=== PATIENT | male | born 1965 | race Caucasian/White ===

== ENCOUNTER 2016-06-27 01:05 | Emergency (ER) | payer SELFPAY ==
[~2016-06-27] VITALS: Ht 182.9 cm; Wt 68.0 kg
[2016-06-27] MEDS ORDERED: ACETAMINOPHEN 325 MG TABLET. PO ONE (02:00)
[2016-06-27] MEDS ORDERED: ORPHENADRINE CITRATE 60 MG/2 ML VIAL. IM ONE (02:00)
[2016-06-27] MEDS ORDERED: KETOROLAC TROMETHAMINE 60 MG/2 ML SYRINGE. IM ONE (02:00)
[2016-06-27] MEDS ORDERED: IPRATRPIUM/ALBUTEROL 0.5/2.5MG 3 ML NEBU. NEB ONE (02:15)
[2016-06-27 02:33] LABS: OBC FLU VALID
--- NOTE | 2016-06-27 03:39 | RAD ---
PQRS STATEMENT One or more of the following individualized dose reduction techniques were utilized for this study:1.Automated exposure control. 2.Adjustment of the mA and/orkVaccording to patient size. 3.Use of iterative reconstruction technique CT chest. Indication: atelectasis vs. infiltrate Reason: right lower lobe atelectasis versus infiltrate, possible rib fractures / Spl. Instructions: / History: TECHNIQUE Multiple contiguous axial images were obtained through the chest. Coronal reformations were created. Findings: There is a masslike opacity in the right lower lobe that measures 4.9 x 3.8 centimeters. There is a very small right pleural effusion. No pneumothorax. There is mild centrilobular emphysema. Heart size is normal. Thoracic aorta is normal in caliber. Limited subdiaphragmatic evaluation shows no acute abnormality. No destructive osseous lesion. There is mediastinal and right greater than left adenopathy. This is difficult to measure in the absence of IV contrast. Impression: - There is a masslike opacity in the right lower lobe. This could represent neoplasm or consolidation from infection. Neoplasm is strongly considered given the presence of mediastinum right hilar adenopathy. Electronically signed by: Froilan Cox (Jun 27, 2016 03:38:12)
[2016-06-27] MEDS ORDERED: LEVO750T31 PO (03:59)
[2016-06-27] MEDS ORDERED: PROAIR HFA8.5 GM INH (03:59)
[2016-06-27] MEDS ORDERED: HYDR-971 PO (03:59)
[2016-06-27 04:00] VITALS: BP 97/56
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
--- NOTE | 2016-06-27 06:30 | EKG ---
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
--- NOTE | 2016-06-27 07:40 | RAD ---
Indication post breathing treatment. A single view of the chest was obtained at 0306 and is compared to an examination approximately 90 minutes earlier. The appearance of the chest is unchanged. Volume loss, compatible with atelectasis or pneumonia, in the right lower lobe persists. IMPRESSION: Persistent volume loss in the right lower lobe most compatible with atelectasis or pneumonia. No significant change in the appearance of the chest compared to the study earlier in the day
== END 2016-06-27 04:15 | disposition home or self-care (01) ==
LOC: ER 01:05
DX: R91.8 Other nonspecific abnormal finding of lung field (principal); R07.89 Other chest pain; F15.10 Other stimulant abuse, uncomplicated
CPT/HCPCS: 71010; 71101; 71250; 87804; 93005; 94640; 96372; 99285; J1885; J2360; J7620

== ENCOUNTER 2016-06-27 16:56 | Inpatient (IN) | payer SELFPAY ==
[~2016-06-27] VITALS: Ht 182.9 cm; Wt 70.0 kg
[~2016-06-27 16:56] MED LIST: HYDR-971 PO; LEVO750T31 PO; PROAIR HFA8.5 GM INH
[2016-06-27] MEDS ORDERED: ACETAMINOPHEN 325 MG TABLET. PO PRN (17:45)
[2016-06-27] MEDS ORDERED: FENTANYL PF 100 MCG/2 ML VIAL. IV PRN (17:45)
[2016-06-27] MEDS ORDERED: ONDANSETRON PF 4 MG/2 ML VIAL. IV PRN (17:45)
[2016-06-27 17:49] LABS: BASO # 0.1 x10^3/uL (0.0-0.2); BASO % 1 % (0-3); EOS % 11 % (0-3); HEMATOCRIT 35.5 % (39.0-53.0); HEMOGLOBIN 11.7 g/dL (13.0-17.5); LYMPH # 1.7 x10^3/uL (1.0-4.8); LYMPH % 21 % (24-48); MEAN CORPUSCULAR HEMOGLOBIN 28 pg (25-35); MEAN CORPUSCULAR HGB CONC 33 g/dL (31-37); MEAN CORPUSCULAR VOLUME 85 fL (79-100); MONO % 6 % (0-9); NEUT % 62 % (31-73); PLATELET COUNT 342 x10^3/uL (140-400); RED CELL DISTRIBUTION WIDTH 15.1 % (11.5-14.5); WHITE BLOOD COUNT 8.3 x10^3/uL (4.0-11.0)
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
[2016-06-27] MEDS: IPRATRPIUM/ALBUTEROL 0.5/2.5MG 3 ML NEBU. NEB SCH (17:59)
[2016-06-27 18:00] LABS: CALCIUM 8.6 mg/dL (8.5-10.1); GFR 79.1; POTASSIUM 3.7 mmol/L (3.5-5.1)
[2016-06-27 19:20] VITALS: BP 128/86
[2016-06-27 23:00] VITALS: BP 140/88
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
[2016-06-28 03:00] VITALS: BP 126/81
[2016-06-28 04:58] LABS: BASO # 0.1 x10^3/uL (0.0-0.2); BASO % 1 % (0-3); EOS % 12 % (0-3); HEMOGLOBIN 11.3 g/dL (13.0-17.5); LYMPH # 1.7 x10^3/uL (1.0-4.8); LYMPH % 22 % (24-48); MEAN CORPUSCULAR HEMOGLOBIN 28 pg (25-35); MEAN CORPUSCULAR HGB CONC 32 g/dL (31-37); MEAN CORPUSCULAR VOLUME 87 fL (79-100); MONO % 7 % (0-9); NEUT % 59 % (31-73); PLATELET COUNT 316 x10^3/uL (140-400); RED BLOOD COUNT 4.04 x10^6/uL (4.30-5.70); RED CELL DISTRIBUTION WIDTH 15.5 % (11.5-14.5); WHITE BLOOD COUNT 7.8 x10^3/uL (4.0-11.0)
[2016-06-28 05:18] LABS: CALCIUM 8.5 mg/dL (8.5-10.1); CREATININE 0.8 mg/dL (0.7-1.3); GFR 102.3; POTASSIUM 4.1 mmol/L (3.5-5.1)
--- NOTE | 2016-06-28 06:33 | EKG ---
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
[2016-06-28 07:00] VITALS: BP 118/71
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
[2016-06-28] MEDS: IPRATRPIUM/ALBUTEROL 0.5/2.5MG 3 ML NEBU. NEB SCH ×4 (08:31→19:31)
[2016-06-28] MEDS: NICOTINE 21MG PATCH. TD SCH (08:31)
--- NOTE | 2016-06-28 09:07 | PDOC ---
Provider Note Provider Note MED ONC CONSULT 1. RLL lung mass - ordered CT, bone scan, MRI brain, Consult pulmonary for bx Consult social media manager as pt has no insurance see dictation YOSI WEEMS MD Jun 28, 2016 09:07
[2016-06-28 11:00] VITALS: BP 114/68
[2016-06-28] MEDS ORDERED: IOHEXOL 300 MG/ML 75 ML VIAL IV ONE (12:15)
[2016-06-28] MEDS ORDERED: CONTRAST GIVEN MC PRN (12:15)
[2016-06-28] MEDS ORDERED: IOHEXOL 240 MG/ML 50ML VIAL. PO ONE (12:15)
--- NOTE | 2016-06-28 12:35 | PDOC ---
Provider Note Provider Note dictated RLL mass like consolidation/ adenopathy suspect malignancy but pneumonic consolidation is also a possibility (CXR in Apr clear but may have missed a sub-pulmonic process as no lateral view done) start antibiotics ct guided bx JEAN ZUNIGA MD Jun 28, 2016 12:35
[2016-06-28 12:48] LABS: ALBUMIN 2.6 g/dL (3.4-5.0); DIRECT BILIRUBIN 0.1 mg/dL (0.0-0.2); TOTAL BILIRUBIN 0.2 mg/dL (0.2-1.0); TOTAL PROTEIN 6.8 g/dL (6.4-8.2)
--- NOTE | 2016-06-28 13:52 | RAD ---
Indication stage IV lung malignancy. 27 mCi of technetium labeled MDP was administered. Whole body static images were obtained. No prior bone scan imaging is available There is some slightly increased uptake in the left ankle which may be posttraumatic or arthritic in nature. Slightly increased uptake in the knees and elbows is likely arthritic. No abnormal activity to suggest skeletal metastatic disease is seen. Normal activity is seen in the kidneys and urinary bladder. IMPRESSION: Negative study for skeletal metastatic disease
[2016-06-28 15:00] VITALS: BP 125/78
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
--- NOTE | 2016-06-28 15:11 | RAD ---
Indication assess for [employer] metastatic disease. Pre and postcontrast images of the head were obtained. Postcontrast images were obtained following the administration of approximately 75 cc of Omnipaque 300. No prior imaging of the head is available. The calvarium appears unremarkable. The visualized paranasal sinuses appear normal. Ventricles and sulci are normal. There is no subdural or epidural hematoma. There is no mass seen. No midline shift is apparent. There is no hemorrhage. Acute finding is not seen. Following contrast administration no abnormal areas are seen to enhance. If the clinical suspicion of [employer] metastatic disease is strong additional evaluation could be obtained with MRI. IMPRESSION: Normal pre and postcontrast CT images of the RS Compliance Statement: One or more of the following individualized dose reduction techniques were utilized for this examination: 1. Automated exposure control 2. Adjustment of the mA and/or kV according to patient size 3. Use of iterative reconstruction technique
--- NOTE | 2016-06-28 15:37 | PDOC ---
PROGRESS NOTES Chief Complaint Chief Complaint SOB Cough R CP ASSESSMENT AND PLAN: 1. Lung mass: CT report prob overinterpreted: d/w Dr Nash and VIR: appears more like PNA. added Abx. however, hx is suspicious in 2ppd smoker, persistent CP x3 months, wt loss... staging CT (head to pelvis) and bone scan otherwise neg 2. PNA: levaquin added; suppl O2 3. Tobacco use: cessation counseled. nicotine patch 4. PCM: moderate. supplements 5. Prophylaxis: lovenox 6. Dispo: rpt CXR on Fri, reeval clinical picture. poss d/c then Vitals Vitals Vital Signs Date Time Temp Pulse Resp B/P Pulse Ox O2 Delivery O2 Flow Rate FiO2 06/28/16 12:08 98 Room Air 06/28/16 11:00 98.6 75 20 114/68 98.6 Physical Exam General: Alert, Oriented X3, No acute distress Heart: Regular rate Lungs: Wheezing Abdomen: Normal bowel sounds, Soft, No tenderness Extremities: No clubbing, No edema Skin: No rashes Labs LABS Laboratory Tests Test 06/27/16 17:37 06/28/16 04:25 06/28/16 11:19 White Blood Count 8.3x10^3/uL (4.0-11.0) 7.8x10^3/uL (4.0-11.0) Red Blood Count 4.20x10^6/uL (4.30-5.70) 4.04x10^6/uL (4.30-5.70) Hemoglobin 11.7g/dL (13.0-17.5) 11.3g/dL (13.0-17.5) Hematocrit 35.5% (39.0-53.0) 35.0% (39.0-53.0) Mean Corpuscular Volume 85fL (79-100) 87fL (79-100) Mean Corpuscular Hemoglobin 28pg (25-35) 28pg (25-35) Mean Corpuscular Hemoglobin Concent 33g/dL (31-37) 32g/dL (31-37) Red Cell Distribution Width 15.1% (11.5-14.5) 15.5% (11.5-14.5) Platelet Count 342x10^3/uL (140-400) 316x10^3/uL (140-400) Neutrophils (%) (Auto) 62% (31-73) 59% (31-73) Lymphocytes (%) (Auto) 21% (24-48) 22% (24-48) Monocytes (%) (Auto) 6% (0-9) 7% (0-9) Eosinophils (%) (Auto) 11% (0-3) 12% (0-3) Basophils (%) (Auto) 1% (0-3) 1% (0-3) Neutrophils # (Auto) 5.2x10^3uL (1.8-7.7) 4.6x10^3uL (1.8-7.7) Lymphocytes # (Auto) 1.7x10^3/uL (1.0-4.8) 1.7x10^3/uL (1.0-4.8) Monocytes # (Auto) 0.5x10^3/uL (0.0-1.1) 0.5x10^3/uL (0.0-1.1) Eosinophils # (Auto) 0.9x10^3/uL (0.0-0.7) 0.9x10^3/uL (0.0-0.7) Basophils # (Auto) 0.1x10^3/uL (0.0-0.2) 0.1x10^3/uL (0.0-0.2) Sodium Level 139mmol/L (136-145) 140mmol/L (136-145) Potassium Level 3.7mmol/L (3.5-5.1) 4.1mmol/L (3.5-5.1) Chloride Level 105mmol/L (98-107) 106mmol/L (98-107) Carbon Dioxide Level 27mmol/L (21-32) 26mmol/L (21-32) Anion Gap 7 (6-14) 8 (6-14) Blood Urea Nitrogen 10mg/dL (8-26) 8mg/dL (8-26) Creatinine 1.0mg/dL (0.7-1.3) 0.8mg/dL (0.7-1.3) Estimated GFR (Cockcroft-Gault) 79.1 102.3 Glucose Level 156mg/dL (70-99) 98mg/dL (70-99) Calcium Level 8.6mg/dL (8.5-10.1) 8.5mg/dL (8.5-10.1) Troponin I Quantitative < 0.017ng/mL (0.000-0.055) Total Bilirubin 0.2mg/dL (0.2-1.0) Direct Bilirubin 0.1mg/dL (0.0-0.2) Aspartate Amino Transf (AST/SGOT) 26U/L (15-37) Alanine Aminotransferase (ALT/SGPT) 28U/L (16-63) Alkaline Phosphatase 94U/L (46-116) Total Protein 6.8g/dL (6.4-8.2) Albumin 2.6g/dL (3.4-5.0) Glucose (Fingerstick) 97mg/dL (70-99) Review of Systems Review of Systems remains SOB, worse with exertion. R CP waxing and waning Comment Review of Relevant I have reviewed the following items reynold (where applicable) has been applied. Labs Laboratory Tests Test 06/27/16 17:37 06/28/16 04:25 06/28/16 11:19 White Blood Count 8.3x10^3/uL (4.0-11.0) 7.8x10^3/uL (4.0-11.0) Red Blood Count 4.20x10^6/uL (4.30-5.70) 4.04x10^6/uL (4.30-5.70) Hemoglobin 11.7g/dL (13.0-17.5) 11.3g/dL (13.0-17.5) Hematocrit 35.5% (39.0-53.0) 35.0% (39.0-53.0) Mean Corpuscular Volume 85fL (79-100) 87fL (79-100) Mean Corpuscular Hemoglobin 28pg (25-35) 28pg (25-35) Mean Corpuscular Hemoglobin Concent 33g/dL (31-37) 32g/dL (31-37) Red Cell Distribution Width 15.1% (11.5-14.5) 15.5% (11.5-14.5) Platelet Count 342x10^3/uL (140-400) 316x10^3/uL (140-400) Neutrophils (%) (Auto) 62% (31-73) 59% (31-73) Lymphocytes (%) (Auto) 21% (24-48) 22% (24-48) Monocytes (%) (Auto) 6% (0-9) 7% (0-9) Eosinophils (%) (Auto) 11% (0-3) 12% (0-3) Basophils (%) (Auto) 1% (0-3) 1% (0-3) Neutrophils # (Auto) 5.2x10^3uL (1.8-7.7) 4.6x10^3uL (1.8-7.7) Lymphocytes # (Auto) 1.7x10^3/uL (1.0-4.8) 1.7x10^3/uL (1.0-4.8) Monocytes # (Auto) 0.5x10^3/uL (0.0-1.1) 0.5x10^3/uL (0.0-1.1) Eosinophils # (Auto) 0.9x10^3/uL (0.0-0.7) 0.9x10^3/uL (0.0-0.7) Basophils # (Auto) 0.1x10^3/uL (0.0-0.2) 0.1x10^3/uL (0.0-0.2) Sodium Level 139mmol/L (136-145) 140mmol/L (136-145) Potassium Level 3.7mmol/L (3.5-5.1) 4.1mmol/L (3.5-5.1) Chloride Level 105mmol/L (98-107) 106mmol/L (98-107) Carbon Dioxide Level 27mmol/L (21-32) 26mmol/L (21-32) Anion Gap 7 (6-14) 8 (6-14) Blood Urea Nitrogen 10mg/dL (8-26) 8mg/dL (8-26) Creatinine 1.0mg/dL (0.7-1.3) 0.8mg/dL (0.7-1.3) Estimated GFR (Cockcroft-Gault) 79.1 102.3 Glucose Level 156mg/dL (70-99) 98mg/dL (70-99) Calcium Level 8.6mg/dL (8.5-10.1) 8.5mg/dL (8.5-10.1) Troponin I Quantitative < 0.017ng/mL (0.000-0.055) Total Bilirubin 0.2mg/dL (0.2-1.0) Direct Bilirubin 0.1mg/dL (0.0-0.2) Aspartate Amino Transf (AST/SGOT) 26U/L (15-37) Alanine Aminotransferase (ALT/SGPT) 28U/L (16-63) Alkaline Phosphatase 94U/L (46-116) Total Protein 6.8g/dL (6.4-8.2) Albumin 2.6g/dL (3.4-5.0) Glucose (Fingerstick) 97mg/dL (70-99) Laboratory Tests Test 06/27/16 17:37 06/28/16 04:25 06/28/16 11:19 White Blood Count 8.3x10^3/uL (4.0-11.0) 7.8x10^3/uL (4.0-11.0) Red Blood Count 4.20x10^6/uL (4.30-5.70) 4.04x10^6/uL (4.30-5.70) Hemoglobin 11.7g/dL (13.0-17.5) 11.3g/dL (13.0-17.5) Hematocrit 35.5% (39.0-53.0) 35.0% (39.0-53.0) Mean Corpuscular Volume 85fL (79-100) 87fL (79-100) Mean Corpuscular Hemoglobin 28pg (25-35) 28pg (25-35) Mean Corpuscular Hemoglobin Concent 33g/dL (31-37) 32g/dL (31-37) Red Cell Distribution Width 15.1% (11.5-14.5) 15.5% (11.5-14.5) Platelet Count 342x10^3/uL (140-400) 316x10^3/uL (140-400) Neutrophils (%) (Auto) 62% (31-73) 59% (31-73) Lymphocytes (%) (Auto) 21% (24-48) 22% (24-48) Monocytes (%) (Auto) 6% (0-9) 7% (0-9) Eosinophils (%) (Auto) 11% (0-3) 12% (0-3) Basophils (%) (Auto) 1% (0-3) 1% (0-3) Neutrophils # (Auto) 5.2x10^3uL (1.8-7.7) 4.6x10^3uL (1.8-7.7) Lymphocytes # (Auto) 1.7x10^3/uL (1.0-4.8) 1.7x10^3/uL (1.0-4.8) Monocytes # (Auto) 0.5x10^3/uL (0.0-1.1) 0.5x10^3/uL (0.0-1.1) Eosinophils # (Auto) 0.9x10^3/uL (0.0-0.7) 0.9x10^3/uL (0.0-0.7) Basophils # (Auto) 0.1x10^3/uL (0.0-0.2) 0.1x10^3/uL (0.0-0.2) Sodium Level 139mmol/L (136-145) 140mmol/L (136-145) Potassium Level 3.7mmol/L (3.5-5.1) 4.1mmol/L (3.5-5.1) Chloride Level 105mmol/L (98-107) 106mmol/L (98-107) Carbon Dioxide Level 27mmol/L (21-32) 26mmol/L (21-32) Anion Gap 7 (6-14) 8 (6-14) Blood Urea Nitrogen 10mg/dL (8-26) 8mg/dL (8-26) Creatinine 1.0mg/dL (0.7-1.3) 0.8mg/dL (0.7-1.3) Estimated GFR (Cockcroft-Gault) 79.1 102.3 Glucose Level 156mg/dL (70-99) 98mg/dL (70-99) Calcium Level 8.6mg/dL (8.5-10.1) 8.5mg/dL (8.5-10.1) Troponin I Quantitative < 0.017ng/mL (0.000-0.055) Total Bilirubin 0.2mg/dL (0.2-1.0) Direct Bilirubin 0.1mg/dL (0.0-0.2) Aspartate Amino Transf (AST/SGOT) 26U/L (15-37) Alanine Aminotransferase (ALT/SGPT) 28U/L (16-63) Alkaline Phosphatase 94U/L (46-116) Total Protein 6.8g/dL (6.4-8.2) Albumin 2.6g/dL (3.4-5.0) Glucose (Fingerstick) 97mg/dL (70-99) Medications Current Medications Ondansetron HCl (Zofran) 4 mg PRN Q8HRS PRN IV NAUSEA/VOMITING; Start 06/27/16 at 17:45; Stop 06/28/16 at 17:44 Fentanyl Citrate (Fentanyl 2ml Vial) 50 mcg PRN Q2HR PRN IV PAIN; Start at 17:45; Stop 06/28/16 at 17:44 Acetaminophen (Tylenol) 650 mg PRN Q4HRS PRN PO FEVER; Start 06/27/16 at 17:45 ; Stop 06/28/16 at 17:44 Albuterol/ Ipratropium (Duoneb) 3 ml RTQID NEB Last administered on 06/28/16 12:08; Start 06/27/16 at 20:00; Stop 06/28/16 at 19:59 Nicotine (Nicoderm Cq 21mg) 1 patch DAILY TD Last administered on 06/28/16 08: 31; Start 06/28/16 at 09:00 Iohexol (Omnipaque 240 Mg/ml) 30 ml 1X ONCE PO Last administered on 06/28/16 13:24; Start 06/28/16 at 12:15; Stop 06/28/16 at 12:16; Status DC Iohexol (Omnipaque 300 Mg/ml) 75 ml 1X ONCE IV Last administered on 06/28/16 13:24; Start 06/28/16 at 12:15; Stop 06/28/16 at 12:16; Status DC Info (Do NOT chart on this entry -- for MONITORING) 1 each PRN DAILY PRN MC SEE COMMENTS; Start 06/28/16 at 12:15; Stop 06/30/16 at 12:14 Active Scripts Active [place] 5-325 Tablet (Acetaminophen/Hydrocodone Bitart) 1 Each Tablet 1-2 Tab PO Q4-6HRS PRN Proair Hfa Inhaler (Albuterol Sulfate) 8.5 Gm Hfa.aer.ad 2 Puff INH Q4-6HRS PRN Levaquin (Levofloxacin) 750 Mg Tablet 1 Tab PO DAILY Reported No Known Medications Prior To Admisstion (Info) Each 1 Each No Known Medications Prior To Admisstion (Info) Each 1 Each Vitals/I & O Vital Sign - Last 24 Hours 06/27/16 06/27/16 06/27/16 06/27/16 17:21 17:59 18:42 19:12 Temp 97.4 97.4 Pulse 69 72 78 Resp 18 B/P 145/88 130/77 125/70 Pulse Ox 99 96 96 96 O2 Delivery Room Air Room Air Room Air Room Air 06/27/16 06/27/16 06/27/16 06/28/16 19:20 23:00 23:32 03:00 Temp 98.1 98.4 98.3 98.1 98.4 98.3 Pulse 70 71 67 Resp 20 18 18 B/P 128/86 140/88 126/81 Pulse Ox 99 98 98 O2 Delivery Room Air 06/28/16 06/28/16 06/28/16 06/28/16 07:00 08:33 11:00 12:08 Temp 98.6 98.6 98.6 98.6 Pulse 74 75 Resp 20 20 B/P 118/71 114/68 Pulse Ox 96 97 96 98 O2 Delivery Room Air Room Air Room Air Room Air Intake and Output 06/27/16 06/27/16 06/28/16 15:00 23:00 07:00 Intake Total 240 ml Balance 240 ml ANA MADDEN MD Jun 28, 2016 15:37
[2016-06-28] MEDS: ENOXAPARIN 40 MG/0.4 ML DISP.SYRIN. SQ SCH (18:15)
[2016-06-28 19:44] VITALS: BP 116/70
[2016-06-28 22:49] VITALS: BP 121/79
--- NOTE | 2016-06-28 23:48 | CONS ---
DATE OF CONSULTATION: 06/28/2016 ATTENDING PHYSICIAN: Dr. Ana Flores REASON FOR CONSULTATION: Abnormal CT chest, lung mass. HISTORY OF PRESENT ILLNESS: The patient is a 50-year-old male who came to the hospital with complaint of pain in the right side of the chest and shortness of breath. He has a cough which has been present for 6 months. He has lost about 10-pound weight in last 6 months, which is all unintentional. The patient was seen in the Emergency Room. A CT chest was performed, which was reviewed by me. The patient has a mass which is about 3.9 cm in size in the right lower lobe. There is also right hilar adenopathy and also pretracheal adenopathy. There are surrounding infiltrates as well. He had a chest x-ray in April 2016. At that time, it was clear. Consultation requested for further evaluation and management. PAST MEDICAL HISTORY: History of tobaccoism for 20 years. Possible COPD. PAST SURGICAL HISTORY: No recent surgery. FAMILY HISTORY: Father with lung cancer at age 55. 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 ALLERGIES: None. CURRENT MEDICATIONS: Reviewed as listed in the MRAD. REVIEW OF SYSTEMS: As discussed in my history of present illness. Otherwise, noncontributory. PHYSICAL EXAMINATION: VITAL SIGNS: Stable, afebrile, pulse ox 98% on room air. NECK: Supple. LUNGS: Diminished breath sounds right base. CARDIOVASCULAR: Regular rate and rhythm. ABDOMEN: Soft, nontender. EXTREMITIES: With no pitting edema. LABORATORY DATA: Reviewed. White cell count 7.8, hemoglobin 11.3, platelets 316, BUN 18, creatinine 0.8. IMPRESSION: 1. Right lower lobe mass in a patient who has been coughing for 6 months. He has right hilar adenopathy and pretracheal adenopathy and 10-pound unintentional weight loss. I suspect that we most likely dealing with a primary lung malignancy, however a pneumonic consolidation is also a consideration. His chest x-ray was clear in 04/2016 but it may have missed a sub-pulmonic process based on a portable CXR. I would recommend to proceed with CT-guided biopsy for further evaluation . 2. Suspected underlying chronic obstructive pulmonary disease. 3. Ten-pound weight loss. RECOMMENDATIONS: 1. Proceed with metastatic workup per Oncology recommendations. 2. Discussed with the patient, he agrees to proceed with CT-guided biopsy. 3. PFTs as an outpatient. 4. Further recommendations to follow once biopsy results and further imaging studies are available. 5. I would recommend adding empiric antibiotics for now. JEAN ZUNIGA MD DR: ELVIS/rafita JOB#: [id number] / [id number] ANA Jack MD MTDRamin
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
[2016-06-29] MEDS: IBUPROFEN 400 MG TABLET. PO PRN ×4 (03:09→22:20)
[2016-06-29 05:41] LABS: BASO # 0.1 x10^3/uL (0.0-0.2); BASO % 1 % (0-3); EOS % 11 % (0-3); HEMOGLOBIN 11.6 g/dL (13.0-17.5); LYMPH # 1.8 x10^3/uL (1.0-4.8); LYMPH % 25 % (24-48); MEAN CORPUSCULAR HEMOGLOBIN 28 pg (25-35); MEAN CORPUSCULAR HGB CONC 32 g/dL (31-37); MEAN CORPUSCULAR VOLUME 86 fL (79-100); MONO % 7 % (0-9); NEUT % 56 % (31-73); PLATELET COUNT 327 x10^3/uL (140-400); RED BLOOD COUNT 4.17 x10^6/uL (4.30-5.70); RED CELL DISTRIBUTION WIDTH 15.2 % (11.5-14.5); WHITE BLOOD COUNT 7.3 x10^3/uL (4.0-11.0)
[2016-06-29 06:09] LABS: CALCIUM 8.7 mg/dL (8.5-10.1); CREATININE 0.8 mg/dL (0.7-1.3); GFR 102.3; POTASSIUM 3.9 mmol/L (3.5-5.1)
[2016-06-29 07:00] VITALS: BP 145/79
[2016-06-29] MEDS: NICOTINE 21MG PATCH. TD SCH (08:25)
[2016-06-29 11:00] VITALS: BP 108/64
--- NOTE | 2016-06-29 11:09 | PDOC ---
PROGRESS NOTES Chief Complaint Chief Complaint SOB Cough R CP ASSESSMENT AND PLAN: 1. Lung mass: CT report prob overinterpreted: d/w Dr Nash and VIR: appears more like PNA. added Abx. however, hx is suspicious in 2ppd smoker, persistent CP x3 months, wt loss... staging CT (head to pelvis) and bone scan otherwise neg 2. PNA: levaquin added; suppl O2 3. Tobacco use: cessation counseled. nicotine patch 4. PCM: moderate. supplements 5. Prophylaxis: lovenox 6. Dispo: rpt CXR on Fri, reeval clinical picture. poss d/c then History of Present Illness History of Present Illness Pt seen and examined DW RN VSS Vitals Vitals Vital Signs Date Time Temp Pulse Resp B/P Pulse Ox O2 Delivery O2 Flow Rate FiO2 06/29/16 11:00 97.7 74 18 108/64 97 Room Air 97.7 Physical Exam General: Alert, Oriented X3, No acute distress Heart: Regular rate, Normal S2 Lungs: Wheezing Abdomen: Normal bowel sounds, Soft, No tenderness Extremities: No clubbing, No edema Skin: No rashes Labs LABS Laboratory Tests Test 06/28/16 11:19 06/29/16 04:45 Glucose (Fingerstick) 97mg/dL (70-99) White Blood Count 7.3x10^3/uL (4.0-11.0) Red Blood Count 4.17x10^6/uL (4.30-5.70) Hemoglobin 11.6g/dL (13.0-17.5) Hematocrit 36.0% (39.0-53.0) Mean Corpuscular Volume 86fL (79-100) Mean Corpuscular Hemoglobin 28pg (25-35) Mean Corpuscular Hemoglobin Concent 32g/dL (31-37) Red Cell Distribution Width 15.2% (11.5-14.5) Platelet Count 327x10^3/uL (140-400) Neutrophils (%) (Auto) 56% (31-73) Lymphocytes (%) (Auto) 25% (24-48) Monocytes (%) (Auto) 7% (0-9) Eosinophils (%) (Auto) 11% (0-3) Basophils (%) (Auto) 1% (0-3) Neutrophils # (Auto) 4.1x10^3uL (1.8-7.7) Lymphocytes # (Auto) 1.8x10^3/uL (1.0-4.8) Monocytes # (Auto) 0.5x10^3/uL (0.0-1.1) Eosinophils # (Auto) 0.8x10^3/uL (0.0-0.7) Basophils # (Auto) 0.1x10^3/uL (0.0-0.2) Sodium Level 141mmol/L (136-145) Potassium Level 3.9mmol/L (3.5-5.1) Chloride Level 104mmol/L (98-107) Carbon Dioxide Level 28mmol/L (21-32) Anion Gap 9 (6-14) Blood Urea Nitrogen 13mg/dL (8-26) Creatinine 0.8mg/dL (0.7-1.3) Estimated GFR (Cockcroft-Gault) 102.3 Glucose Level 109mg/dL (70-99) Calcium Level 8.7mg/dL (8.5-10.1) Review of Systems Review of Systems CO CP CO WEAKNESS Assessment and Plan Assessmemt and Plan Problems Medical Problems: (1) Chest pain Status: Acute (2) Lung infiltrate Status: Acute ASSESSMENT AND PLAN: 1. Lung mass: CT report prob overinterpreted: d/w Dr Nash and VIR: appears more like PNA. added Abx. however, hx is suspicious in 2ppd smoker, persistent CP x3 months, wt loss... staging CT (head to pelvis) and bone scan otherwise neg 2. PNA: levaquin added; suppl O2 3. Tobacco use: cessation counseled. nicotine patch 4. PCM: moderate. supplements 5. Prophylaxis: lovenox 6. Dispo: rpt CXR on Mon, reeval clinical picture. poss d/c then Problems: Comment Review of Relevant I have reviewed the following items reynold (where applicable) has been applied. Labs Laboratory Tests Test 06/27/16 17:37 06/28/16 04:25 06/28/16 11:19 06/29/16 04:45 White Blood Count 8.3x10^3/uL (4.0-11.0) 7.8x10^3/uL (4.0-11.0) 7.3x10^3/uL (4.0-11.0) Red Blood Count 4.20x10^6/uL (4.30-5.70) 4.04x10^6/uL (4.30-5.70) 4.17x10^6/uL (4.30-5.70) Hemoglobin 11.7g/dL (13.0-17.5) 11.3g/dL (13.0-17.5) 11.6g/dL (13.0-17.5) Hematocrit 35.5% (39.0-53.0) 35.0% (39.0-53.0) 36.0% (39.0-53.0) Mean Corpuscular Volume 85fL (79-100) 87fL (79-100) 86fL (79-100) Mean Corpuscular Hemoglobin 28pg (25-35) 28pg (25-35) 28pg (25-35) Mean Corpuscular Hemoglobin Concent 33g/dL (31-37) 32g/dL (31-37) 32g/dL (31-37) Red Cell Distribution Width 15.1% (11.5-14.5) 15.5% (11.5-14.5) 15.2% (11.5-14.5) Platelet Count 342x10^3/uL (140-400) 316x10^3/uL (140-400) 327x10^3/uL (140-400) Neutrophils (%) (Auto) 62% (31-73) 59% (31-73) 56% (31-73) Lymphocytes (%) (Auto) 21% (24-48) 22% (24-48) 25% (24-48) Monocytes (%) (Auto) 6% (0-9) 7% (0-9) 7% (0-9) Eosinophils (%) (Auto) 11% (0-3) 12% (0-3) 11% (0-3) Basophils (%) (Auto) 1% (0-3) 1% (0-3) 1% (0-3) Neutrophils # (Auto) 5.2x10^3uL (1.8-7.7) 4.6x10^3uL (1.8-7.7) 4.1x10^3uL (1.8-7.7) Lymphocytes # (Auto) 1.7x10^3/uL (1.0-4.8) 1.7x10^3/uL (1.0-4.8) 1.8x10^3/uL (1.0-4.8) Monocytes # (Auto) 0.5x10^3/uL (0.0-1.1) 0.5x10^3/uL (0.0-1.1) 0.5x10^3/uL (0.0-1.1) Eosinophils # (Auto) 0.9x10^3/uL (0.0-0.7) 0.9x10^3/uL (0.0-0.7) 0.8x10^3/uL (0.0-0.7) Basophils # (Auto) 0.1x10^3/uL (0.0-0.2) 0.1x10^3/uL (0.0-0.2) 0.1x10^3/uL (0.0-0.2) Sodium Level 139mmol/L (136-145) 140mmol/L (136-145) 141mmol/L (136-145) Potassium Level 3.7mmol/L (3.5-5.1) 4.1mmol/L (3.5-5.1) 3.9mmol/L (3.5-5.1) Chloride Level 105mmol/L (98-107) 106mmol/L (98-107) 104mmol/L (98-107) Carbon Dioxide Level 27mmol/L (21-32) 26mmol/L (21-32) 28mmol/L (21-32) Anion Gap 7 (6-14) 8 (6-14) 9 (6-14) Blood Urea Nitrogen 10mg/dL (8-26) 8mg/dL (8-26) 13mg/dL (8-26) Creatinine 1.0mg/dL (0.7-1.3) 0.8mg/dL (0.7-1.3) 0.8mg/dL (0.7-1.3) Estimated GFR (Cockcroft-Gault) 79.1 102.3 102.3 Glucose Level 156mg/dL (70-99) 98mg/dL (70-99) 109mg/dL (70-99) Calcium Level 8.6mg/dL (8.5-10.1) 8.5mg/dL (8.5-10.1) 8.7mg/dL (8.5-10.1) Troponin I Quantitative < 0.017ng/mL (0.000-0.055) Total Bilirubin 0.2mg/dL (0.2-1.0) Direct Bilirubin 0.1mg/dL (0.0-0.2) Aspartate Amino Transf (AST/SGOT) 26U/L (15-37) Alanine Aminotransferase (ALT/SGPT) 28U/L (16-63) Alkaline Phosphatase 94U/L (46-116) Total Protein 6.8g/dL (6.4-8.2) Albumin 2.6g/dL (3.4-5.0) Glucose (Fingerstick) 97mg/dL (70-99) Laboratory Tests Test 06/28/16 11:19 06/29/16 04:45 Glucose (Fingerstick) 97mg/dL (70-99) White Blood Count 7.3x10^3/uL (4.0-11.0) Red Blood Count 4.17x10^6/uL (4.30-5.70) Hemoglobin 11.6g/dL (13.0-17.5) Hematocrit 36.0% (39.0-53.0) Mean Corpuscular Volume 86fL (79-100) Mean Corpuscular Hemoglobin 28pg (25-35) Mean Corpuscular Hemoglobin Concent 32g/dL (31-37) Red Cell Distribution Width 15.2% (11.5-14.5) Platelet Count 327x10^3/uL (140-400) Neutrophils (%) (Auto) 56% (31-73) Lymphocytes (%) (Auto) 25% (24-48) Monocytes (%) (Auto) 7% (0-9) Eosinophils (%) (Auto) 11% (0-3) Basophils (%) (Auto) 1% (0-3) Neutrophils # (Auto) 4.1x10^3uL (1.8-7.7) Lymphocytes # (Auto) 1.8x10^3/uL (1.0-4.8) Monocytes # (Auto) 0.5x10^3/uL (0.0-1.1) Eosinophils # (Auto) 0.8x10^3/uL (0.0-0.7) Basophils # (Auto) 0.1x10^3/uL (0.0-0.2) Sodium Level 141mmol/L (136-145) Potassium Level 3.9mmol/L (3.5-5.1) Chloride Level 104mmol/L (98-107) Carbon Dioxide Level 28mmol/L (21-32) Anion Gap 9 (6-14) Blood Urea Nitrogen 13mg/dL (8-26) Creatinine 0.8mg/dL (0.7-1.3) Estimated GFR (Cockcroft-Gault) 102.3 Glucose Level 109mg/dL (70-99) Calcium Level 8.7mg/dL (8.5-10.1) Medications Current Medications Ondansetron HCl (Zofran) 4 mg PRN Q8HRS PRN IV NAUSEA/VOMITING; Start 06/27/16 at 17:45; Stop 06/28/16 at 17:44; Status DC Fentanyl Citrate (Fentanyl 2ml Vial) 50 mcg PRN Q2HR PRN IV PAIN; Start at 17:45; Stop 06/28/16 at 17:44; Status DC Acetaminophen (Tylenol) 650 mg PRN Q4HRS PRN PO FEVER; Start 06/27/16 at 17:45 ; Stop 06/28/16 at 17:44; Status DC Albuterol/ Ipratropium (Duoneb) 3 ml RTQID NEB Last administered on 06/28/16 19:31; Start 06/27/16 at 20:00; Stop 06/28/16 at 19:59; Status DC Nicotine (Nicoderm Cq 21mg) 1 patch DAILY TD Last administered on 06/29/16 08: 25; Start 06/28/16 at 09:00 Iohexol (Omnipaque 240 Mg/ml) 30 ml 1X ONCE PO Last administered on 06/28/16 13:24; Start 06/28/16 at 12:15; Stop 06/28/16 at 12:16; Status DC Iohexol (Omnipaque 300 Mg/ml) 75 ml 1X ONCE IV Last administered on 06/28/16 13:24; Start 06/28/16 at 12:15; Stop 06/28/16 at 12:16; Status DC Info 1 each 1 each PRN DAILY PRN MC SEE COMMENTS; Start 06/28/16 at 12:15; Stop 06/30/16 at 12:14 Levofloxacin/ Dextrose (LEVAQUIN 500mg PREMIX) 100 ml @ 100 mls/hr Q24H IV Last administered on 06/28/16 18:14; Start 06/28/16 at 16:00 Ibuprofen (Motrin) 400 mg PRN Q6HRS PRN PO INFLAMMATION Last administered on 08:41; Start 06/28/16 at 15:30 Enoxaparin Sodium (Lovenox 40mg Syringe) 40 mg Q24H SQ Last administered on 18:15; Start 06/28/16 at 16:00 Active Scripts Active [place] 5-325 Tablet (Acetaminophen/Hydrocodone Bitart) 1 Each Tablet 1-2 Tab PO Q4-6HRS PRN Proair Hfa Inhaler (Albuterol Sulfate) 8.5 Gm Hfa.aer.ad 2 Puff INH Q4-6HRS PRN Levaquin (Levofloxacin) 750 Mg Tablet 1 Tab PO DAILY Reported No Known Medications Prior To Admisstion (Info) Each 1 Each No Known Medications Prior To Admisstion (Info) Each 1 Each Vitals/I & O Vital Sign - Last 24 Hours 06/28/16 06/28/16 06/28/16 06/28/16 12:08 15:00 15:56 19:44 Temp 97.9 98.6 97.9 98.6 Pulse 76 81 Resp 20 B/P 125/78 116/70 Pulse Ox 98 98 100 96 O2 Delivery Room Air Room Air Room Air Room Air 06/28/16 06/28/16 06/28/16 06/29/16 20:00 20:07 22:49 03:45 Temp 98.6 98.6 Pulse 86 Resp 20 20 B/P 121/79 Pulse Ox 98 96 O2 Delivery Room Air Room Air Room Air Room Air 06/29/16 06/29/16 06/29/16 07:00 08:00 11:00 Temp 98.2 97.7 98.2 97.7 Pulse 67 74 Resp 18 18 B/P 145/79 108/64 Pulse Ox 98 97 O2 Delivery Room Air Room Air Room Air Intake and Output 06/28/16 06/28/16 06/29/16 15:00 23:00 07:00 Intake Total 120 ml 360 ml 850 ml Balance 120 ml 360 ml 850 ml KHUSHBOO GREENWOOD III DO Jun 29, 2016 11:09
[2016-06-29 14:53] VITALS: BP 132/71
--- NOTE | 2016-06-29 15:10 | PDOC ---
PULMONARY PROGRESS NOTES Vitals Vital Signs Date Time Temp Pulse Resp B/P Pulse Ox O2 Delivery O2 Flow Rate FiO2 06/29/16 14:53 97.9 69 18 132/71 98 Room Air 97.9 Lungs: Wheezing Cardiovascular: S1, S2 Labs Laboratory Tests Test 06/27/16 17:37 06/28/16 04:25 06/28/16 11:19 06/29/16 04:45 White Blood Count 8.3x10^3/uL (4.0-11.0) 7.8x10^3/uL (4.0-11.0) 7.3x10^3/uL (4.0-11.0) Red Blood Count 4.20x10^6/uL (4.30-5.70) 4.04x10^6/uL (4.30-5.70) 4.17x10^6/uL (4.30-5.70) Hemoglobin 11.7g/dL (13.0-17.5) 11.3g/dL (13.0-17.5) 11.6g/dL (13.0-17.5) Hematocrit 35.5% (39.0-53.0) 35.0% (39.0-53.0) 36.0% (39.0-53.0) Mean Corpuscular Volume 85fL (79-100) 87fL (79-100) 86fL (79-100) Mean Corpuscular Hemoglobin 28pg (25-35) 28pg (25-35) 28pg (25-35) Mean Corpuscular Hemoglobin Concent 33g/dL (31-37) 32g/dL (31-37) 32g/dL (31-37) Red Cell Distribution Width 15.1% (11.5-14.5) 15.5% (11.5-14.5) 15.2% (11.5-14.5) Platelet Count 342x10^3/uL (140-400) 316x10^3/uL (140-400) 327x10^3/uL (140-400) Neutrophils (%) (Auto) 62% (31-73) 59% (31-73) 56% (31-73) Lymphocytes (%) (Auto) 21% (24-48) 22% (24-48) 25% (24-48) Monocytes (%) (Auto) 6% (0-9) 7% (0-9) 7% (0-9) Eosinophils (%) (Auto) 11% (0-3) 12% (0-3) 11% (0-3) Basophils (%) (Auto) 1% (0-3) 1% (0-3) 1% (0-3) Neutrophils # (Auto) 5.2x10^3uL (1.8-7.7) 4.6x10^3uL (1.8-7.7) 4.1x10^3uL (1.8-7.7) Lymphocytes # (Auto) 1.7x10^3/uL (1.0-4.8) 1.7x10^3/uL (1.0-4.8) 1.8x10^3/uL (1.0-4.8) Monocytes # (Auto) 0.5x10^3/uL (0.0-1.1) 0.5x10^3/uL (0.0-1.1) 0.5x10^3/uL (0.0-1.1) Eosinophils # (Auto) 0.9x10^3/uL (0.0-0.7) 0.9x10^3/uL (0.0-0.7) 0.8x10^3/uL (0.0-0.7) Basophils # (Auto) 0.1x10^3/uL (0.0-0.2) 0.1x10^3/uL (0.0-0.2) 0.1x10^3/uL (0.0-0.2) Sodium Level 139mmol/L (136-145) 140mmol/L (136-145) 141mmol/L (136-145) Potassium Level 3.7mmol/L (3.5-5.1) 4.1mmol/L (3.5-5.1) 3.9mmol/L (3.5-5.1) Chloride Level 105mmol/L (98-107) 106mmol/L (98-107) 104mmol/L (98-107) Carbon Dioxide Level 27mmol/L (21-32) 26mmol/L (21-32) 28mmol/L (21-32) Anion Gap 7 (6-14) 8 (6-14) 9 (6-14) Blood Urea Nitrogen 10mg/dL (8-26) 8mg/dL (8-26) 13mg/dL (8-26) Creatinine 1.0mg/dL (0.7-1.3) 0.8mg/dL (0.7-1.3) 0.8mg/dL (0.7-1.3) Estimated GFR (Cockcroft-Gault) 79.1 102.3 102.3 Glucose Level 156mg/dL (70-99) 98mg/dL (70-99) 109mg/dL (70-99) Calcium Level 8.6mg/dL (8.5-10.1) 8.5mg/dL (8.5-10.1) 8.7mg/dL (8.5-10.1) Troponin I Quantitative < 0.017ng/mL (0.000-0.055) Total Bilirubin 0.2mg/dL (0.2-1.0) Direct Bilirubin 0.1mg/dL (0.0-0.2) Aspartate Amino Transf (AST/SGOT) 26U/L (15-37) Alanine Aminotransferase (ALT/SGPT) 28U/L (16-63) Alkaline Phosphatase 94U/L (46-116) Total Protein 6.8g/dL (6.4-8.2) Albumin 2.6g/dL (3.4-5.0) Glucose (Fingerstick) 97mg/dL (70-99) Laboratory Tests Test 06/29/16 04:45 White Blood Count 7.3x10^3/uL (4.0-11.0) Red Blood Count 4.17x10^6/uL (4.30-5.70) Hemoglobin 11.6g/dL (13.0-17.5) Hematocrit 36.0% (39.0-53.0) Mean Corpuscular Volume 86fL (79-100) Mean Corpuscular Hemoglobin 28pg (25-35) Mean Corpuscular Hemoglobin Concent 32g/dL (31-37) Red Cell Distribution Width 15.2% (11.5-14.5) Platelet Count 327x10^3/uL (140-400) Neutrophils (%) (Auto) 56% (31-73) Lymphocytes (%) (Auto) 25% (24-48) Monocytes (%) (Auto) 7% (0-9) Eosinophils (%) (Auto) 11% (0-3) Basophils (%) (Auto) 1% (0-3) Neutrophils # (Auto) 4.1x10^3uL (1.8-7.7) Lymphocytes # (Auto) 1.8x10^3/uL (1.0-4.8) Monocytes # (Auto) 0.5x10^3/uL (0.0-1.1) Eosinophils # (Auto) 0.8x10^3/uL (0.0-0.7) Basophils # (Auto) 0.1x10^3/uL (0.0-0.2) Sodium Level 141mmol/L (136-145) Potassium Level 3.9mmol/L (3.5-5.1) Chloride Level 104mmol/L (98-107) Carbon Dioxide Level 28mmol/L (21-32) Anion Gap 9 (6-14) Blood Urea Nitrogen 13mg/dL (8-26) Creatinine 0.8mg/dL (0.7-1.3) Estimated GFR (Cockcroft-Gault) 102.3 Glucose Level 109mg/dL (70-99) Calcium Level 8.7mg/dL (8.5-10.1) Medications Active Scripts Medications Dose Route/Sig Days Date Category [place] 5-325 Tablet (Acetaminophen/Hydrocodone Bitart) 1 Each Tablet 1-2 Tab PO Q4-6HRS PRN 06/27/16 Rx Proair Hfa Inhaler (Albuterol Sulfate) 8.5 Gm Hfa.aer.ad 2 Puff INH Q4-6HRS PRN 06/27/16 Rx Levaquin (Levofloxacin) 750 Mg Tablet 1 Tab PO DAILY 06/27/16 Rx No Known Medications Prior To Admisstion (Info) Each 1 Each 04/19/16 Reported No Known Medications Prior To Admisstion (Info) Each 1 Each 04/19/16 Reported Impression . MPRESSION: 1. Right lower lobe mass in a patient who has been coughing for 6 months. He has right hilar adenopathy and pretracheal adenopathy and 10-pound unintentional weight loss. I suspect that we most likely dealing with a primary lung malignancy, however a pneumonic consolidation is also a consideration. His chest x-ray was clear in 04/2016 but it may have missed a sub-pulmonic process based on a portable CXR. I would recommend to proceed with CT-guided biopsy for further evaluation . 2. Suspected underlying chronic obstructive pulmonary disease. 3. Ten-pound weight loss. Plan . RECOMMENDATIONS: 1. Proceed with metastatic workup per Oncology recommendations. 2. Discussed with the patient, he agrees to proceed with CT-guided biopsy. 3. PFTs as an outpatient. 4. Further recommendations to follow once biopsy results and further imaging studies are available. 5. Continue empiric antibiotics for now. ZAKIA TRENT MD Jun 29, 2016 15:10
[2016-06-29] MEDS: ENOXAPARIN 40 MG/0.4 ML DISP.SYRIN. SQ SCH (15:48)
[2016-06-29] MEDS: ALBUTEROL SULFATE 2.5 MG/3 ML NEBU. NEB PRN ×2 (16:30→21:15)
[2016-06-29 19:00] VITALS: BP 118/76
[2016-06-29 23:00] VITALS: BP 117/65
[2016-06-30 07:00] VITALS: BP 120/87
[2016-06-30 09:19] LABS: BASO # 0.1 x10^3/uL (0.0-0.2); BASO % 1 % (0-3); EOS % 14 % (0-3); HEMATOCRIT 37.1 % (39.0-53.0); HEMOGLOBIN 12.2 g/dL (13.0-17.5); LYMPH # 1.5 x10^3/uL (1.0-4.8); LYMPH % 21 % (24-48); MEAN CORPUSCULAR HEMOGLOBIN 28 pg (25-35); MEAN CORPUSCULAR HGB CONC 33 g/dL (31-37); MEAN CORPUSCULAR VOLUME 85 fL (79-100); MONO % 5 % (0-9); NEUT % 58 % (31-73); PLATELET COUNT 348 x10^3/uL (140-400); RED BLOOD COUNT 4.38 x10^6/uL (4.30-5.70); RED CELL DISTRIBUTION WIDTH 15.1 % (11.5-14.5); WHITE BLOOD COUNT 6.9 x10^3/uL (4.0-11.0)
[2016-06-30 09:29] LABS: CREATININE 0.9 mg/dL (0.7-1.3); GFR 89.3; POTASSIUM 4.4 mmol/L (3.5-5.1)
[2016-06-30] MEDS: NICOTINE 21MG PATCH. TD SCH (09:51)
[2016-06-30] MEDS: IBUPROFEN 400 MG TABLET. PO PRN ×2 (09:52→15:48)
[2016-06-30 10:25] VITALS: BP 122/75
[2016-06-30] MEDS: ALBUTEROL SULFATE 2.5 MG/3 ML NEBU. NEB PRN ×2 (10:44→15:11)
--- NOTE | 2016-06-30 14:25 | PDOC ---
PROGRESS NOTES Chief Complaint Chief Complaint SOB Cough R CP ASSESSMENT AND PLAN: 1. Lung mass: CT report prob overinterpreted: d/w Dr Nash and VIR: appears more like PNA. added Abx. however, hx is suspicious in 2ppd smoker, persistent CP x3 months, wt loss... staging CT (head to pelvis) and bone scan otherwise neg 2. PNA: levaquin added; suppl O2 3. Tobacco use: cessation counseled. nicotine patch 4. PCM: moderate. supplements 5. Prophylaxis: lovenox 6. Dispo: rpt CXR on Fri, reeval clinical picture. poss d/c then History of Present Illness History of Present Illness Pt seen and examined DW RN VSS Vitals Vitals Vital Signs Date Time Temp Pulse Resp B/P Pulse Ox O2 Delivery O2 Flow Rate FiO2 06/30/16 10:45 100 Room Air 06/30/16 10:25 97.9 63 16 122/75 97.9 Physical Exam General: Alert, Oriented X3, No acute distress Heart: Regular rate, Normal S2 Lungs: Wheezing Abdomen: Normal bowel sounds, Soft, No tenderness Extremities: No clubbing, No edema Skin: No rashes Labs LABS Laboratory Tests Test 06/30/16 08:25 White Blood Count 6.9x10^3/uL (4.0-11.0) Red Blood Count 4.38x10^6/uL (4.30-5.70) Hemoglobin 12.2g/dL (13.0-17.5) Hematocrit 37.1% (39.0-53.0) Mean Corpuscular Volume 85fL (79-100) Mean Corpuscular Hemoglobin 28pg (25-35) Mean Corpuscular Hemoglobin Concent 33g/dL (31-37) Red Cell Distribution Width 15.1% (11.5-14.5) Platelet Count 348x10^3/uL (140-400) Neutrophils (%) (Auto) 58% (31-73) Lymphocytes (%) (Auto) 21% (24-48) Monocytes (%) (Auto) 5% (0-9) Eosinophils (%) (Auto) 14% (0-3) Basophils (%) (Auto) 1% (0-3) Neutrophils # (Auto) 4.0x10^3uL (1.8-7.7) Lymphocytes # (Auto) 1.5x10^3/uL (1.0-4.8) Monocytes # (Auto) 0.4x10^3/uL (0.0-1.1) Eosinophils # (Auto) 1.0x10^3/uL (0.0-0.7) Basophils # (Auto) 0.1x10^3/uL (0.0-0.2) Sodium Level 143mmol/L (136-145) Potassium Level 4.4mmol/L (3.5-5.1) Chloride Level 108mmol/L (98-107) Carbon Dioxide Level 26mmol/L (21-32) Anion Gap 9 (6-14) Blood Urea Nitrogen 12mg/dL (8-26) Creatinine 0.9mg/dL (0.7-1.3) Estimated GFR (Cockcroft-Gault) 89.3 Glucose Level 134mg/dL (70-99) Calcium Level 9.0mg/dL (8.5-10.1) Review of Systems Review of Systems co soa co weakness Assessment and Plan Assessmemt and Plan Problems Medical Problems: (1) Chest pain Status: Acute (2) Lung infiltrate Status: Acute ASSESSMENT AND PLAN: 1. Lung mass: CT report prob overinterpreted: Per pulm appears more like PNA. Cont Abx. however, hx is suspicious in 2ppd smoker, persistent CP x3 months, wt loss... staging CT (head to pelvis) and bone scan otherwise neg 2. PNA: levaquin added; suppl O2 3. Tobacco use: cessation counseled. nicotine patch 4. PCM: moderate. supplements 5. Prophylaxis: lovenox 6. Dispo: rpt CXR on Mon, reeval clinical picture. poss d/c then Problems: Comment Review of Relevant I have reviewed the following items reynold (where applicable) has been applied. Labs Laboratory Tests Test 06/29/16 04:45 06/30/16 08:25 White Blood Count 7.3x10^3/uL (4.0-11.0) 6.9x10^3/uL (4.0-11.0) Red Blood Count 4.17x10^6/uL (4.30-5.70) 4.38x10^6/uL (4.30-5.70) Hemoglobin 11.6g/dL (13.0-17.5) 12.2g/dL (13.0-17.5) Hematocrit 36.0% (39.0-53.0) 37.1% (39.0-53.0) Mean Corpuscular Volume 86fL (79-100) 85fL (79-100) Mean Corpuscular Hemoglobin 28pg (25-35) 28pg (25-35) Mean Corpuscular Hemoglobin Concent 32g/dL (31-37) 33g/dL (31-37) Red Cell Distribution Width 15.2% (11.5-14.5) 15.1% (11.5-14.5) Platelet Count 327x10^3/uL (140-400) 348x10^3/uL (140-400) Neutrophils (%) (Auto) 56% (31-73) 58% (31-73) Lymphocytes (%) (Auto) 25% (24-48) 21% (24-48) Monocytes (%) (Auto) 7% (0-9) 5% (0-9) Eosinophils (%) (Auto) 11% (0-3) 14% (0-3) Basophils (%) (Auto) 1% (0-3) 1% (0-3) Neutrophils # (Auto) 4.1x10^3uL (1.8-7.7) 4.0x10^3uL (1.8-7.7) Lymphocytes # (Auto) 1.8x10^3/uL (1.0-4.8) 1.5x10^3/uL (1.0-4.8) Monocytes # (Auto) 0.5x10^3/uL (0.0-1.1) 0.4x10^3/uL (0.0-1.1) Eosinophils # (Auto) 0.8x10^3/uL (0.0-0.7) 1.0x10^3/uL (0.0-0.7) Basophils # (Auto) 0.1x10^3/uL (0.0-0.2) 0.1x10^3/uL (0.0-0.2) Sodium Level 141mmol/L (136-145) 143mmol/L (136-145) Potassium Level 3.9mmol/L (3.5-5.1) 4.4mmol/L (3.5-5.1) Chloride Level 104mmol/L (98-107) 108mmol/L (98-107) Carbon Dioxide Level 28mmol/L (21-32) 26mmol/L (21-32) Anion Gap 9 (6-14) 9 (6-14) Blood Urea Nitrogen 13mg/dL (8-26) 12mg/dL (8-26) Creatinine 0.8mg/dL (0.7-1.3) 0.9mg/dL (0.7-1.3) Estimated GFR (Cockcroft-Gault) 102.3 89.3 Glucose Level 109mg/dL (70-99) 134mg/dL (70-99) Calcium Level 8.7mg/dL (8.5-10.1) 9.0mg/dL (8.5-10.1) Laboratory Tests Test 06/30/16 08:25 White Blood Count 6.9x10^3/uL (4.0-11.0) Red Blood Count 4.38x10^6/uL (4.30-5.70) Hemoglobin 12.2g/dL (13.0-17.5) Hematocrit 37.1% (39.0-53.0) Mean Corpuscular Volume 85fL (79-100) Mean Corpuscular Hemoglobin 28pg (25-35) Mean Corpuscular Hemoglobin Concent 33g/dL (31-37) Red Cell Distribution Width 15.1% (11.5-14.5) Platelet Count 348x10^3/uL (140-400) Neutrophils (%) (Auto) 58% (31-73) Lymphocytes (%) (Auto) 21% (24-48) Monocytes (%) (Auto) 5% (0-9) Eosinophils (%) (Auto) 14% (0-3) Basophils (%) (Auto) 1% (0-3) Neutrophils # (Auto) 4.0x10^3uL (1.8-7.7) Lymphocytes # (Auto) 1.5x10^3/uL (1.0-4.8) Monocytes # (Auto) 0.4x10^3/uL (0.0-1.1) Eosinophils # (Auto) 1.0x10^3/uL (0.0-0.7) Basophils # (Auto) 0.1x10^3/uL (0.0-0.2) Sodium Level 143mmol/L (136-145) Potassium Level 4.4mmol/L (3.5-5.1) Chloride Level 108mmol/L (98-107) Carbon Dioxide Level 26mmol/L (21-32) Anion Gap 9 (6-14) Blood Urea Nitrogen 12mg/dL (8-26) Creatinine 0.9mg/dL (0.7-1.3) Estimated GFR (Cockcroft-Gault) 89.3 Glucose Level 134mg/dL (70-99) Calcium Level 9.0mg/dL (8.5-10.1) Medications Current Medications Ondansetron HCl (Zofran) 4 mg PRN Q8HRS PRN IV NAUSEA/VOMITING; Start 06/27/16 at 17:45; Stop 06/28/16 at 17:44; Status DC Fentanyl Citrate (Fentanyl 2ml Vial) 50 mcg PRN Q2HR PRN IV PAIN; Start at 17:45; Stop 06/28/16 at 17:44; Status DC Acetaminophen (Tylenol) 650 mg PRN Q4HRS PRN PO FEVER; Start 06/27/16 at 17:45 ; Stop 06/28/16 at 17:44; Status DC Albuterol/ Ipratropium (Duoneb) 3 ml RTQID NEB Last administered on 06/28/16 19:31; Start 06/27/16 at 20:00; Stop 06/28/16 at 19:59; Status DC Nicotine (Nicoderm Cq 21mg) 1 patch DAILY TD Last administered on 06/30/16 09: 51; Start 06/28/16 at 09:00 Iohexol (Omnipaque 240 Mg/ml) 30 ml 1X ONCE PO Last administered on 06/28/16 13:24; Start 06/28/16 at 12:15; Stop 06/28/16 at 12:16; Status DC Iohexol (Omnipaque 300 Mg/ml) 75 ml 1X ONCE IV Last administered on 06/28/16 13:24; Start 06/28/16 at 12:15; Stop 06/28/16 at 12:16; Status DC Info 1 each 1 each PRN DAILY PRN MC SEE COMMENTS; Start 06/28/16 at 12:15; Stop 06/30/16 at 12:14; Status DC Levofloxacin/ Dextrose (LEVAQUIN 500mg PREMIX) 100 ml @ 100 mls/hr Q24H IV Last administered on 06/29/16 15:47; Start 06/28/16 at 16:00 Ibuprofen (Motrin) 400 mg PRN Q6HRS PRN PO INFLAMMATION Last administered on 09:52; Start 06/28/16 at 15:30 Enoxaparin Sodium (Lovenox 40mg Syringe) 40 mg Q24H SQ Last administered on 15:48; Start 06/28/16 at 16:00 Albuterol Sulfate (Ventolin Neb Soln) 2.5 mg PRN Q4HRS PRN NEB SHORTNESS OF BREATH Last administered on 06/30/16 10:44; Start 06/29/16 at 15:45 Active Scripts Active [place] 5-325 Tablet (Acetaminophen/Hydrocodone Bitart) 1 Each Tablet 1-2 Tab PO Q4-6HRS PRN Proair Hfa Inhaler (Albuterol Sulfate) 8.5 Gm Hfa.aer.ad 2 Puff INH Q4-6HRS PRN Levaquin (Levofloxacin) 750 Mg Tablet 1 Tab PO DAILY Reported No Known Medications Prior To Admisstion (Info) Each 1 Each No Known Medications Prior To Admisstion (Info) Each 1 Each Vitals/I & O Vital Sign - Last 24 Hours 06/29/16 06/29/16 06/29/16 06/29/16 14:53 16:30 19:00 20:00 Temp 97.9 97.7 97.9 97.7 Pulse 69 73 Resp 18 20 B/P 132/71 118/76 Pulse Ox 98 98 98 O2 Delivery Room Air Room Air Room Air Room Air 06/29/16 06/29/16 06/30/16 06/30/16:17 23:00 07:00 08:00 Temp 97.8 97.5 97.8 97.5 Pulse 85 72 Resp 20 16 B/P 117/65 120/87 Pulse Ox 98 94 100 O2 Delivery Room Air Room Air Room Air Room Air 06/30/16 06/30/16 10:25 10:45 Temp 97.9 97.9 Pulse 63 Resp 16 B/P 122/75 Pulse Ox 100 100 O2 Delivery Room Air Room Air Intake and Output 06/29/16 06/29/16 06/30/16 15:00 23:00 07:00 Intake Total 1100 ml 100 ml Balance 1100 ml 100 ml [id number] GREENWOOD III DO Jun 30, 2016 14:25
[2016-06-30 14:31] VITALS: BP 132/88
[2016-06-30] MEDS: ENOXAPARIN 40 MG/0.4 ML DISP.SYRIN. SQ SCH (15:48)
[2016-06-30 19:00] VITALS: BP 136/85
[2016-06-30 23:00] VITALS: BP 122/75
[2016-07-01] VITALS (15 sets, daily range): BP systolic 105–140; BP diastolic 65–88
[2016-07-01 08:08] LABS: BASO # 0.1 x10^3/uL (0.0-0.2); BASO % 1 % (0-3); EOS % 15 % (0-3); HEMATOCRIT 37.4 % (39.0-53.0); LYMPH # 1.6 x10^3/uL (1.0-4.8); LYMPH % 24 % (24-48); MEAN CORPUSCULAR HEMOGLOBIN 28 pg (25-35); MEAN CORPUSCULAR HGB CONC 32 g/dL (31-37); MEAN CORPUSCULAR VOLUME 87 fL (79-100); MONO % 5 % (0-9); NEUT % 56 % (31-73); PLATELET COUNT 348 x10^3/uL (140-400); RED BLOOD COUNT 4.33 x10^6/uL (4.30-5.70); RED CELL DISTRIBUTION WIDTH 15.4 % (11.5-14.5); WHITE BLOOD COUNT 6.7 x10^3/uL (4.0-11.0)
[2016-07-01 08:25] LABS: CALCIUM 8.9 mg/dL (8.5-10.1); CREATININE 0.8 mg/dL (0.7-1.3); GFR 102.3; POTASSIUM 4.3 mmol/L (3.5-5.1)
[2016-07-01 08:28] LABS: INR 1.1 (0.8-1.1); PROTHROMBIN TIME PATIENT 13.3 SEC (11.7-14.0)
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
--- NOTE | 2016-07-01 09:11 | PDOC ---
PROGRESS NOTES Chief Complaint Chief Complaint SOB Cough R CP ASSESSMENT AND PLAN: 1. Lung mass: suspected malignancy, Planning for Biopsy today by IR 2. PNA: Levaquin ; suppl O2 prn 3. Tobacco use: cessation counseled. nicotine patch 4. PCM: moderate. supplements 5. Prophylaxis: lovenox 6. Dispo: awaiting for biopsy results, radiation oncology and oncology has been following History of Present Illness History of Present Illness no acute events, Vitals Vitals Vital Signs Date Time Temp Pulse Resp B/P Pulse Ox O2 Delivery O2 Flow Rate FiO2 07/01/16 07:00 97.4 64 140/82 98 Room Air 97.4 06/30/16 23:00 20 Physical Exam General: Alert, Oriented X3, Cooperative, No acute distress Heart: Regular rate, Normal S2 Lungs: Clear Abdomen: Normal bowel sounds, Soft, No tenderness Extremities: No clubbing, No edema Skin: No rashes Labs LABS Laboratory Tests Test 07/01/16 07:36 07/01/16 07:55 White Blood Count 6.7x10^3/uL (4.0-11.0) Red Blood Count 4.33x10^6/uL (4.30-5.70) Hemoglobin 12.0g/dL (13.0-17.5) Hematocrit 37.4% (39.0-53.0) Mean Corpuscular Volume 87fL (79-100) Mean Corpuscular Hemoglobin 28pg (25-35) Mean Corpuscular Hemoglobin Concent 32g/dL (31-37) Red Cell Distribution Width 15.4% (11.5-14.5) Platelet Count 348x10^3/uL (140-400) Neutrophils (%) (Auto) 56% (31-73) Lymphocytes (%) (Auto) 24% (24-48) Monocytes (%) (Auto) 5% (0-9) Eosinophils (%) (Auto) 15% (0-3) Basophils (%) (Auto) 1% (0-3) Neutrophils # (Auto) 3.8x10^3uL (1.8-7.7) Lymphocytes # (Auto) 1.6x10^3/uL (1.0-4.8) Monocytes # (Auto) 0.3x10^3/uL (0.0-1.1) Eosinophils # (Auto) 1.0x10^3/uL (0.0-0.7) Basophils # (Auto) 0.1x10^3/uL (0.0-0.2) Sodium Level 142mmol/L (136-145) Potassium Level 4.3mmol/L (3.5-5.1) Chloride Level 107mmol/L (98-107) Carbon Dioxide Level 26mmol/L (21-32) Anion Gap 9 (6-14) Blood Urea Nitrogen 9mg/dL (8-26) Creatinine 0.8mg/dL (0.7-1.3) Estimated GFR (Cockcroft-Gault) 102.3 Glucose Level 95mg/dL (70-99) Calcium Level 8.9mg/dL (8.5-10.1) Prothrombin Time 13.3SEC (11.7-14.0) Prothromb Time International Ratio 1.1 (0.8-1.1) Assessment and Plan Assessmemt and Plan Problems Medical Problems: (1) Chest pain Status: Acute (2) Lung infiltrate Status: Acute Problems: Comment Review of Relevant I have reviewed the following items reynold (where applicable) has been applied. Labs Laboratory Tests Test 06/30/16 08:25 07/01/16 07:36 07/01/16 07:55 White Blood Count 6.9x10^3/uL (4.0-11.0) 6.7x10^3/uL (4.0-11.0) Red Blood Count 4.38x10^6/uL (4.30-5.70) 4.33x10^6/uL (4.30-5.70) Hemoglobin 12.2g/dL (13.0-17.5) 12.0g/dL (13.0-17.5) Hematocrit 37.1% (39.0-53.0) 37.4% (39.0-53.0) Mean Corpuscular Volume 85fL (79-100) 87fL (79-100) Mean Corpuscular Hemoglobin 28pg (25-35) 28pg (25-35) Mean Corpuscular Hemoglobin Concent 33g/dL (31-37) 32g/dL (31-37) Red Cell Distribution Width 15.1% (11.5-14.5) 15.4% (11.5-14.5) Platelet Count 348x10^3/uL (140-400) 348x10^3/uL (140-400) Neutrophils (%) (Auto) 58% (31-73) 56% (31-73) Lymphocytes (%) (Auto) 21% (24-48) 24% (24-48) Monocytes (%) (Auto) 5% (0-9) 5% (0-9) Eosinophils (%) (Auto) 14% (0-3) 15% (0-3) Basophils (%) (Auto) 1% (0-3) 1% (0-3) Neutrophils # (Auto) 4.0x10^3uL (1.8-7.7) 3.8x10^3uL (1.8-7.7) Lymphocytes # (Auto) 1.5x10^3/uL (1.0-4.8) 1.6x10^3/uL (1.0-4.8) Monocytes # (Auto) 0.4x10^3/uL (0.0-1.1) 0.3x10^3/uL (0.0-1.1) Eosinophils # (Auto) 1.0x10^3/uL (0.0-0.7) 1.0x10^3/uL (0.0-0.7) Basophils # (Auto) 0.1x10^3/uL (0.0-0.2) 0.1x10^3/uL (0.0-0.2) Sodium Level 143mmol/L (136-145) 142mmol/L (136-145) Potassium Level 4.4mmol/L (3.5-5.1) 4.3mmol/L (3.5-5.1) Chloride Level 108mmol/L (98-107) 107mmol/L (98-107) Carbon Dioxide Level 26mmol/L (21-32) 26mmol/L (21-32) Anion Gap 9 (6-14) 9 (6-14) Blood Urea Nitrogen 12mg/dL (8-26) 9mg/dL (8-26) Creatinine 0.9mg/dL (0.7-1.3) 0.8mg/dL (0.7-1.3) Estimated GFR (Cockcroft-Gault) 89.3 102.3 Glucose Level 134mg/dL (70-99) 95mg/dL (70-99) Calcium Level 9.0mg/dL (8.5-10.1) 8.9mg/dL (8.5-10.1) Prothrombin Time 13.3SEC (11.7-14.0) Prothromb Time International Ratio 1.1 (0.8-1.1) Laboratory Tests Test 07/01/16 07:36 07/01/16 07:55 White Blood Count 6.7x10^3/uL (4.0-11.0) Red Blood Count 4.33x10^6/uL (4.30-5.70) Hemoglobin 12.0g/dL (13.0-17.5) Hematocrit 37.4% (39.0-53.0) Mean Corpuscular Volume 87fL (79-100) Mean Corpuscular Hemoglobin 28pg (25-35) Mean Corpuscular Hemoglobin Concent 32g/dL (31-37) Red Cell Distribution Width 15.4% (11.5-14.5) Platelet Count 348x10^3/uL (140-400) Neutrophils (%) (Auto) 56% (31-73) Lymphocytes (%) (Auto) 24% (24-48) Monocytes (%) (Auto) 5% (0-9) Eosinophils (%) (Auto) 15% (0-3) Basophils (%) (Auto) 1% (0-3) Neutrophils # (Auto) 3.8x10^3uL (1.8-7.7) Lymphocytes # (Auto) 1.6x10^3/uL (1.0-4.8) Monocytes # (Auto) 0.3x10^3/uL (0.0-1.1) Eosinophils # (Auto) 1.0x10^3/uL (0.0-0.7) Basophils # (Auto) 0.1x10^3/uL (0.0-0.2) Sodium Level 142mmol/L (136-145) Potassium Level 4.3mmol/L (3.5-5.1) Chloride Level 107mmol/L (98-107) Carbon Dioxide Level 26mmol/L (21-32) Anion Gap 9 (6-14) Blood Urea Nitrogen 9mg/dL (8-26) Creatinine 0.8mg/dL (0.7-1.3) Estimated GFR (Cockcroft-Gault) 102.3 Glucose Level 95mg/dL (70-99) Calcium Level 8.9mg/dL (8.5-10.1) Prothrombin Time 13.3SEC (11.7-14.0) Prothromb Time International Ratio 1.1 (0.8-1.1) Medications Current Medications Ondansetron HCl (Zofran) 4 mg PRN Q8HRS PRN IV NAUSEA/VOMITING; Start 06/27/16 at 17:45; Stop 06/28/16 at 17:44; Status DC Fentanyl Citrate (Fentanyl 2ml Vial) 50 mcg PRN Q2HR PRN IV PAIN; Start at 17:45; Stop 06/28/16 at 17:44; Status DC Acetaminophen (Tylenol) 650 mg PRN Q4HRS PRN PO FEVER; Start 06/27/16 at 17:45 ; Stop 06/28/16 at 17:44; Status DC Albuterol/ Ipratropium (Duoneb) 3 ml RTQID NEB Last administered on 06/28/16 19:31; Start 06/27/16 at 20:00; Stop 06/28/16 at 19:59; Status DC Nicotine (Nicoderm Cq 21mg) 1 patch DAILY TD Last administered on 06/30/16 09: 51; Start 06/28/16 at 09:00 Iohexol (Omnipaque 240 Mg/ml) 30 ml 1X ONCE PO Last administered on 06/28/16 13:24; Start 06/28/16 at 12:15; Stop 06/28/16 at 12:16; Status DC Iohexol (Omnipaque 300 Mg/ml) 75 ml 1X ONCE IV Last administered on 06/28/16 13:24; Start 06/28/16 at 12:15; Stop 06/28/16 at 12:16; Status DC Info 1 each 1 each PRN DAILY PRN MC SEE COMMENTS; Start 06/28/16 at 12:15; Stop 06/30/16 at 12:14; Status DC Levofloxacin/ Dextrose (LEVAQUIN 500mg PREMIX) 100 ml @ 100 mls/hr Q24H IV Last administered on 06/30/16 15:48; Start 06/28/16 at 16:00 Ibuprofen (Motrin) 400 mg PRN Q6HRS PRN PO INFLAMMATION Last administered on 15:48; Start 06/28/16 at 15:30 Enoxaparin Sodium (Lovenox 40mg Syringe) 40 mg Q24H SQ Last administered on 15:48; Start 06/28/16 at 16:00 Albuterol Sulfate (Ventolin Neb Soln) 2.5 mg PRN Q4HRS PRN NEB SHORTNESS OF BREATH Last administered on 06/30/16 15:11; Start 06/29/16 at 15:45 Active Scripts Active [place] 5-325 Tablet (Acetaminophen/Hydrocodone Bitart) 1 Each Tablet 1-2 Tab PO Q4-6HRS PRN Proair Hfa Inhaler (Albuterol Sulfate) 8.5 Gm Hfa.aer.ad 2 Puff INH Q4-6HRS PRN Levaquin (Levofloxacin) 750 Mg Tablet 1 Tab PO DAILY Reported No Known Medications Prior To Admisstion (Info) Each 1 Each No Known Medications Prior To Admisstion (Info) Each 1 Each Vitals/I & O Vital Sign - Last 24 Hours 06/30/16 06/30/16 06/30/16 06/30/16 10:25 10:45 14:31 15:12 Temp 97.9 98.1 97.9 98.1 Pulse 63 65 Resp 16 16 B/P 122/75 132/88 Pulse Ox 100 100 100 O2 Delivery Room Air Room Air Room Air Room Air 06/30/16 06/30/16 06/30/16 07/01/16 19:00 20:00 23:00 07:00 Temp 97.7 98.1 97.4 97.7 98.1 97.4 Pulse 74 73 64 Resp 20 20 B/P 136/85 122/75 140/82 Pulse Ox 99 97 98 O2 Delivery Room Air Room Air Room Air Room Air Intake and Output 06/30/16 06/30/16 07/01/16 15:00 23:00 07:00 Intake Total 720 ml 3820 ml Balance 720 ml 3820 ml TAN BOWMAN MD Jul 01, 2016 09:11
[2016-07-01] MEDS: NICOTINE 21MG PATCH. TD SCH (09:44)
[2016-07-01] MEDS: IBUPROFEN 400 MG TABLET. PO PRN ×2 (09:44→20:29)
--- NOTE | 2016-07-01 12:07 | PDOC ---
PULMONARY PROGRESS NOTES Subjective no soa Vitals Vital Signs Date Time Temp Pulse Resp B/P Pulse Ox O2 Delivery O2 Flow Rate FiO2 07/01/16 11:00 97.7 67 117/88 98 97.7 07/01/16 07:00 Room Air 06/30/16 23:00 20 General: Alert, No acute distress Lungs: Wheezing Cardiovascular: S1, S2 Abdomen: Soft Neuro Exam: Alert Extremities: No Edema Skin: Warm Labs Laboratory Tests Test 06/30/16 08:25 07/01/16 07:36 07/01/16 07:55 White Blood Count 6.9x10^3/uL (4.0-11.0) 6.7x10^3/uL (4.0-11.0) Red Blood Count 4.38x10^6/uL (4.30-5.70) 4.33x10^6/uL (4.30-5.70) Hemoglobin 12.2g/dL (13.0-17.5) 12.0g/dL (13.0-17.5) Hematocrit 37.1% (39.0-53.0) 37.4% (39.0-53.0) Mean Corpuscular Volume 85fL (79-100) 87fL (79-100) Mean Corpuscular Hemoglobin 28pg (25-35) 28pg (25-35) Mean Corpuscular Hemoglobin Concent 33g/dL (31-37) 32g/dL (31-37) Red Cell Distribution Width 15.1% (11.5-14.5) 15.4% (11.5-14.5) Platelet Count 348x10^3/uL (140-400) 348x10^3/uL (140-400) Neutrophils (%) (Auto) 58% (31-73) 56% (31-73) Lymphocytes (%) (Auto) 21% (24-48) 24% (24-48) Monocytes (%) (Auto) 5% (0-9) 5% (0-9) Eosinophils (%) (Auto) 14% (0-3) 15% (0-3) Basophils (%) (Auto) 1% (0-3) 1% (0-3) Neutrophils # (Auto) 4.0x10^3uL (1.8-7.7) 3.8x10^3uL (1.8-7.7) Lymphocytes # (Auto) 1.5x10^3/uL (1.0-4.8) 1.6x10^3/uL (1.0-4.8) Monocytes # (Auto) 0.4x10^3/uL (0.0-1.1) 0.3x10^3/uL (0.0-1.1) Eosinophils # (Auto) 1.0x10^3/uL (0.0-0.7) 1.0x10^3/uL (0.0-0.7) Basophils # (Auto) 0.1x10^3/uL (0.0-0.2) 0.1x10^3/uL (0.0-0.2) Sodium Level 143mmol/L (136-145) 142mmol/L (136-145) Potassium Level 4.4mmol/L (3.5-5.1) 4.3mmol/L (3.5-5.1) Chloride Level 108mmol/L (98-107) 107mmol/L (98-107) Carbon Dioxide Level 26mmol/L (21-32) 26mmol/L (21-32) Anion Gap 9 (6-14) 9 (6-14) Blood Urea Nitrogen 12mg/dL (8-26) 9mg/dL (8-26) Creatinine 0.9mg/dL (0.7-1.3) 0.8mg/dL (0.7-1.3) Estimated GFR (Cockcroft-Gault) 89.3 102.3 Glucose Level 134mg/dL (70-99) 95mg/dL (70-99) Calcium Level 9.0mg/dL (8.5-10.1) 8.9mg/dL (8.5-10.1) Prothrombin Time 13.3SEC (11.7-14.0) Prothromb Time International Ratio 1.1 (0.8-1.1) Laboratory Tests Test 07/01/16 07:36 07/01/16 07:55 White Blood Count 6.7x10^3/uL (4.0-11.0) Red Blood Count 4.33x10^6/uL (4.30-5.70) Hemoglobin 12.0g/dL (13.0-17.5) Hematocrit 37.4% (39.0-53.0) Mean Corpuscular Volume 87fL (79-100) Mean Corpuscular Hemoglobin 28pg (25-35) Mean Corpuscular Hemoglobin Concent 32g/dL (31-37) Red Cell Distribution Width 15.4% (11.5-14.5) Platelet Count 348x10^3/uL (140-400) Neutrophils (%) (Auto) 56% (31-73) Lymphocytes (%) (Auto) 24% (24-48) Monocytes (%) (Auto) 5% (0-9) Eosinophils (%) (Auto) 15% (0-3) Basophils (%) (Auto) 1% (0-3) Neutrophils # (Auto) 3.8x10^3uL (1.8-7.7) Lymphocytes # (Auto) 1.6x10^3/uL (1.0-4.8) Monocytes # (Auto) 0.3x10^3/uL (0.0-1.1) Eosinophils # (Auto) 1.0x10^3/uL (0.0-0.7) Basophils # (Auto) 0.1x10^3/uL (0.0-0.2) Sodium Level 142mmol/L (136-145) Potassium Level 4.3mmol/L (3.5-5.1) Chloride Level 107mmol/L (98-107) Carbon Dioxide Level 26mmol/L (21-32) Anion Gap 9 (6-14) Blood Urea Nitrogen 9mg/dL (8-26) Creatinine 0.8mg/dL (0.7-1.3) Estimated GFR (Cockcroft-Gault) 102.3 Glucose Level 95mg/dL (70-99) Calcium Level 8.9mg/dL (8.5-10.1) Prothrombin Time 13.3SEC (11.7-14.0) Prothromb Time International Ratio 1.1 (0.8-1.1) Medications Active Scripts Medications Dose Route/Sig Days Date Category [place] 5-325 Tablet (Acetaminophen/Hydrocodone Bitart) 1 Each Tablet 1-2 Tab PO Q4-6HRS PRN 06/27/16 Rx Proair Hfa Inhaler (Albuterol Sulfate) 8.5 Gm Hfa.aer.ad 2 Puff INH Q4-6HRS PRN 06/27/16 Rx Levaquin (Levofloxacin) 750 Mg Tablet 1 Tab PO DAILY 06/27/16 Rx No Known Medications Prior To Admisstion (Info) Each 1 Each 04/19/16 Reported No Known Medications Prior To Admisstion (Info) Each 1 Each 04/19/16 Reported Impression . 1. Right lower lobe mass in a patient who has been coughing for 6 months. He has right hilar adenopathy and pretracheal adenopathy and 10-pound unintentional weight loss. I suspect that we most likely dealing with a primary lung malignancy, however a pneumonic consolidation is also a consideration. His chest x-ray was clear in 04/2016 but it may have missed a sub-pulmonic process based on a portable CXR. I would recommend to proceed with CT-guided biopsy for further evaluation . 2. Suspected underlying chronic obstructive pulmonary disease. 3. Ten-pound weight loss. Plan . 1. metastatic workup per Oncology recommendations. 2. Discussed with the patient, he agrees to proceed with CT-guided biopsy.scheduled today. 3. PFTs as an outpatient. 4. Further recommendations to follow once biopsy results and further imaging studies are available. 5. Continue empiric antibiotics for now. cxr today with no improvement JEAN ZUNIGA MD Jul 01, 2016 12:07
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
--- NOTE | 2016-07-01 13:42 | PDOC ---
Provider Note Provider Note 50 yo man with probable [address] III (T2 N2 M0) bronchogenic carcinoma of right infrahilar region with hilar and mediastinal adenopathy and postobstructive pneumonia. Doing better with antibiotic treatment. Scheduled for biopsy later today. CT chest Rt pretracheal andenopathy subcarinal adenopathy and hilar adenopathy with rt infrahilar mass and opst obstructive infiltrate and consolidation. Modest pleural effusion. CBC and Chem ok. Bone scan and CT head with contrast ok. Impression: Probable StIII bronchogenic carcinoma with post obstructive pneumonia. Await biopsy confirmation of presumed primary lesion of RLL. If malignant would be best treated with combined chest radiation and chemotherapy. CHARLEEN PEREA MD Jul 01, 2016 13:42
[2016-07-01] MEDS ORDERED: LIDOCAINE 1% / SOD BICARB 8.4% 20 ML VIAL. IJ ONE ×2 (15:01→15:45)
[2016-07-01] MEDS ORDERED: MIDAZOLAM HCL 2 MG/2 ML VIAL. ONE (15:19)
[2016-07-01] MEDS ORDERED: FENTANYL PF 100 MCG/2 ML VIAL. ONE (15:19)
[2016-07-01] MEDS ORDERED: FENTANYL PF 100 MCG/2 ML VIAL. IV ONE (15:45)
[2016-07-01] MEDS ORDERED: MIDAZOLAM HCL 2 MG/2 ML VIAL. IV ONE (15:45)
[2016-07-01] MEDS: ENOXAPARIN 40 MG/0.4 ML DISP.SYRIN. SQ SCH (16:00)
--- NOTE | 2016-07-01 16:16 | PDOC ---
MODERATE SEDATION ASSESSMENT RISKS/ALTERNATIVES Risks/Alternatives Risks and alternatives of this type of sedation and procedure discussed with: RISK/ALTERNATIVES: Patient H & P ON CHART H & P H & P on chart and reviewed for co-morbid conditions and appropriate labs. H&P ON CHART: Yes STATUS PREG STATUS ASSESSED: N/A MEDS/ALLERGIES REVIEWED Meds/Allergies Reviewed Medications and Allergies including time and route of recently administered narcotics and sedatives. MEDS/ALLERGIES REVIEWED: Yes ASA RATING ASA RATING: III AIRWAY ASSESSMENT Airway Assessment Airway patency, oral function limitations, presence of caps, crowns, dentures, partials, and ability to extend neck assessed. AIRWAY ASSESSMENT: Yes MALLAMPATI SCORE MALLAMPATI SCORE: II PRE-SEDATION ASSESSMENT PRE-SEDATION ASSESSMENT: Yes LANE ESCOBEDO MD Jul 01, 2016 16:15
--- NOTE | 2016-07-01 16:20 | PDOC ---
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 No apparent complication. No immediate post bx ptx. Disposition Disposition From IR/CT to 521. 2 hr post bx insp/exp CXR requested. F/u with HIMS, Pulmonary, Oncology, and XRT. Full report to follow. LANE ESCOBEDO MD Jul 01, 2016 16:20
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
[2016-07-01] MEDS: ALBUTEROL SULFATE 2.5 MG/3 ML NEBU. NEB PRN (20:52)
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
[2016-07-02 03:00] VITALS: BP 89/64
[2016-07-02 07:00] VITALS: BP 121/83
--- NOTE | 2016-07-02 07:34 | RAD ---
CT-guided right lung biopsy Indication: 50-year-old male smoker with confluent right infrahilar and hilar mass, with postobstructive atelectasis/infiltrate. CT-guided biopsy of the infrahilar soft tissue mass has been requested. Anesthesia: 26 minutes moderate sedation was provided utilizing a total of 1.5 mg Versed and 75 mcg fentanyl, IV. The patient was appropriately monitored by a qualified independent observer throughout the time of moderate sedation. Consent: The procedure was explained in its entirety to the patient and/or the patient's designated surgical sales representative by a member of the treatment team. This included a discussion of risks and benefits and acceptable alternatives to the procedure, as well as expected consequences of no treatment at all. Discussion of risks included, but was not limited to, those that are most frequent and those that are rare, but possibly severe or life-threatening, as well as the possibility of unforeseen complications. Procedure: Informed consent was obtained from the patient. He was placed prone on the CT scanner. Preliminary noncontrast CT images confirmed the presence of confluent right hilar and infrahilar soft tissue mass. A right posterior skin site suitable for CT-guided biopsy was selected and marked. That area was prepped and draped in the usual sterile fashion. Moderate sedation was provided with IV Versed and fentanyl. Using aseptic technique, local anesthesia, and CT guidance, a 17-gauge guide needle was successfully advanced to posterior margin of the infrahilar soft tissue mass. A total of 3 18-gauge core biopsy samples were then obtained. Biopsy material was submitted in formalin to pathology. The biopsy guide needle was removed and a sterile dressing was applied. Completion CT images revealed no evidence of postbiopsy pneumothorax or hemothorax. Patient tolerated the procedure well without apparent complication. Impression: Successful, uneventful CT-guided biopsy of a right infrahilar lung mass mass, as described. PQRS Compliance Statement: One or more of the following individualized dose reduction techniques was utilized for this procedure: 1. Automated exposure control. 2. Adjustment of MA and/or KV according to patient size. 3. Iterative reconstruction technique.
[2016-07-02] MEDS: IBUPROFEN 400 MG TABLET. PO PRN ×3 (07:50→23:32)
[2016-07-02] MEDS: NICOTINE 21MG PATCH. TD SCH (07:51)
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
[2016-07-02] MEDS ORDERED: ONDANSETRON PF 4 MG/2 ML VIAL. IV PRN (09:45)
[2016-07-02] MEDS ORDERED: ACETAMINOPHEN 500 MG TABLET PO PRN (09:45)
[2016-07-02 11:08] VITALS: BP 122/72
--- NOTE | 2016-07-02 12:22 | PDOC ---
PULMONARY PROGRESS NOTES Subjective no soa Vitals Vital Signs Date Time Temp Pulse Resp B/P Pulse Ox O2 Delivery O2 Flow Rate FiO2 07/02/16 11:08 97.7 72 18 122/72 98 Room Air 97.7 07/02/16 03:00 2.0 General: Alert, No acute distress Lungs: Clear Cardiovascular: S1, S2 Abdomen: Soft Neuro Exam: Alert Extremities: No Edema Skin: Warm Labs Laboratory Tests Test 07/01/16 07:36 07/01/16 07:55 White Blood Count 6.7x10^3/uL (4.0-11.0) Red Blood Count 4.33x10^6/uL (4.30-5.70) Hemoglobin 12.0g/dL (13.0-17.5) Hematocrit 37.4% (39.0-53.0) Mean Corpuscular Volume 87fL (79-100) Mean Corpuscular Hemoglobin 28pg (25-35) Mean Corpuscular Hemoglobin Concent 32g/dL (31-37) Red Cell Distribution Width 15.4% (11.5-14.5) Platelet Count 348x10^3/uL (140-400) Neutrophils (%) (Auto) 56% (31-73) Lymphocytes (%) (Auto) 24% (24-48) Monocytes (%) (Auto) 5% (0-9) Eosinophils (%) (Auto) 15% (0-3) Basophils (%) (Auto) 1% (0-3) Neutrophils # (Auto) 3.8x10^3uL (1.8-7.7) Lymphocytes # (Auto) 1.6x10^3/uL (1.0-4.8) Monocytes # (Auto) 0.3x10^3/uL (0.0-1.1) Eosinophils # (Auto) 1.0x10^3/uL (0.0-0.7) Basophils # (Auto) 0.1x10^3/uL (0.0-0.2) Sodium Level 142mmol/L (136-145) Potassium Level 4.3mmol/L (3.5-5.1) Chloride Level 107mmol/L (98-107) Carbon Dioxide Level 26mmol/L (21-32) Anion Gap 9 (6-14) Blood Urea Nitrogen 9mg/dL (8-26) Creatinine 0.8mg/dL (0.7-1.3) Estimated GFR (Cockcroft-Gault) 102.3 Glucose Level 95mg/dL (70-99) Calcium Level 8.9mg/dL (8.5-10.1) Prothrombin Time 13.3SEC (11.7-14.0) Prothromb Time International Ratio 1.1 (0.8-1.1) Medications Active Scripts Medications Dose Route/Sig Days Date Category [place] 5-325 Tablet (Acetaminophen/Hydrocodone Bitart) 1 Each Tablet 1-2 Tab PO Q4-6HRS PRN 06/27/16 Rx Proair Hfa Inhaler (Albuterol Sulfate) 8.5 Gm Hfa.aer.ad 2 Puff INH Q4-6HRS PRN 06/27/16 Rx Levaquin (Levofloxacin) 750 Mg Tablet 1 Tab PO DAILY 06/27/16 Rx No Known Medications Prior To Admisstion (Info) Each 1 Each 04/19/16 Reported No Known Medications Prior To Admisstion (Info) Each 1 Each 04/19/16 Reported Impression . 1. Right lower lobe mass in a patient who has been coughing for 6 months. He has right hilar adenopathy and pretracheal adenopathy and 10-pound unintentional weight loss. I suspect that we most likely dealing with a primary lung malignancy, however a pneumonic consolidation is also a consideration. His chest x-ray was clear in 04/2016 but it may have missed a sub-pulmonic process based on a portable CXR. s/p CT-guided biopsy 2. Suspected underlying chronic obstructive pulmonary disease. 3. Ten-pound weight loss. Plan . 1. metastatic workup per Oncology recommendations. 2. s/p CT-guided biopsy.. await results 3. PFTs as an outpatient. 4. Further recommendations to follow once biopsy results are available. 5. Continue empiric antibiotics for now. cxr today with no improvement JEAN ZUNIGA MD Jul 02, 2016 12:22
--- NOTE | 2016-07-02 14:45 | PDOC ---
PROGRESS NOTES Chief Complaint Chief Complaint SOB Cough R CP ASSESSMENT AND PLAN: 1. Lung mass: suspected malignancy, Planning for Biopsy today by IR 2. PNA: Levaquin ; suppl O2 prn 3. Tobacco use: cessation counseled. nicotine patch 4. PCM: moderate. supplements 5. Prophylaxis: lovenox 6. Dispo: awaiting for biopsy results, radiation oncology and oncology has been following History of Present Illness History of Present Illness Not in room BUt no acute events per staff Pathology still pending If tissue does prove CA, then will likely have some rad onc while in house, at least initial few sessions (mapping) etc dw Vitals Vitals Vital Signs Date Time Temp Pulse Resp B/P Pulse Ox O2 Delivery O2 Flow Rate FiO2 07/02/16 11:08 97.7 72 18 122/72 98 Room Air 97.7 07/02/16 03:00 2.0 Physical Exam General: Alert, Oriented X3, Cooperative, No acute distress Heart: Regular rate, Normal S2 Lungs: Clear Abdomen: Normal bowel sounds, Soft, No tenderness Extremities: No clubbing, No edema Skin: No rashes Review of Systems Review of Systems unable to obtain Assessment and Plan Assessmemt and Plan Await tissue biopsy Rad onc on standby Problems Medical Problems: (1) Chest pain Status: Acute (2) Lung infiltrate Status: Acute Problems: Comment Review of Relevant I have reviewed the following items reynold (where applicable) has been applied. Labs Laboratory Tests Test 07/01/16 07:36 07/01/16 07:55 White Blood Count 6.7x10^3/uL (4.0-11.0) Red Blood Count 4.33x10^6/uL (4.30-5.70) Hemoglobin 12.0g/dL (13.0-17.5) Hematocrit 37.4% (39.0-53.0) Mean Corpuscular Volume 87fL (79-100) Mean Corpuscular Hemoglobin 28pg (25-35) Mean Corpuscular Hemoglobin Concent 32g/dL (31-37) Red Cell Distribution Width 15.4% (11.5-14.5) Platelet Count 348x10^3/uL (140-400) Neutrophils (%) (Auto) 56% (31-73) Lymphocytes (%) (Auto) 24% (24-48) Monocytes (%) (Auto) 5% (0-9) Eosinophils (%) (Auto) 15% (0-3) Basophils (%) (Auto) 1% (0-3) Neutrophils # (Auto) 3.8x10^3uL (1.8-7.7) Lymphocytes # (Auto) 1.6x10^3/uL (1.0-4.8) Monocytes # (Auto) 0.3x10^3/uL (0.0-1.1) Eosinophils # (Auto) 1.0x10^3/uL (0.0-0.7) Basophils # (Auto) 0.1x10^3/uL (0.0-0.2) Sodium Level 142mmol/L (136-145) Potassium Level 4.3mmol/L (3.5-5.1) Chloride Level 107mmol/L (98-107) Carbon Dioxide Level 26mmol/L (21-32) Anion Gap 9 (6-14) Blood Urea Nitrogen 9mg/dL (8-26) Creatinine 0.8mg/dL (0.7-1.3) Estimated GFR (Cockcroft-Gault) 102.3 Glucose Level 95mg/dL (70-99) Calcium Level 8.9mg/dL (8.5-10.1) Prothrombin Time 13.3SEC (11.7-14.0) Prothromb Time International Ratio 1.1 (0.8-1.1) Medications Current Medications Ondansetron HCl (Zofran) 4 mg PRN Q8HRS PRN IV NAUSEA/VOMITING; Start 06/27/16 at 17:45; Stop 06/28/16 at 17:44; Status DC Fentanyl Citrate (Fentanyl 2ml Vial) 50 mcg PRN Q2HR PRN IV PAIN; Start at 17:45; Stop 06/28/16 at 17:44; Status DC Acetaminophen (Tylenol) 650 mg PRN Q4HRS PRN PO FEVER; Start 06/27/16 at 17:45 ; Stop 06/28/16 at 17:44; Status DC Albuterol/ Ipratropium (Duoneb) 3 ml RTQID NEB Last administered on 06/28/16t 19:31; Start 06/27/16 at 20:00; Stop 06/28/16 at 19:59; Status DC Nicotine (Nicoderm Cq 21mg) 1 patch DAILY TD Last administered on 07/02/16 07: 51; Start 06/28/16 at 09:00 Iohexol (Omnipaque 240 Mg/ml) 30 ml 1X ONCE PO Last administered on 06/28/16 13:24; Start 06/28/16 at 12:15; Stop 06/28/16 at 12:16; Status DC Iohexol (Omnipaque 300 Mg/ml) 75 ml 1X ONCE IV Last administered on 06/28/16 13:24; Start 06/28/16 at 12:15; Stop 06/28/16 at 12:16; Status DC Info 1 each 1 each PRN DAILY PRN MC SEE COMMENTS; Start 06/28/16 at 12:15; Stop 06/30/16 at 12:14; Status DC Levofloxacin/ Dextrose (LEVAQUIN 500mg PREMIX) 100 ml @ 100 mls/hr Q24H IV Last administered on 07/01/16 17:44; Start 06/28/16 at 16:00 Ibuprofen (Motrin) 400 mg PRN Q6HRS PRN PO INFLAMMATION Last administered on 07:50; Start 06/28/16 at 15:30 Enoxaparin Sodium (Lovenox 40mg Syringe) 40 mg Q24H SQ Last administered on 15:48; Start 06/28/16 at 16:00 Albuterol Sulfate (Ventolin Neb Soln) 2.5 mg PRN Q4HRS PRN NEB SHORTNESS OF BREATH Last administered on 07/01/16 20:52; Start 06/29/16 at 15:45 Lidocaine/Sodium Bicarbonate (Buffered Lidocaine 1%) 20 ml STK-MED ONCE IJ ; Start 07/01/16 at 15:01; Stop 07/01/16 at 15:02; Status DC Midazolam HCl (Versed) 2 mg STK-MED ONCE .ROUTE ; Start 07/01/16 at 15:19; Stop 07/01/16 at 15:20; Status DC Fentanyl Citrate (Fentanyl 2ml Vial) 100 mcg STK-MED ONCE .ROUTE ; Start at 15:19; Stop 07/01/16 at 15:20; Status DC Lidocaine/Sodium Bicarbonate (Buffered Lidocaine 1%) 20 ml 1X ONCE IJ Last administered on 07/01/16 15:45; Start 07/01/16 at 15:45; Stop 07/01/16 at 15:46 ; Status DC Midazolam HCl (Versed) 2 mg 1X ONCE IV Last administered on 07/01/16 15:45; Start 07/01/16 at 15:45; Stop 07/01/16 at 15:46; Status DC Fentanyl Citrate (Fentanyl 2ml Vial) 100 mcg 1X ONCE IV Last administered on 15:45; Start 07/01/16 at 15:45; Stop 07/01/16 at 15:46; Status DC Acetaminophen (Tylenol) 500 mg PRN Q6HRS PRN PO MILD PAIN / TEMP; Start at 09:45 Ondansetron HCl (Zofran) 4 mg PRN Q6HRS PRN IV NAUSEA/VOMITING; Start 07/02/16 at 09:45 Active Scripts Active [place] 5-325 Tablet (Acetaminophen/Hydrocodone Bitart) 1 Each Tablet 1-2 Tab PO Q4-6HRS PRN Proair Hfa Inhaler (Albuterol Sulfate) 8.5 Gm Hfa.aer.ad 2 Puff INH Q4-6HRS PRN Levaquin (Levofloxacin) 750 Mg Tablet 1 Tab PO DAILY Reported No Known Medications Prior To Admisstion (Info) Each 1 Each No Known Medications Prior To Admisstion (Info) Each 1 Each Vitals/I & O Vital Sign - Last 24 Hours 07/01/16 07/01/16 07/01/16 07/01/16 15:00 15:45 15:46 15:51 Temp 98.4 98.4 Pulse 72 71 71 Resp 20 21 24 B/P 115/74 Pulse Ox 97 96 95 98 O2 Delivery Room Air Nasal Cannula Nasal Cannula Nasal Cannula O2 Flow Rate 2.0 2.0 2.0 07/01/16 07/01/16 07/01/16 07/01/16 15:56 16:01 16:09 16:15 Temp 97.5 97.5 Pulse 67 68 68 64 Resp 24 24 20 B/P 116/76 Pulse Ox 96 96 98 99 O2 Delivery Nasal Cannula Nasal Cannula Nasal Cannula Room Air O2 Flow Rate 2.0 2.0 2.0 07/01/16 07/01/16 07/01/16 07/01/16 16:30 16:45 17:00 17:30 Temp 97.5 97.5 97.9 98.1 97.5 97.5 97.9 98.1 Pulse 68 60 65 68 B/P 108/73 117/75 115/77 105/76 Pulse Ox 100 97 99 98 O2 Delivery Room Air Room Air Room Air O2 Flow Rate 2.0 2.0 2.0 07/01/16 07/01/16 07/01/16 07/01/16 17:30 19:00 20:00 20:53 Temp 98.1 97.7 98.1 97.7 Pulse 64 76 B/P 125/75 130/65 Pulse Ox 99 98 O2 Delivery Room Air Room Air Room Air Room Air O2 Flow Rate 2.0 2.0 07/01/16 07/02/16 07/02/16 07/02/16 23:00 03:00 07:00 07:57 Temp 97.5 97.9 97.7 97.5 97.9 97.7 Pulse 71 71 64 Resp 20 22 16 B/P 123/71 89/64 121/83 Pulse Ox 98 97 97 O2 Delivery Room Air Room Air Room Air Room Air O2 Flow Rate 2.0 2.0 07/02/16 11:08 Temp 97.7 97.7 Pulse 72 Resp 18 B/P 122/72 Pulse Ox 98 O2 Delivery Room Air Intake and Output 07/01/16 07/01/16 07/02/16 15:00 23:00 07:00 Intake Total 180 ml 100 ml Balance 180 ml 100 ml OTIS KWONG MD Jul 02, 2016 14:45
[2016-07-02] MEDS: LEVOFLOXACIN 500 MG TABLET PO SCH (15:23)
[2016-07-02] MEDS: ENOXAPARIN 40 MG/0.4 ML DISP.SYRIN. SQ SCH (15:23)
[2016-07-02 15:33] VITALS: BP 116/74
--- NOTE | 2016-07-02 16:56 | PDOC ---
Provider Note Provider Note Feeling better overall. On oral ATB. Doing well off of cigarettes. Await CT bx results to determine further treatment management. CHARLEEN PEREA MD Jul 02, 2016 16:56
[2016-07-02 19:00] VITALS: BP 123/75
[2016-07-02 23:00] VITALS: BP 122/77
[2016-07-03 03:00] VITALS: BP 114/58
[2016-07-03] MEDS: LEVOFLOXACIN 500 MG TABLET PO SCH (05:47)
[2016-07-03 07:57] VITALS: BP 123/67
[2016-07-03] MEDS: NICOTINE 21MG PATCH. TD SCH (09:19)
--- NOTE | 2016-07-03 10:14 | PDOC ---
PULMONARY PROGRESS NOTES Subjective no soa Vitals Vital Signs Date Time Temp Pulse Resp B/P Pulse Ox O2 Delivery O2 Flow Rate FiO2 07/03/16 07:57 97.4 64 18 123/67 96 Room Air 97.4 General: Alert, No acute distress Lungs: Clear Cardiovascular: S1, S2 Abdomen: Soft Neuro Exam: Alert Extremities: No Edema Skin: Warm Medications Active Scripts Medications Dose Route/Sig Days Date Category [place] 5-325 Tablet (Acetaminophen/Hydrocodone Bitart) 1 Each Tablet 1-2 Tab PO Q4-6HRS PRN 06/27/16 Rx Proair Hfa Inhaler (Albuterol Sulfate) 8.5 Gm Hfa.aer.ad 2 Puff INH Q4-6HRS PRN 06/27/16 Rx Levaquin (Levofloxacin) 750 Mg Tablet 1 Tab PO DAILY 06/27/16 Rx No Known Medications Prior To Admisstion (Info) Each 1 Each 04/19/16 Reported No Known Medications Prior To Admisstion (Info) Each 1 Each 04/19/16 Reported Impression . 1. Right lower lobe mass in a patient who has been coughing for 6 months. He has right hilar adenopathy and pretracheal adenopathy and 10-pound unintentional weight loss. I suspect that we most likely dealing with a primary lung malignancy, however a pneumonic consolidation is also a consideration. His chest x-ray was clear in 04/2016 but it may have missed a sub-pulmonic process based on a portable CXR. s/p CT-guided biopsy 2. Suspected underlying chronic obstructive pulmonary disease. 3. Ten-pound weight loss. Plan . 1. metastatic workup per Oncology recommendations. 2. s/p CT-guided biopsy..c/w small cell lung cancer 3. PFTs as an outpatient. 4. no further rec. will see JEAN Mayen MD Jul 03, 2016 10:14
[2016-07-03 11:18] VITALS: BP 122/78
--- NOTE | 2016-07-03 11:19 | PDOC ---
PROGRESS NOTES Chief Complaint Chief Complaint SOB Cough R CP ASSESSMENT AND PLAN: 1. Lung mass: suspected malignancy, Planning for Biopsy today by IR 2. PNA: Levaquin ; suppl O2 prn 3. Tobacco use: cessation counseled. nicotine patch 4. PCM: moderate. supplements 5. Prophylaxis: lovenox 6. Dispo: awaiting for biopsy results, radiation oncology and oncology has been following History of Present Illness History of Present Illness CAlled pathology today - currentlyu reading it But pt claims pulmo has said biopsy out and is lung CA BOne scan is neg for mets CTA abd /pelvis likewise neg RAd onc now on board Pt claims gets SOA after long walks VS good Unfortunately, pt seems to still not wanting to quit - Vitals Vitals Vital Signs Date Time Temp Pulse Resp B/P Pulse Ox O2 Delivery O2 Flow Rate FiO2 07/03/16 07:57 97.4 64 18 123/67 96 Room Air 97.4 Physical Exam General: Alert, Oriented X3, Cooperative, No acute distress Heart: Regular rate, Normal S2 Lungs: Clear Abdomen: Normal bowel sounds, Soft, No tenderness Extremities: No clubbing, No edema Skin: No rashes Review of Systems Review of Systems SOA on long walks, no CPm no abd pain, all else is neg 14 pts Assessment and Plan Assessmemt and Plan Await rad onc plans USually after mapping done then goes home for OP radiation dw pt and Girlfirend Problems Medical Problems: (1) Chest pain Status: Acute (2) Lung infiltrate Status: Acute Problems: Comment Review of Relevant I have reviewed the following items reynold (where applicable) has been applied. Medications Current Medications Ondansetron HCl (Zofran) 4 mg PRN Q8HRS PRN IV NAUSEA/VOMITING; Start 06/27/16 at 17:45; Stop 06/28/16 at 17:44; Status DC Fentanyl Citrate (Fentanyl 2ml Vial) 50 mcg PRN Q2HR PRN IV PAIN; Start at 17:45; Stop 06/28/16 at 17:44; Status DC Acetaminophen (Tylenol) 650 mg PRN Q4HRS PRN PO FEVER; Start 06/27/16 at 17:45 ; Stop 06/28/16 at 17:44; Status DC Albuterol/ Ipratropium (Duoneb) 3 ml RTQID NEB Last administered on 06/28/16t 19:31; Start 06/27/16 at 20:00; Stop 06/28/16 at 19:59; Status DC Nicotine (Nicoderm Cq 21mg) 1 patch DAILY TD Last administered on 07/03/16 09: 19; Start 06/28/16 at 09:00 Iohexol (Omnipaque 240 Mg/ml) 30 ml 1X ONCE PO Last administered on 06/28/16 13:24; Start 06/28/16 at 12:15; Stop 06/28/16 at 12:16; Status DC Iohexol (Omnipaque 300 Mg/ml) 75 ml 1X ONCE IV Last administered on 06/28/16 13:24; Start 06/28/16 at 12:15; Stop 06/28/16 at 12:16; Status DC Info 1 each 1 each PRN DAILY PRN MC SEE COMMENTS; Start 06/28/16 at 12:15; Stop 06/30/16 at 12:14; Status DC Levofloxacin/ Dextrose (LEVAQUIN 500mg PREMIX) 100 ml @ 100 mls/hr Q24H IV Last administered on 07/01/16 17:44; Start 06/28/16 at 16:00; Stop 07/02/16 at 15:05; Status DC Ibuprofen (Motrin) 400 mg PRN Q6HRS PRN PO INFLAMMATION Last administered on 23:32; Start 06/28/16 at 15:30 Enoxaparin Sodium (Lovenox 40mg Syringe) 40 mg Q24H SQ Last administered on 15:23; Start 06/28/16 at 16:00 Albuterol Sulfate (Ventolin Neb Soln) 2.5 mg PRN Q4HRS PRN NEB SHORTNESS OF BREATH Last administered on 07/01/16 20:52; Start 06/29/16 at 15:45 Lidocaine/Sodium Bicarbonate (Buffered Lidocaine 1%) 20 ml STK-MED ONCE IJ ; Start 07/01/16 at 15:01; Stop 07/01/16 at 15:02; Status DC Midazolam HCl (Versed) 2 mg STK-MED ONCE .ROUTE ; Start 07/01/16 at 15:19; Stop 07/01/16 at 15:20; Status DC Fentanyl Citrate (Fentanyl 2ml Vial) 100 mcg STK-MED ONCE .ROUTE ; Start at 15:19; Stop 07/01/16 at 15:20; Status DC Lidocaine/Sodium Bicarbonate (Buffered Lidocaine 1%) 20 ml 1X ONCE IJ Last administered on 07/01/16 15:45; Start 07/01/16 at 15:45; Stop 07/01/16 at 15:46 ; Status DC Midazolam HCl (Versed) 2 mg 1X ONCE IV Last administered on 07/01/16 15:45; Start 07/01/16 at 15:45; Stop 07/01/16 at 15:46; Status DC Fentanyl Citrate (Fentanyl 2ml Vial) 100 mcg 1X ONCE IV Last administered on 15:45; Start 07/01/16 at 15:45; Stop 07/01/16 at 15:46; Status DC Acetaminophen (Tylenol) 500 mg PRN Q6HRS PRN PO MILD PAIN / TEMP; Start at 09:45 Ondansetron HCl (Zofran) 4 mg PRN Q6HRS PRN IV NAUSEA/VOMITING; Start 07/02/16 at 09:45 Levofloxacin (Levaquin) 500 mg DAILY06 PO Last administered on 07/03/16 05:47 ; Start 07/02/16 at 16:00 Active Scripts Active [place] 5-325 Tablet (Acetaminophen/Hydrocodone Bitart) 1 Each Tablet 1-2 Tab PO Q4-6HRS PRN Proair Hfa Inhaler (Albuterol Sulfate) 8.5 Gm Hfa.aer.ad 2 Puff INH Q4-6HRS PRN Levaquin (Levofloxacin) 750 Mg Tablet 1 Tab PO DAILY Reported No Known Medications Prior To Admisstion (Info) Each 1 Each No Known Medications Prior To Admisstion (Info) Each 1 Each Vitals/I & O Vital Sign - Last 24 Hours 07/02/16 07/02/16 07/02/16 07/02/16 15:33 19:00 20:00 23:00 Temp 98.0 97.7 97.7 98.0 97.7 97.7 Pulse 65 76 83 Resp 17 18 18 B/P 116/74 123/75 122/77 Pulse Ox 98 96 98 O2 Delivery Room Air Room Air Room Air Room Air 07/03/16 07/03/16 03:00 07:57 Temp 96.8 97.4 96.8 97.4 Pulse 65 64 Resp 18 18 B/P 114/58 123/67 Pulse Ox 97 96 O2 Delivery Room Air Room Air OTIS KWONG MD Jul 03, 2016 11:19
--- NOTE | 2016-07-03 11:28 | PDOC ---
Provider Note Provider Note Symptoms improved overall. He notes that we should treat him while he is an inpatient. He does feel that he could come back as outpatient to initiate radiation combined with ongoing chemotherapy. Path Small cell carcinoma. Impression: Limited SCLC. Plan to initiate chemo prior to discharge. We would see in fu in 2 weeks for treatment planning to initiate chest radiation with second cycle of chemo. At this time he is interested in full course of treatment and want to be compliant with treatment as outlined. CHARLEEN PEREA MD Jul 03, 2016 11:28
[2016-07-03 14:48] VITALS: BP 105/70
[2016-07-03] MEDS: ENOXAPARIN 40 MG/0.4 ML DISP.SYRIN. SQ SCH ×2 (17:00→17:36)
[2016-07-03 19:00] VITALS: BP 124/74
[2016-07-03] MEDS: IBUPROFEN 400 MG TABLET. PO PRN (19:47)
[2016-07-03 23:00] VITALS: BP 124/77
[2016-07-04 02:48] VITALS: BP 123/70
[2016-07-04] MEDS: IBUPROFEN 400 MG TABLET. PO PRN (05:07)
[2016-07-04] MEDS: LEVOFLOXACIN 500 MG TABLET PO SCH (06:12)
[2016-07-04 07:00] VITALS: BP 103/57
[2016-07-04] MEDS: NICOTINE 21MG PATCH. TD SCH (08:10)
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
--- NOTE | 2016-07-04 09:54 | PDOC ---
PROGRESS NOTES Chief Complaint Chief Complaint ASSESSMENT AND PLAN: 1. Limited SCLCA - new dx 2. PNA: Levaquin ; 3. Tobacco use: 4. PCM: moderate. 5. Prophylaxis: lovenox History of Present Illness History of Present Illness Walking the halls,. no inc in SOA, no desats, no CP PAth is SCLCA Dw heme onc, planned for inpt chemo today or brittnee?, first cycle - 2 agents, one is once a aweek, other agent is few times a day? Then will dc home after first cycle with OP ff up rad onc for planned radiationm in 2 weeks along with second cycle chemo Dw case mx and pt Vitals Vitals Vital Signs Date Time Temp Pulse Resp B/P Pulse Ox O2 Delivery O2 Flow Rate FiO2 07/04/16 08:00 Room Air 07/04/16 07:00 97.5 56 20 103/57 97 97.5 Physical Exam General: Alert, Oriented X3, Cooperative, No acute distress Heart: Regular rate, Normal S2 Lungs: Clear Abdomen: Normal bowel sounds, Soft, No tenderness Extremities: No clubbing, No edema Skin: No rashes Review of Systems Review of Systems denies all 14 pt Assessment and Plan Assessmemt and Plan first cycle chemo in house Then dc home with out pt ff up rad onc and heme onc Problems Medical Problems: (1) Chest pain Status: Acute (2) Lung infiltrate Status: Acute Problems: Comment Review of Relevant I have reviewed the following items reynold (where applicable) has been applied. Medications Current Medications Ondansetron HCl (Zofran) 4 mg PRN Q8HRS PRN IV NAUSEA/VOMITING; Start 06/27/16 at 17:45; Stop 06/28/16 at 17:44; Status DC Fentanyl Citrate (Fentanyl 2ml Vial) 50 mcg PRN Q2HR PRN IV PAIN; Start at 17:45; Stop 06/28/16 at 17:44; Status DC Acetaminophen (Tylenol) 650 mg PRN Q4HRS PRN PO FEVER; Start 06/27/16 at 17:45 ; Stop 06/28/16 at 17:44; Status DC Albuterol/ Ipratropium (Duoneb) 3 ml RTQID NEB Last administered on 06/28/16t 19:31; Start 06/27/16 at 20:00; Stop 06/28/16 at 19:59; Status DC Nicotine (Nicoderm Cq 21mg) 1 patch DAILY TD Last administered on 07/04/16 08: 10; Start 06/28/16 at 09:00 Iohexol (Omnipaque 240 Mg/ml) 30 ml 1X ONCE PO Last administered on 06/28/16 13:24; Start 06/28/16 at 12:15; Stop 06/28/16 at 12:16; Status DC Iohexol (Omnipaque 300 Mg/ml) 75 ml 1X ONCE IV Last administered on 06/28/16 13:24; Start 06/28/16 at 12:15; Stop 06/28/16 at 12:16; Status DC Info 1 each 1 each PRN DAILY PRN MC SEE COMMENTS; Start 06/28/16 at 12:15; Stop 06/30/16 at 12:14; Status DC Levofloxacin/ Dextrose (LEVAQUIN 500mg PREMIX) 100 ml @ 100 mls/hr Q24H IV Last administered on 07/01/16 17:44; Start 06/28/16 at 16:00; Stop 07/02/16 at 15:05; Status DC Ibuprofen (Motrin) 400 mg PRN Q6HRS PRN PO INFLAMMATION Last administered on 05:07; Start 06/28/16 at 15:30 Enoxaparin Sodium (Lovenox 40mg Syringe) 40 mg Q24H SQ Last administered on 17:00; Start 06/28/16 at 16:00 Albuterol Sulfate (Ventolin Neb Soln) 2.5 mg PRN Q4HRS PRN NEB SHORTNESS OF BREATH Last administered on 07/01/16 20:52; Start 06/29/16 at 15:45 Lidocaine/Sodium Bicarbonate (Buffered Lidocaine 1%) 20 ml STK-MED ONCE IJ ; Start 07/01/16 at 15:01; Stop 07/01/16 at 15:02; Status DC Midazolam HCl (Versed) 2 mg STK-MED ONCE .ROUTE ; Start 07/01/16 at 15:19; Stop 07/01/16 at 15:20; Status DC Fentanyl Citrate (Fentanyl 2ml Vial) 100 mcg STK-MED ONCE .ROUTE ; Start at 15:19; Stop 07/01/16 at 15:20; Status DC Lidocaine/Sodium Bicarbonate (Buffered Lidocaine 1%) 20 ml 1X ONCE IJ Last administered on 07/01/16 15:45; Start 07/01/16 at 15:45; Stop 07/01/16 at 15:46 ; Status DC Midazolam HCl (Versed) 2 mg 1X ONCE IV Last administered on 07/01/16 15:45; Start 07/01/16 at 15:45; Stop 07/01/16 at 15:46; Status DC Fentanyl Citrate (Fentanyl 2ml Vial) 100 mcg 1X ONCE IV Last administered on 15:45; Start 07/01/16 at 15:45; Stop 07/01/16 at 15:46; Status DC Acetaminophen (Tylenol) 500 mg PRN Q6HRS PRN PO MILD PAIN / TEMP; Start at 09:45 Ondansetron HCl (Zofran) 4 mg PRN Q6HRS PRN IV NAUSEA/VOMITING; Start 07/02/16 at 09:45 Levofloxacin (Levaquin) 500 mg DAILY06 PO Last administered on 07/04/16 06:12 ; Start 07/02/16 at 16:00 Active Scripts Active [place] 5-325 Tablet (Acetaminophen/Hydrocodone Bitart) 1 Each Tablet 1-2 Tab PO Q4-6HRS PRN Proair Hfa Inhaler (Albuterol Sulfate) 8.5 Gm Hfa.aer.ad 2 Puff INH Q4-6HRS PRN Levaquin (Levofloxacin) 750 Mg Tablet 1 Tab PO DAILY Reported No Known Medications Prior To Admisstion (Info) Each 1 Each No Known Medications Prior To Admisstion (Info) Each 1 Each Vitals/I & O Vital Sign - Last 24 Hours 07/03/16 07/03/16 07/03/16 07/03/16 11:18 14:48 19:00 20:00 Temp 97.7 97.8 97.5 97.7 97.8 97.5 Pulse 76 74 65 Resp 19 18 18 B/P 122/78 105/70 124/74 Pulse Ox 97 96 97 O2 Delivery Room Air Room Air Room Air Room Air 07/03/16 07/04/16 07/04/16 07/04/16 23:00 02:48 07:00 08:00 Temp 96.3 97.5 97.5 96.3 97.5 97.5 Pulse 74 64 56 Resp 18 18 20 B/P 124/77 123/70 103/57 Pulse Ox 97 97 97 O2 Delivery Room Air Room Air Room Air Room Air Intake and Output 07/03/16 07/03/16 07/04/16 15:00 23:00 07:00 Intake Total 500 ml Balance 500 ml OTIS KWONG MD Jul 04, 2016 09:54
[2016-07-04 11:00] VITALS: BP 111/63
[2016-07-04 15:00] VITALS: BP 117/76
[2016-07-04 19:00] VITALS: BP 115/79
[2016-07-04 23:00] VITALS: BP 135/76
[2016-07-05 03:00] VITALS: BP 138/83
[2016-07-05] MEDS: LEVOFLOXACIN 500 MG TABLET PO SCH (05:45)
[2016-07-05 07:31] VITALS: BP 134/83
[2016-07-05] MEDS: NICOTINE 21MG PATCH. TD SCH (07:40)
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
[2016-07-05 11:41] VITALS: BP 134/88
--- NOTE | 2016-07-05 16:02 | PATHOLOGY ---
PATHOLOGY REPORT * * * * * * * * FINAL DIAGNOSIS: Right lung tissue, right infrahilar mass CT-guided biopsy: - SMALL CELL UNDIFFERENTIATED CARCINOMA. SEE COMMENT. COMMENT: Sections of the right infrahilar lung mass CT-guided biopsy show extensive replacement of lung tissue by a malignant epithelial neoplasm. The malignant cells are present in solid sheets. The malignant cells are relatively small and have a high N/C ratio. The malignant cells have rounded to ovoid nuclei having a finely dispersed chromatin and inconspicuous nucleoli. There is nuclear molding. Mitotic figures and apoptosis are readily identified. The neoplasm shows no evidence of glandular or squamous differentiation. A panel of immunohistochemical stains is obtained and yields the following results: Cytokeratin 7: tumor cells positive; AE1/AE3: tumor cells positive; CD45: tumor cells negative; Synaptophysin: tumor cells positive; CD56: tumor cells positive; TTF-1: tumor cells positive; CK5/6: tumor cells negative; p40: tumor cells negative. The morphologic and immunophenotypic findings are supportive of the diagnosis of small cell undifferentiated carcinoma. Dr. Saleh has examined the case and concurs with the diagnosis. (JPM:csd; d/t: 07/05/2016) Special stains performed: Immunoperoxidase stains for cytokeratin 7, AE1/AE3, CD45, synaptophysin, CD56, TTF-1, CK5/6 and p40 REPORT ELECTRONICALLY SIGNED BY: Cristian Aguayo M.D. DATE/TIME: 07/05/2016 16:01 * * * * * * * * GROSS PATHOLOGY: Received in formalin labeled "Shaun Bojorquez, right lung biopsy," are four distinct needle cores of garza soft tissue ranging from 0.8 to 1.7 cm in length, which are submitted entirely in cassette A1. (CAA; 07/02/2016) INITIAL CPT CODE(S): A; 13850, 05275, 75530, 74999, 59245, 09659, 05929, 82083, 58806 Professional services performed by [facility] at [address] [address] Technical services performed by [facility] at [address] [place] [address], [address], [place] [address]. SPECIMEN(S) RECEIVED: A.Right infrahilar lung mass biopsy CLINICAL HISTORY: Right lung mass, parahilar/hilar/mediastinal mass, smoker, bronch ca? PATIENT: SHAUN BOJORQUEZ /AGE: 3 1965 (Age: 50) PATIENT #: [id number] ALT CASE #: SPECIMEN COLLECTION DATE: 07/01/2016 SPECIMEN RECEIVED DATE: 07/02/2016 [facility] - [address] [place] [address] - PHONE: [phone] * * * END OF REPORT * * *
[2016-07-05] MEDS: ENOXAPARIN 40 MG/0.4 ML DISP.SYRIN. SQ SCH (16:38)
[2016-07-10] MEDS ORDERED: ONDA4TAB10 SL (15:05)
== END 2016-07-05 16:50 | disposition home or self-care (01) | DRG 180 ==
LOC: ER 16:56 → 5 NORTH 17:44
PROVIDERS: ADMIT Internal Medicine Hematology & Oncology; ATTEND Internal Medicine Hematology & Oncology
PROC: 0BBK3ZX Excision of Right Lung, Percutaneous Approach, Diagnostic (ICD-10-PCS; principal; 2016-07-01)
DX: C34.31 Malignant neoplasm of lower lobe, right bronchus or lung (principal); J18.9 Pneumonia, unspecified organism; E44.0 Moderate protein-calorie malnutrition; J90 Pleural effusion, not elsewhere classified; R91.8 Other nonspecific abnormal finding of lung field; R55 Syncope and collapse; R59.0 Localized enlarged lymph nodes; D64.9 Anemia, unspecified; F17.210 Nicotine dependence, cigarettes, uncomplicated; Z80.1 Family history of malignant neoplasm of trachea, bronchus and lung; Z82.5 Family history of asthma and other chronic lower respiratory diseases; Z87.81 Personal history of (healed) traumatic fracture; Z68.20 Body mass index [BMI] 20.0-20.9, adult
CPT/HCPCS: 32405; 36415; 70470; 71010; 71020; 71035; 71260; 74177; 77012; 78306; 80048; 80076; 82947; 84484; 85027; 85610; 88305; 88341; 88342; 93005; 94250; 94640; 96374; A9503; J1650; J1956; J2250; J3010; J7620; Q9966; Q9967; 99285-25; G0641

== ENCOUNTER 2016-10-10 17:30 | Emergency (ER) | payer OTHER ==
[~2016-10-10] VITALS: Ht 182.9 cm; Wt 68.0 kg
[~2016-10-10 17:30] MED LIST changes: +ONDA4TAB10 SL; +ONDA8TAB9 PO
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
[2016-10-10] MEDS: IV NORMAL SALINE 1000ML BAG 1,000 ML IV SCH ×2 (18:39→19:39)
[2016-10-10 18:46] LABS: BASO % 1 % (0-3); EOS % 0 % (0-3); HEMATOCRIT 26.5 % (39.0-53.0); HEMOGLOBIN 9.1 g/dL (13.0-17.5); LYMPH # 0.3 x10^3/uL (1.0-4.8); LYMPH % 11 % (24-48); MEAN CORPUSCULAR HEMOGLOBIN 30 pg (25-35); MEAN CORPUSCULAR HGB CONC 34 g/dL (31-37); MEAN CORPUSCULAR VOLUME 88 fL (79-100); MONO % 3 % (0-9); NEUT % 85 % (31-73); PLATELET COUNT 177 x10^3/uL (140-400); RED CELL DISTRIBUTION WIDTH 18.3 % (11.5-14.5); WHITE BLOOD COUNT 3.1 x10^3/uL (4.0-11.0)
[2016-10-10 18:58] LABS: CALCIUM 7.7 mg/dL (8.5-10.1); GFR 78.8; POTASSIUM 3.3 mmol/L (3.5-5.1)
[2016-10-10 19:04] LABS: ALBUMIN 3.1 g/dL (3.4-5.0); DIRECT BILIRUBIN 0.1 mg/dL (0.0-0.2); TOTAL BILIRUBIN 0.4 mg/dL (0.2-1.0); TOTAL PROTEIN 6.1 g/dL (6.4-8.2)
[2016-10-10 19:50] LABS: BILIRUBIN,URINE NEGATIVE (NEG); GLUCOSE,URINE 100 mg/dL (NEG); NITRITE,URINE NEGATIVE (NEG); PH,URINE 5.5; PROTEIN,URINE NEGATIVE (NEG-TRACE); UROBILINOGEN,URINE 0.2 mg/dL (0.2 mg/dL)
[2016-10-10 19:57] LABS: BACTERIA,URINE 0 /HPF (0-FEW); RBC,URINE 0 /HPF (0-2); SQUAMOUS EPITHELIAL CELL,UR OCC /LPF; WBC,URINE OCC /HPF (0-4)
[2016-10-10 20:34] VITALS: BP 136/77
[2016-10-10] MEDS ORDERED: POTASSIUM CHLORIDE 20 MEQ TABLET.ER. PO ONE (20:45)
--- NOTE | 2016-10-11 06:17 | EKG ---
[facility] [address] [place] [address] Test Date: 2016-10-10 Test Time: 18:14:50 Pat Name: KARINA MOODY Department: Room: Gender: M [employer]: : 1965 Requested By: NANIDNI JONES Order Number: [id number] Reading MD: Malaika Gotti Measurements Intervals Larsen Rate: 88 P: 64 VT: 126 QRS: 48 QRSD: 84 T: 64 QT: 348 QTc: 424 Interpretive Statements SINUS RHYTHM NORMAL ECG RI6.01 Compared to ECG 06/27/2016 17:17:30 No significant changes Electronically Signed On 10-13-2016 17:44:31 CDT by Malaika Gotti
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
== END 2016-10-10 21:12 | disposition home or self-care (01) ==
LOC: ER 18:30
DX: R11.2 Nausea with vomiting, unspecified (principal); R19.7 Diarrhea, unspecified; E86.0 Dehydration; E87.6 Hypokalemia; F12.10 Cannabis abuse, uncomplicated; F15.10 Other stimulant abuse, uncomplicated; Z85.118 Personal history of other malignant neoplasm of bronchus and lung; Z92.21 Personal history of antineoplastic chemotherapy
CPT/HCPCS: 36415; 74022; 80048; 80076; 81001; 82550; 83690; 85027; 93005; 96360; 96361; 99285; J7030

== ENCOUNTER → 2016-10-22 | Outpatient (CLI) | payer OTHER ==
[2016-10-10 20:34] VITALS: BP 136/77
[~2016-10-22] MED LIST changes: +AZIT1PAC7 PO; +CONTRAST GIVEN MC PRN; +IOHEXOL 240 MG/ML 50ML VIAL. IART ONE; +IOHEXOL 300 MG/ML 75 ML VIAL IV ONE
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
--- NOTE | 2016-10-22 14:33 | RAD ---
Examination: CT of head without and with IV contrast History: History of lung cancer staging. Comparison: 06/28/2016 Technique: Axial CT images of the head was performed without and with IV contrast. PQRS Compliance Statement: One or more of the following individualized dose reduction techniques were utilized for this examination: 1. Automated exposure control 2. Adjustment of the mA and/or kV according to patient size 3. Use of iterative reconstruction technique Findings: There is no evidence of midline shift. There is no acute intracranial bleed or extra-axial fluid collection identified. The nash-white matter differentiation is maintained. The visualized lateral ventricle, third ventricle, fourth and appropriate for age. The basal cisterns are uneffaced. No evidence of enhancing lesion identified. Moderate mucosal thickening identified in the partially visualized bilateral ethmoidal sinuses and the maxillary sinus likely due to sinus disease. Impression: 1. No acute findings.
== END | disposition home or self-care (01) ==
LOC: CT 09:32
PROVIDERS: ATTEND Internal Medicine Hematology & Oncology
DX: C34.31 Malignant neoplasm of lower lobe, right bronchus or lung (principal)
CPT/HCPCS: 70470; 71260; 74177; Q9966; Q9967

== ENCOUNTER 2016-11-12 13:02 | Emergency (ER) | payer MEDICAID ==
[~2016-11-12] VITALS: Ht 182.9 cm; Wt 65.3 kg
[~2016-11-12 13:02] MED LIST changes: -AZIT1PAC7 PO; -CONTRAST GIVEN MC PRN; -IOHEXOL 240 MG/ML 50ML VIAL. IART ONE; -IOHEXOL 300 MG/ML 75 ML VIAL IV ONE
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
[2016-11-12] MEDS ORDERED: IV NORMAL SALINE 1000ML BAG 1,000 ML IV SCH (13:17)
[2016-11-12] MEDS ORDERED: MORPHINE SULFATE 2 MG/ML DISP.SYRIN. IV/SQ PRN (13:30)
[2016-11-12 13:40] LABS: BASO % 0 % (0-3); EOS % 5 % (0-3); HEMATOCRIT 32.5 % (39.0-53.0); HEMOGLOBIN 10.9 g/dL (13.0-17.5); LYMPH # 0.8 x10^3/uL (1.0-4.8); LYMPH % 12 % (24-48); MEAN CORPUSCULAR HEMOGLOBIN 31 pg (25-35); MEAN CORPUSCULAR HGB CONC 34 g/dL (31-37); MEAN CORPUSCULAR VOLUME 92 fL (79-100); MONO % 8 % (0-9); NEUT % 74 % (31-73); PLATELET COUNT 203 x10^3/uL (140-400); RED BLOOD COUNT 3.53 x10^6/uL (4.30-5.70); RED CELL DISTRIBUTION WIDTH 17.3 % (11.5-14.5); WHITE BLOOD COUNT 6.5 x10^3/uL (4.0-11.0)
[2016-11-12 13:49] LABS: PROTHROMBIN TIME PATIENT 12.4 SEC (11.7-14.0)
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
--- NOTE | 2016-11-12 14:06 | EKG ---
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
[2016-11-12 14:18] LABS: ANION GAP 7 (6-14); BLOOD UREA NITROGEN 16 mg/dL (8-26); CALCIUM 8.8 mg/dL (8.5-10.1); CARBON DIOXIDE 28 mmol/L (21-32); CHLORIDE 101 mmol/L (98-107); CREATININE 1.1 mg/dL (0.7-1.3); GFR 70.6; GLUCOSE 119 mg/dL (70-99); POTASSIUM 4.2 mmol/L (3.5-5.1); SODIUM 136 mmol/L (136-145)
[2016-11-12 14:25] LABS: ALBUMIN 3.3 g/dL (3.4-5.0); ALK PHOS 100 U/L (46-116); ALT (SGPT) 20 U/L (16-63); AST (SGOT) 25 U/L (15-37); MAGNESIUM 1.5 mg/dL (1.8-2.4); TOTAL BILIRUBIN 0.3 mg/dL (0.2-1.0); TOTAL PROTEIN 6.8 g/dL (6.4-8.2)
[2016-11-12 14:28] LABS: DIRECT BILIRUBIN < 0.1 mg/dL (0.0-0.2)
[2016-11-12 14:34] LABS: CKMB MASS 0.6 ng/mL (0.0-3.6)
[2016-11-12 14:35] LABS: CREATINE KINASE 66 U/L (39-308)
[2016-11-12 15:27] LABS: BILIRUBIN,URINE NEGATIVE (NEG); GLUCOSE,URINE NEGATIVE (NEG); NITRITE,URINE NEGATIVE (NEG); PH,URINE 5.5; PROTEIN,URINE NEGATIVE (NEG-TRACE); UROBILINOGEN,URINE 0.2 mg/dL (0.2 mg/dL)
[2016-11-12] MEDS ORDERED: IOHEXOL 300 MG/ML 75 ML VIAL IV ONE (15:30)
[2016-11-12 15:32] LABS: BACTERIA,URINE 0 /HPF (0-FEW); RBC,URINE 0 /HPF (0-2); WBC,URINE 0 /HPF (0-4)
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
[2016-11-12] MEDS ORDERED: MAGNESIUM SULFATE 1GM 100 ML IV ONE (17:00)
[2016-11-12] MEDS ORDERED: IV NORMAL SALINE 1000ML BAG 1,000 ML IV ONE (17:00)
[2016-11-12 17:21] VITALS: BP 120/74
[2016-11-12] MEDS ORDERED: AZIT1PAC9 PO (18:26)
[2016-11-12] MEDS ORDERED: AZITHROMYCIN 250 MG TABLET. PO ONE (19:00)
== END 2016-11-12 18:39 | disposition home or self-care (01) ==
LOC: ER 13:02
DX: R11.2 Nausea with vomiting, unspecified (principal); J40 Bronchitis, not specified as acute or chronic; E83.42 Hypomagnesemia; C34.90 Malignant neoplasm of unspecified part of unspecified bronchus or lung; F12.10 Cannabis abuse, uncomplicated; F15.10 Other stimulant abuse, uncomplicated; Z87.09 Personal history of other diseases of the respiratory system
CPT/HCPCS: 36415; 74022; 74177; 80048; 80076; 81001; 82553; 83690; 83735; 83880; 84484; 85027; 85610; 93005; 96361; 96365; 96375; 99285; J2270; J3475; J7030; Q0144; Q9967

== ENCOUNTER 2017-01-01 14:58 | Emergency (ER) | payer OTHER ==
[~2017-01-01] VITALS: Ht 182.9 cm; Wt 68.0 kg
[~2017-01-01 14:58] MED LIST changes: +AZIT1PAC9 PO
[2017-01-01] MEDS ORDERED: methylPREDNISolone SOD SUCC PF 125 MG/2 ML VIAL. IV ONE (16:00)
[2017-01-01] MEDS ORDERED: IPRATRPIUM/ALBUTEROL 0.5/2.5MG 3 ML NEBU. NEB ONE (16:00)
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
[2017-01-01 16:16] LABS: BASO % 1 % (0-3); EOS % 3 % (0-3); HEMATOCRIT 39.3 % (39.0-53.0); HEMOGLOBIN 13.4 g/dL (13.0-17.5); LYMPH # 0.9 x10^3/uL (1.0-4.8); LYMPH % 21 % (24-48); MEAN CORPUSCULAR HEMOGLOBIN 30 pg (25-35); MEAN CORPUSCULAR HGB CONC 34 g/dL (31-37); MEAN CORPUSCULAR VOLUME 89 fL (79-100); MONO % 8 % (0-9); NEUT % 68 % (31-73); PLATELET COUNT 220 x10^3/uL (140-400); RED CELL DISTRIBUTION WIDTH 14.9 % (11.5-14.5); WHITE BLOOD COUNT 4.3 x10^3/uL (4.0-11.0)
[2017-01-01 16:30] LABS: CALCIUM 9.2 mg/dL (8.5-10.1); CREATININE 1.1 mg/dL (0.7-1.3); GFR 70.6; POTASSIUM 3.9 mmol/L (3.5-5.1)
[2017-01-01 16:36] LABS: ALBUMIN 3.7 g/dL (3.4-5.0); ALBUMIN/GLOBULIN RATIO 1.2 (1.0-1.7); TOTAL BILIRUBIN 0.1 mg/dL (0.2-1.0); TOTAL PROTEIN 6.9 g/dL (6.4-8.2)
[2017-01-01 16:54] LABS: BILIRUBIN,URINE NEGATIVE (NEG); GLUCOSE,URINE NEGATIVE (NEG); NITRITE,URINE NEGATIVE (NEG); PH,URINE 5.5; PROTEIN,URINE NEGATIVE (NEG-TRACE); UROBILINOGEN,URINE 0.2 mg/dL (0.2 mg/dL)
[2017-01-01 16:59] LABS: BACTERIA,URINE 0 /HPF (0-FEW); RBC,URINE 0 /HPF (0-2); WBC,URINE 0 /HPF (0-4)
[2017-01-01] MEDS ORDERED: AZIT250T PO (17:17)
[2017-01-01] MEDS ORDERED: PRED50TA PO (17:17)
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
[2017-01-01 17:30] VITALS: BP 117/73
--- NOTE | 2017-01-02 08:15 | EKG ---
[facility] [address] [place] [address] Test Date: 2017-01-01 Test Time: 16:07:25 Pat Name: KARINA MOODY Department: Room: Gender: M Bi Lead: : 1965 Requested By: CELESTINE JOSHI Order Number: [id number] Reading MD: Ruben Walker Measurements Intervals [place] Rate: 93 P: 56 MN: 126 QRS: 43 QRSD: 88 T: 55 QT: 354 QTc: 443 Interpretive Statements SINUS RHYTHM Electronically Signed On 01-02-2017 9:05:41 CDT by Ruben Walker
== END 2017-01-01 17:30 | disposition home or self-care (01) ==
LOC: ER 14:58
DX: J44.1 Chronic obstructive pulmonary disease with (acute) exacerbation (principal); C34.90 Malignant neoplasm of unspecified part of unspecified bronchus or lung; R07.9 Chest pain, unspecified; F17.210 Nicotine dependence, cigarettes, uncomplicated; F12.10 Cannabis abuse, uncomplicated; F15.10 Other stimulant abuse, uncomplicated
CPT/HCPCS: 36415; 71020; 80053; 81001; 83690; 84484; 85027; 93005; 94250; 94640; 96374; 99285; J2930; J7620

== ENCOUNTER → 2017-01-24 | Outpatient (CLI) | payer OTHER ==
[2017-01-01 17:30] VITALS: BP 117/73
[~2017-01-24] MED LIST changes: +ACET-704 PO; +AZIT250T PO; +GADOBUTROL 7.5 MMOL/7.5 ML VIAL IV ONE; +PRED50TA PO
--- NOTE | 2017-01-24 11:31 | RAD ---
INDICATION: Increased headaches. Lung cancer. TECHNIQUE: Sagittal T1, axial T1, axial T2, axial FLAIR, axial T2 gradient, diffusion imaging with ADC map, and 3 plane postcontrast imaging was performed. 6 mL of intravenous Gadavist was administered without complication. Comparison is a CT head from October 22, 2016. FINDINGS: The ventricles and sulci are within normal limits for age. There is no acute intracranial hemorrhage or extra-axial fluid collection. There is no mass effect or midline shift. There is no restricted diffusion to suggest an acute infarct. Clival marrow signal is preserved. Intracranial flow voids are preserved. There is minimal maxillary and sphenoid mucosal thickening. Orbital contents are unremarkable. There is no pathologic enhancement. IMPRESSION: 1. No evidence of intracranial metastasis. 2. No acute intracranial findings. Electronically signed by: Wyatt Downing MD (01/24/2017 11:27 AM) [id number]
== END | disposition home or self-care (01) ==
LOC: MRI 08:42
PROVIDERS: ATTEND Radiology Radiation Oncology
DX: C34.90 Malignant neoplasm of unspecified part of unspecified bronchus or lung (principal); R51 Headache
CPT/HCPCS: 70553; A9585

== ENCOUNTER 2017-02-03 19:37 | Emergency (ER) | payer OTHER ==
[~2017-02-03] VITALS: Ht 182.9 cm; Wt 65.8 kg
[~2017-02-03 19:37] MED LIST changes: -GADOBUTROL 7.5 MMOL/7.5 ML VIAL IV ONE
[2017-02-03] MEDS ORDERED: ONDANSETRON PF 4 MG/2 ML VIAL. IV ONE (20:30)
[2017-02-03] MEDS ORDERED: HYDROmorphone 2 MG/ML VIAL IV ONE (20:30)
[2017-02-03 20:39] LABS: BASO % 0 % (0-3); EOS % 2 % (0-3); HEMATOCRIT 33.2 % (39.0-53.0); HEMOGLOBIN 11.3 g/dL (13.0-17.5); LYMPH # 0.6 x10^3/uL (1.0-4.8); LYMPH % 10 % (24-48); MEAN CORPUSCULAR HEMOGLOBIN 31 pg (25-35); MEAN CORPUSCULAR HGB CONC 34 g/dL (31-37); MEAN CORPUSCULAR VOLUME 90 fL (79-100); MONO % 9 % (0-9); NEUT % 79 % (31-73); PLATELET COUNT 208 x10^3/uL (140-400); RED BLOOD COUNT 3.67 x10^6/uL (4.30-5.70); RED CELL DISTRIBUTION WIDTH 15.1 % (11.5-14.5); WHITE BLOOD COUNT 6.3 x10^3/uL (4.0-11.0)
[2017-02-03 20:51] LABS: CALCIUM 8.6 mg/dL (8.5-10.1); CREATININE 1.2 mg/dL (0.7-1.3); GFR 63.8; POTASSIUM 3.2 mmol/L (3.5-5.1)
[2017-02-03 20:57] LABS: ALBUMIN 3.6 g/dL (3.4-5.0); ALBUMIN/GLOBULIN RATIO 1.1 (1.0-1.7); TOTAL BILIRUBIN 0.4 mg/dL (0.2-1.0); TOTAL PROTEIN 6.9 g/dL (6.4-8.2)
[2017-02-03 21:00] VITALS: BP 109/77
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
--- NOTE | 2017-02-04 08:17 | EKG ---
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
== END 2017-02-03 21:42 | disposition home or self-care (01) ==
LOC: ER 19:37
DX: S29.011A Strain of muscle and tendon of front wall of thorax, initial encounter (principal); R09.1 Pleurisy; Z85.118 Personal history of other malignant neoplasm of bronchus and lung; X50.1XXA Overexertion from prolonged static or awkward postures, initial encounter; Y93.89 Activity, other specified; Y99.8 Other external cause status; Y92.89 Other specified places as the place of occurrence of the external cause
CPT/HCPCS: 36415; 71010; 80053; 84484; 85025; 93005; 96374; 96375; 99285; J1170; J2405

== ENCOUNTER 2017-03-24 12:32 | Inpatient (IN) | payer OTHER ==
[~2017-03-24] VITALS: Ht 182.9 cm; Wt 65.3 kg
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
[2017-03-24] MEDS ORDERED: IOHEXOL 300 MG/ML 75 ML VIAL IV ONE (13:30)
[2017-03-24 13:38] LABS: BASO % 1 % (0-3); EOS % 3 % (0-3); HEMATOCRIT 33.1 % (39.0-53.0); HEMOGLOBIN 11.5 g/dL (13.0-17.5); LYMPH # 0.6 x10^3/uL (1.0-4.8); LYMPH % 11 % (24-48); MEAN CORPUSCULAR HEMOGLOBIN 31 pg (25-35); MEAN CORPUSCULAR HGB CONC 35 g/dL (31-37); MEAN CORPUSCULAR VOLUME 89 fL (79-100); MONO % 7 % (0-9); NEUT % 78 % (31-73); PLATELET COUNT 365 x10^3/uL (140-400); RED BLOOD COUNT 3.73 x10^6/uL (4.30-5.70); RED CELL DISTRIBUTION WIDTH 14.4 % (11.5-14.5); WHITE BLOOD COUNT 6.1 x10^3/uL (4.0-11.0)
--- NOTE | 2017-03-24 13:50 | EKG ---
[facility] [address] [place] [address] Test Date: 2017-03-24 Test Time: 13:48:46 Pat Name: KARINA MOODY Department: Room: Gender: M [employer]: : 1965 Requested By: YANICK CARRANZA Order Number: [id number] Reading MD: Measurements Intervals [place] Rate: 78 P: 55 ID: [id number] QRS: 56 QRSD: 82 T: 56 QT: 374 QTc: 430 Interpretive Statements SINUS RHYTHM RI6.01 Unconfirmed report Compared to ECG 02/03/2017 19:55:50 No significant changes
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
[2017-03-24 13:55] LABS: CALCIUM 8.7 mg/dL (8.5-10.1); CREATININE 0.8 mg/dL (0.7-1.3); GFR 101.9; POTASSIUM 4.1 mmol/L (3.5-5.1)
[2017-03-24 14:07] LABS: ALBUMIN 2.7 g/dL (3.4-5.0); ALBUMIN/GLOBULIN RATIO 0.8 (1.0-1.7); TOTAL BILIRUBIN 0.2 mg/dL (0.2-1.0)
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
[2017-03-24] MEDS ORDERED: MORPHINE SULFATE 4 MG/ML DISP.SYRIN. IV PRN (16:00)
[2017-03-24] MEDS ORDERED: ONDANSETRON PF 4 MG/2 ML VIAL. IV PRN (16:00)
[2017-03-24 16:16] LABS: BILIRUBIN,URINE NEGATIVE (NEG); GLUCOSE,URINE NEGATIVE (NEG); NITRITE,URINE NEGATIVE (NEG); PH,URINE 5.5; PROTEIN,URINE NEGATIVE (NEG-TRACE); UROBILINOGEN,URINE 0.2 mg/dL (0.2 mg/dL)
[2017-03-24 16:31] LABS: BACTERIA,URINE FEW /HPF (0-FEW); RBC,URINE 0 /HPF (0-2); WBC,URINE 0 /HPF (0-4)
[2017-03-24 16:45] VITALS: BP 127/85
[2017-03-24] MEDS ORDERED: NICOTINE POLACRILEX 2MG GUM PACKAGE of 12. BC PRN (16:45)
[2017-03-24] MEDS ORDERED: BENZOCAINE/MENTHOL LOZENGE. PO PRN (16:45)
--- NOTE | 2017-03-24 16:54 | PDOC1 ---
History and Physical Date of Admission Date of Admission DATE: 03/24/17 TIME: 16:50 Identification/Chief Complaint Chief Complaint right sided chest pain Problems: Source Source: Chart review, Patient History of Present Illness History of Present Illness MR. Hdz, is a 51 year old admit from ER with acutely worsening right sided chest pain and shortness of breath. Symptoms have worsened for the past 3 days. Pain 8/10 weight stable, but pain severe, some low-grade fever symptoms, has felt ill. Had felt stronger and healthier a few weeks ago. This week, new shortness of breath with walking. Patient has a history of lung cancer with metastases to the brain. Is sched to see Dr. Alvarez later this month, follows Dr. Loya Patient last chemotherapy and radiation was 2 months ago. Past Medical History Cardiovascular: No pertinent hx Pulmonary: No pertinent hx CENTRAL NERVOUS SYSTEM: Other GI: No pertinent hx Heme/Onc: No pertinent hx Hepatobiliary: No pertinent hx Psych: No pertinent hx Musculoskeletal: No pain Rheumatologic: No pertinent hx Infectious disease: No pertinent hx Renal/: No pertinent hx Endocrine: No pertinent hx Past Surgical History Past Surgical History: Other Family History Family History: Coronary Artery Disease Social History Smoke: <1 pack per day ALCOHOL: rare Drugs: Crystal meth Current Medications Current Medications Current Medications Iohexol (Omnipaque 300 Mg/ml) 75 ml 1X ONCE IV Last administered on t 14:07; Start 03/24/17 at 13:30; Stop 03/24/17 at 13:31; Status DC Ondansetron HCl (Zofran) 4 mg PRN Q8HRS PRN IV NAUSEA/VOMITING; Start at 16:00; Stop 03/25/17 at 15:59 Morphine Sulfate 4 mg PRN Q2HR PRN IV PAIN; Start 03/24/17 at 16:00; Stop at 15:59 Active Scripts Active Reported Tylenol With Codeine #3 Tablet (Acetaminophen/Codeine Phosphate) 1 Each Tablet 1 Tab PO PRN Q6HRS PRN Allergies Allergies: Coded Allergies: No Known Drug Allergies (Unverified , 10/04/16) ROS General: No: Chills, Night Sweats, Fatigue, Malaise, Appetite, Other PSYCHOLOGICAL ROS: No: Anxiety, Behavioral Disorder, Concentration difficultie , Decreased libido, Depression, Disorientation, Hallucinations, Hostility, Irritablity, Memory difficulties, Mood Swings, Obsessive thoughts, Other Eyes: No Blurry vision, No Decreased vision, No Double vision, No Dry eyes, No Excessive tearing, No Eye Pain, No Itchy Eyes, No Loss of vision, No Photophobia , No Scotomata, No Uses contacts, No Uses glasses, No Other HEENT: YES: Sore Throat, No: Heacaches, Visual Changes, Hearing change, Nasal congestion, Nasal discharge, Oral lesions, Sinus pain, Epistaxis, Sneezing, Snoring, Tinnitus, Vertigo, Vocal changes, Other Respiratory: No: Cough, Hemoptysis, Orthopnea, Pleuritic Pain, Shortness of breath, SOB with excertion, Sputum Changes, Stridor, Tachypnea, Wheezing, Other Cardiovascular: yes Chest Pain, No Palpitations, No Orthopnea, No Paroxysmal Noc. Dyspnea, No Edema, No Lt Headedness, No Other Gastrointestinal: No Nausea, No Vomiting, No Abdominal Pain, No Diarrhea, No Constipation, No Melena, No Hematochezia, No Other Genitourinary: No Dysuria, No Frequency, No Incontinence, No Hematuria, No Retention, No Discharge, No Urgency, No Pain, No Flank Pain, No Other, No , No , No , No , No , No , No Musculoskeletal: Yes Joint Stiffness, No Gait Disturbance, No Joint Pain, No Joint Swelling, No Muscle Pain, No Muscular Weakness, No Pain In:, No Swelling In:, No Other Neurological: No Behavorial Changes, No Bowel/Bladder ControlChng, No Confusion , No Dizziness, No Gait Disturbance, No Headaches, No Impaired Coord/balance, No Memory Loss, No Numbness/Tingling, No Seizures, No Speech Problems, No Tremors, No Visual Changes, No Weakness, No Other Skin: No Dry Skin, No Eczema, No Hair Changes, No Lumps, No Mole Changes, No Mottling, No Nail Changes, No Pruritus, No Rash, No Skin Lesion Changes, No Other, No Acne Physical Exam General: Alert, Cooperative, No acute distress HEENT: PERRLA, EOMI, Mucous membr. moist/pink Lungs: Clear to auscultation, Normal air movement Heart: no gallops, no murmurs Abdomen: Normal bowel sounds Rectal Exam: not examined Extremities: No clubbing, No edema Skin: No significant lesion Neuro: Normal speech, Normal tone Psych/Mental Status: Mental status NL, Mood NL Vitals Vitals Vital Signs Date Time Temp Pulse Resp B/P (MAP) Pulse Ox O2 Delivery O2 Flow Rate FiO2 03/24/17 15:31 78 27 111/76 (88) 99 Room Air 03/24/17 13:00 98.2 98.2 Labs Labs Laboratory Tests Test 03/24/17 13:26 03/24/17 15:56 White Blood Count 6.1 x10^3/uL (4.0-11.0) Red Blood Count 3.73 x10^6/uL (4.30-5.70) Hemoglobin 11.5 g/dL (13.0-17.5) Hematocrit 33.1 % (39.0-53.0) Mean Corpuscular Volume 89 fL (79-100) Mean Corpuscular Hemoglobin 31 pg (25-35) Mean Corpuscular Hemoglobin Concent 35 g/dL (31-37) Red Cell Distribution Width 14.4 % (11.5-14.5) Platelet Count 365 x10^3/uL (140-400) Neutrophils (%) (Auto) 78 % (31-73) Lymphocytes (%) (Auto) 11 % (24-48) Monocytes (%) (Auto) 7 % (0-9) Eosinophils (%) (Auto) 3 % (0-3) Basophils (%) (Auto) 1 % (0-3) Neutrophils # (Auto) 4.8 x10^3uL (1.8-7.7) Lymphocytes # (Auto) 0.6 x10^3/uL (1.0-4.8) Monocytes # (Auto) 0.4 x10^3/uL (0.0-1.1) Eosinophils # (Auto) 0.2 x10^3/uL (0.0-0.7) Basophils # (Auto) 0.0 x10^3/uL (0.0-0.2) Sodium Level 139 mmol/L (136-145) Potassium Level 4.1 mmol/L (3.5-5.1) Chloride Level 100 mmol/L (98-107) Carbon Dioxide Level 31 mmol/L (21-32) Anion Gap 8 (6-14) Blood Urea Nitrogen 10 mg/dL (8-26) Creatinine 0.8 mg/dL (0.7-1.3) Estimated GFR (Cockcroft-Gault) 101.9 BUN/Creatinine Ratio 13 (6-20) Glucose Level 102 mg/dL (70-99) Lactic Acid Level 1.3 mmol/L (0.4-2.0) Calcium Level 8.7 mg/dL (8.5-10.1) Total Bilirubin 0.2 mg/dL (0.2-1.0) Aspartate Amino Transf (AST/SGOT) 25 U/L (15-37) Alanine Aminotransferase (ALT/SGPT) 29 U/L (16-63) Alkaline Phosphatase 121 U/L (46-116) Troponin I Quantitative < 0.017 ng/mL (0.000-0.055) Total Protein 6.0 g/dL (6.4-8.2) Albumin 2.7 g/dL (3.4-5.0) Albumin/Globulin Ratio 0.8 (1.0-1.7) Lipase 220 U/L (73-393) Urine Collection Type Unknown Urine Color Yellow Urine Clarity Clear Urine pH 5.5 Urine Specific [place] 1.010 Urine Protein Negative mg/dL (NEG-TRACE) Urine Glucose (UA) Negative mg/dL (NEG) Urine Ketones (Stick) Negative mg/dL (NEG) Urine Blood Negative (NEG) Urine Nitrite Negative (NEG) Urine Bilirubin Negative (NEG) Urine Urobilinogen Dipstick 0.2 mg/dL (0.2 mg/dL) Urine Leukocyte Esterase Negative (NEG) Urine RBC 0 /HPF (0-2) Urine WBC 0 /HPF (0-4) Urine Bacteria Few /HPF (0-FEW) Urine Mucus Mod /LPF Laboratory Tests Test 03/24/17 13:26 03/24/17 15:56 White Blood Count 6.1 x10^3/uL (4.0-11.0) Red Blood Count 3.73 x10^6/uL (4.30-5.70) Hemoglobin 11.5 g/dL (13.0-17.5) Hematocrit 33.1 % (39.0-53.0) Mean Corpuscular Volume 89 fL (79-100) Mean Corpuscular Hemoglobin 31 pg (25-35) Mean Corpuscular Hemoglobin Concent 35 g/dL (31-37) Red Cell Distribution Width 14.4 % (11.5-14.5) Platelet Count 365 x10^3/uL (140-400) Neutrophils (%) (Auto) 78 % (31-73) Lymphocytes (%) (Auto) 11 % (24-48) Monocytes (%) (Auto) 7 % (0-9) Eosinophils (%) (Auto) 3 % (0-3) Basophils (%) (Auto) 1 % (0-3) Neutrophils # (Auto) 4.8 x10^3uL (1.8-7.7) Lymphocytes # (Auto) 0.6 x10^3/uL (1.0-4.8) Monocytes # (Auto) 0.4 x10^3/uL (0.0-1.1) Eosinophils # (Auto) 0.2 x10^3/uL (0.0-0.7) Basophils # (Auto) 0.0 x10^3/uL (0.0-0.2) Sodium Level 139 mmol/L (136-145) Potassium Level 4.1 mmol/L (3.5-5.1) Chloride Level 100 mmol/L (98-107) Carbon Dioxide Level 31 mmol/L (21-32) Anion Gap 8 (6-14) Blood Urea Nitrogen 10 mg/dL (8-26) Creatinine 0.8 mg/dL (0.7-1.3) Estimated GFR (Cockcroft-Gault) 101.9 BUN/Creatinine Ratio 13 (6-20) Glucose Level 102 mg/dL (70-99) Lactic Acid Level 1.3 mmol/L (0.4-2.0) Calcium Level 8.7 mg/dL (8.5-10.1) Total Bilirubin 0.2 mg/dL (0.2-1.0) Aspartate Amino Transf (AST/SGOT) 25 U/L (15-37) Alanine Aminotransferase (ALT/SGPT) 29 U/L (16-63) Alkaline Phosphatase 121 U/L (46-116) Troponin I Quantitative < 0.017 ng/mL (0.000-0.055) Total Protein 6.0 g/dL (6.4-8.2) Albumin 2.7 g/dL (3.4-5.0) Albumin/Globulin Ratio 0.8 (1.0-1.7) Lipase 220 U/L (73-393) Urine Collection Type Unknown Urine Color Yellow Urine Clarity Clear Urine pH 5.5 Urine Specific [place] 1.010 Urine Protein Negative mg/dL (NEG-TRACE) Urine Glucose (UA) Negative mg/dL (NEG) Urine Ketones (Stick) Negative mg/dL (NEG) Urine Blood Negative (NEG) Urine Nitrite Negative (NEG) Urine Bilirubin Negative (NEG) Urine Urobilinogen Dipstick 0.2 mg/dL (0.2 mg/dL) Urine Leukocyte Esterase Negative (NEG) Urine RBC 0 /HPF (0-2) Urine WBC 0 /HPF (0-4) Urine Bacteria Few /HPF (0-FEW) Urine Mucus Mod /LPF VTE Prophylaxis Ordered VTE Prophylaxis Devices: No VTE Pharmacological Prophylaxi: Yes Assessment/Plan Assessment/Plan chest pain new mass chest wall known prior lung cancer, metastatic tobaccoism, patch and gum PRN mult agents for chest pain moderate malnutrition, hypoalbumin, BMI < 20 LC SAUL MD Mar 24, 2017 16:54
--- NOTE | 2017-03-24 17:30 | PDOC ---
Provider Note Provider Note Med Onc consult: 1. Recurrent SCLC - now stage 4 Plan palliative chemo with topotecan from next week as outpatient See dictation [id number] YOSI WEEMS MD Mar 24, 2017 17:30
--- NOTE | 2017-03-24 18:38 | PDOC2 ---
PALLIATIVE CARE Palliative Care Note Palliative Care Consult requested by Dr. Loya to address goals of care Diagnosis; Stage IV small cell lung cancer. Patient is off the unit and will see in amANCELMO GELLER Mar 24, 2017 18:37
[2017-03-24] MEDS: oxyCODONE/APAP 5/325 1 TAB TABLET PO PRN (19:29)
[2017-03-24 19:30] VITALS: BP 123/82
[2017-03-24] MEDS: NICOTINE 14MG PATCH. TD PRN (19:30)
[2017-03-24] MEDS ORDERED: ALBUTEROL SULFATE 2.5 MG/3 ML NEBU. NEB PRN (20:15)
[2017-03-24] MEDS: IPRATRPIUM/ALBUTEROL 0.5/2.5MG 3 ML NEBU. NEB SCH (20:30)
[2017-03-24 23:58] VITALS: BP 98/70
[2017-03-25 00:58] VITALS: BP 115/73
[2017-03-25] MEDS: oxyCODONE/APAP 5/325 1 TAB TABLET PO PRN (00:59)
--- NOTE | 2017-03-25 02:23 | CONS ---
DATE OF CONSULTATION: 03/24/2017 REQUESTING PHYSICIAN: Marly Soares M.D. 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 HISTORY OF PRESENT ILLNESS: The patient is a 51-year-old gentleman who presented to [facility] on 06/27/2016 with shortness of breath and chest pain. A CT scan on 06/27/2016 revealed a 4.9-cm right lower lobe mass with hilar and mediastinal lymphadenopathy. He underwent a CT scan of the head, chest, abdomen, and pelvis and a bone scan, which did not reveal any distant metastatic disease. He underwent a CT-guided core biopsy on 06/21/2016 that revealed small-cell lung cancer. He received chemotherapy with cisplatin and etoposide from 07/08/2016. Radiation was added with cycle #2 of treatment. His last cycle of chemotherapy was on 10/02/2016 which was cycle #4. A CT scan on 10/22/2016 revealed an excellent response. He underwent a prophylactic cranial irradiation. He then did not return for followup. He presented to [facility] ER on 03/24/2017 with right-sided chest pain of 3 days' duration. He also has exertional shortness of breath. He underwent a CT scan of the chest on 03/24/2017, which revealed a mass-like consolidation in the right lower lobe measuring 8.5 cm. There may be a component of pneumonia and recurrent malignancy. A new left adrenal metastasis measuring 3.8 cm is also noted. PAST MEDICAL HISTORY: Small-cell lung cancer as described above, status post chemoradiation. FAMILY HISTORY: Positive for coronary artery disease. SOCIAL HISTORY: He has a history of smoking less than 1 pack per day. REVIEW OF SYSTEMS: A 12-point review of system was performed. Pertinent positives are mentioned in the history of present illness. Rest of the system review is negative. PHYSICAL EXAMINATION: GENERAL APPEARANCE: The patient is a 51-year-old gentleman who is in no acute cardiorespiratory distress. VITAL SIGNS: Blood pressure 127/85, temperature 98.0. HEENT: Head is atraumatic, normocephalic. Eyes: No icterus. NECK: Supple. CHEST: Bilaterally symmetrical. HEART: S1, S2 normal. ABDOMEN: Soft, nontender. CENTRAL NERVOUS SYSTEM: No focal deficits. LYMPHATICS: No lymphadenopathy. SKIN: No rashes. PSYCHOLOGIC: Mood and affect are appropriate. MUSCULOSKELETAL: No joint effusions. LABORATORY DATA: WBC 6.1, hemoglobin 11.5, platelet count 365. Creatinine 0.8, calcium 8.7, and alkaline phosphatase 121. IMPRESSION AND PLAN: 1. 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 Previously, he was staged as a stage III lung cancer and he received chemoradiation. He is now staged as a stage IV lung cancer. Prognosis is poor. I discussed the diagnosis and prognosis with the patient and I have recommended palliative chemotherapy versus hospice. He is interested in palliative chemotherapy. I will consult palliative care medicine for treatment goals and advanced directives. I will plan to initiate chemotherapy as an outpatient next week. He requests for a left adrenal gland biopsy, which I do not think is necessary based on the CT findings and his history of lung cancer. I will discuss again with him regarding this. Radiation Oncology has also been consulted. 2. Right-sided chest pain, Pulmonary Medicine has been consulted. 3. New left adrenal gland metastasis. YOSI WEEMS MD DR: HONG/nts JOB#: [id number] / [id number] CHARLEEN Cardona MD MTDRamin
[2017-03-25 03:45] VITALS: BP 116/75
[2017-03-25 05:11] LABS: BASO % 1 % (0-3); EOS % 5 % (0-3); HEMATOCRIT 30.8 % (39.0-53.0); HEMOGLOBIN 10.5 g/dL (13.0-17.5); LYMPH # 0.7 x10^3/uL (1.0-4.8); LYMPH % 14 % (24-48); MEAN CORPUSCULAR HEMOGLOBIN 30 pg (25-35); MEAN CORPUSCULAR HGB CONC 34 g/dL (31-37); MEAN CORPUSCULAR VOLUME 89 fL (79-100); MONO % 8 % (0-9); NEUT % 73 % (31-73); PLATELET COUNT 326 x10^3/uL (140-400); RED BLOOD COUNT 3.47 x10^6/uL (4.30-5.70); RED CELL DISTRIBUTION WIDTH 14.1 % (11.5-14.5); WHITE BLOOD COUNT 5.2 x10^3/uL (4.0-11.0)
[2017-03-25 05:31] LABS: CALCIUM 8.8 mg/dL (8.5-10.1); CREATININE 0.9 mg/dL (0.7-1.3); POTASSIUM 3.6 mmol/L (3.5-5.1)
[2017-03-25] MEDS: IPRATRPIUM/ALBUTEROL 0.5/2.5MG 3 ML NEBU. NEB SCH ×2 (05:32→12:08)
[2017-03-25 07:00] VITALS: BP 120/87
[2017-03-25] MEDS ORDERED: DOCUSATE SODIUM 100 MG CAPSULE. PO SCH (09:00)
[2017-03-25] MEDS ORDERED: OXYC1TAB7 PO (09:15)
[2017-03-25] MEDS ORDERED: DOCU-109 PO (09:15)
--- NOTE | 2017-03-25 09:17 | PDOC ---
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 ROS - CP better Objective Objective Vital Signs Date Time Temp Pulse Resp B/P (MAP) Pulse Ox O2 Delivery O2 Flow Rate FiO2 03/25/17 08:00 Room Air 03/25/17 07:00 97.8 71 18 120/87 (98) 99 97.8 Physical Exam Heart: Normal S1, Normal S2 General: Alert, Oriented X3 Lungs: Clear to auscultation Neuro: Normal speech Psych/Mental Status: Mental status NL Assessment Assessment Problems Medical Problems: (1) Chest pain Status: Acute (2) Lung cancer Status: Acute (3) Right lower lobe lung mass Status: Acute IMPRESSION AND PLAN: 1. 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 Previously, he was staged as a stage III lung cancer and he received chemoradiation. He is now staged as a stage IV lung cancer. Prognosis is poor. I discussed the diagnosis and prognosis with the patient and I have recommended palliative chemotherapy versus hospice. He is interested in palliative chemotherapy. I will consult palliative care medicine for treatment goals and advanced directives. I will plan to initiate chemotherapy with Topotecan as outpatient next week. Left adrenal gland biopsy is not necessary and clinically consistent with mets Radiation Oncology has also been consulted. 2. Right-sided chest pain, Pulmonary Medicine has been consulted. 3. New left adrenal gland metastasis. Comment Review of Relevant I have reviewed the following items reynold (where applicable) has been applied. Labs Laboratory Tests Test 03/24/17 13:26 03/24/17 15:56 03/25/17 03:45 White Blood Count 6.1 x10^3/uL (4.0-11.0) 5.2 x10^3/uL (4.0-11.0) Red Blood Count 3.73 x10^6/uL (4.30-5.70) 3.47 x10^6/uL (4.30-5.70) Hemoglobin 11.5 g/dL (13.0-17.5) 10.5 g/dL (13.0-17.5) Hematocrit 33.1 % (39.0-53.0) 30.8 % (39.0-53.0) Mean Corpuscular Volume 89 fL (79-100) 89 fL (79-100) Mean Corpuscular Hemoglobin 31 pg (25-35) 30 pg (25-35) Mean Corpuscular Hemoglobin Concent 35 g/dL (31-37) 34 g/dL (31-37) Red Cell Distribution Width 14.4 % (11.5-14.5) 14.1 % (11.5-14.5) Platelet Count 365 x10^3/uL (140-400) 326 x10^3/uL (140-400) Neutrophils (%) (Auto) 78 % (31-73) 73 % (31-73) Lymphocytes (%) (Auto) 11 % (24-48) 14 % (24-48) Monocytes (%) (Auto) 7 % (0-9) 8 % (0-9) Eosinophils (%) (Auto) 3 % (0-3) 5 % (0-3) Basophils (%) (Auto) 1 % (0-3) 1 % (0-3) Neutrophils # (Auto) 4.8 x10^3uL (1.8-7.7) 3.8 x10^3uL (1.8-7.7) Lymphocytes # (Auto) 0.6 x10^3/uL (1.0-4.8) 0.7 x10^3/uL (1.0-4.8) Monocytes # (Auto) 0.4 x10^3/uL (0.0-1.1) 0.4 x10^3/uL (0.0-1.1) Eosinophils # (Auto) 0.2 x10^3/uL (0.0-0.7) 0.3 x10^3/uL (0.0-0.7) Basophils # (Auto) 0.0 x10^3/uL (0.0-0.2) 0.0 x10^3/uL (0.0-0.2) Sodium Level 139 mmol/L (136-145) 136 mmol/L (136-145) Potassium Level 4.1 mmol/L (3.5-5.1) 3.6 mmol/L (3.5-5.1) Chloride Level 100 mmol/L (98-107) 98 mmol/L (98-107) Carbon Dioxide Level 31 mmol/L (21-32) 30 mmol/L (21-32) Anion Gap 8 (6-14) 8 (6-14) Blood Urea Nitrogen 10 mg/dL (8-26) 7 mg/dL (8-26) Creatinine 0.8 mg/dL (0.7-1.3) 0.9 mg/dL (0.7-1.3) Estimated GFR (Cockcroft-Gault) 101.9 89.0 BUN/Creatinine Ratio 13 (6-20) Glucose Level 102 mg/dL (70-99) 141 mg/dL (70-99) Lactic Acid Level 1.3 mmol/L (0.4-2.0) Calcium Level 8.7 mg/dL (8.5-10.1) 8.8 mg/dL (8.5-10.1) Total Bilirubin 0.2 mg/dL (0.2-1.0) Aspartate Amino Transf (AST/SGOT) 25 U/L (15-37) Alanine Aminotransferase (ALT/SGPT) 29 U/L (16-63) Alkaline Phosphatase 121 U/L (46-116) Troponin I Quantitative < 0.017 ng/mL (0.000-0.055) Total Protein 6.0 g/dL (6.4-8.2) Albumin 2.7 g/dL (3.4-5.0) Albumin/Globulin Ratio 0.8 (1.0-1.7) Lipase 220 U/L (73-393) Urine Collection Type Unknown Urine Color Yellow Urine Clarity Clear Urine pH 5.5 Urine Specific [place] 1.010 Urine Protein Negative mg/dL (NEG-TRACE) Urine Glucose (UA) Negative mg/dL (NEG) Urine Ketones (Stick) Negative mg/dL (NEG) Urine Blood Negative (NEG) Urine Nitrite Negative (NEG) Urine Bilirubin Negative (NEG) Urine Urobilinogen Dipstick 0.2 mg/dL (0.2 mg/dL) Urine Leukocyte Esterase Negative (NEG) Urine RBC 0 /HPF (0-2) Urine WBC 0 /HPF (0-4) Urine Bacteria Few /HPF (0-FEW) Urine Mucus Mod /LPF Laboratory Tests Test 03/24/17 13:26 03/24/17 15:56 03/25/17 03:45 White Blood Count 6.1 x10^3/uL (4.0-11.0) 5.2 x10^3/uL (4.0-11.0) Red Blood Count 3.73 x10^6/uL (4.30-5.70) 3.47 x10^6/uL (4.30-5.70) Hemoglobin 11.5 g/dL (13.0-17.5) 10.5 g/dL (13.0-17.5) Hematocrit 33.1 % (39.0-53.0) 30.8 % (39.0-53.0) Mean Corpuscular Volume 89 fL (79-100) 89 fL (79-100) Mean Corpuscular Hemoglobin 31 pg (25-35) 30 pg (25-35) Mean Corpuscular Hemoglobin Concent 35 g/dL (31-37) 34 g/dL (31-37) Red Cell Distribution Width 14.4 % (11.5-14.5) 14.1 % (11.5-14.5) Platelet Count 365 x10^3/uL (140-400) 326 x10^3/uL (140-400) Neutrophils (%) (Auto) 78 % (31-73) 73 % (31-73) Lymphocytes (%) (Auto) 11 % (24-48) 14 % (24-48) Monocytes (%) (Auto) 7 % (0-9) 8 % (0-9) Eosinophils (%) (Auto) 3 % (0-3) 5 % (0-3) Basophils (%) (Auto) 1 % (0-3) 1 % (0-3) Neutrophils # (Auto) 4.8 x10^3uL (1.8-7.7) 3.8 x10^3uL (1.8-7.7) Lymphocytes # (Auto) 0.6 x10^3/uL (1.0-4.8) 0.7 x10^3/uL (1.0-4.8) Monocytes # (Auto) 0.4 x10^3/uL (0.0-1.1) 0.4 x10^3/uL (0.0-1.1) Eosinophils # (Auto) 0.2 x10^3/uL (0.0-0.7) 0.3 x10^3/uL (0.0-0.7) Basophils # (Auto) 0.0 x10^3/uL (0.0-0.2) 0.0 x10^3/uL (0.0-0.2) Sodium Level 139 mmol/L (136-145) 136 mmol/L (136-145) Potassium Level 4.1 mmol/L (3.5-5.1) 3.6 mmol/L (3.5-5.1) Chloride Level 100 mmol/L (98-107) 98 mmol/L (98-107) Carbon Dioxide Level 31 mmol/L (21-32) 30 mmol/L (21-32) Anion Gap 8 (6-14) 8 (6-14) Blood Urea Nitrogen 10 mg/dL (8-26) 7 mg/dL (8-26) Creatinine 0.8 mg/dL (0.7-1.3) 0.9 mg/dL (0.7-1.3) Estimated GFR (Cockcroft-Gault) 101.9 89.0 BUN/Creatinine Ratio 13 (6-20) Glucose Level 102 mg/dL (70-99) 141 mg/dL (70-99) Lactic Acid Level 1.3 mmol/L (0.4-2.0) Calcium Level 8.7 mg/dL (8.5-10.1) 8.8 mg/dL (8.5-10.1) Total Bilirubin 0.2 mg/dL (0.2-1.0) Aspartate Amino Transf (AST/SGOT) 25 U/L (15-37) Alanine Aminotransferase (ALT/SGPT) 29 U/L (16-63) Alkaline Phosphatase 121 U/L (46-116) Troponin I Quantitative < 0.017 ng/mL (0.000-0.055) Total Protein 6.0 g/dL (6.4-8.2) Albumin 2.7 g/dL (3.4-5.0) Albumin/Globulin Ratio 0.8 (1.0-1.7) Lipase 220 U/L (73-393) Urine Collection Type Unknown Urine Color Yellow Urine Clarity Clear Urine pH 5.5 Urine Specific [place] 1.010 Urine Protein Negative mg/dL (NEG-TRACE) Urine Glucose (UA) Negative mg/dL (NEG) Urine Ketones (Stick) Negative mg/dL (NEG) Urine Blood Negative (NEG) Urine Nitrite Negative (NEG) Urine Bilirubin Negative (NEG) Urine Urobilinogen Dipstick 0.2 mg/dL (0.2 mg/dL) Urine Leukocyte Esterase Negative (NEG) Urine RBC 0 /HPF (0-2) Urine WBC 0 /HPF (0-4) Urine Bacteria Few /HPF (0-FEW) Urine Mucus Mod /LPF Medications Current Medications Iohexol (Omnipaque 300 Mg/ml) 75 ml 1X ONCE IV Last administered on 14:07; Start 03/24/17 at 13:30; Stop 03/24/17 at 13:31; Status DC Ondansetron HCl (Zofran) 4 mg PRN Q8HRS PRN IV NAUSEA/VOMITING; Start at 16:00; Stop 03/25/17 at 15:59 Morphine Sulfate 4 mg PRN Q2HR PRN IV PAIN; Start 03/24/17 at 16:00; Stop at 23:59 Nicotine (Nicoderm Cq 14mg) 1 patch PRN DAILY PRN TD SMOKING CESSATION Last administered on 03/24/17 19:30; Start 03/24/17 at 16:45 Nicotine Polacrilex (Nicorette Gum) 1 each PRN Q1HR PRN BC SMOKING CESSATION; Start 03/24/17 at 16:45 Docusate Sodium (Colace) 100 mg DAILY PO ; Start 03/25/17 at 09:00 Oxycodone/ Acetaminophen (Percocet 5/325) 1 tab PRN Q4HRS PRN PO PAIN Last administered on 03/25/17 00:59; Start 03/24/17 at 16:45 Throat Lozenges (Cepacol Sore Throat Lozenge) 1 letitia PRN Q2HRS PRN PO SORE THROAT; Start 03/24/17 at 16:45 Albuterol/ Ipratropium (Duoneb) 3 ml RTQID NEB Last administered on 03/25/17 05:32; Start 03/24/17 at 20:30 Albuterol Sulfate (Ventolin Neb Soln) 2.5 mg PRN Q4HRS PRN NEB SHORTNESS OF BREATH; Start 03/24/17 at 20:15 Active Scripts Active Reported Tylenol With Codeine #3 Tablet (Acetaminophen/Codeine Phosphate) 1 Each Tablet 1 Tab PO PRN Q6HRS PRN Vitals/I & O Vital Sign - Last 24 Hours 03/24/17 03/24/17 03/24/17 03/24/17 13:00 13:31 14:01 15:31 Temp 98.2 98.2 Pulse 94 80 76 78 Resp 20 12 23 27 B/P (MAP) 127/83 (98) 114/71 (85) 115/63 (80) 111/76 (88) Pulse Ox 99 99 99 99 O2 Delivery Room Air Room Air Room Air Room Air 03/24/17 03/24/17 03/24/17 03/24/17 16:45 17:31 19:29 19:30 Temp 98.0 97.7 98.0 97.7 Pulse 73 50 Resp 18 16 16 B/P (MAP) 127/85 (99) 123/82 (96) Pulse Ox 98 98 O2 Delivery Room Air Room Air Room Air Room Air 03/24/17 03/24/17 03/24/17 03/25/17 20:10 20:32 23:58 00:58 Temp 97.4 97.4 Pulse 78 84 Resp 16 B/P (MAP) 98/70 (79) 115/73 (87) Pulse Ox 98 98 O2 Delivery Room Air Room Air Room Air Room Air 03/25/17 03/25/17 03/25/17 03/25/17 00:59 01:59 03:45 05:33 Temp 97.7 97.7 Pulse 75 Resp 16 16 16 B/P (MAP) 116/75 (89) Pulse Ox 97 98 O2 Delivery Room Air Room Air Room Air Room Air 03/25/17 03/25/17 07:00 08:00 Temp 97.8 97.8 Pulse 71 Resp 18 B/P (MAP) 120/87 (98) Pulse Ox 99 O2 Delivery Room Air Room Air YOSI WEEMS MD Mar 25, 2017 09:17
[2017-03-25 10:44] VITALS: BP 139/86
--- NOTE | 2017-03-25 11:34 | PDOC2 ---
PALLIATIVE CARE Palliative Care Note Palliative Care Consult requested by Dr. Loya to address goals of care and AD Diagnosis: Small Cell Lung Cancer with mets to adrenal. Stage IV. Diagnosed in April 2016. Has received chemoradiation therapy. Spoke with patient. Patient has good understanding of medical condition and prognosis. He wants to continue with aggressive treatment and live as long as possible. Hospice was discussed and he is aware that it will be appropriate in the near future. Discussed Code Status: He wishes to continue Full Code but understands that it will be appropriate not to do resuscitation as his disease progresses. He wants to talk with his step daughter Kathie Layton to make his POA. A Living Will Document was given to patient and explanation of steps to complete. Hospice was explained and brochures provided. Patient states his pain is currently at 5-6. Chest and side. Pain is 10 at worst and mostly with coughing. At times he has no pain. Patient is planning to go home today and continue with treatment plans as outlined by Dr. Loya. ANCELMO RUIZ Mar 25, 2017 11:34
--- NOTE | 2017-03-25 13:32 | PDOC ---
Provider Note Provider Note 51 yo man with limited small cell lung cancer dx 04/2016 s/p chemo chest radiation and prophylactic cranial radiation completed 11/2016. Admitted with SOB, light headedness, Right chest and cough and FINE. Now much better since admit with sxs improved. Chest pain 5-6 with cough now absent at rest. No fevers chills nausea or vomiting.. CT patchy and solid consolidative changes in lower right lung c/w post radiation changes vs pneumonitis vs recurrent malignancy. New left adrenal mass 3.8 cm in size. Impression: Recurrent small cell lung cancer with obvious relapse in left adrenal gland and possible relapse in right lung ( vs inflammatory consolidation post radiation) Agree with plan for palliative chemo alone at this time. No current role for palliative radiation. Recurrence convincing radiographically, I did not see a need for biopsy. Discussed in detail with patient. Recommended conservative advanced directives (i.e. DNR/DNI). Discussed with Dr Soares and Dr Loya as well. CHARLEEN PEREA MD Mar 25, 2017 13:32
[2017-03-25] MEDS: NICOTINE 14MG PATCH. TD PRN (13:40)
--- NOTE | 2017-03-25 22:15 | CONS ---
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 He has been treated with chemotherapy in the past in addition to 60 Gy of chest radiation, completed in 09/2016 and prophylactic cranial radiation therapy, completed at the end of his therapy in 11/2016. He was admitted from the Emergency Room yesterday on 03/24/2017 for increasing shortness of breath and chest pain. We were asked to see him regarding followup assessment. HISTORY OF PRESENT ILLNESS: The patient has been feeling well until the last week or so when he has developed lightheadedness, dizziness, right lateral and anterior chest pain with shortness of breath, cough productive of clear sputum, weakness and headaches. He had chills with no fevers, no nausea or vomiting. On evaluation here, he underwent a chest x-ray on 03/24, which did reveal the right lower lobe consolidation and volume loss consistent with pneumonitis, postradiation fibrosis or recurrent disease. Following this, he underwent a chest CT scan which revealed patchy consolidation superiorly with more solid mass, consolidation inferiorly in the right lower lobe consistent with postradiation change, pneumonia or recurrent disease. In addition, he had a new 3.8 cm left adrenal mass consistent with metastasis, not previously noted on his previous CT scan in October 2016. No other evidence for distant metastatic disease was seen. Admission laboratory studies were essentially unremarkable with a normal white count of 6100, hemoglobin 11.5, platelet count 365,000. Normal chemistry panel with normal electrolytes, creatinine of 0.8. Minimally elevated alkaline phosphatase of 121, normal AST of 25 and ALT of 29. Since admission, he has been treated with medication for his chest pain. He did not receive antibiotics. Overall, he is feeling much better. He now has little chest pain, only 5-6 on a 10 scale when coughing occurs. Cough has improved. Lightheadedness and dizziness have resolved and overall he is feeling much better. He is nearly stopped smoking, smoking 2 cigarettes in the last day. PAST MEDICAL HISTORY: Otherwise, unremarkable. FAMILY HISTORY: Remarkable for father and grandfather with lung cancer in the past. SOCIAL HISTORY: He has a girlfriend. Long history of smoking up to 2-1/2 packs a day for 30 years, quit essentially at the end of his treatment course, recently resumed minimal smoking. 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 PHYSICAL EXAMINATION: GENERAL: Revealed pleasant gentleman in no acute distress. VITAL SIGNS: Temperature 97.8, pulse oximetry 98% on room air, blood pressure 139/86. HEENT: Revealed no scleral icterus. He had poor dentition with multiple absent teeth. LYMPH NODES: He had no palpable cervical or supraclavicular adenopathy. LUNGS: Clear. ABDOMEN: Unremarkable. EXTREMITIES: Reveal no clubbing, cyanosis or edema. IMPRESSION: In summary, my impression is that of relapsing small cell carcinoma of the lung with potential relapse in the right lung versus consolidative postradiation changes. In addition, he has clear evidence of disease progression in the left adrenal gland, which is asymptomatic. His acute episode has largely resolved. It does not appear he had acute pneumonitis. At this time, I recommend pursuing second line palliative chemotherapy as planned under the Dr. Johan Loya. Given the obvious change in his left adrenal gland, I did not feel biopsy was necessary to confirm recurrence in this situation. I did not see a role for palliative radiation at this time. I reviewed this in detail with the patient and Dr. Marly Soares and Dr. Johan Loya. Following anticipated discharge later today, he will return to Dr. Loya to address second line chemotherapy. I did review the need to obtain advanced directives. I recommended conservative advanced directives and have a DNR/DNI status in and out of the hospital. I recommended that he appoint a family member to be his DPOA for medical decision making as well. He will confer with his family regarding this. He has been evaluated by Nelly Brewer from palliative care who was also discussed these matters with him as well. Thank you for allowing us to participate in his reevaluation. CHARLEEN PEREA MD DR: OSBALDO/rafita JOB#: [id number] / [id number] WANDER
== END 2017-03-25 13:45 | disposition home or self-care (01) | DRG 181 ==
LOC: ER 12:32 → 6 SOUTH 15:56
PROVIDERS: ADMIT Internal Medicine; ATTEND Internal Medicine
DX: C34.91 Malignant neoplasm of unspecified part of right bronchus or lung (principal); E44.0 Moderate protein-calorie malnutrition; C79.72 Secondary malignant neoplasm of left adrenal gland; Z68.1 Body mass index [BMI] 19.9 or less, adult; F17.210 Nicotine dependence, cigarettes, uncomplicated; Z51.5 Encounter for palliative care; Z66 Do not resuscitate; Z80.1 Family history of malignant neoplasm of trachea, bronchus and lung; Z82.49 Family history of ischemic heart disease and other diseases of the circulatory system; Z85.118 Personal history of other malignant neoplasm of bronchus and lung; Z92.21 Personal history of antineoplastic chemotherapy; Z92.3 Personal history of irradiation; F12.90 Cannabis use, unspecified, uncomplicated; Z85.9 Personal history of malignant neoplasm, unspecified
CPT/HCPCS: 36415; 71010; 71275; 80048; 80053; 81001; 83605; 83690; 84484; 85025; 87040; 93005; 94250; 94640; J7620; Q9967; 99285-25

== ENCOUNTER 2017-04-20 00:18 | Inpatient (IN) | payer OTHER ==
[~2017-04-20] VITALS: Ht 182.9 cm; Wt 65.0 kg
[2017-04-20] VITALS (7 sets, daily range): BP systolic 99–107; BP diastolic 57–77
[~2017-04-20 00:18] MED LIST changes: +DOCU-109 PO; +OXYC1TAB7 PO
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
[2017-04-20 00:58] LABS: BASO % 0 % (0-3); EOS % 1 % (0-3); HEMATOCRIT 22.8 % (39.0-53.0); HEMOGLOBIN 8.1 g/dL (13.0-17.5); LYMPH # 0.7 x10^3/uL (1.0-4.8); LYMPH % 8 % (24-48); MEAN CORPUSCULAR HEMOGLOBIN 31 pg (25-35); MEAN CORPUSCULAR HGB CONC 36 g/dL (31-37); MEAN CORPUSCULAR VOLUME 87 fL (79-100); MONO % 9 % (0-9); NEUT % 83 % (31-73); PLATELET COUNT 349 x10^3/uL (140-400); RED BLOOD COUNT 2.61 x10^6/uL (4.30-5.70); RED CELL DISTRIBUTION WIDTH 15.2 % (11.5-14.5); WHITE BLOOD COUNT 9.9 x10^3/uL (4.0-11.0)
[2017-04-20] MEDS ORDERED: IV NORMAL SALINE 1000ML BAG 1,000 ML IV SCH (01:00)
[2017-04-20] MEDS ORDERED: IPRATRPIUM/ALBUTEROL 0.5/2.5MG 3 ML NEBU. NEB ONE (01:00)
[2017-04-20 01:15] LABS: ALBUMIN 2.3 g/dL (3.4-5.0); ALBUMIN/GLOBULIN RATIO 0.8 (1.0-1.7); CALCIUM 8.1 mg/dL (8.5-10.1); CREATININE 0.8 mg/dL (0.7-1.3); GFR 101.9; TOTAL BILIRUBIN 0.2 mg/dL (0.2-1.0); TOTAL PROTEIN 5.3 g/dL (6.4-8.2)
[2017-04-20 01:16] LABS: POTASSIUM 2.8 mmol/L (3.5-5.1)
[2017-04-20 01:23] LABS: CKMB MASS 0.6 ng/mL (0.0-3.6)
[2017-04-20] MEDS ORDERED: ONDANSETRON PF 4 MG/2 ML VIAL. IV PRN (02:30)
[2017-04-20] MEDS ORDERED: ACETAMINOPHEN 325 MG TABLET. PO PRN (02:30)
[2017-04-20] MEDS ORDERED: MAGNESIUM SULFATE 2GM 50 ML IV ONE (03:00)
[2017-04-20] MEDS: POTASSIUM CHLORIDE 20 MEQ TABLET.ER. PO SCH ×2 (03:17→05:37)
[2017-04-20] MEDS: fentaNYL PF VIAL 100 MCG/2 ML VIAL IV PRN ×3 (03:18→21:44)
[2017-04-20] MEDS: IV NORMAL SALINE 1000ML BAG 1,000 ML IV SCH ×3 (03:25→20:28)
[2017-04-20] MEDS ORDERED: ONDA4TAB11 PO (04:08)
[2017-04-20 04:50] LABS: % EOS 1 % (0-5); ANISOCYTOSIS SLIGHT; PLT ESTIMATE ADEQUATE (ADEQUATE); POLYCHROMASIA SLIGHT
[2017-04-20] MEDS ORDERED: IPRATRPIUM/ALBUTEROL 0.5/2.5MG 3 ML NEBU. ONE (06:22)
--- NOTE | 2017-04-20 06:54 | EKG ---
[facility] [address] [place] [address] Test Date: 2017-04-20 Test Time: 00:30:13 Pat Name: KARINA MOODY Department: Room: [facility] Gender: M Tag Clerk: : 1965 Requested By: DONALD SANCHES Order Number: [id number] Reading MD: Ruben Walker MD Measurements Intervals [place] Rate: 79 P: 47 WI: 138 QRS: 47 QRSD: 88 T: 42 QT: 384 QTc: 446 Interpretive Statements SINUS RHYTHM Electronically Signed On 04-21-2017 10:05:07 FINANCIAL RESERVE CLERK by Ruben Walker MD
[2017-04-20] MEDS: IPRATRPIUM/ALBUTEROL 0.5/2.5MG 3 ML NEBU. NEB SCH ×4 (07:40→21:30)
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
[2017-04-20] MEDS: DOCUSATE SODIUM 100 MG CAPSULE. PO SCH (12:30)
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
--- NOTE | 2017-04-20 17:58 | PDOC ---
PULMONARY PROGRESS NOTES Vitals Vital Signs Date Time Temp Pulse Resp B/P (MAP) Pulse Ox O2 Delivery O2 Flow Rate FiO2 04/20/17 15:28 Room Air 04/20/17 15:00 98.3 81 20 105/77 (86) 98 98.3 General: Alert, No acute distress Lungs: Clear Cardiovascular: S1, S2 Abdomen: Soft Extremities: No Edema Labs Laboratory Tests Test 04/20/17 00:47 White Blood Count 9.9 x10^3/uL (4.0-11.0) Red Blood Count 2.61 x10^6/uL (4.30-5.70) Hemoglobin 8.1 g/dL (13.0-17.5) Hematocrit 22.8 % (39.0-53.0) Mean Corpuscular Volume 87 fL (79-100) Mean Corpuscular Hemoglobin 31 pg (25-35) Mean Corpuscular Hemoglobin Concent 36 g/dL (31-37) Red Cell Distribution Width 15.2 % (11.5-14.5) Platelet Count 349 x10^3/uL (140-400) Neutrophils (%) (Auto) 83 % (31-73) Lymphocytes (%) (Auto) 8 % (24-48) Monocytes (%) (Auto) 9 % (0-9) Eosinophils (%) (Auto) 1 % (0-3) Basophils (%) (Auto) 0 % (0-3) Neutrophils # (Auto) 8.2 x10^3uL (1.8-7.7) Lymphocytes # (Auto) 0.7 x10^3/uL (1.0-4.8) Monocytes # (Auto) 0.9 x10^3/uL (0.0-1.1) Eosinophils # (Auto) 0.1 x10^3/uL (0.0-0.7) Basophils # (Auto) 0.0 x10^3/uL (0.0-0.2) Segmented Neutrophils % 74 % (35-66) Band Neutrophils % 11 % (0-9) Lymphocytes % 10 % (24-48) Monocytes % 3 % (0-10) Eosinophils % 1 % (0-5) Metamyelocytes % 1 % (0-0) Platelet Estimate Adequate (ADEQUATE) Polychromasia Slight Anisocytosis Slight Sodium Level 129 mmol/L (136-145) Potassium Level 2.8 mmol/L (3.5-5.1) Chloride Level 91 mmol/L (98-107) Carbon Dioxide Level 31 mmol/L (21-32) Anion Gap 7 (6-14) Blood Urea Nitrogen 9 mg/dL (8-26) Creatinine 0.8 mg/dL (0.7-1.3) Estimated GFR (Cockcroft-Gault) 101.9 BUN/Creatinine Ratio 11 (6-20) Glucose Level 130 mg/dL (70-99) Calcium Level 8.1 mg/dL (8.5-10.1) Magnesium Level 1.4 mg/dL (1.8-2.4) Total Bilirubin 0.2 mg/dL (0.2-1.0) Aspartate Amino Transf (AST/SGOT) 21 U/L (15-37) Alanine Aminotransferase (ALT/SGPT) 16 U/L (16-63) Alkaline Phosphatase 110 U/L (46-116) Creatine Kinase 95 U/L (39-308) Creatine Kinase MB (Mass) 0.6 ng/mL (0.0-3.6) Creatine Kinase MB Relative Index 0.6 % (0-4) Troponin I Quantitative < 0.017 ng/mL (0.000-0.055) RJ-Vsn-G-Type Natriuretic Peptide 297 pg/mL (0-124) Total Protein 5.3 g/dL (6.4-8.2) Albumin 2.3 g/dL (3.4-5.0) Albumin/Globulin Ratio 0.8 (1.0-1.7) Laboratory Tests Test 04/20/17 00:47 White Blood Count 9.9 x10^3/uL (4.0-11.0) Red Blood Count 2.61 x10^6/uL (4.30-5.70) Hemoglobin 8.1 g/dL (13.0-17.5) Hematocrit 22.8 % (39.0-53.0) Mean Corpuscular Volume 87 fL (79-100) Mean Corpuscular Hemoglobin 31 pg (25-35) Mean Corpuscular Hemoglobin Concent 36 g/dL (31-37) Red Cell Distribution Width 15.2 % (11.5-14.5) Platelet Count 349 x10^3/uL (140-400) Neutrophils (%) (Auto) 83 % (31-73) Lymphocytes (%) (Auto) 8 % (24-48) Monocytes (%) (Auto) 9 % (0-9) Eosinophils (%) (Auto) 1 % (0-3) Basophils (%) (Auto) 0 % (0-3) Neutrophils # (Auto) 8.2 x10^3uL (1.8-7.7) Lymphocytes # (Auto) 0.7 x10^3/uL (1.0-4.8) Monocytes # (Auto) 0.9 x10^3/uL (0.0-1.1) Eosinophils # (Auto) 0.1 x10^3/uL (0.0-0.7) Basophils # (Auto) 0.0 x10^3/uL (0.0-0.2) Segmented Neutrophils % 74 % (35-66) Band Neutrophils % 11 % (0-9) Lymphocytes % 10 % (24-48) Monocytes % 3 % (0-10) Eosinophils % 1 % (0-5) Metamyelocytes % 1 % (0-0) Platelet Estimate Adequate (ADEQUATE) Polychromasia Slight Anisocytosis Slight Sodium Level 129 mmol/L (136-145) Potassium Level 2.8 mmol/L (3.5-5.1) Chloride Level 91 mmol/L (98-107) Carbon Dioxide Level 31 mmol/L (21-32) Anion Gap 7 (6-14) Blood Urea Nitrogen 9 mg/dL (8-26) Creatinine 0.8 mg/dL (0.7-1.3) Estimated GFR (Cockcroft-Gault) 101.9 BUN/Creatinine Ratio 11 (6-20) Glucose Level 130 mg/dL (70-99) Calcium Level 8.1 mg/dL (8.5-10.1) Magnesium Level 1.4 mg/dL (1.8-2.4) Total Bilirubin 0.2 mg/dL (0.2-1.0) Aspartate Amino Transf (AST/SGOT) 21 U/L (15-37) Alanine Aminotransferase (ALT/SGPT) 16 U/L (16-63) Alkaline Phosphatase 110 U/L (46-116) Creatine Kinase 95 U/L (39-308) Creatine Kinase MB (Mass) 0.6 ng/mL (0.0-3.6) Creatine Kinase MB Relative Index 0.6 % (0-4) Troponin I Quantitative < 0.017 ng/mL (0.000-0.055) CX-Vsi-L-Type Natriuretic Peptide 297 pg/mL (0-124) Total Protein 5.3 g/dL (6.4-8.2) Albumin 2.3 g/dL (3.4-5.0) Albumin/Globulin Ratio 0.8 (1.0-1.7) Medications Active Scripts Medications Dose Route/Sig Max Daily Dose Days Date Category Ondansetron Hcl 4 Mg Tablet 1 Tab PO PRN Q8HRS PRN 04/20/17 Reported Colace (Docusate Sodium) 100 Mg Capsule 100 Mg PO DAILY 03/25/17 Rx Oxycodone-Acetaminophen 5-325 (Oxycodone Hcl/Acetaminophen) 1 Each Tablet 1 Tab PO PRN Q4HRS PRN 03/25/17 Rx Impression . FULL NOTE DICTATED STAGE 4 SMALL LUNG CA POSTOBSTRUCTION PNAUMONIA ABNORMAL CXR WILL D/C WITH DR WEEMS ON IMPORTANCE OF BRONCH LOREN YATES MD Apr 20, 2017 17:58
[2017-04-20] MEDS: oxyCODONE/APAP 5/325 1 TAB TABLET PO PRN (19:06)
[2017-04-20] MEDS: predniSONE 10 MG TABLET PO SCH (19:21)
[2017-04-20] MEDS: LACTOBACILLUS RHAMNOSUS GG 1 CAPSULE. PO SCH (20:27)
[2017-04-21 02:50] VITALS: BP 102/66
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
[2017-04-21 07:05] VITALS: BP 106/71
[2017-04-21] MEDS: IPRATRPIUM/ALBUTEROL 0.5/2.5MG 3 ML NEBU. NEB SCH ×4 (07:42→19:14)
[2017-04-21] MEDS: LACTOBACILLUS RHAMNOSUS GG 1 CAPSULE. PO SCH ×2 (08:13→21:02)
[2017-04-21] MEDS: DOCUSATE SODIUM 100 MG CAPSULE. PO SCH (08:13)
[2017-04-21] MEDS: predniSONE 10 MG TABLET PO SCH (08:13)
[2017-04-21] MEDS: oxyCODONE/APAP 5/325 1 TAB TABLET PO PRN (08:14)
[2017-04-21 09:38] LABS: BASO % 0 % (0-3); EOS % 0 % (0-3); HEMOGLOBIN 8.6 g/dL (13.0-17.5); LYMPH # 0.5 x10^3/uL (1.0-4.8); LYMPH % 6 % (24-48); MEAN CORPUSCULAR HEMOGLOBIN 30 pg (25-35); MEAN CORPUSCULAR HGB CONC 35 g/dL (31-37); MEAN CORPUSCULAR VOLUME 88 fL (79-100); MONO % 3 % (0-9); NEUT % 92 % (31-73); PLATELET COUNT 512 x10^3/uL (140-400); RED BLOOD COUNT 2.85 x10^6/uL (4.30-5.70); RED CELL DISTRIBUTION WIDTH 14.7 % (11.5-14.5); WHITE BLOOD COUNT 9.5 x10^3/uL (4.0-11.0)
[2017-04-21 09:55] LABS: CALCIUM 8.4 mg/dL (8.5-10.1); CREATININE 0.7 mg/dL (0.7-1.3); GFR 118.9; POTASSIUM 3.9 mmol/L (3.5-5.1)
[2017-04-21 10:30] VITALS: BP 107/59
[2017-04-21] MEDS ORDERED: MAGNESIUM SULFATE 4GM 100 ML IV ONE (11:00)
[2017-04-21] MEDS: oxyCODONE IR 5 MG TABLET PO PRN ×2 (11:46→21:02)
--- NOTE | 2017-04-21 11:51 | PDOC ---
PROGRESS NOTES Chief Complaint Chief Complaint chest pain and acute respiratory distress lung cancer, stage 4. pneumonia, with lung cancer, poss-post obstructive, treat gram negative organisms hyponatremia hypomagnesemia anemia mod.severe malnutrition, serum alb 2.1 History of Present Illness History of Present Illness acute worsening of sodium, despite NS iv fluid, he reports excessive urine output reports breathing much easier, despite on Levaquin only, continue, Pulm consult following, pt thinks Nebulizer treatments are helping a lot replace mag increase pain meds, stop IV fluid, concern for SIADH, send urine, check osm, Vitals Vitals Vital Signs Date Time Temp Pulse Resp B/P (MAP) Pulse Ox O2 Delivery O2 Flow Rate FiO2 04/21/17 10:30 98.0 90 18 107/59 (75) 98 Room Air 98.0 Physical Exam General: Alert, Oriented X3, Cooperative, No acute distress Heart: Regular rate, No murmurs Lungs: Clear, Other (rales, no wheeze) Abdomen: Normal bowel sounds, Soft Extremities: No clubbing, No cyanosis, No edema Skin: No breakdown, No significant lesion Labs LABS Laboratory Tests Test 04/21/17 09:00 04/21/17 09:10 White Blood Count 9.5 x10^3/uL (4.0-11.0) Red Blood Count 2.85 x10^6/uL (4.30-5.70) Hemoglobin 8.6 g/dL (13.0-17.5) Hematocrit 25.0 % (39.0-53.0) Mean Corpuscular Volume 88 fL (79-100) Mean Corpuscular Hemoglobin 30 pg (25-35) Mean Corpuscular Hemoglobin Concent 35 g/dL (31-37) Red Cell Distribution Width 14.7 % (11.5-14.5) Platelet Count 512 x10^3/uL (140-400) Neutrophils (%) (Auto) 92 % (31-73) Lymphocytes (%) (Auto) 6 % (24-48) Monocytes (%) (Auto) 3 % (0-9) Eosinophils (%) (Auto) 0 % (0-3) Basophils (%) (Auto) 0 % (0-3) Neutrophils # (Auto) 8.7 x10^3uL (1.8-7.7) Lymphocytes # (Auto) 0.5 x10^3/uL (1.0-4.8) Monocytes # (Auto) 0.2 x10^3/uL (0.0-1.1) Eosinophils # (Auto) 0.0 x10^3/uL (0.0-0.7) Basophils # (Auto) 0.0 x10^3/uL (0.0-0.2) Sodium Level 125 mmol/L (136-145) Potassium Level 3.9 mmol/L (3.5-5.1) Chloride Level 89 mmol/L (98-107) Carbon Dioxide Level 28 mmol/L (21-32) Anion Gap 8 (6-14) Blood Urea Nitrogen 8 mg/dL (8-26) Creatinine 0.7 mg/dL (0.7-1.3) Estimated GFR (Cockcroft-Gault) 118.9 Glucose Level 138 mg/dL (70-99) Calcium Level 8.4 mg/dL (8.5-10.1) Magnesium Level 1.3 mg/dL (1.8-2.4) Review of Systems Review of Systems chest pain, right side, where prior radiation given some nausea, poor PO intake at times no diarrhea Assessment and Plan Assessmemt and Plan Problems Medical Problems: (1) Chest pain Status: Acute (2) Lung cancer Status: Acute Problems: Comment Review of Relevant I have reviewed the following items reynold (where applicable) has been applied. Labs Laboratory Tests Test 04/20/17 00:47 04/21/17 09:00 04/21/17 09:10 White Blood Count 9.9 x10^3/uL (4.0-11.0) 9.5 x10^3/uL (4.0-11.0) Red Blood Count 2.61 x10^6/uL (4.30-5.70) 2.85 x10^6/uL (4.30-5.70) Hemoglobin 8.1 g/dL (13.0-17.5) 8.6 g/dL (13.0-17.5) Hematocrit 22.8 % (39.0-53.0) 25.0 % (39.0-53.0) Mean Corpuscular Volume 87 fL (79-100) 88 fL (79-100) Mean Corpuscular Hemoglobin 31 pg (25-35) 30 pg (25-35) Mean Corpuscular Hemoglobin Concent 36 g/dL (31-37) 35 g/dL (31-37) Red Cell Distribution Width 15.2 % (11.5-14.5) 14.7 % (11.5-14.5) Platelet Count 349 x10^3/uL (140-400) 512 x10^3/uL (140-400) Neutrophils (%) (Auto) 83 % (31-73) 92 % (31-73) Lymphocytes (%) (Auto) 8 % (24-48) 6 % (24-48) Monocytes (%) (Auto) 9 % (0-9) 3 % (0-9) Eosinophils (%) (Auto) 1 % (0-3) 0 % (0-3) Basophils (%) (Auto) 0 % (0-3) 0 % (0-3) Neutrophils # (Auto) 8.2 x10^3uL (1.8-7.7) 8.7 x10^3uL (1.8-7.7) Lymphocytes # (Auto) 0.7 x10^3/uL (1.0-4.8) 0.5 x10^3/uL (1.0-4.8) Monocytes # (Auto) 0.9 x10^3/uL (0.0-1.1) 0.2 x10^3/uL (0.0-1.1) Eosinophils # (Auto) 0.1 x10^3/uL (0.0-0.7) 0.0 x10^3/uL (0.0-0.7) Basophils # (Auto) 0.0 x10^3/uL (0.0-0.2) 0.0 x10^3/uL (0.0-0.2) Segmented Neutrophils % 74 % (35-66) Band Neutrophils % 11 % (0-9) Lymphocytes % 10 % (24-48) Monocytes % 3 % (0-10) Eosinophils % 1 % (0-5) Metamyelocytes % 1 % (0-0) Platelet Estimate Adequate (ADEQUATE) Polychromasia Slight Anisocytosis Slight Sodium Level 129 mmol/L (136-145) 125 mmol/L (136-145) Potassium Level 2.8 mmol/L (3.5-5.1) 3.9 mmol/L (3.5-5.1) Chloride Level 91 mmol/L (98-107) 89 mmol/L (98-107) Carbon Dioxide Level 31 mmol/L (21-32) 28 mmol/L (21-32) Anion Gap 7 (6-14) 8 (6-14) Blood Urea Nitrogen 9 mg/dL (8-26) 8 mg/dL (8-26) Creatinine 0.8 mg/dL (0.7-1.3) 0.7 mg/dL (0.7-1.3) Estimated GFR (Cockcroft-Gault) 101.9 118.9 BUN/Creatinine Ratio 11 (6-20) Glucose Level 130 mg/dL (70-99) 138 mg/dL (70-99) Calcium Level 8.1 mg/dL (8.5-10.1) 8.4 mg/dL (8.5-10.1) Magnesium Level 1.4 mg/dL (1.8-2.4) 1.3 mg/dL (1.8-2.4) Total Bilirubin 0.2 mg/dL (0.2-1.0) Aspartate Amino Transf (AST/SGOT) 21 U/L (15-37) Alanine Aminotransferase (ALT/SGPT) 16 U/L (16-63) Alkaline Phosphatase 110 U/L (46-116) Creatine Kinase 95 U/L (39-308) Creatine Kinase MB (Mass) 0.6 ng/mL (0.0-3.6) Creatine Kinase MB Relative Index 0.6 % (0-4) Troponin I Quantitative < 0.017 ng/mL (0.000-0.055) AT-Igh-G-Type Natriuretic Peptide 297 pg/mL (0-124) Total Protein 5.3 g/dL (6.4-8.2) Albumin 2.3 g/dL (3.4-5.0) Albumin/Globulin Ratio 0.8 (1.0-1.7) Laboratory Tests Test 04/21/17 09:00 04/21/17 09:10 White Blood Count 9.5 x10^3/uL (4.0-11.0) Red Blood Count 2.85 x10^6/uL (4.30-5.70) Hemoglobin 8.6 g/dL (13.0-17.5) Hematocrit 25.0 % (39.0-53.0) Mean Corpuscular Volume 88 fL (79-100) Mean Corpuscular Hemoglobin 30 pg (25-35) Mean Corpuscular Hemoglobin Concent 35 g/dL (31-37) Red Cell Distribution Width 14.7 % (11.5-14.5) Platelet Count 512 x10^3/uL (140-400) Neutrophils (%) (Auto) 92 % (31-73) Lymphocytes (%) (Auto) 6 % (24-48) Monocytes (%) (Auto) 3 % (0-9) Eosinophils (%) (Auto) 0 % (0-3) Basophils (%) (Auto) 0 % (0-3) Neutrophils # (Auto) 8.7 x10^3uL (1.8-7.7) Lymphocytes # (Auto) 0.5 x10^3/uL (1.0-4.8) Monocytes # (Auto) 0.2 x10^3/uL (0.0-1.1) Eosinophils # (Auto) 0.0 x10^3/uL (0.0-0.7) Basophils # (Auto) 0.0 x10^3/uL (0.0-0.2) Sodium Level 125 mmol/L (136-145) Potassium Level 3.9 mmol/L (3.5-5.1) Chloride Level 89 mmol/L (98-107) Carbon Dioxide Level 28 mmol/L (21-32) Anion Gap 8 (6-14) Blood Urea Nitrogen 8 mg/dL (8-26) Creatinine 0.7 mg/dL (0.7-1.3) Estimated GFR (Cockcroft-Gault) 118.9 Glucose Level 138 mg/dL (70-99) Calcium Level 8.4 mg/dL (8.5-10.1) Magnesium Level 1.3 mg/dL (1.8-2.4) Medications Current Medications Sodium Chloride 1,000 ml @ 1,000 mls/hr Q1H IV Last administered on t 01:07; Start 04/20/17 at 01:00; Stop 04/20/17 at 01:59; Status DC Albuterol/ Ipratropium (Duoneb) 6 ml 1X ONCE NEB Last administered on 01:53; Start 04/20/17 at 01:00; Stop 04/20/17 at 01:01; Status DC Magnesium Sulfate/ Dextrose 50 ml @ 25 mls/hr 1X ONCE IV Last administered on 04/20/17 03:18; Start 04/20/17 at 03:00; Stop 04/20/17 at 04:59; Status DC Potassium Chloride (Klor-Con) 40 meq Q2HR PO Last administered on 04/20/17 05 :37; Start 04/20/17 at 04:00; Stop 04/20/17 at 06:01; Status DC Ondansetron HCl (Zofran) 4 mg PRN Q8HRS PRN IV NAUSEA/VOMITING; Start at 02:30; Stop 04/21/17 at 02:29; Status DC Fentanyl Citrate (Fentanyl 2ml Vial) 50 mcg PRN Q2HR PRN IV SEVERE PAIN Last administered on 04/20/17 21:44; Start 04/20/17 at 02:30; Stop 04/21/17 at 02 :29; Status DC Sodium Chloride 1,000 ml @ 100 mls/hr Q10H IV Last administered on 04/20/17 20:28; Start 04/20/17 at 02:29; Stop 04/21/17 at 02:28; Status DC Acetaminophen (Tylenol) 650 mg PRN Q4HRS PRN PO FEVER; Start 04/20/17 at 02:30 ; Stop 04/21/17 at 02:29; Status DC Albuterol/ Ipratropium (Duoneb) 3 ml RTQID NEB Last administered on 04/21/17 07:42; Start 04/20/17 at 08:00; Stop 04/21/17 at 07:59; Status DC Levofloxacin (Levaquin) 750 mg DAILY06 PO Last administered on 04/21/17 05:18 ; Start 04/20/17 at 06:00 Albuterol/ Ipratropium (Duoneb) 3 ml STK-MED ONCE .ROUTE ; Start 04/20/17 at 06 :22; Stop 04/20/17 at 06:23; Status DC Docusate Sodium (Colace) 100 mg DAILY PO Last administered on 04/21/17 08:13 ; Start 04/20/17 at 12:30 Oxycodone/ Acetaminophen (Percocet 5/325) 1 tab PRN Q4HRS PRN PO PAIN Last administered on 04/21/17 08:14; Start 04/20/17 at 12:15 Ondansetron HCl (Zofran Odt) 4 mg PRN Q8HRS PRN PO NAUSEA/VOMITING; Start 05/25 at 12:15 Lactobacillus Rhamnosus (Culturelle) 1 cap BID PO Last administered on 08:13; Start 04/20/17 at 21:00 Prednisone (Prednisone) 30 mg DAILY PO Last administered on 04/21/17 08:13; Start 04/20/17 at 18:30 Magnesium Sulfate/ Dextrose 100 ml @ 25 mls/hr 1X ONCE IV Last administered on 04/21/17 11:15; Start 04/21/17 at 11:00; Stop 04/21/17 at 14:59 Active Scripts Active Colace (Docusate Sodium) 100 Mg Capsule 100 Mg PO DAILY Oxycodone-Acetaminophen 5-325 (Oxycodone Hcl/Acetaminophen) 1 Each Tablet 1 Tab PO PRN Q4HRS PRN Reported Ondansetron Hcl 4 Mg Tablet 1 Tab PO PRN Q8HRS PRN Vitals/I & O Vital Sign - Last 24 Hours 04/20/17 04/20/17 04/20/17 04/20/17 15:00 15:28 19:06 19:10 Temp 98.3 97.8 98.3 97.8 Pulse 81 84 Resp 20 18 18 B/P (MAP) 105/77 (86) 105/61 (76) Pulse Ox 98 98 O2 Delivery Room Air Room Air Room Air Room Air 04/20/17 04/20/17 04/20/17 04/20/17 19:10 20:06 21:30 21:44 Resp 20 18 O2 Delivery Room Air Room Air Room Air Room Air 04/20/17 04/20/17 04/21/17 04/21/17 22:14 22:45 02:50 07:05 Temp 98.0 98.2 97.8 98.0 98.2 97.8 Pulse 87 84 71 Resp 20 18 18 20 B/P (MAP) 105/64 (78) 102/66 (78) 106/71 (83) Pulse Ox 98 97 98 O2 Delivery Room Air Room Air Room Air Room Air 04/21/17 04/21/17 04/21/17 07:43 08:00 10:30 Temp 98.0 98.0 Pulse 90 Resp 18 B/P (MAP) 107/59 (75) Pulse Ox 98 98 O2 Delivery Room Air Room Air Room Air Intake and Output 04/20/17 04/20/17 04/21/17 15:00 23:00 07:00 Intake Total 800 ml 400 ml 720 ml Output Total 500 ml 425 ml Balance 300 ml 400 ml 295 ml LC SAUL MD Apr 21, 2017 11:51
[2017-04-21] MEDS: BUDESONIDE 0.5 MG/2 ML NEBU. NEB SCH ×2 (12:00→19:13)
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
[2017-04-21] MEDS ORDERED: IOHEXOL 300 MG/ML 100ML VIAL. IV ONE (13:15)
[2017-04-21] MEDS ORDERED: CONTRAST GIVEN MC PRN (13:15)
[2017-04-21 15:00] VITALS: BP 115/56
[2017-04-21 15:53] LABS: BILIRUBIN,URINE NEGATIVE (NEG); GLUCOSE,URINE 250 mg/dL (NEG); NITRITE,URINE NEGATIVE (NEG); PROTEIN,URINE NEGATIVE (NEG-TRACE); UROBILINOGEN,URINE 0.2 mg/dL (0.2 mg/dL)
--- NOTE | 2017-04-21 16:09 | RAD ---
Indication: Chest pain. Lung cancer. Technique: Axial images and coronal and sagittal maximum intensity projection reformatted images are provided. 75 mL of intravenous Omnipaque 300 was administered without complication. Comparison is from March 24, 2017. One or more of the following individualized dose reduction techniques were utilized for this examination: 1. Automated exposure control 2. Adjustment of the mA and/or kV according to patient size 3. Use of iterative reconstruction technique Findings: The contrast bolus is satisfactory. There is no filling defect to suggest pulmonary embolism. The heart is not enlarged. Potential matted subcarinal adenopathy is again noted. Calcified subcarinal and left hilar lymph nodes are noted. Central airways are patent. There is mild emphysema. Consolidation in the right lower lobe is relatively stable in size although increased in the amount of consolidation (there is less interspersed areas of aerated lung). There is also now a band of opacity which extends anterior to posterior which has a configuration suggesting posttreatment change. Please correlate with any radiation treatment. There is a minimal right pleural effusion. Left adrenal metastasis again is noted. Metallic artifact presumably from postsurgical changes and fiducial markers are noted in the mediastinum and in the right lower lobe. Impression: 1. Negative for pulmonary embolism. 2. Right lower lobe consolidation is similar in size although increased in density, again residual or recurrent tumor with potentially superimposed pneumonia and posttreatment change is suspected. 3. Minimal right pleural effusion. 4. Left adrenal metastasis again noted.
[2017-04-21 16:17] LABS: BACTERIA,URINE 0 /HPF (0-FEW); RBC,URINE 0 /HPF (0-2); WBC,URINE 0 /HPF (0-4)
[2017-04-21] MEDS ORDERED: GADOBUTROL 7.5 MMOL/7.5 ML VIAL IV ONE (17:45)
--- NOTE | 2017-04-21 17:53 | PDOC2 ---
CONSULT Date of Consult Date of Consult DATE: 04/21/17 TIME: 17:48 Past Medical History Cardiovascular: No pertinent hx Pulmonary: No pertinent hx CENTRAL NERVOUS SYSTEM: Other GI: No pertinent hx Heme/Onc: No pertinent hx Hepatobiliary: No pertinent hx Psych: No pertinent hx Musculoskeletal: No pain Rheumatologic: No pertinent hx Infectious disease: No pertinent hx Renal/: No pertinent hx Endocrine: No pertinent hx Past Surgical History Past Surgical History: Other Family History Family History: Coronary Artery Disease Social History ALCOHOL: rare Drugs: Crystal meth Current Problem List Problem List Problems Medical Problems: (1) Chest pain Status: Acute (2) Lung cancer Status: Acute Current Medications Current Medications Current Medications Sodium Chloride 1,000 ml @ 1,000 mls/hr Q1H IV Last administered on 01:07; Start 04/20/17 at 01:00; Stop 04/20/17 at 01:59; Status DC Albuterol/ Ipratropium (Duoneb) 6 ml 1X ONCE NEB Last administered on 01:53; Start 04/20/17 at 01:00; Stop 04/20/17 at 01:01; Status DC Magnesium Sulfate/ Dextrose 50 ml @ 25 mls/hr 1X ONCE IV Last administered on 04/20/17 03:18; Start 04/20/17 at 03:00; Stop 04/20/17 at 04:59; Status DC Potassium Chloride (Klor-Con) 40 meq Q2HR PO Last administered on 04/20/17 05 :37; Start 04/20/17 at 04:00; Stop 04/20/17 at 06:01; Status DC Ondansetron HCl (Zofran) 4 mg PRN Q8HRS PRN IV NAUSEA/VOMITING; Start at 02:30; Stop 04/21/17 at 02:29; Status DC Fentanyl Citrate (Fentanyl 2ml Vial) 50 mcg PRN Q2HR PRN IV SEVERE PAIN Last administered on 04/20/17 21:44; Start 04/20/17 at 02:30; Stop 04/21/17 at 02 :29; Status DC Sodium Chloride 1,000 ml @ 100 mls/hr Q10H IV Last administered on 04/20/17 20:28; Start 04/20/17 at 02:29; Stop 04/21/17 at 02:28; Status DC Acetaminophen (Tylenol) 650 mg PRN Q4HRS PRN PO FEVER; Start 04/20/17 at 02:30 ; Stop 04/21/17 at 02:29; Status DC Albuterol/ Ipratropium (Duoneb) 3 ml RTQID NEB Last administered on 04/21/17 07:42; Start 04/20/17 at 08:00; Stop 04/21/17 at 07:59; Status DC Levofloxacin (Levaquin) 750 mg DAILY06 PO Last administered on 04/21/17 05:18 ; Start 04/20/17 at 06:00 Albuterol/ Ipratropium (Duoneb) 3 ml STK-MED ONCE .ROUTE ; Start 04/20/17 at 06 :22; Stop 04/20/17 at 06:23; Status DC Docusate Sodium (Colace) 100 mg DAILY PO Last administered on 04/21/17 08:13 ; Start 04/20/17 at 12:30 Oxycodone/ Acetaminophen (Percocet 5/325) 1 tab PRN Q4HRS PRN PO PAIN Last administered on 04/21/17 08:14; Start 04/20/17 at 12:15 Ondansetron HCl (Zofran Odt) 4 mg PRN Q8HRS PRN PO NAUSEA/VOMITING; Start 05/25 at 12:15 Lactobacillus Rhamnosus (Culturelle) 1 cap BID PO Last administered on 08:13; Start 04/20/17 at 21:00 Prednisone (Prednisone) 30 mg DAILY PO Last administered on 04/21/17 08:13; Start 04/20/17 at 18:30 Magnesium Sulfate/ Dextrose 100 ml @ 25 mls/hr 1X ONCE IV Last administered on 04/21/17 11:15; Start 04/21/17 at 11:00; Stop 04/21/17 at 14:59; Status DC Oxycodone HCl (Roxicodone) 10 mg PRN Q6HRS PRN PO PAIN Last administered on 11:46; Start 04/21/17 at 11:45 Albuterol/ Ipratropium (Duoneb) 3 ml RTQID NEB Last administered on 11/13/17at 16:56; Start 04/21/17 at 12:00 Budesonide (Pulmicort) 0.5 mg RTBID NEB ; Start 04/21/17 at 12:00 Iohexol (Omnipaque 300 Mg/ml) 75 ml 1X ONCE IV Last administered on t 15:37; Start 04/21/17 at 13:15; Stop 04/21/17 at 13:16; Status DC Info (Do NOT chart on this entry -- for MONITORING) 1 each PRN DAILY PRN MC SEE COMMENTS; Start 04/21/17 at 13:15; Stop 04/23/17 at 13:14 Gadobutrol (Gadavist) 6 mmol 1X ONCE IV ; Start 04/21/17 at 17:45; Stop 04/21 at 17:46; Status DC Active Scripts Active Colace (Docusate Sodium) 100 Mg Capsule 100 Mg PO DAILY Oxycodone-Acetaminophen 5-325 (Oxycodone Hcl/Acetaminophen) 1 Each Tablet 1 Tab PO PRN Q4HRS PRN Reported Ondansetron Hcl 4 Mg Tablet 1 Tab PO PRN Q8HRS PRN Allergies Allergies: Coded Allergies: No Known Drug Allergies (Unverified , 10/04/16) Vitals VITALS Vital Signs Date Time Temp Pulse Resp B/P (MAP) Pulse Ox O2 Delivery O2 Flow Rate FiO2 04/21/17 16:57 Room Air 04/21/17 15:00 98.0 86 18 115/56 (75) 98 98.0 Labs Labs Laboratory Tests Test 04/20/17 00:47 04/21/17 09:00 04/21/17 09:10 04/21/17 14:56 White Blood Count 9.9 x10^3/uL (4.0-11.0) 9.5 x10^3/uL (4.0-11.0) Red Blood Count 2.61 x10^6/uL (4.30-5.70) 2.85 x10^6/uL (4.30-5.70) Hemoglobin 8.1 g/dL (13.0-17.5) 8.6 g/dL (13.0-17.5) Hematocrit 22.8 % (39.0-53.0) 25.0 % (39.0-53.0) Mean Corpuscular Volume 87 fL (79-100) 88 fL (79-100) Mean Corpuscular Hemoglobin 31 pg (25-35) 30 pg (25-35) Mean Corpuscular Hemoglobin Concent 36 g/dL (31-37) 35 g/dL (31-37) Red Cell Distribution Width 15.2 % (11.5-14.5) 14.7 % (11.5-14.5) Platelet Count 349 x10^3/uL (140-400) 512 x10^3/uL (140-400) Neutrophils (%) (Auto) 83 % (31-73) 92 % (31-73) Lymphocytes (%) (Auto) 8 % (24-48) 6 % (24-48) Monocytes (%) (Auto) 9 % (0-9) 3 % (0-9) Eosinophils (%) (Auto) 1 % (0-3) 0 % (0-3) Basophils (%) (Auto) 0 % (0-3) 0 % (0-3) Neutrophils # (Auto) 8.2 x10^3uL (1.8-7.7) 8.7 x10^3uL (1.8-7.7) Lymphocytes # (Auto) 0.7 x10^3/uL (1.0-4.8) 0.5 x10^3/uL (1.0-4.8) Monocytes # (Auto) 0.9 x10^3/uL (0.0-1.1) 0.2 x10^3/uL (0.0-1.1) Eosinophils # (Auto) 0.1 x10^3/uL (0.0-0.7) 0.0 x10^3/uL (0.0-0.7) Basophils # (Auto) 0.0 x10^3/uL (0.0-0.2) 0.0 x10^3/uL (0.0-0.2) Segmented Neutrophils % 74 % (35-66) Band Neutrophils % 11 % (0-9) Lymphocytes % 10 % (24-48) Monocytes % 3 % (0-10) Eosinophils % 1 % (0-5) Metamyelocytes % 1 % (0-0) Platelet Estimate Adequate (ADEQUATE) Polychromasia Slight Anisocytosis Slight Sodium Level 129 mmol/L (136-145) 125 mmol/L (136-145) Potassium Level 2.8 mmol/L (3.5-5.1) 3.9 mmol/L (3.5-5.1) Chloride Level 91 mmol/L (98-107) 89 mmol/L (98-107) Carbon Dioxide Level 31 mmol/L (21-32) 28 mmol/L (21-32) Anion Gap 7 (6-14) 8 (6-14) Blood Urea Nitrogen 9 mg/dL (8-26) 8 mg/dL (8-26) Creatinine 0.8 mg/dL (0.7-1.3) 0.7 mg/dL (0.7-1.3) Estimated GFR (Cockcroft-Gault) 101.9 118.9 BUN/Creatinine Ratio 11 (6-20) Glucose Level 130 mg/dL (70-99) 138 mg/dL (70-99) Calcium Level 8.1 mg/dL (8.5-10.1) 8.4 mg/dL (8.5-10.1) Magnesium Level 1.4 mg/dL (1.8-2.4) 1.3 mg/dL (1.8-2.4) Total Bilirubin 0.2 mg/dL (0.2-1.0) Aspartate Amino Transf (AST/SGOT) 21 U/L (15-37) Alanine Aminotransferase (ALT/SGPT) 16 U/L (16-63) Alkaline Phosphatase 110 U/L (46-116) Creatine Kinase 95 U/L (39-308) Creatine Kinase MB (Mass) 0.6 ng/mL (0.0-3.6) Creatine Kinase MB Relative Index 0.6 % (0-4) Troponin I Quantitative < 0.017 ng/mL (0.000-0.055) RH-Xnu-U-Type Natriuretic Peptide 297 pg/mL (0-124) Total Protein 5.3 g/dL (6.4-8.2) Albumin 2.3 g/dL (3.4-5.0) Albumin/Globulin Ratio 0.8 (1.0-1.7) Urine Collection Type Unknown Urine Color Yellow Urine Clarity Clear Urine pH 7.0 Urine Specific [place] 1.015 Urine Protein Negative mg/dL (NEG-TRACE) Urine Glucose (UA) 250 mg/dL (NEG) Urine Ketones (Stick) Negative mg/dL (NEG) Urine Blood Negative (NEG) Urine Nitrite Negative (NEG) Urine Bilirubin Negative (NEG) Urine Urobilinogen Dipstick 0.2 mg/dL (0.2 mg/dL) Urine Leukocyte Esterase Negative (NEG) Urine RBC 0 /HPF (0-2) Urine WBC 0 /HPF (0-4) Urine Bacteria 0 /HPF (0-FEW) Urine Mucus Slight /LPF Laboratory Tests Test 04/21/17 09:00 04/21/17 09:10 04/21/17 14:56 White Blood Count 9.5 x10^3/uL (4.0-11.0) Red Blood Count 2.85 x10^6/uL (4.30-5.70) Hemoglobin 8.6 g/dL (13.0-17.5) Hematocrit 25.0 % (39.0-53.0) Mean Corpuscular Volume 88 fL (79-100) Mean Corpuscular Hemoglobin 30 pg (25-35) Mean Corpuscular Hemoglobin Concent 35 g/dL (31-37) Red Cell Distribution Width 14.7 % (11.5-14.5) Platelet Count 512 x10^3/uL (140-400) Neutrophils (%) (Auto) 92 % (31-73) Lymphocytes (%) (Auto) 6 % (24-48) Monocytes (%) (Auto) 3 % (0-9) Eosinophils (%) (Auto) 0 % (0-3) Basophils (%) (Auto) 0 % (0-3) Neutrophils # (Auto) 8.7 x10^3uL (1.8-7.7) Lymphocytes # (Auto) 0.5 x10^3/uL (1.0-4.8) Monocytes # (Auto) 0.2 x10^3/uL (0.0-1.1) Eosinophils # (Auto) 0.0 x10^3/uL (0.0-0.7) Basophils # (Auto) 0.0 x10^3/uL (0.0-0.2) Sodium Level 125 mmol/L (136-145) Potassium Level 3.9 mmol/L (3.5-5.1) Chloride Level 89 mmol/L (98-107) Carbon Dioxide Level 28 mmol/L (21-32) Anion Gap 8 (6-14) Blood Urea Nitrogen 8 mg/dL (8-26) Creatinine 0.7 mg/dL (0.7-1.3) Estimated GFR (Cockcroft-Gault) 118.9 Glucose Level 138 mg/dL (70-99) Calcium Level 8.4 mg/dL (8.5-10.1) Magnesium Level 1.3 mg/dL (1.8-2.4) Urine Collection Type Unknown Urine Color Yellow Urine Clarity Clear Urine pH 7.0 Urine Specific [place] 1.015 Urine Protein Negative mg/dL (NEG-TRACE) Urine Glucose (UA) 250 mg/dL (NEG) Urine Ketones (Stick) Negative mg/dL (NEG) Urine Blood Negative (NEG) Urine Nitrite Negative (NEG) Urine Bilirubin Negative (NEG) Urine Urobilinogen Dipstick 0.2 mg/dL (0.2 mg/dL) Urine Leukocyte Esterase Negative (NEG) Urine RBC 0 /HPF (0-2) Urine WBC 0 /HPF (0-4) Urine Bacteria 0 /HPF (0-FEW) Urine Mucus Slight /LPF Assessment/Plan Assessment/Plan REQUESTING PHYSICIAN: Marly Soares M.D. 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 HISTORY OF PRESENT ILLNESS: The patient is a 51-year-old gentleman who presented to [facility] on 06/27/2016 with shortness of breath and chest pain. A CT scan on 06/27/2016 revealed a 4.9-cm right lower lobe mass with hilar and mediastinal lymphadenopathy. He underwent a CT scan of the head, chest, abdomen, and pelvis and a bone scan, which did not reveal any distant metastatic disease. He underwent a CT-guided core biopsy on 06/21/2016 that revealed small-cell lung cancer. He received chemotherapy with cisplatin and etoposide from 07/08/2016. Radiation was added with cycle #2 of treatment. His last cycle of chemotherapy was on 10/02/2016 which was cycle #4. A CT scan on 10/22/2016 revealed an excellent response. He underwent a prophylactic cranial irradiation. He then did not return for followup. He presented to [facility] ER on 03/24/2017 with right-sided chest pain of 3 days' duration. He also has exertional shortness of breath. He underwent a CT scan of the chest on 03/24/2017, which revealed a mass-like consolidation in the right lower lobe measuring 8.5 cm. There may be a component of pneumonia and recurrent malignancy. A new left adrenal metastasis measuring 3.8 cm is also noted. Started topotecan 03/31/17. Now admitted with CP and dyspnea. PAST MEDICAL HISTORY: Small-cell lung cancer as described above, status post chemoradiation. FAMILY HISTORY: Positive for coronary artery disease. SOCIAL HISTORY: He has a history of smoking less than 1 pack per day. REVIEW OF SYSTEMS: A 12-point review of system was performed. Pertinent positives are mentioned in the history of present illness. Rest of the system review is negative. PHYSICAL EXAMINATION: GENERAL APPEARANCE: The patient is a 51-year-old gentleman who is in no acute cardiorespiratory distress. VITAL SIGNS: reviewed. HEENT: Head is atraumatic, normocephalic. Eyes: No icterus. NECK: Supple. CHEST: Bilaterally symmetrical. HEART: S1, S2 normal. ABDOMEN: Soft, nontender. CENTRAL NERVOUS SYSTEM: No focal deficits. LYMPHATICS: No lymphadenopathy. SKIN: No rashes. PSYCHOLOGIC: Mood and affect are appropriate. MUSCULOSKELETAL: No joint effusions. LABORATORY DATA: WBC 6.1, hemoglobin 11.5, platelet count 365. Creatinine 0.8, calcium 8.7, and alkaline phosphatase 121. IMPRESSION AND PLAN: 1. 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 Previously, he was staged as a stage III lung cancer and he received chemoradiation. He was then staged as a stage IV lung cancer. Started topotecan 03/31/17. Now admitted with CP and dyspnea. Plan to resume chemo as outpatient. 2. Right-sided chest pain, Pulmonary Medicine and Rad Onc has been consulted. CTA chest 04/21/17 is neg for PE. 3. Left adrenal gland metastasis. 4. Hyponatremia, due to SIADH. I will also order MRI brain to eval for mets. I d/w Dr Soares and Dr Alvarez and RN. YOSI WEEMS MD Apr 21, 2017 17:53
[2017-04-21 19:00] VITALS: BP 117/68
[2017-04-21 23:10] VITALS: BP 115/68
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
[2017-04-22 03:47] VITALS: BP 114/69
[2017-04-22] MEDS ORDERED: IPRATRPIUM/ALBUTEROL 0.5/2.5MG 3 ML NEBU. NEB ONE (04:00)
--- NOTE | 2017-04-22 04:49 | RAD ---
EXAMINATION: Magnetic resonance imaging (MRI) of the brain and brainstem without and with contrast 04/21/2017 1:03 PM HISTORY: History of lung cancer. TECHNIQUE: Multiplanar multi-weighted MRI of the brain and brainstem was performed without and with intravenous contrast using the general brain protocol. Contrast information: 6 mL Gadolinium based contrast COMPARISON: MRI brain January 24, 2017 FINDINGS: The scalp and calvarium are normal. There is a cavum septum pellucidum. The superior sagittal sinus demonstrates normal venous flow. The corpus callosum is normal in shape and signal intensity. The posterior fossa is unremarkable. The pituitary and sella are normal. The brainstem and craniocervical junction are unremarkable. Diffusion weighted images reveal no hyperintensities to suggest acute cerebral infarction. The susceptibility weighted sequences reveal no evidence of acute or chronic hemorrhage. The ventricles are normal in size and position without evidence of hydrocephalus. There are no areas of abnormal contrast enhancement. The paranasal sinuses are normal. The visualized portions of the mastoids are unremarkable. The orbits appear normal. Normal flow voids are demonstrated in the carotid arteries and basilar artery. IMPRESSION: No evidence for intracranial metastasis. Electronically signed by: Indigo Duarte MD (04/22/2017 4:45 AM) [facility] [id number]
[2017-04-22 05:24] LABS: BASO % 0 % (0-3); EOS % 0 % (0-3); HEMATOCRIT 24.5 % (39.0-53.0); HEMOGLOBIN 8.5 g/dL (13.0-17.5); LYMPH % 7 % (24-48); MEAN CORPUSCULAR HEMOGLOBIN 30 pg (25-35); MEAN CORPUSCULAR HGB CONC 35 g/dL (31-37); MEAN CORPUSCULAR VOLUME 86 fL (79-100); MONO % 6 % (0-9); NEUT % 87 % (31-73); PLATELET COUNT 612 x10^3/uL (140-400); RED BLOOD COUNT 2.85 x10^6/uL (4.30-5.70); RED CELL DISTRIBUTION WIDTH 14.6 % (11.5-14.5); WHITE BLOOD COUNT 15.1 x10^3/uL (4.0-11.0)
[2017-04-22 05:47] LABS: ALBUMIN 2.1 g/dL (3.4-5.0); ALBUMIN/GLOBULIN RATIO 0.6 (1.0-1.7); CALCIUM 8.2 mg/dL (8.5-10.1); CREATININE 0.7 mg/dL (0.7-1.3); GFR 118.9; TOTAL BILIRUBIN 0.2 mg/dL (0.2-1.0); TOTAL PROTEIN 5.7 g/dL (6.4-8.2)
[2017-04-22 07:00] VITALS: BP 113/68
[2017-04-22 07:39] LABS: ANISOCYTOSIS SLIGHT; PLT ESTIMATE INCREASED (ADEQUATE)
[2017-04-22] MEDS: BUDESONIDE 0.5 MG/2 ML NEBU. NEB SCH ×2 (07:55→18:17)
[2017-04-22] MEDS: IPRATRPIUM/ALBUTEROL 0.5/2.5MG 3 ML NEBU. NEB SCH ×4 (07:55→18:17)
[2017-04-22] MEDS: oxyCODONE IR 5 MG TABLET PO PRN ×3 (08:05→19:43)
[2017-04-22] MEDS: DOCUSATE SODIUM 100 MG CAPSULE. PO SCH (08:05)
[2017-04-22] MEDS: predniSONE 10 MG TABLET PO SCH (08:05)
[2017-04-22] MEDS: LACTOBACILLUS RHAMNOSUS GG 1 CAPSULE. PO SCH ×2 (08:05→20:47)
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
[2017-04-22 11:00] VITALS: BP 121/73
[2017-04-22] MEDS ORDERED: SODIUM CHLORIDE 3 % 300 ML IV ONE (11:00)
--- NOTE | 2017-04-22 11:23 | PDOC2 ---
CONSULT Date of Consult Date of Consult DATE: 04/22/17 TIME: 11:18 Reason for Consult Reason for Consult: LOW NA Referring Physician Referring Physician: KRYSTYNA Identification/Chief Complaint Chief Complaint SOB Problems: Source Source: Chart review, Patient History of Present Illness Reason for Visit: THIS IS A 51 YR OLD ADMITTED WITH SOB. HE IS DIAGNOSED WITH PNEUMONIA. HX NOTABLE FOR SCCA OF THE LUNG STAGE 3 THAT WAS TREATED BUT RECENTLY RECURRED WITH METS. NA IS 118 TODAY. HE HAS HAD SOME N/V TODAY AND HAS HAD SOME DIFFICULTY WITH BLURRY VISION EARLIER TODAY. RENAL FXN WNL Past Medical History Cardiovascular: No pertinent hx Pulmonary: No pertinent hx CENTRAL NERVOUS SYSTEM: Other GI: No pertinent hx Heme/Onc: No pertinent hx Hepatobiliary: No pertinent hx Psych: No pertinent hx Musculoskeletal: No pain Rheumatologic: No pertinent hx Infectious disease: No pertinent hx Renal/: No pertinent hx Endocrine: No pertinent hx Past Surgical History Past Surgical History: Other Family History Family History: Coronary Artery Disease Social History ALCOHOL: rare Drugs: Crystal meth Current Problem List Problem List Problems Medical Problems: (1) Chest pain Status: Acute (2) Lung cancer Status: Acute Current Medications Current Medications Current Medications Sodium Chloride 1,000 ml @ 1,000 mls/hr Q1H IV Last administered on 01:07; Start 04/20/17 at 01:00; Stop 04/20/17 at 01:59; Status DC Albuterol/ Ipratropium (Duoneb) 6 ml 1X ONCE NEB Last administered on 01:53; Start 04/20/17 at 01:00; Stop 04/20/17 at 01:01; Status DC Magnesium Sulfate/ Dextrose 50 ml @ 25 mls/hr 1X ONCE IV Last administered on 04/20/17 03:18; Start 04/20/17 at 03:00; Stop 04/20/17 at 04:59; Status DC Potassium Chloride (Klor-Con) 40 meq Q2HR PO Last administered on 04/20/17 05 :37; Start 04/20/17 at 04:00; Stop 04/20/17 at 06:01; Status DC Ondansetron HCl (Zofran) 4 mg PRN Q8HRS PRN IV NAUSEA/VOMITING; Start at 02:30; Stop 04/21/17 at 02:29; Status DC Fentanyl Citrate (Fentanyl 2ml Vial) 50 mcg PRN Q2HR PRN IV SEVERE PAIN Last administered on 04/20/17 21:44; Start 04/20/17 at 02:30; Stop 04/21/17 at 02 :29; Status DC Sodium Chloride 1,000 ml @ 100 mls/hr Q10H IV Last administered on 04/20/17 20:28; Start 04/20/17 at 02:29; Stop 04/21/17 at 02:28; Status DC Acetaminophen (Tylenol) 650 mg PRN Q4HRS PRN PO FEVER; Start 04/20/17 at 02:30 ; Stop 04/21/17 at 02:29; Status DC Albuterol/ Ipratropium (Duoneb) 3 ml RTQID NEB Last administered on 04/21/17 07:42; Start 04/20/17 at 08:00; Stop 04/21/17 at 07:59; Status DC Levofloxacin (Levaquin) 750 mg DAILY06 PO Last administered on 04/22/17 06:39 ; Start 04/20/17 at 06:00 Albuterol/ Ipratropium (Duoneb) 3 ml STK-MED ONCE .ROUTE ; Start 04/20/17 at 06 :22; Stop 04/20/17 at 06:23; Status DC Docusate Sodium (Colace) 100 mg DAILY PO Last administered on 04/22/17 08:05 ; Start 04/20/17 at 12:30 Oxycodone/ Acetaminophen (Percocet 5/325) 1 tab PRN Q4HRS PRN PO PAIN Last administered on 04/21/17 08:14; Start 04/20/17 at 12:15 Ondansetron HCl (Zofran Odt) 4 mg PRN Q8HRS PRN PO NAUSEA/VOMITING; Start 05/25 at 12:15 Lactobacillus Rhamnosus (Culturelle) 1 cap BID PO Last administered on 08:05; Start 04/20/17 at 21:00 Prednisone (Prednisone) 30 mg DAILY PO Last administered on 04/22/17 08:05; Start 04/20/17 at 18:30 Magnesium Sulfate/ Dextrose 100 ml @ 25 mls/hr 1X ONCE IV Last administered on 04/21/17 11:15; Start 04/21/17 at 11:00; Stop 04/21/17 at 14:59; Status DC Oxycodone HCl (Roxicodone) 10 mg PRN Q6HRS PRN PO PAIN Last administered on 08:05; Start 04/21/17 at 11:45 Albuterol/ Ipratropium (Duoneb) 3 ml RTQID NEB Last administered on 04/22/17 07:55; Start 04/21/17 at 12:00 Budesonide (Pulmicort) 0.5 mg RTBID NEB Last administered on 04/22/17 07:55; Start 04/21/17 at 12:00 Iohexol (Omnipaque 300 Mg/ml) 75 ml 1X ONCE IV Last administered on 15:37; Start 04/21/17 at 13:15; Stop 04/21/17 at 13:16; Status DC Info (Do NOT chart on this entry -- for MONITORING) 1 each PRN DAILY PRN MC SEE COMMENTS; Start 04/21/17 at 13:15; Stop 04/23/17 at 13:14 Gadobutrol (Gadavist) 6 mmol 1X ONCE IV Last administered on 04/21/17 17:56 ; Start 04/21/17 at 17:45; Stop 04/21/17 at 17:46; Status DC Albuterol/ Ipratropium (Duoneb) 3 ml 1X ONCE NEB Last administered on 03:45; Start 04/22/17 at 04:00; Stop 04/22/17 at 04:01; Status DC Sodium Chloride 300 ml @ 60 mls/hr 1X ONCE IV ; Start 04/22/17 at 11:00; Stop 04/22/17 at 15:59 Active Scripts Active Colace (Docusate Sodium) 100 Mg Capsule 100 Mg PO DAILY Oxycodone-Acetaminophen 5-325 (Oxycodone Hcl/Acetaminophen) 1 Each Tablet 1 Tab PO PRN Q4HRS PRN Reported Ondansetron Hcl 4 Mg Tablet 1 Tab PO PRN Q8HRS PRN Allergies Allergies: Coded Allergies: No Known Drug Allergies (Unverified , 10/04/16) ROS General: YES: Fatigue, Appetite PSYCHOLOGICAL ROS: YES: Anxiety, Depression Eyes: Yes Blurry vision HEENT: YES: Heacaches Respiratory: YES: Cough, Shortness of breath Cardiovascular: yes Orthopnea Genitourinary: YES Other (NOCTURIA) Musculoskeletal: Yes Muscular Weakness Neurological: Yes Weakness Skin: Yes Dry Skin Physical Exam General: Alert, Oriented X3, Cooperative, No acute distress HEENT: Atraumatic, PERRLA, EOMI, Mucous membr. moist/pink Lungs: Clear to auscultation, Normal air movement Heart: Regular rate, Normal S1, Normal S2, No murmurs Abdomen: Normal bowel sounds, Soft, No tenderness Extremities: No clubbing, No edema Skin: No rashes, No significant lesion Neuro: Normal speech, Cranial nerves 3-12 NL Psych/Mental Status: Mental status NL, Other (FLAT AFFECT) MUSCULOSKELETAL: No deformity, No swelling Vitals VITALS Vital Signs Date Time Temp Pulse Resp B/P (MAP) Pulse Ox O2 Delivery O2 Flow Rate FiO2 04/22/17 08:00 Room Air 04/22/17 07:55 98 04/22/17 07:00 98.0 75 19 113/68 (83) 98.0 Labs Labs Laboratory Tests Test 04/21/17 09:00 04/21/17 09:10 04/21/17 14:56 04/22/17 04:30 White Blood Count 9.5 x10^3/uL (4.0-11.0) 15.1 x10^3/uL (4.0-11.0) Red Blood Count 2.85 x10^6/uL (4.30-5.70) 2.85 x10^6/uL (4.30-5.70) Hemoglobin 8.6 g/dL (13.0-17.5) 8.5 g/dL (13.0-17.5) Hematocrit 25.0 % (39.0-53.0) 24.5 % (39.0-53.0) Mean Corpuscular Volume 88 fL (79-100) 86 fL (79-100) Mean Corpuscular Hemoglobin 30 pg (25-35) 30 pg (25-35) Mean Corpuscular Hemoglobin Concent 35 g/dL (31-37) 35 g/dL (31-37) Red Cell Distribution Width 14.7 % (11.5-14.5) 14.6 % (11.5-14.5) Platelet Count 512 x10^3/uL (140-400) 612 x10^3/uL (140-400) Neutrophils (%) (Auto) 92 % (31-73) 87 % (31-73) Lymphocytes (%) (Auto) 6 % (24-48) 7 % (24-48) Monocytes (%) (Auto) 3 % (0-9) 6 % (0-9) Eosinophils (%) (Auto) 0 % (0-3) 0 % (0-3) Basophils (%) (Auto) 0 % (0-3) 0 % (0-3) Neutrophils # (Auto) 8.7 x10^3uL (1.8-7.7) 13.1 x10^3uL (1.8-7.7) Lymphocytes # (Auto) 0.5 x10^3/uL (1.0-4.8) 1.0 x10^3/uL (1.0-4.8) Monocytes # (Auto) 0.2 x10^3/uL (0.0-1.1) 0.9 x10^3/uL (0.0-1.1) Eosinophils # (Auto) 0.0 x10^3/uL (0.0-0.7) 0.0 x10^3/uL (0.0-0.7) Basophils # (Auto) 0.0 x10^3/uL (0.0-0.2) 0.0 x10^3/uL (0.0-0.2) Sodium Level 125 mmol/L (136-145) 118 mmol/L (136-145) Potassium Level 3.9 mmol/L (3.5-5.1) 4.0 mmol/L (3.5-5.1) Chloride Level 89 mmol/L (98-107) 83 mmol/L (98-107) Carbon Dioxide Level 28 mmol/L (21-32) 30 mmol/L (21-32) Anion Gap 8 (6-14) 5 (6-14) Blood Urea Nitrogen 8 mg/dL (8-26) 8 mg/dL (8-26) Creatinine 0.7 mg/dL (0.7-1.3) 0.7 mg/dL (0.7-1.3) Estimated GFR (Cockcroft-Gault) 118.9 118.9 Glucose Level 138 mg/dL (70-99) 113 mg/dL (70-99) Calcium Level 8.4 mg/dL (8.5-10.1) 8.2 mg/dL (8.5-10.1) Magnesium Level 1.3 mg/dL (1.8-2.4) 1.5 mg/dL (1.8-2.4) Urine Collection Type Unknown Urine Color Yellow Urine Clarity Clear Urine pH 7.0 Urine Specific [place] 1.015 Urine Protein Negative mg/dL (NEG-TRACE) Urine Glucose (UA) 250 mg/dL (NEG) Urine Ketones (Stick) Negative mg/dL (NEG) Urine Blood Negative (NEG) Urine Nitrite Negative (NEG) Urine Bilirubin Negative (NEG) Urine Urobilinogen Dipstick 0.2 mg/dL (0.2 mg/dL) Urine Leukocyte Esterase Negative (NEG) Urine RBC 0 /HPF (0-2) Urine WBC 0 /HPF (0-4) Urine Bacteria 0 /HPF (0-FEW) Urine Mucus Slight /LPF Urine Random Sodium 162 mmol/L (Not Estab.) Segmented Neutrophils % 86 % (35-66) Band Neutrophils % 2 % (0-9) Lymphocytes % 5 % (24-48) Monocytes % 7 % (0-10) Platelet Estimate Increased (ADEQUATE) Anisocytosis Slight BUN/Creatinine Ratio 11 (6-20) Total Bilirubin 0.2 mg/dL (0.2-1.0) Aspartate Amino Transf (AST/SGOT) 25 U/L (15-37) Alanine Aminotransferase (ALT/SGPT) 27 U/L (16-63) Alkaline Phosphatase 105 U/L (46-116) Total Protein 5.7 g/dL (6.4-8.2) Albumin 2.1 g/dL (3.4-5.0) Albumin/Globulin Ratio 0.6 (1.0-1.7) Laboratory Tests Test 04/21/17 14:56 04/22/17 04:30 Urine Collection Type Unknown Urine Color Yellow Urine Clarity Clear Urine pH 7.0 Urine Specific [place] 1.015 Urine Protein Negative mg/dL (NEG-TRACE) Urine Glucose (UA) 250 mg/dL (NEG) Urine Ketones (Stick) Negative mg/dL (NEG) Urine Blood Negative (NEG) Urine Nitrite Negative (NEG) Urine Bilirubin Negative (NEG) Urine Urobilinogen Dipstick 0.2 mg/dL (0.2 mg/dL) Urine Leukocyte Esterase Negative (NEG) Urine RBC 0 /HPF (0-2) Urine WBC 0 /HPF (0-4) Urine Bacteria 0 /HPF (0-FEW) Urine Mucus Slight /LPF Urine Random Sodium 162 mmol/L (Not Estab.) White Blood Count 15.1 x10^3/uL (4.0-11.0) Red Blood Count 2.85 x10^6/uL (4.30-5.70) Hemoglobin 8.5 g/dL (13.0-17.5) Hematocrit 24.5 % (39.0-53.0) Mean Corpuscular Volume 86 fL (79-100) Mean Corpuscular Hemoglobin 30 pg (25-35) Mean Corpuscular Hemoglobin Concent 35 g/dL (31-37) Red Cell Distribution Width 14.6 % (11.5-14.5) Platelet Count 612 x10^3/uL (140-400) Neutrophils (%) (Auto) 87 % (31-73) Lymphocytes (%) (Auto) 7 % (24-48) Monocytes (%) (Auto) 6 % (0-9) Eosinophils (%) (Auto) 0 % (0-3) Basophils (%) (Auto) 0 % (0-3) Neutrophils # (Auto) 13.1 x10^3uL (1.8-7.7) Lymphocytes # (Auto) 1.0 x10^3/uL (1.0-4.8) Monocytes # (Auto) 0.9 x10^3/uL (0.0-1.1) Eosinophils # (Auto) 0.0 x10^3/uL (0.0-0.7) Basophils # (Auto) 0.0 x10^3/uL (0.0-0.2) Segmented Neutrophils % 86 % (35-66) Band Neutrophils % 2 % (0-9) Lymphocytes % 5 % (24-48) Monocytes % 7 % (0-10) Platelet Estimate Increased (ADEQUATE) Anisocytosis Slight Sodium Level 118 mmol/L (136-145) Potassium Level 4.0 mmol/L (3.5-5.1) Chloride Level 83 mmol/L (98-107) Carbon Dioxide Level 30 mmol/L (21-32) Anion Gap 5 (6-14) Blood Urea Nitrogen 8 mg/dL (8-26) Creatinine 0.7 mg/dL (0.7-1.3) Estimated GFR (Cockcroft-Gault) 118.9 BUN/Creatinine Ratio 11 (6-20) Glucose Level 113 mg/dL (70-99) Calcium Level 8.2 mg/dL (8.5-10.1) Magnesium Level 1.5 mg/dL (1.8-2.4) Total Bilirubin 0.2 mg/dL (0.2-1.0) Aspartate Amino Transf (AST/SGOT) 25 U/L (15-37) Alanine Aminotransferase (ALT/SGPT) 27 U/L (16-63) Alkaline Phosphatase 105 U/L (46-116) Total Protein 5.7 g/dL (6.4-8.2) Albumin 2.1 g/dL (3.4-5.0) Albumin/Globulin Ratio 0.6 (1.0-1.7) Assessment/Plan Assessment/Plan IMP SCCA OF THE LUNG-METASTATIC [id number] PNEUMONIA PLAN 3% SALINE START DECLOMYCIN CHECK TSH ANTIBIOTICS HEME/ONC EVAL AND TX JUAN DIEGO ROWLAND MD Apr 22, 2017 11:22
[2017-04-22 12:22] LABS: URINE OSMOLALITY 525 mOsmol/kg (.)
[2017-04-22] MEDS: DEMECLOCYCLINE HCL 150 MG TABLET. PO SCH ×2 (13:45→20:47)
[2017-04-22] MEDS: MAGNESIUM SULFATE 4GM 100 ML IV ONE ×2 (13:45→17:28)
--- NOTE | 2017-04-22 14:37 | PDOC ---
PROGRESS NOTES Chief Complaint Chief Complaint chest pain and acute respiratory distress lung cancer, stage 4. 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, send urine, check osm, Vitals Vitals Vital Signs Date Time Temp Pulse Resp B/P (MAP) Pulse Ox O2 Delivery O2 Flow Rate FiO2 04/22/17 11:39 Room Air 04/22/17 11:00 97.7 74 19 121/73 (89) 98 97.7 Physical Exam General: Alert, Oriented X3, Cooperative, No acute distress Heart: Regular rate, Normal S1, Normal S2, No murmurs Lungs: Clear Abdomen: Normal bowel sounds, Soft, No tenderness Extremities: No clubbing, No edema Skin: No rashes, No significant lesion Labs LABS Laboratory Tests Test 04/21/17 14:56 04/22/17 04:30 Urine Collection Type Unknown Urine Color Yellow Urine Clarity Clear Urine pH 7.0 Urine Specific [place] 1.015 Urine Protein Negative mg/dL (NEG-TRACE) Urine Glucose (UA) 250 mg/dL (NEG) Urine Ketones (Stick) Negative mg/dL (NEG) Urine Blood Negative (NEG) Urine Nitrite Negative (NEG) Urine Bilirubin Negative (NEG) Urine Urobilinogen Dipstick 0.2 mg/dL (0.2 mg/dL) Urine Leukocyte Esterase Negative (NEG) Urine RBC 0 /HPF (0-2) Urine WBC 0 /HPF (0-4) Urine Bacteria 0 /HPF (0-FEW) Urine Mucus Slight /LPF Urine Osmolality 525 mOsmol/kg (.) Urine Random Sodium 162 mmol/L (Not Estab.) White Blood Count 15.1 x10^3/uL (4.0-11.0) Red Blood Count 2.85 x10^6/uL (4.30-5.70) Hemoglobin 8.5 g/dL (13.0-17.5) Hematocrit 24.5 % (39.0-53.0) Mean Corpuscular Volume 86 fL (79-100) Mean Corpuscular Hemoglobin 30 pg (25-35) Mean Corpuscular Hemoglobin Concent 35 g/dL (31-37) Red Cell Distribution Width 14.6 % (11.5-14.5) Platelet Count 612 x10^3/uL (140-400) Neutrophils (%) (Auto) 87 % (31-73) Lymphocytes (%) (Auto) 7 % (24-48) Monocytes (%) (Auto) 6 % (0-9) Eosinophils (%) (Auto) 0 % (0-3) Basophils (%) (Auto) 0 % (0-3) Neutrophils # (Auto) 13.1 x10^3uL (1.8-7.7) Lymphocytes # (Auto) 1.0 x10^3/uL (1.0-4.8) Monocytes # (Auto) 0.9 x10^3/uL (0.0-1.1) Eosinophils # (Auto) 0.0 x10^3/uL (0.0-0.7) Basophils # (Auto) 0.0 x10^3/uL (0.0-0.2) Segmented Neutrophils % 86 % (35-66) Band Neutrophils % 2 % (0-9) Lymphocytes % 5 % (24-48) Monocytes % 7 % (0-10) Platelet Estimate Increased (ADEQUATE) Anisocytosis Slight Sodium Level 118 mmol/L (136-145) Potassium Level 4.0 mmol/L (3.5-5.1) Chloride Level 83 mmol/L (98-107) Carbon Dioxide Level 30 mmol/L (21-32) Anion Gap 5 (6-14) Blood Urea Nitrogen 8 mg/dL (8-26) Creatinine 0.7 mg/dL (0.7-1.3) Estimated GFR (Cockcroft-Gault) 118.9 BUN/Creatinine Ratio 11 (6-20) Glucose Level 113 mg/dL (70-99) Calcium Level 8.2 mg/dL (8.5-10.1) Magnesium Level 1.5 mg/dL (1.8-2.4) Total Bilirubin 0.2 mg/dL (0.2-1.0) Aspartate Amino Transf (AST/SGOT) 25 U/L (15-37) Alanine Aminotransferase (ALT/SGPT) 27 U/L (16-63) Alkaline Phosphatase 105 U/L (46-116) Total Protein 5.7 g/dL (6.4-8.2) Albumin 2.1 g/dL (3.4-5.0) Albumin/Globulin Ratio 0.6 (1.0-1.7) Review of Systems Review of Systems no diarrhea nausea and vomited once Assessment and Plan Assessmemt and Plan Problems Medical Problems: (1) Chest pain Status: Acute (2) Lung cancer Status: Acute Problems: Comment Review of Relevant I have reviewed the following items reynold (where applicable) has been applied. Labs Laboratory Tests Test 04/21/17 09:00 04/21/17 09:10 04/21/17 14:56 04/22/17 04:30 White Blood Count 9.5 x10^3/uL (4.0-11.0) 15.1 x10^3/uL (4.0-11.0) Red Blood Count 2.85 x10^6/uL (4.30-5.70) 2.85 x10^6/uL (4.30-5.70) Hemoglobin 8.6 g/dL (13.0-17.5) 8.5 g/dL (13.0-17.5) Hematocrit 25.0 % (39.0-53.0) 24.5 % (39.0-53.0) Mean Corpuscular Volume 88 fL (79-100) 86 fL (79-100) Mean Corpuscular Hemoglobin 30 pg (25-35) 30 pg (25-35) Mean Corpuscular Hemoglobin Concent 35 g/dL (31-37) 35 g/dL (31-37) Red Cell Distribution Width 14.7 % (11.5-14.5) 14.6 % (11.5-14.5) Platelet Count 512 x10^3/uL (140-400) 612 x10^3/uL (140-400) Neutrophils (%) (Auto) 92 % (31-73) 87 % (31-73) Lymphocytes (%) (Auto) 6 % (24-48) 7 % (24-48) Monocytes (%) (Auto) 3 % (0-9) 6 % (0-9) Eosinophils (%) (Auto) 0 % (0-3) 0 % (0-3) Basophils (%) (Auto) 0 % (0-3) 0 % (0-3) Neutrophils # (Auto) 8.7 x10^3uL (1.8-7.7) 13.1 x10^3uL (1.8-7.7) Lymphocytes # (Auto) 0.5 x10^3/uL (1.0-4.8) 1.0 x10^3/uL (1.0-4.8) Monocytes # (Auto) 0.2 x10^3/uL (0.0-1.1) 0.9 x10^3/uL (0.0-1.1) Eosinophils # (Auto) 0.0 x10^3/uL (0.0-0.7) 0.0 x10^3/uL (0.0-0.7) Basophils # (Auto) 0.0 x10^3/uL (0.0-0.2) 0.0 x10^3/uL (0.0-0.2) Sodium Level 125 mmol/L (136-145) 118 mmol/L (136-145) Potassium Level 3.9 mmol/L (3.5-5.1) 4.0 mmol/L (3.5-5.1) Chloride Level 89 mmol/L (98-107) 83 mmol/L (98-107) Carbon Dioxide Level 28 mmol/L (21-32) 30 mmol/L (21-32) Anion Gap 8 (6-14) 5 (6-14) Blood Urea Nitrogen 8 mg/dL (8-26) 8 mg/dL (8-26) Creatinine 0.7 mg/dL (0.7-1.3) 0.7 mg/dL (0.7-1.3) Estimated GFR (Cockcroft-Gault) 118.9 118.9 Glucose Level 138 mg/dL (70-99) 113 mg/dL (70-99) Calcium Level 8.4 mg/dL (8.5-10.1) 8.2 mg/dL (8.5-10.1) Magnesium Level 1.3 mg/dL (1.8-2.4) 1.5 mg/dL (1.8-2.4) Urine Collection Type Unknown Urine Color Yellow Urine Clarity Clear Urine pH 7.0 Urine Specific [place] 1.015 Urine Protein Negative mg/dL (NEG-TRACE) Urine Glucose (UA) 250 mg/dL (NEG) Urine Ketones (Stick) Negative mg/dL (NEG) Urine Blood Negative (NEG) Urine Nitrite Negative (NEG) Urine Bilirubin Negative (NEG) Urine Urobilinogen Dipstick 0.2 mg/dL (0.2 mg/dL) Urine Leukocyte Esterase Negative (NEG) Urine RBC 0 /HPF (0-2) Urine WBC 0 /HPF (0-4) Urine Bacteria 0 /HPF (0-FEW) Urine Mucus Slight /LPF Urine Osmolality 525 mOsmol/kg (.) Urine Random Sodium 162 mmol/L (Not Estab.) Segmented Neutrophils % 86 % (35-66) Band Neutrophils % 2 % (0-9) Lymphocytes % 5 % (24-48) Monocytes % 7 % (0-10) Platelet Estimate Increased (ADEQUATE) Anisocytosis Slight BUN/Creatinine Ratio 11 (6-20) Total Bilirubin 0.2 mg/dL (0.2-1.0) Aspartate Amino Transf (AST/SGOT) 25 U/L (15-37) Alanine Aminotransferase (ALT/SGPT) 27 U/L (16-63) Alkaline Phosphatase 105 U/L (46-116) Total Protein 5.7 g/dL (6.4-8.2) Albumin 2.1 g/dL (3.4-5.0) Albumin/Globulin Ratio 0.6 (1.0-1.7) Laboratory Tests Test 04/21/17 14:56 04/22/17 04:30 Urine Collection Type Unknown Urine Color Yellow Urine Clarity Clear Urine pH 7.0 Urine Specific [place] 1.015 Urine Protein Negative mg/dL (NEG-TRACE) Urine Glucose (UA) 250 mg/dL (NEG) Urine Ketones (Stick) Negative mg/dL (NEG) Urine Blood Negative (NEG) Urine Nitrite Negative (NEG) Urine Bilirubin Negative (NEG) Urine Urobilinogen Dipstick 0.2 mg/dL (0.2 mg/dL) Urine Leukocyte Esterase Negative (NEG) Urine RBC 0 /HPF (0-2) Urine WBC 0 /HPF (0-4) Urine Bacteria 0 /HPF (0-FEW) Urine Mucus Slight /LPF Urine Osmolality 525 mOsmol/kg (.) Urine Random Sodium 162 mmol/L (Not Estab.) White Blood Count 15.1 x10^3/uL (4.0-11.0) Red Blood Count 2.85 x10^6/uL (4.30-5.70) Hemoglobin 8.5 g/dL (13.0-17.5) Hematocrit 24.5 % (39.0-53.0) Mean Corpuscular Volume 86 fL (79-100) Mean Corpuscular Hemoglobin 30 pg (25-35) Mean Corpuscular Hemoglobin Concent 35 g/dL (31-37) Red Cell Distribution Width 14.6 % (11.5-14.5) Platelet Count 612 x10^3/uL (140-400) Neutrophils (%) (Auto) 87 % (31-73) Lymphocytes (%) (Auto) 7 % (24-48) Monocytes (%) (Auto) 6 % (0-9) Eosinophils (%) (Auto) 0 % (0-3) Basophils (%) (Auto) 0 % (0-3) Neutrophils # (Auto) 13.1 x10^3uL (1.8-7.7) Lymphocytes # (Auto) 1.0 x10^3/uL (1.0-4.8) Monocytes # (Auto) 0.9 x10^3/uL (0.0-1.1) Eosinophils # (Auto) 0.0 x10^3/uL (0.0-0.7) Basophils # (Auto) 0.0 x10^3/uL (0.0-0.2) Segmented Neutrophils % 86 % (35-66) Band Neutrophils % 2 % (0-9) Lymphocytes % 5 % (24-48) Monocytes % 7 % (0-10) Platelet Estimate Increased (ADEQUATE) Anisocytosis Slight Sodium Level 118 mmol/L (136-145) Potassium Level 4.0 mmol/L (3.5-5.1) Chloride Level 83 mmol/L (98-107) Carbon Dioxide Level 30 mmol/L (21-32) Anion Gap 5 (6-14) Blood Urea Nitrogen 8 mg/dL (8-26) Creatinine 0.7 mg/dL (0.7-1.3) Estimated GFR (Cockcroft-Gault) 118.9 BUN/Creatinine Ratio 11 (6-20) Glucose Level 113 mg/dL (70-99) Calcium Level 8.2 mg/dL (8.5-10.1) Magnesium Level 1.5 mg/dL (1.8-2.4) Total Bilirubin 0.2 mg/dL (0.2-1.0) Aspartate Amino Transf (AST/SGOT) 25 U/L (15-37) Alanine Aminotransferase (ALT/SGPT) 27 U/L (16-63) Alkaline Phosphatase 105 U/L (46-116) Total Protein 5.7 g/dL (6.4-8.2) Albumin 2.1 g/dL (3.4-5.0) Albumin/Globulin Ratio 0.6 (1.0-1.7) Medications Current Medications Sodium Chloride 1,000 ml @ 1,000 mls/hr Q1H IV Last administered on 01:07; Start 04/20/17 at 01:00; Stop 04/20/17 at 01:59; Status DC Albuterol/ Ipratropium (Duoneb) 6 ml 1X ONCE NEB Last administered on 01:53; Start 04/20/17 at 01:00; Stop 04/20/17 at 01:01; Status DC Magnesium Sulfate/ Dextrose 50 ml @ 25 mls/hr 1X ONCE IV Last administered on 04/20/17 03:18; Start 04/20/17 at 03:00; Stop 04/20/17 at 04:59; Status DC Potassium Chloride (Klor-Con) 40 meq Q2HR PO Last administered on 04/20/17 05 :37; Start 04/20/17 at 04:00; Stop 04/20/17 at 06:01; Status DC Ondansetron HCl (Zofran) 4 mg PRN Q8HRS PRN IV NAUSEA/VOMITING; Start at 02:30; Stop 04/21/17 at 02:29; Status DC Fentanyl Citrate (Fentanyl 2ml Vial) 50 mcg PRN Q2HR PRN IV SEVERE PAIN Last administered on 04/20/17 21:44; Start 04/20/17 at 02:30; Stop 04/21/17 at 02 :29; Status DC Sodium Chloride 1,000 ml @ 100 mls/hr Q10H IV Last administered on 04/20/17 20:28; Start 04/20/17 at 02:29; Stop 04/21/17 at 02:28; Status DC Acetaminophen (Tylenol) 650 mg PRN Q4HRS PRN PO FEVER; Start 04/20/17 at 02:30 ; Stop 04/21/17 at 02:29; Status DC Albuterol/ Ipratropium (Duoneb) 3 ml RTQID NEB Last administered on 04/21/17 07:42; Start 04/20/17 at 08:00; Stop 04/21/17 at 07:59; Status DC Levofloxacin (Levaquin) 750 mg DAILY06 PO Last administered on 04/22/17 06:39 ; Start 04/20/17 at 06:00 Albuterol/ Ipratropium (Duoneb) 3 ml STK-MED ONCE .ROUTE ; Start 04/20/17 at 06 :22; Stop 04/20/17 at 06:23; Status DC Docusate Sodium (Colace) 100 mg DAILY PO Last administered on 04/22/17 08:05 ; Start 04/20/17 at 12:30 Oxycodone/ Acetaminophen (Percocet 5/325) 1 tab PRN Q4HRS PRN PO MILD-MODERATE PAIN Last administered on 04/21/17 08:14; Start 04/20/17 at 12:15 Ondansetron HCl (Zofran Odt) 4 mg PRN Q8HRS PRN PO NAUSEA/VOMITING; Start 05/25 at 12:15 Lactobacillus Rhamnosus (Culturelle) 1 cap BID PO Last administered on 08:05; Start 04/20/17 at 21:00 Prednisone (Prednisone) 30 mg DAILY PO Last administered on 04/22/17 08:05; Start 04/20/17 at 18:30 Magnesium Sulfate/ Dextrose 100 ml @ 25 mls/hr 1X ONCE IV Last administered on 04/21/17 11:15; Start 04/21/17 at 11:00; Stop 04/21/17 at 14:59; Status DC Oxycodone HCl (Roxicodone) 10 mg PRN Q6HRS PRN PO SEVERE PAIN Last administered on 04/22/17 13:45; Start 04/21/17 at 11:45 Albuterol/ Ipratropium (Duoneb) 3 ml RTQID NEB Last administered on 04/22/17 11:38; Start 04/21/17 at 12:00 Budesonide (Pulmicort) 0.5 mg RTBID NEB Last administered on 04/22/17 07:55; Start 04/21/17 at 12:00 Iohexol (Omnipaque 300 Mg/ml) 75 ml 1X ONCE IV Last administered on 15:37; Start 04/21/17 at 13:15; Stop 04/21/17 at 13:16; Status DC Info (Do NOT chart on this entry -- for MONITORING) 1 each PRN DAILY PRN MC SEE COMMENTS; Start 04/21/17 at 13:15; Stop 04/23/17 at 13:14 Gadobutrol (Gadavist) 6 mmol 1X ONCE IV Last administered on 04/21/17 17:56 ; Start 04/21/17 at 17:45; Stop 04/21/17 at 17:46; Status DC Albuterol/ Ipratropium (Duoneb) 3 ml 1X ONCE NEB Last administered on 03:45; Start 04/22/17 at 04:00; Stop 04/22/17 at 04:01; Status DC Sodium Chloride 300 ml @ 60 mls/hr 1X ONCE IV ; Start 04/22/17 at 11:00; Stop 04/22/17 at 15:59 Demeclocycline HCl (Declomycin) 150 mg TID PO Last administered on 04/22/17 13:45; Start 04/22/17 at 14:00 Magnesium Sulfate/ Dextrose 100 ml @ 25 mls/hr 1X ONCE IV Last administered on 04/22/17 13:45; Start 04/22/17 at 14:00; Stop 04/22/17 at 17:59 Active Scripts Active Colace (Docusate Sodium) 100 Mg Capsule 100 Mg PO DAILY Oxycodone-Acetaminophen 5-325 (Oxycodone Hcl/Acetaminophen) 1 Each Tablet 1 Tab PO PRN Q4HRS PRN Reported Ondansetron Hcl 4 Mg Tablet 1 Tab PO PRN Q8HRS PRN Vitals/I & O Vital Sign - Last 24 Hours 04/21/17 04/21/17 04/21/17 04/21/17 15:00 16:57 19:00 19:14 Temp 98.0 97.7 98.0 97.7 Pulse 86 86 Resp 18 18 B/P (MAP) 115/56 (75) 117/68 (84) Pulse Ox 98 98 99 O2 Delivery Room Air Room Air Room Air Room Air 04/21/17 04/21/17 04/21/17 04/21/17 19:50 21:02 22:05 23:10 Temp 97.9 97.9 Pulse 82 Resp 16 16 16 B/P (MAP) 115/68 (84) Pulse Ox 96 96 98 O2 Delivery Room Air Room Air Room Air Room Air 04/22/17 04/22/17 04/22/17 04/22/17 03:45 03:47 07:00 07:55 Temp 98.0 98.0 98.0 98.0 Pulse 94 75 Resp 18 19 B/P (MAP) 114/69 (84) 113/68 (83) Pulse Ox 97 98 98 O2 Delivery Room Air Room Air Room Air Room Air 04/22/17 04/22/17 04/22/17 08:00 11:00 11:39 Temp 97.7 97.7 Pulse 74 Resp 19 B/P (MAP) 121/73 (89) Pulse Ox 98 O2 Delivery Room Air Room Air Room Air Intake and Output 04/21/17 04/21/17 04/22/17 15:00 23:00 07:00 Intake Total 240 ml 900 ml 860 ml Output Total 600 ml Balance 240 ml 300 ml 860 ml LC SAUL MD Apr 22, 2017 14:37
[2017-04-22 15:00] VITALS: BP 121/76
--- NOTE | 2017-04-22 15:00 | PDOC ---
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 noted on CT scan of the chest on 03/24/2017 ROS - CP better Objective Objective Vital Signs Date Time Temp Pulse Resp B/P (MAP) Pulse Ox O2 Delivery O2 Flow Rate FiO2 04/22/17 11:39 Room Air 04/22/17 11:00 97.7 74 19 121/73 (89) 98 97.7 Intake and Output 04/22/17 07:00 Intake Total 2000 ml Output Total 600 ml Balance 1400 ml Intake Oral 2000 ml Output Urine Total 600 ml # Voids 4 Physical Exam Heart: Normal S1, Normal S2 General: Alert, Oriented X3 Lungs: Clear to auscultation Neuro: Normal speech Psych/Mental Status: Mental status NL Assessment Assessment Problems Medical Problems: (1) Chest pain Status: Acute (2) Lung cancer Status: Acute IMPRESSION AND PLAN: 1. 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 Previously, he was staged as a stage III lung cancer and he received chemoradiation. He was then staged as a stage IV lung cancer. Started topotecan 03/31/17. Now admitted with CP and dyspnea. Plan to resume chemo as outpatient. 2. Right-sided chest pain, Pulmonary Medicine and Rad Onc has been consulted. CTA chest 04/21/17 is neg for PE. 3. Left adrenal gland metastasis. 4. Hyponatremia, due to SIADH. MRI brain 04/21/17 is neg for eval for mets. 5. Pneumonia - appreciate pulm management Comment Review of Relevant I have reviewed the following items reynold (where applicable) has been applied. Labs Laboratory Tests Test 04/21/17 09:00 04/21/17 09:10 04/21/17 14:56 04/22/17 04:30 White Blood Count 9.5 x10^3/uL (4.0-11.0) 15.1 x10^3/uL (4.0-11.0) Red Blood Count 2.85 x10^6/uL (4.30-5.70) 2.85 x10^6/uL (4.30-5.70) Hemoglobin 8.6 g/dL (13.0-17.5) 8.5 g/dL (13.0-17.5) Hematocrit 25.0 % (39.0-53.0) 24.5 % (39.0-53.0) Mean Corpuscular Volume 88 fL (79-100) 86 fL (79-100) Mean Corpuscular Hemoglobin 30 pg (25-35) 30 pg (25-35) Mean Corpuscular Hemoglobin Concent 35 g/dL (31-37) 35 g/dL (31-37) Red Cell Distribution Width 14.7 % (11.5-14.5) 14.6 % (11.5-14.5) Platelet Count 512 x10^3/uL (140-400) 612 x10^3/uL (140-400) Neutrophils (%) (Auto) 92 % (31-73) 87 % (31-73) Lymphocytes (%) (Auto) 6 % (24-48) 7 % (24-48) Monocytes (%) (Auto) 3 % (0-9) 6 % (0-9) Eosinophils (%) (Auto) 0 % (0-3) 0 % (0-3) Basophils (%) (Auto) 0 % (0-3) 0 % (0-3) Neutrophils # (Auto) 8.7 x10^3uL (1.8-7.7) 13.1 x10^3uL (1.8-7.7) Lymphocytes # (Auto) 0.5 x10^3/uL (1.0-4.8) 1.0 x10^3/uL (1.0-4.8) Monocytes # (Auto) 0.2 x10^3/uL (0.0-1.1) 0.9 x10^3/uL (0.0-1.1) Eosinophils # (Auto) 0.0 x10^3/uL (0.0-0.7) 0.0 x10^3/uL (0.0-0.7) Basophils # (Auto) 0.0 x10^3/uL (0.0-0.2) 0.0 x10^3/uL (0.0-0.2) Sodium Level 125 mmol/L (136-145) 118 mmol/L (136-145) Potassium Level 3.9 mmol/L (3.5-5.1) 4.0 mmol/L (3.5-5.1) Chloride Level 89 mmol/L (98-107) 83 mmol/L (98-107) Carbon Dioxide Level 28 mmol/L (21-32) 30 mmol/L (21-32) Anion Gap 8 (6-14) 5 (6-14) Blood Urea Nitrogen 8 mg/dL (8-26) 8 mg/dL (8-26) Creatinine 0.7 mg/dL (0.7-1.3) 0.7 mg/dL (0.7-1.3) Estimated GFR (Cockcroft-Gault) 118.9 118.9 Glucose Level 138 mg/dL (70-99) 113 mg/dL (70-99) Calcium Level 8.4 mg/dL (8.5-10.1) 8.2 mg/dL (8.5-10.1) Magnesium Level 1.3 mg/dL (1.8-2.4) 1.5 mg/dL (1.8-2.4) Urine Collection Type Unknown Urine Color Yellow Urine Clarity Clear Urine pH 7.0 Urine Specific [place] 1.015 Urine Protein Negative mg/dL (NEG-TRACE) Urine Glucose (UA) 250 mg/dL (NEG) Urine Ketones (Stick) Negative mg/dL (NEG) Urine Blood Negative (NEG) Urine Nitrite Negative (NEG) Urine Bilirubin Negative (NEG) Urine Urobilinogen Dipstick 0.2 mg/dL (0.2 mg/dL) Urine Leukocyte Esterase Negative (NEG) Urine RBC 0 /HPF (0-2) Urine WBC 0 /HPF (0-4) Urine Bacteria 0 /HPF (0-FEW) Urine Mucus Slight /LPF Urine Osmolality 525 mOsmol/kg (.) Urine Random Sodium 162 mmol/L (Not Estab.) Segmented Neutrophils % 86 % (35-66) Band Neutrophils % 2 % (0-9) Lymphocytes % 5 % (24-48) Monocytes % 7 % (0-10) Platelet Estimate Increased (ADEQUATE) Anisocytosis Slight BUN/Creatinine Ratio 11 (6-20) Total Bilirubin 0.2 mg/dL (0.2-1.0) Aspartate Amino Transf (AST/SGOT) 25 U/L (15-37) Alanine Aminotransferase (ALT/SGPT) 27 U/L (16-63) Alkaline Phosphatase 105 U/L (46-116) Total Protein 5.7 g/dL (6.4-8.2) Albumin 2.1 g/dL (3.4-5.0) Albumin/Globulin Ratio 0.6 (1.0-1.7) Laboratory Tests Test 04/22/17 04:30 White Blood Count 15.1 x10^3/uL (4.0-11.0) Red Blood Count 2.85 x10^6/uL (4.30-5.70) Hemoglobin 8.5 g/dL (13.0-17.5) Hematocrit 24.5 % (39.0-53.0) Mean Corpuscular Volume 86 fL (79-100) Mean Corpuscular Hemoglobin 30 pg (25-35) Mean Corpuscular Hemoglobin Concent 35 g/dL (31-37) Red Cell Distribution Width 14.6 % (11.5-14.5) Platelet Count 612 x10^3/uL (140-400) Neutrophils (%) (Auto) 87 % (31-73) Lymphocytes (%) (Auto) 7 % (24-48) Monocytes (%) (Auto) 6 % (0-9) Eosinophils (%) (Auto) 0 % (0-3) Basophils (%) (Auto) 0 % (0-3) Neutrophils # (Auto) 13.1 x10^3uL (1.8-7.7) Lymphocytes # (Auto) 1.0 x10^3/uL (1.0-4.8) Monocytes # (Auto) 0.9 x10^3/uL (0.0-1.1) Eosinophils # (Auto) 0.0 x10^3/uL (0.0-0.7) Basophils # (Auto) 0.0 x10^3/uL (0.0-0.2) Segmented Neutrophils % 86 % (35-66) Band Neutrophils % 2 % (0-9) Lymphocytes % 5 % (24-48) Monocytes % 7 % (0-10) Platelet Estimate Increased (ADEQUATE) Anisocytosis Slight Sodium Level 118 mmol/L (136-145) Potassium Level 4.0 mmol/L (3.5-5.1) Chloride Level 83 mmol/L (98-107) Carbon Dioxide Level 30 mmol/L (21-32) Anion Gap 5 (6-14) Blood Urea Nitrogen 8 mg/dL (8-26) Creatinine 0.7 mg/dL (0.7-1.3) Estimated GFR (Cockcroft-Gault) 118.9 BUN/Creatinine Ratio 11 (6-20) Glucose Level 113 mg/dL (70-99) Calcium Level 8.2 mg/dL (8.5-10.1) Magnesium Level 1.5 mg/dL (1.8-2.4) Total Bilirubin 0.2 mg/dL (0.2-1.0) Aspartate Amino Transf (AST/SGOT) 25 U/L (15-37) Alanine Aminotransferase (ALT/SGPT) 27 U/L (16-63) Alkaline Phosphatase 105 U/L (46-116) Total Protein 5.7 g/dL (6.4-8.2) Albumin 2.1 g/dL (3.4-5.0) Albumin/Globulin Ratio 0.6 (1.0-1.7) Medications Current Medications Sodium Chloride 1,000 ml @ 1,000 mls/hr Q1H IV Last administered on 01:07; Start 04/20/17 at 01:00; Stop 04/20/17 at 01:59; Status DC Albuterol/ Ipratropium (Duoneb) 6 ml 1X ONCE NEB Last administered on 01:53; Start 04/20/17 at 01:00; Stop 04/20/17 at 01:01; Status DC Magnesium Sulfate/ Dextrose 50 ml @ 25 mls/hr 1X ONCE IV Last administered on 04/20/17 03:18; Start 04/20/17 at 03:00; Stop 04/20/17 at 04:59; Status DC Potassium Chloride (Klor-Con) 40 meq Q2HR PO Last administered on 04/20/17 05 :37; Start 04/20/17 at 04:00; Stop 04/20/17 at 06:01; Status DC Ondansetron HCl (Zofran) 4 mg PRN Q8HRS PRN IV NAUSEA/VOMITING; Start at 02:30; Stop 04/21/17 at 02:29; Status DC Fentanyl Citrate (Fentanyl 2ml Vial) 50 mcg PRN Q2HR PRN IV SEVERE PAIN Last administered on 04/20/17 21:44; Start 04/20/17 at 02:30; Stop 04/21/17 at 02 :29; Status DC Sodium Chloride 1,000 ml @ 100 mls/hr Q10H IV Last administered on 04/20/17 20:28; Start 04/20/17 at 02:29; Stop 04/21/17 at 02:28; Status DC Acetaminophen (Tylenol) 650 mg PRN Q4HRS PRN PO FEVER; Start 04/20/17 at 02:30 ; Stop 04/21/17 at 02:29; Status DC Albuterol/ Ipratropium (Duoneb) 3 ml RTQID NEB Last administered on 04/21/17 07:42; Start 04/20/17 at 08:00; Stop 04/21/17 at 07:59; Status DC Levofloxacin (Levaquin) 750 mg DAILY06 PO Last administered on 04/22/17 06:39 ; Start 04/20/17 at 06:00 Albuterol/ Ipratropium (Duoneb) 3 ml STK-MED ONCE .ROUTE ; Start 04/20/17 at 06 :22; Stop 04/20/17 at 06:23; Status DC Docusate Sodium (Colace) 100 mg DAILY PO Last administered on 04/22/17 08:05 ; Start 04/20/17 at 12:30 Oxycodone/ Acetaminophen (Percocet 5/325) 1 tab PRN Q4HRS PRN PO MILD-MODERATE PAIN Last administered on 04/21/17 08:14; Start 04/20/17 at 12:15 Ondansetron HCl (Zofran Odt) 4 mg PRN Q8HRS PRN PO NAUSEA/VOMITING; Start 05/25 at 12:15 Lactobacillus Rhamnosus (Culturelle) 1 cap BID PO Last administered on 08:05; Start 04/20/17 at 21:00 Prednisone (Prednisone) 30 mg DAILY PO Last administered on 04/22/17 08:05; Start 04/20/17 at 18:30 Magnesium Sulfate/ Dextrose 100 ml @ 25 mls/hr 1X ONCE IV Last administered on 04/21/17 11:15; Start 04/21/17 at 11:00; Stop 04/21/17 at 14:59; Status DC Oxycodone HCl (Roxicodone) 10 mg PRN Q6HRS PRN PO SEVERE PAIN Last administered on 04/22/17 13:45; Start 04/21/17 at 11:45 Albuterol/ Ipratropium (Duoneb) 3 ml RTQID NEB Last administered on 04/22/17 11:38; Start 04/21/17 at 12:00 Budesonide (Pulmicort) 0.5 mg RTBID NEB Last administered on 04/22/17 07:55; Start 04/21/17 at 12:00 Iohexol (Omnipaque 300 Mg/ml) 75 ml 1X ONCE IV Last administered on 15:37; Start 04/21/17 at 13:15; Stop 04/21/17 at 13:16; Status DC Info (Do NOT chart on this entry -- for MONITORING) 1 each PRN DAILY PRN MC SEE COMMENTS; Start 04/21/17 at 13:15; Stop 04/23/17 at 13:14 Gadobutrol (Gadavist) 6 mmol 1X ONCE IV Last administered on 04/21/17 17:56 ; Start 04/21/17 at 17:45; Stop 04/21/17 at 17:46; Status DC Albuterol/ Ipratropium (Duoneb) 3 ml 1X ONCE NEB Last administered on 03:45; Start 04/22/17 at 04:00; Stop 04/22/17 at 04:01; Status DC Sodium Chloride 300 ml @ 60 mls/hr 1X ONCE IV ; Start 04/22/17 at 11:00; Stop 04/22/17 at 15:59 Demeclocycline HCl (Declomycin) 150 mg TID PO Last administered on 04/22/17 13:45; Start 04/22/17 at 14:00 Magnesium Sulfate/ Dextrose 100 ml @ 25 mls/hr 1X ONCE IV Last administered on 04/22/17 13:45; Start 04/22/17 at 14:00; Stop 04/22/17 at 17:59 Active Scripts Active Colace (Docusate Sodium) 100 Mg Capsule 100 Mg PO DAILY Oxycodone-Acetaminophen 5-325 (Oxycodone Hcl/Acetaminophen) 1 Each Tablet 1 Tab PO PRN Q4HRS PRN Reported Ondansetron Hcl 4 Mg Tablet 1 Tab PO PRN Q8HRS PRN Vitals/I & O Vital Sign - Last 24 Hours 04/21/17 04/21/17 04/21/17 04/21/17 15:00 16:57 19:00 19:14 Temp 98.0 97.7 98.0 97.7 Pulse 86 86 Resp 18 18 B/P (MAP) 115/56 (75) 117/68 (84) Pulse Ox 98 98 99 O2 Delivery Room Air Room Air Room Air Room Air 04/21/17 04/21/17 04/21/17 04/21/17 19:50 21:02 22:05 23:10 Temp 97.9 97.9 Pulse 82 Resp 16 16 16 B/P (MAP) 115/68 (84) Pulse Ox 96 96 98 O2 Delivery Room Air Room Air Room Air Room Air 04/22/17 04/22/17 04/22/17 04/22/17 03:45 03:47 07:00 07:55 Temp 98.0 98.0 98.0 98.0 Pulse 94 75 Resp 18 19 B/P (MAP) 114/69 (84) 113/68 (83) Pulse Ox 97 98 98 O2 Delivery Room Air Room Air Room Air Room Air 04/22/17 04/22/17 04/22/17 08:00 11:00 11:39 Temp 97.7 97.7 Pulse 74 Resp 19 B/P (MAP) 121/73 (89) Pulse Ox 98 O2 Delivery Room Air Room Air Room Air Intake and Output 04/21/17 04/21/17 04/22/17 15:00 23:00 07:00 Intake Total 240 ml 900 ml 860 ml Output Total 600 ml Balance 240 ml 300 ml 860 ml YOSI WEEMS MD Apr 22, 2017 15:00
[2017-04-22] MEDS ORDERED: LIDOCAINE 1% / SOD BICARB 8.4% 20 ML VIAL. IJ ONE ×2 (16:33→17:00)
--- NOTE | 2017-04-22 17:19 | PDOC ---
Provider Note Provider Note 51 yo man with inital stage III small cell lung cancer now with adrenal and possible local relapse of disease. Feeling better since admit. Notes only transient hot sweat with breathing treatment MRI brain clear, no metastatic disease seen. Na now 119 K 4.0 Impression: Recurrent pneumonia and progressive consolidation of right lower lung with possible underlying local relapse with clear progression in left adrenal gland. Overall better with ATB and respiratory treatment. 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 Hypertonic saline given. I did not recommend additional chest radiation at this time. CHARLEEN PEREA MD Apr 22, 2017 17:19
--- NOTE | 2017-04-22 17:26 | RAD ---
Procedure: Ultrasound-guided and fluoroscopically guided placement of right internal jugular central venous [id number]/14/2017 5:21 PM Clinical Indication: hypertonic solution infusion Discussion: The risks and benefits of the procedure were discussed the patient and/or their sales representative health insurance. Informed consent was obtained. A timeout procedure was performed. All elements of maximal sterile barrier technique including the use of a cap, mask, sterile gown, sterile gloves, large sterile sheet, appropriate hand hygiene, and 2% chlorhexidine for cutaneous antisepsis (or acceptable alternative antiseptic per current guidelines) were followed for this procedure. The patient was prepped and draped in the usual sterile fashion. Ultrasound interrogation of the right neck revealed patency and compressibility of the right internal jugular vein. A 21-gauge micropuncture was then used to gain access to this vein under ultrasound guidance. A hard copy ultrasound image was recorded. A guidewire was advanced centrally. 5 Thai sheath was placed. Over a wire following dilatation, a triple-lumen central venous catheter was advanced centrally. Catheter was found to flush and aspirate normally. Fluoroscopy was used to confirm catheter position. Catheter secured in place and a sterile dressing was applied. No immediate complications were identified. Fluoroscopy time: 0.3 minutes Dose area product 2 Gycm2 Impression: Successful ultrasound-guided placement of right internal jugular triple-lumen central venous catheter
[2017-04-22] MEDS: ONDANSETRON ODT 4 MG TAB.RAPDIS. PO PRN (18:30)
[2017-04-22 19:50] VITALS: BP 106/70
[2017-04-22] MEDS: LORazepam 0.5 MG TABLET PO PRN (20:47)
[2017-04-22] MEDS: NICOTINE 21MG PATCH. TD SCH (20:47)
[2017-04-22 22:50] VITALS: BP 108/67
[2017-04-22] MEDS: oxyCODONE/APAP 5/325 1 TAB TABLET PO PRN (22:54)
[2017-04-22 23:05] LABS: CALCIUM 7.8 mg/dL (8.5-10.1); CREATININE 0.8 mg/dL (0.7-1.3); GFR 101.9; POTASSIUM 4.3 mmol/L (3.5-5.1)
[2017-04-22] MEDS ORDERED: SODIUM CHLORIDE 3 % 500 ML IV ONE (23:30)
[2017-04-23] MEDS: ONDANSETRON ODT 4 MG TAB.RAPDIS. PO PRN (00:58)
[2017-04-23 03:45] VITALS: BP 110/63
[2017-04-23 03:58] LABS: CALCIUM 7.9 mg/dL (8.5-10.1); CREATININE 0.8 mg/dL (0.7-1.3); GFR 101.9; POTASSIUM 4.1 mmol/L (3.5-5.1)
[2017-04-23] MEDS ORDERED: SODIUM CHLORIDE 3 % 500 ML IV SCH (04:15)
[2017-04-23] MEDS ORDERED: SODIUM CHLORIDE 3 % 500 ML IV ONE ×2 (06:00→18:15)
[2017-04-23 07:20] VITALS: BP 106/63
[2017-04-23] MEDS: IPRATRPIUM/ALBUTEROL 0.5/2.5MG 3 ML NEBU. NEB SCH ×4 (08:19→19:15)
[2017-04-23] MEDS: BUDESONIDE 0.5 MG/2 ML NEBU. NEB SCH ×2 (08:19→19:15)
[2017-04-23] MEDS: oxyCODONE/APAP 5/325 1 TAB TABLET PO PRN ×2 (09:24→16:22)
[2017-04-23] MEDS: DEMECLOCYCLINE HCL 150 MG TABLET. PO SCH ×3 (09:24→20:44)
[2017-04-23] MEDS: DOCUSATE SODIUM 100 MG CAPSULE. PO SCH (09:24)
[2017-04-23] MEDS: LACTOBACILLUS RHAMNOSUS GG 1 CAPSULE. PO SCH ×2 (09:24→20:44)
[2017-04-23] MEDS: predniSONE 10 MG TABLET PO SCH (09:24)
[2017-04-23] MEDS: NICOTINE 21MG PATCH. TD SCH (09:25)
[2017-04-23 10:34] VITALS: BP 129/72
--- NOTE | 2017-04-23 10:46 | PDOC ---
Renal-Progress Notes Subjective Notes Notes NAUSEA History of Present Illness Hx of present illness STABLE Vitals Vitals Vital Signs Date Time Temp Pulse Resp B/P (MAP) Pulse Ox O2 Delivery O2 Flow Rate FiO2 04/23/17 10:34 97.7 75 19 129/72 (91) 96 Room Air 97.7 Weight Weight [ ] I.O. Intake and Output Intake and Output 04/23/17 07:00 Intake Total 2941 ml Output Total 1400 ml Balance 1541 ml Intake Oral 2150 ml IV Total 791 ml Output Urine Total 1150 ml Emesis 50 ml Oral Regurgitation 200 ml Labs Labs Laboratory Tests Test 04/22/17 22:50 04/23/17 03:40 Sodium Level 113 mmol/L (136-145) 113 mmol/L (136-145) Potassium Level 4.3 mmol/L (3.5-5.1) 4.1 mmol/L (3.5-5.1) Chloride Level 80 mmol/L (98-107) 81 mmol/L (98-107) Carbon Dioxide Level 32 mmol/L (21-32) 31 mmol/L (21-32) Anion Gap 1 (6-14) 1 (6-14) Blood Urea Nitrogen 8 mg/dL (8-26) 8 mg/dL (8-26) Creatinine 0.8 mg/dL (0.7-1.3) 0.8 mg/dL (0.7-1.3) Estimated GFR (Cockcroft-Gault) 101.9 101.9 Glucose Level 142 mg/dL (70-99) 122 mg/dL (70-99) Calcium Level 7.8 mg/dL (8.5-10.1) 7.9 mg/dL (8.5-10.1) Thyroid Stimulating Hormone (TSH) 0.379 uIU/mL (0.358-3.74) Review of Systems Constitutional: yes: weakness, alert Ears/Nose/Throat: Yes: no symptom reported Pulmonary: Yes no symptom reported Gastrointestional: Yes: nausea Genitourinary: Yes: no symptom reported Musculoskeletal: Yes: muscle stiffness Skin: Yes no symptom reported Psychiatric/Neurological: Yes: no symptom reported Physical Exam General Appearance: no apparent distress Skin: warm Respiratory: bilateral CTA Heart: S1S2 Abdomen: soft, bowel sounds present Genitourinary: bladder flat Extremities: pulses present Neurology: alert Musculoskeletal: No pain Assessment Assessment IMP SEVERE HYPONATREMIA SIADH MET LUNG CA PLAN 3% SALINE CONT DEMECLOCYCLINE JUAN DIEGO ROWLAND MD Apr 23, 2017 10:46
--- NOTE | 2017-04-23 11:06 | PDOC ---
PROGRESS NOTES Chief Complaint Chief Complaint chest pain and acute respiratory distress lung cancer, stage 4. pneumonia, with lung cancer, poss-post obstructive, treat gram negative organisms acute hyponatremia, symptomatic, SAIDH hypomagnesemia anemia mod.severe malnutrition, serum alb 2.1 History of Present Illness History of Present Illness CRITICAL, low sodium, NS stopped 3% ordered blurry vision at times, nausea earlier replace mag increase pain meds, stop IV fluid, concern for SIADH, send urine, check osm, Vitals Vitals Vital Signs Date Time Temp Pulse Resp B/P (MAP) Pulse Ox O2 Delivery O2 Flow Rate FiO2 04/23/17 10:34 97.7 75 19 129/72 (91) 96 Room Air 97.7 Physical Exam General: Alert, Oriented X3 Heart: Normal S1, Normal S2 Lungs: Clear Abdomen: Normal bowel sounds, Soft, No tenderness Extremities: No clubbing, No edema Skin: No rashes, No significant lesion Labs LABS Laboratory Tests Test 04/22/17 22:50 04/23/17 03:40 Sodium Level 113 mmol/L (136-145) 113 mmol/L (136-145) Potassium Level 4.3 mmol/L (3.5-5.1) 4.1 mmol/L (3.5-5.1) Chloride Level 80 mmol/L (98-107) 81 mmol/L (98-107) Carbon Dioxide Level 32 mmol/L (21-32) 31 mmol/L (21-32) Anion Gap 1 (6-14) 1 (6-14) Blood Urea Nitrogen 8 mg/dL (8-26) 8 mg/dL (8-26) Creatinine 0.8 mg/dL (0.7-1.3) 0.8 mg/dL (0.7-1.3) Estimated GFR (Cockcroft-Gault) 101.9 101.9 Glucose Level 142 mg/dL (70-99) 122 mg/dL (70-99) Calcium Level 7.8 mg/dL (8.5-10.1) 7.9 mg/dL (8.5-10.1) Thyroid Stimulating Hormone (TSH) 0.379 uIU/mL (0.358-3.74) Review of Systems Review of Systems no n.v/d Assessment and Plan Assessmemt and Plan Problems Medical Problems: (1) Chest pain Status: Acute (2) Lung cancer Status: Acute Problems: Comment Review of Relevant I have reviewed the following items reynold (where applicable) has been applied. Labs Laboratory Tests Test 04/21/17 14:56 04/22/17 04:30 04/22/17 22:50 04/23/17 03:40 Urine Collection Type Unknown Urine Color Yellow Urine Clarity Clear Urine pH 7.0 Urine Specific [place] 1.015 Urine Protein Negative mg/dL (NEG-TRACE) Urine Glucose (UA) 250 mg/dL (NEG) Urine Ketones (Stick) Negative mg/dL (NEG) Urine Blood Negative (NEG) Urine Nitrite Negative (NEG) Urine Bilirubin Negative (NEG) Urine Urobilinogen Dipstick 0.2 mg/dL (0.2 mg/dL) Urine Leukocyte Esterase Negative (NEG) Urine RBC 0 /HPF (0-2) Urine WBC 0 /HPF (0-4) Urine Bacteria 0 /HPF (0-FEW) Urine Mucus Slight /LPF Urine Osmolality 525 mOsmol/kg (.) Urine Random Sodium 162 mmol/L (Not Estab.) White Blood Count 15.1 x10^3/uL (4.0-11.0) Red Blood Count 2.85 x10^6/uL (4.30-5.70) Hemoglobin 8.5 g/dL (13.0-17.5) Hematocrit 24.5 % (39.0-53.0) Mean Corpuscular Volume 86 fL (79-100) Mean Corpuscular Hemoglobin 30 pg (25-35) Mean Corpuscular Hemoglobin Concent 35 g/dL (31-37) Red Cell Distribution Width 14.6 % (11.5-14.5) Platelet Count 612 x10^3/uL (140-400) Neutrophils (%) (Auto) 87 % (31-73) Lymphocytes (%) (Auto) 7 % (24-48) Monocytes (%) (Auto) 6 % (0-9) Eosinophils (%) (Auto) 0 % (0-3) Basophils (%) (Auto) 0 % (0-3) Neutrophils # (Auto) 13.1 x10^3uL (1.8-7.7) Lymphocytes # (Auto) 1.0 x10^3/uL (1.0-4.8) Monocytes # (Auto) 0.9 x10^3/uL (0.0-1.1) Eosinophils # (Auto) 0.0 x10^3/uL (0.0-0.7) Basophils # (Auto) 0.0 x10^3/uL (0.0-0.2) Segmented Neutrophils % 86 % (35-66) Band Neutrophils % 2 % (0-9) Lymphocytes % 5 % (24-48) Monocytes % 7 % (0-10) Platelet Estimate Increased (ADEQUATE) Anisocytosis Slight Sodium Level 118 mmol/L (136-145) 113 mmol/L (136-145) 113 mmol/L (136-145) Potassium Level 4.0 mmol/L (3.5-5.1) 4.3 mmol/L (3.5-5.1) 4.1 mmol/L (3.5-5.1) Chloride Level 83 mmol/L (98-107) 80 mmol/L (98-107) 81 mmol/L (98-107) Carbon Dioxide Level 30 mmol/L (21-32) 32 mmol/L (21-32) 31 mmol/L (21-32) Anion Gap 5 (6-14) 1 (6-14) 1 (6-14) Blood Urea Nitrogen 8 mg/dL (8-26) 8 mg/dL (8-26) 8 mg/dL (8-26) Creatinine 0.7 mg/dL (0.7-1.3) 0.8 mg/dL (0.7-1.3) 0.8 mg/dL (0.7-1.3) Estimated GFR (Cockcroft-Gault) 118.9 101.9 101.9 BUN/Creatinine Ratio 11 (6-20) Glucose Level 113 mg/dL (70-99) 142 mg/dL (70-99) 122 mg/dL (70-99) Calcium Level 8.2 mg/dL (8.5-10.1) 7.8 mg/dL (8.5-10.1) 7.9 mg/dL (8.5-10.1) Magnesium Level 1.5 mg/dL (1.8-2.4) Total Bilirubin 0.2 mg/dL (0.2-1.0) Aspartate Amino Transf (AST/SGOT) 25 U/L (15-37) Alanine Aminotransferase (ALT/SGPT) 27 U/L (16-63) Alkaline Phosphatase 105 U/L (46-116) Total Protein 5.7 g/dL (6.4-8.2) Albumin 2.1 g/dL (3.4-5.0) Albumin/Globulin Ratio 0.6 (1.0-1.7) Thyroid Stimulating Hormone (TSH) 0.379 uIU/mL (0.358-3.74) Laboratory Tests Test 04/22/17 22:50 04/23/17 03:40 Sodium Level 113 mmol/L (136-145) 113 mmol/L (136-145) Potassium Level 4.3 mmol/L (3.5-5.1) 4.1 mmol/L (3.5-5.1) Chloride Level 80 mmol/L (98-107) 81 mmol/L (98-107) Carbon Dioxide Level 32 mmol/L (21-32) 31 mmol/L (21-32) Anion Gap 1 (6-14) 1 (6-14) Blood Urea Nitrogen 8 mg/dL (8-26) 8 mg/dL (8-26) Creatinine 0.8 mg/dL (0.7-1.3) 0.8 mg/dL (0.7-1.3) Estimated GFR (Cockcroft-Gault) 101.9 101.9 Glucose Level 142 mg/dL (70-99) 122 mg/dL (70-99) Calcium Level 7.8 mg/dL (8.5-10.1) 7.9 mg/dL (8.5-10.1) Thyroid Stimulating Hormone (TSH) 0.379 uIU/mL (0.358-3.74) Medications Current Medications Sodium Chloride 1,000 ml @ 1,000 mls/hr Q1H IV Last administered on 01:07; Start 04/20/17 at 01:00; Stop 04/20/17 at 01:59; Status DC Albuterol/ Ipratropium (Duoneb) 6 ml 1X ONCE NEB Last administered on 01:53; Start 04/20/17 at 01:00; Stop 04/20/17 at 01:01; Status DC Magnesium Sulfate/ Dextrose 50 ml @ 25 mls/hr 1X ONCE IV Last administered on 04/20/17 03:18; Start 04/20/17 at 03:00; Stop 04/20/17 at 04:59; Status DC Potassium Chloride (Klor-Con) 40 meq Q2HR PO Last administered on 04/20/17 05 :37; Start 04/20/17 at 04:00; Stop 04/20/17 at 06:01; Status DC Ondansetron HCl (Zofran) 4 mg PRN Q8HRS PRN IV NAUSEA/VOMITING; Start at 02:30; Stop 04/21/17 at 02:29; Status DC Fentanyl Citrate (Fentanyl 2ml Vial) 50 mcg PRN Q2HR PRN IV SEVERE PAIN Last administered on 04/20/17 21:44; Start 04/20/17 at 02:30; Stop 04/21/17 at 02 :29; Status DC Sodium Chloride 1,000 ml @ 100 mls/hr Q10H IV Last administered on 04/20/17 20:28; Start 04/20/17 at 02:29; Stop 04/21/17 at 02:28; Status DC Acetaminophen (Tylenol) 650 mg PRN Q4HRS PRN PO FEVER; Start 04/20/17 at 02:30 ; Stop 04/21/17 at 02:29; Status DC Albuterol/ Ipratropium (Duoneb) 3 ml RTQID NEB Last administered on 04/21/17 07:42; Start 04/20/17 at 08:00; Stop 04/21/17 at 07:59; Status DC Levofloxacin (Levaquin) 750 mg DAILY06 PO Last administered on 04/23/17 06:06 ; Start 04/20/17 at 06:00 Albuterol/ Ipratropium (Duoneb) 3 ml STK-MED ONCE .ROUTE ; Start 04/20/17 at 06 :22; Stop 04/20/17 at 06:23; Status DC Docusate Sodium (Colace) 100 mg DAILY PO Last administered on 04/23/17 09:24 ; Start 04/20/17 at 12:30 Oxycodone/ Acetaminophen (Percocet 5/325) 1 tab PRN Q4HRS PRN PO MILD-MODERATE PAIN Last administered on 04/23/17 09:24; Start 04/20/17 at 12:15 Ondansetron HCl (Zofran Odt) 4 mg PRN Q8HRS PRN PO NAUSEA/VOMITING Last administered on 04/23/17 00:58; Start 04/20/17 at 12:15 Lactobacillus Rhamnosus (Culturelle) 1 cap BID PO Last administered on 09:24; Start 04/20/17 at 21:00 Prednisone (Prednisone) 30 mg DAILY PO Last administered on 04/23/17 09:24; Start 04/20/17 at 18:30 Magnesium Sulfate/ Dextrose 100 ml @ 25 mls/hr 1X ONCE IV Last administered on 04/21/17 11:15; Start 04/21/17 at 11:00; Stop 04/21/17 at 14:59; Status DC Oxycodone HCl (Roxicodone) 10 mg PRN Q6HRS PRN PO SEVERE PAIN Last administered on 04/22/17 19:43; Start 04/21/17 at 11:45 Albuterol/ Ipratropium (Duoneb) 3 ml RTQID NEB Last administered on 04/23/17 08:19; Start 04/21/17 at 12:00 Budesonide (Pulmicort) 0.5 mg RTBID NEB Last administered on 04/23/17 08:19; Start 04/21/17 at 12:00 Iohexol (Omnipaque 300 Mg/ml) 75 ml 1X ONCE IV Last administered on 15:37; Start 04/21/17 at 13:15; Stop 04/21/17 at 13:16; Status DC Info (Do NOT chart on this entry -- for MONITORING) 1 each PRN DAILY PRN MC SEE COMMENTS; Start 04/21/17 at 13:15; Stop 04/23/17 at 13:14 Gadobutrol (Gadavist) 6 mmol 1X ONCE IV Last administered on 04/21/17 17:56 ; Start 04/21/17 at 17:45; Stop 04/21/17 at 17:46; Status DC Albuterol/ Ipratropium (Duoneb) 3 ml 1X ONCE NEB Last administered on 03:45; Start 04/22/17 at 04:00; Stop 04/22/17 at 04:01; Status DC Sodium Chloride 300 ml @ 60 mls/hr 1X ONCE IV Last administered on 17:27; Start 04/22/17 at 11:00; Stop 04/22/17 at 15:59; Status DC Demeclocycline HCl (Declomycin) 150 mg TID PO Last administered on 04/23/17 09:24; Start 04/22/17 at 14:00 Magnesium Sulfate/ Dextrose 100 ml @ 25 mls/hr 1X ONCE IV Last administered on 04/22/17 17:28; Start 04/22/17 at 14:00; Stop 04/22/17 at 17:59; Status DC Lidocaine/Sodium Bicarbonate (Buffered Lidocaine 1%) 20 ml STK-MED ONCE IJ ; Start 04/22/17 at 16:33; Stop 04/22/17 at 16:34; Status DC Lidocaine/Sodium Bicarbonate (Buffered Lidocaine 1%) 3 ml 1X ONCE IJ Last administered on 04/22/17 17:06; Start 04/22/17 at 17:00; Stop 04/22/17 at 17 :02; Status DC Nicotine (Nicoderm Cq 21mg) 1 patch DAILY TD Last administered on 04/23/17 09 :25; Start 04/22/17 at 20:15 Lorazepam (Ativan) 0.5 mg PRN Q6HRS PRN PO ANXIETY / AGITATION Last administered on 04/22/17 20:47; Start 04/22/17 at 20:15 Sodium Chloride 500 ml @ 50 mls/hr 1X ONCE IV Last administered on 23:25; Start 04/22/17 at 23:30; Stop 04/23/17 at 09:29; Status DC Sodium Chloride 500 ml @ 0 mls/hr CONT PRN IV ; Start 04/23/17 at 04:15; Stop 04/23/17 at 05:55; Status DC Sodium Chloride 500 ml @ 50 mls/hr 1X ONCE IV Last administered on 06:07; Start 04/23/17 at 06:00; Stop 04/23/17 at 15:59 Active Scripts Active Colace (Docusate Sodium) 100 Mg Capsule 100 Mg PO DAILY Oxycodone-Acetaminophen 5-325 (Oxycodone Hcl/Acetaminophen) 1 Each Tablet 1 Tab PO PRN Q4HRS PRN Reported Ondansetron Hcl 4 Mg Tablet 1 Tab PO PRN Q8HRS PRN Vitals/I & O Vital Sign - Last 24 Hours 04/22/17 04/22/17 04/22/17 04/22/17 11:39 15:00 15:36 18:18 Temp 97.8 97.8 Pulse 76 Resp 19 B/P (MAP) 121/76 (91) Pulse Ox 97 98 98 O2 Delivery Room Air Room Air Room Air Room Air 04/22/17 04/22/17 04/22/17 04/22/17 19:15 19:43 19:50 20:43 Temp 97.6 97.6 Pulse 77 Resp 20 18 20 B/P (MAP) 106/70 (82) Pulse Ox 98 O2 Delivery Room Air Room Air Room Air Room Air 04/22/17 04/22/17 04/22/17 04/23/17 22:50 22:54 23:54 03:45 Temp 97.8 97.7 97.8 97.7 Pulse 83 71 Resp 18 20 20 18 B/P (MAP) 108/67 (81) 110/63 (79) Pulse Ox 97 98 98 O2 Delivery Room Air Room Air Room Air Room Air 04/23/17 04/23/17 04/23/17 04/23/17 07:20 08:19 09:24 10:34 Temp 97.9 97.7 97.9 97.7 Pulse 70 75 Resp 18 17 19 B/P (MAP) 106/63 (77) 129/72 (91) Pulse Ox 97 99 99 96 O2 Delivery Room Air Room Air Room Air Room Air Intake and Output 04/22/17 04/22/17 04/23/17 14:59 22:59 06:59 Intake Total 1935 ml 1006 ml Output Total 1350 ml 50 ml Balance 585 ml 956 ml LC SAUL MD Apr 23, 2017 11:06
[2017-04-23] MEDS ORDERED: SALIVA STIMULANT AGENT 44ML SPRAY BOTTLE. PO PRN (11:15)
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
[2017-04-23 14:24] VITALS: BP 100/54
[2017-04-23 17:03] LABS: ALBUMIN 2.1 g/dL (3.4-5.0); ALBUMIN/GLOBULIN RATIO 0.6 (1.0-1.7); CREATININE 0.8 mg/dL (0.7-1.3); GFR 101.9; POTASSIUM 4.6 mmol/L (3.5-5.1); TOTAL BILIRUBIN 0.1 mg/dL (0.2-1.0); TOTAL PROTEIN 5.6 g/dL (6.4-8.2)
--- NOTE | 2017-04-23 17:12 | PDOC ---
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 ROS -CP better, has cough Objective Objective Vital Signs Date Time Temp Pulse Resp B/P (MAP) Pulse Ox O2 Delivery O2 Flow Rate FiO2 04/23/17 16:22 Room Air 04/23/17 15:32 99 04/23/17 14:24 98.3 70 18 100/54 (69) 98.3 Intake and Output 04/23/17 07:00 Intake Total 2941 ml Output Total 1400 ml Balance 1541 ml Intake Oral 2150 ml IV Total 791 ml Output Urine Total 1150 ml Emesis 50 ml Oral Regurgitation 200 ml Physical Exam Heart: Normal S1, Normal S2 General: Alert, Oriented X3, No acute distress Lungs: Clear to auscultation Neuro: Normal speech Assessment Assessment Problems Medical Problems: (1) Chest pain Status: Acute (2) Lung cancer Status: Acute IMPRESSION AND PLAN: 1. 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 Previously, he was staged as a stage III lung cancer and he received chemoradiation. He was then staged as a stage IV lung cancer. Started topotecan 03/31/17. Now admitted with CP and dyspnea. Plan to resume chemo as outpatient. 2. Right-sided chest pain, Pulmonary Medicine and Rad Onc has been consulted. CTA chest 04/21/17 is neg for PE. 3. Left adrenal gland metastasis. 4. Hyponatremia, due to SIADH. MRI brain 04/21/17 is neg for eval for mets. 5. Pneumonia - Suspected RLL Postobstructive pneumonia. appreciate pulm management Comment Review of Relevant I have reviewed the following items reynold (where applicable) has been applied. Labs Laboratory Tests Test 04/22/17 04:30 04/22/17 22:50 04/23/17 03:40 White Blood Count 15.1 x10^3/uL (4.0-11.0) Red Blood Count 2.85 x10^6/uL (4.30-5.70) Hemoglobin 8.5 g/dL (13.0-17.5) Hematocrit 24.5 % (39.0-53.0) Mean Corpuscular Volume 86 fL (79-100) Mean Corpuscular Hemoglobin 30 pg (25-35) Mean Corpuscular Hemoglobin Concent 35 g/dL (31-37) Red Cell Distribution Width 14.6 % (11.5-14.5) Platelet Count 612 x10^3/uL (140-400) Neutrophils (%) (Auto) 87 % (31-73) Lymphocytes (%) (Auto) 7 % (24-48) Monocytes (%) (Auto) 6 % (0-9) Eosinophils (%) (Auto) 0 % (0-3) Basophils (%) (Auto) 0 % (0-3) Neutrophils # (Auto) 13.1 x10^3uL (1.8-7.7) Lymphocytes # (Auto) 1.0 x10^3/uL (1.0-4.8) Monocytes # (Auto) 0.9 x10^3/uL (0.0-1.1) Eosinophils # (Auto) 0.0 x10^3/uL (0.0-0.7) Basophils # (Auto) 0.0 x10^3/uL (0.0-0.2) Segmented Neutrophils % 86 % (35-66) Band Neutrophils % 2 % (0-9) Lymphocytes % 5 % (24-48) Monocytes % 7 % (0-10) Platelet Estimate Increased (ADEQUATE) Anisocytosis Slight Sodium Level 118 mmol/L (136-145) 113 mmol/L (136-145) 113 mmol/L (136-145) Potassium Level 4.0 mmol/L (3.5-5.1) 4.3 mmol/L (3.5-5.1) 4.1 mmol/L (3.5-5.1) Chloride Level 83 mmol/L (98-107) 80 mmol/L (98-107) 81 mmol/L (98-107) Carbon Dioxide Level 30 mmol/L (21-32) 32 mmol/L (21-32) 31 mmol/L (21-32) Anion Gap 5 (6-14) 1 (6-14) 1 (6-14) Blood Urea Nitrogen 8 mg/dL (8-26) 8 mg/dL (8-26) 8 mg/dL (8-26) Creatinine 0.7 mg/dL (0.7-1.3) 0.8 mg/dL (0.7-1.3) 0.8 mg/dL (0.7-1.3) Estimated GFR (Cockcroft-Gault) 118.9 101.9 101.9 BUN/Creatinine Ratio 11 (6-20) Glucose Level 113 mg/dL (70-99) 142 mg/dL (70-99) 122 mg/dL (70-99) Calcium Level 8.2 mg/dL (8.5-10.1) 7.8 mg/dL (8.5-10.1) 7.9 mg/dL (8.5-10.1) Magnesium Level 1.5 mg/dL (1.8-2.4) Total Bilirubin 0.2 mg/dL (0.2-1.0) Aspartate Amino Transf (AST/SGOT) 25 U/L (15-37) Alanine Aminotransferase (ALT/SGPT) 27 U/L (16-63) Alkaline Phosphatase 105 U/L (46-116) Total Protein 5.7 g/dL (6.4-8.2) Albumin 2.1 g/dL (3.4-5.0) Albumin/Globulin Ratio 0.6 (1.0-1.7) Thyroid Stimulating Hormone (TSH) 0.379 uIU/mL (0.358-3.74) Laboratory Tests Test 04/22/17 22:50 04/23/17 03:40 Sodium Level 113 mmol/L (136-145) 113 mmol/L (136-145) Potassium Level 4.3 mmol/L (3.5-5.1) 4.1 mmol/L (3.5-5.1) Chloride Level 80 mmol/L (98-107) 81 mmol/L (98-107) Carbon Dioxide Level 32 mmol/L (21-32) 31 mmol/L (21-32) Anion Gap 1 (6-14) 1 (6-14) Blood Urea Nitrogen 8 mg/dL (8-26) 8 mg/dL (8-26) Creatinine 0.8 mg/dL (0.7-1.3) 0.8 mg/dL (0.7-1.3) Estimated GFR (Cockcroft-Gault) 101.9 101.9 Glucose Level 142 mg/dL (70-99) 122 mg/dL (70-99) Calcium Level 7.8 mg/dL (8.5-10.1) 7.9 mg/dL (8.5-10.1) Thyroid Stimulating Hormone (TSH) 0.379 uIU/mL (0.358-3.74) Medications Current Medications Sodium Chloride 1,000 ml @ 1,000 mls/hr Q1H IV Last administered on 01:07; Start 04/20/17 at 01:00; Stop 04/20/17 at 01:59; Status DC Albuterol/ Ipratropium (Duoneb) 6 ml 1X ONCE NEB Last administered on 01:53; Start 04/20/17 at 01:00; Stop 04/20/17 at 01:01; Status DC Magnesium Sulfate/ Dextrose 50 ml @ 25 mls/hr 1X ONCE IV Last administered on 04/20/17 03:18; Start 04/20/17 at 03:00; Stop 04/20/17 at 04:59; Status DC Potassium Chloride (Klor-Con) 40 meq Q2HR PO Last administered on 04/20/17 05 :37; Start 04/20/17 at 04:00; Stop 04/20/17 at 06:01; Status DC Ondansetron HCl (Zofran) 4 mg PRN Q8HRS PRN IV NAUSEA/VOMITING; Start at 02:30; Stop 04/21/17 at 02:29; Status DC Fentanyl Citrate (Fentanyl 2ml Vial) 50 mcg PRN Q2HR PRN IV SEVERE PAIN Last administered on 04/20/17 21:44; Start 04/20/17 at 02:30; Stop 04/21/17 at 02 :29; Status DC Sodium Chloride 1,000 ml @ 100 mls/hr Q10H IV Last administered on 04/20/17 20:28; Start 04/20/17 at 02:29; Stop 04/21/17 at 02:28; Status DC Acetaminophen (Tylenol) 650 mg PRN Q4HRS PRN PO FEVER; Start 04/20/17 at 02:30 ; Stop 04/21/17 at 02:29; Status DC Albuterol/ Ipratropium (Duoneb) 3 ml RTQID NEB Last administered on 04/21/17 07:42; Start 04/20/17 at 08:00; Stop 04/21/17 at 07:59; Status DC Levofloxacin (Levaquin) 750 mg DAILY06 PO Last administered on 04/23/17 06:06 ; Start 04/20/17 at 06:00 Albuterol/ Ipratropium (Duoneb) 3 ml STK-MED ONCE .ROUTE ; Start 04/20/17 at 06 :22; Stop 04/20/17 at 06:23; Status DC Docusate Sodium (Colace) 100 mg DAILY PO Last administered on 04/23/17 09:24 ; Start 04/20/17 at 12:30 Oxycodone/ Acetaminophen (Percocet 5/325) 1 tab PRN Q4HRS PRN PO MILD-MODERATE PAIN Last administered on 04/23/17 16:22; Start 04/20/17 at 12:15 Ondansetron HCl (Zofran Odt) 4 mg PRN Q8HRS PRN PO NAUSEA/VOMITING Last administered on 04/23/17 00:58; Start 04/20/17 at 12:15 Lactobacillus Rhamnosus (Culturelle) 1 cap BID PO Last administered on 09:24; Start 04/20/17 at 21:00 Prednisone (Prednisone) 30 mg DAILY PO Last administered on 04/23/17 09:24; Start 04/20/17 at 18:30 Magnesium Sulfate/ Dextrose 100 ml @ 25 mls/hr 1X ONCE IV Last administered on 04/21/17 11:15; Start 04/21/17 at 11:00; Stop 04/21/17 at 14:59; Status DC Oxycodone HCl (Roxicodone) 10 mg PRN Q6HRS PRN PO SEVERE PAIN Last administered on 04/22/17 19:43; Start 04/21/17 at 11:45 Albuterol/ Ipratropium (Duoneb) 3 ml RTQID NEB Last administered on 04/23/17 15:30; Start 04/21/17 at 12:00 Budesonide (Pulmicort) 0.5 mg RTBID NEB Last administered on 04/23/17 08:19; Start 04/21/17 at 12:00 Iohexol (Omnipaque 300 Mg/ml) 75 ml 1X ONCE IV Last administered on 15:37; Start 04/21/17 at 13:15; Stop 04/21/17 at 13:16; Status DC Info (Do NOT chart on this entry -- for MONITORING) 1 each PRN DAILY PRN MC SEE COMMENTS; Start 04/21/17 at 13:15; Stop 04/23/17 at 13:14; Status DC Gadobutrol (Gadavist) 6 mmol 1X ONCE IV Last administered on 04/21/17 17:56 ; Start 04/21/17 at 17:45; Stop 04/21/17 at 17:46; Status DC Albuterol/ Ipratropium (Duoneb) 3 ml 1X ONCE NEB Last administered on 03:45; Start 04/22/17 at 04:00; Stop 04/22/17 at 04:01; Status DC Sodium Chloride 300 ml @ 60 mls/hr 1X ONCE IV Last administered on 17:27; Start 04/22/17 at 11:00; Stop 04/22/17 at 15:59; Status DC Demeclocycline HCl (Declomycin) 150 mg TID PO Last administered on 04/23/17 15:41; Start 04/22/17 at 14:00 Magnesium Sulfate/ Dextrose 100 ml @ 25 mls/hr 1X ONCE IV Last administered on 04/22/17 17:28; Start 04/22/17 at 14:00; Stop 04/22/17 at 17:59; Status DC Lidocaine/Sodium Bicarbonate (Buffered Lidocaine 1%) 20 ml STK-MED ONCE IJ ; Start 04/22/17 at 16:33; Stop 04/22/17 at 16:34; Status DC Lidocaine/Sodium Bicarbonate (Buffered Lidocaine 1%) 3 ml 1X ONCE IJ Last administered on 04/22/17 17:06; Start 04/22/17 at 17:00; Stop 04/22/17 at 17 :02; Status DC Nicotine (Nicoderm Cq 21mg) 1 patch DAILY TD Last administered on 04/23/17 09 :25; Start 04/22/17 at 20:15 Lorazepam (Ativan) 0.5 mg PRN Q6HRS PRN PO ANXIETY / AGITATION Last administered on 04/22/17 20:47; Start 04/22/17 at 20:15 Sodium Chloride 500 ml @ 50 mls/hr 1X ONCE IV Last administered on 23:25; Start 04/22/17 at 23:30; Stop 04/23/17 at 09:29; Status DC Sodium Chloride 500 ml @ 0 mls/hr CONT PRN IV ; Start 04/23/17 at 04:15; Stop 04/23/17 at 05:55; Status DC Sodium Chloride 500 ml @ 50 mls/hr 1X ONCE IV Last administered on 06:07; Start 04/23/17 at 06:00; Stop 04/23/17 at 15:59; Status DC Saliva Substitute (Biotene Moisturizing Mouth) 2 spray PRN Q15MIN PRN PO DRY MOUTH; Start 04/23/17 at 11:15 Active Scripts Active Colace (Docusate Sodium) 100 Mg Capsule 100 Mg PO DAILY Oxycodone-Acetaminophen 5-325 (Oxycodone Hcl/Acetaminophen) 1 Each Tablet 1 Tab PO PRN Q4HRS PRN Reported Ondansetron Hcl 4 Mg Tablet 1 Tab PO PRN Q8HRS PRN Vitals/I & O Vital Sign - Last 24 Hours 04/22/17 04/22/17 04/22/17 04/22/17 18:18 19:15 19:43 19:50 Temp 97.6 97.6 Pulse 77 Resp 20 18 B/P (MAP) 106/70 (82) Pulse Ox 98 98 O2 Delivery Room Air Room Air Room Air Room Air 04/22/17 04/22/17 04/22/17 04/23/17 20:43 22:50 22:54 03:45 Temp 97.8 97.7 97.8 97.7 Pulse 83 71 Resp 20 18 20 18 B/P (MAP) 108/67 (81) 110/63 (79) Pulse Ox 97 98 98 O2 Delivery Room Air Room Air Room Air Room Air 04/23/17 04/23/17 04/23/17 04/23/17 07:20 08:00 08:19 09:24 Temp 97.9 97.9 Pulse 70 Resp 18 17 B/P (MAP) 106/63 (77) Pulse Ox 97 99 99 O2 Delivery Room Air Room Air Room Air Room Air 04/23/17 04/23/17 04/23/17 04/23/17 10:24 10:34 11:40 14:24 Temp 97.7 98.3 97.7 98.3 Pulse 75 70 Resp 18 19 18 B/P (MAP) 129/72 (91) 100/54 (69) Pulse Ox 96 96 98 96 O2 Delivery Room Air Room Air Room Air Room Air 04/23/17 04/23/17 15:32 16:22 Pulse Ox 99 O2 Delivery Room Air Room Air Intake and Output 04/22/17 04/22/17 04/23/17 15:00 23:00 07:00 Intake Total 1935 ml 1006 ml Output Total 1350 ml 50 ml Balance 585 ml 956 ml YOSI WEEMS MD Apr 23, 2017 17:12
[2017-04-23 19:20] VITALS: BP 142/74
[2017-04-23] MEDS: oxyCODONE IR 5 MG TABLET PO PRN (20:44)
[2017-04-23 23:22] VITALS: BP 155/87
[2017-04-24] MEDS: oxyCODONE IR 5 MG TABLET PO PRN (03:44)
[2017-04-24 03:45] VITALS: BP 141/89
[2017-04-24 06:46] LABS: CALCIUM 8.2 mg/dL (8.5-10.1); CREATININE 0.6 mg/dL (0.7-1.3); POTASSIUM 4.3 mmol/L (3.5-5.1)
[2017-04-24 07:00] VITALS: BP 146/85
[2017-04-24] MEDS ORDERED: SODIUM CHLORIDE 3 % 500 ML IV ONE (07:15)
[2017-04-24] MEDS: IPRATRPIUM/ALBUTEROL 0.5/2.5MG 3 ML NEBU. NEB SCH ×4 (07:22→19:40)
[2017-04-24] MEDS: BUDESONIDE 0.5 MG/2 ML NEBU. NEB SCH ×2 (07:23→19:40)
[2017-04-24] MEDS: NICOTINE 21MG PATCH. TD SCH (09:00)
[2017-04-24] MEDS: oxyCODONE/APAP 5/325 1 TAB TABLET PO PRN ×2 (10:03→18:05)
[2017-04-24] MEDS: LORazepam 0.5 MG TABLET PO PRN (10:03)
[2017-04-24] MEDS: ONDANSETRON ODT 4 MG TAB.RAPDIS. PO PRN ×2 (10:03→18:05)
[2017-04-24] MEDS: LACTOBACILLUS RHAMNOSUS GG 1 CAPSULE. PO SCH ×2 (10:03→21:08)
[2017-04-24] MEDS: predniSONE 10 MG TABLET PO SCH (10:03)
[2017-04-24] MEDS: DEMECLOCYCLINE HCL 150 MG TABLET. PO SCH ×3 (10:04→21:08)
[2017-04-24] MEDS: DOCUSATE SODIUM 100 MG CAPSULE. PO SCH (10:04)
[2017-04-24 11:00] VITALS: BP 119/70
--- NOTE | 2017-04-24 11:17 | PDOC ---
Renal-Progress Notes Subjective Notes Notes HAVING SOME NAUSEA History of Present Illness Hx of present illness NO CHANGE Vitals Vitals Vital Signs Date Time Temp Pulse Resp B/P (MAP) Pulse Ox O2 Delivery O2 Flow Rate FiO2 04/24/17 10:03 97 Room Air 04/24/17 07:00 97.7 78 18 146/85 (105) 97.7 Weight Weight [ ] I.O. Intake and Output Intake and Output 04/24/17 07:00 Intake Total 1136 ml Output Total 900 ml Balance 236 ml Intake Oral 840 ml IV Total 296 ml Output Urine Total 900 ml # Voids 4 # Bowel Movements 1 Labs Labs Laboratory Tests Test 04/23/17 16:00 04/24/17 06:25 Sodium Level 114 mmol/L (136-145) 116 mmol/L (136-145) Potassium Level 4.6 mmol/L (3.5-5.1) 4.3 mmol/L (3.5-5.1) Chloride Level 83 mmol/L (98-107) 83 mmol/L (98-107) Carbon Dioxide Level 27 mmol/L (21-32) 29 mmol/L (21-32) Anion Gap 4 (6-14) 4 (6-14) Blood Urea Nitrogen 10 mg/dL (8-26) 9 mg/dL (8-26) Creatinine 0.8 mg/dL (0.7-1.3) 0.6 mg/dL (0.7-1.3) Estimated GFR (Cockcroft-Gault) 101.9 142.0 BUN/Creatinine Ratio 13 (6-20) Glucose Level 178 mg/dL (70-99) 99 mg/dL (70-99) Calcium Level 8.0 mg/dL (8.5-10.1) 8.2 mg/dL (8.5-10.1) Total Bilirubin 0.1 mg/dL (0.2-1.0) Aspartate Amino Transf (AST/SGOT) 34 U/L (15-37) Alanine Aminotransferase (ALT/SGPT) 38 U/L (16-63) Alkaline Phosphatase 108 U/L (46-116) Total Protein 5.6 g/dL (6.4-8.2) Albumin 2.1 g/dL (3.4-5.0) Albumin/Globulin Ratio 0.6 (1.0-1.7) Review of Systems Constitutional: yes: weakness, alert Ears/Nose/Throat: Yes: no symptom reported Pulmonary: Yes no symptom reported Gastrointestional: Yes: nausea Genitourinary: Yes: no symptom reported Musculoskeletal: Yes: muscle stiffness Skin: Yes no symptom reported Psychiatric/Neurological: Yes: no symptom reported Physical Exam General Appearance: no apparent distress Skin: warm Respiratory: bilateral CTA Heart: S1S2 Abdomen: soft, bowel sounds present Genitourinary: bladder flat Extremities: pulses present Neurology: alert Musculoskeletal: No pain Assessment Assessment IMP SEVERE HYPONATREMIA-REFRACTORY DESPITE 3% SALINE SIADH MET LUNG CA PLAN 3% SALINE CONTINUOUSLY INCREASE DEMECLOCYCLINE JUAN DIEGO ROWLAND MD Apr 24, 2017 11:17
--- NOTE | 2017-04-24 11:34 | PDOC ---
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 noted on CT scan of the chest on 03/24/2017 ROS - CP better Objective Objective Vital Signs Date Time Temp Pulse Resp B/P (MAP) Pulse Ox O2 Delivery O2 Flow Rate FiO2 04/24/17 10:03 97 Room Air 04/24/17 07:00 97.7 78 18 146/85 (105) 97.7 Intake and Output 04/24/17 07:00 Intake Total 1136 ml Output Total 900 ml Balance 236 ml Intake Oral 840 ml IV Total 296 ml Output Urine Total 900 ml # Voids 4 # Bowel Movements 1 Physical Exam Heart: Normal S1, Normal S2 General: Alert, Oriented X3 Lungs: Clear to auscultation Neuro: Normal speech Psych/Mental Status: Mental status NL Assessment Assessment Problems Medical Problems: (1) Chest pain Status: Acute (2) Lung cancer Status: Acute IMPRESSION AND PLAN: 1. 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 Previously, he was staged as a stage III lung cancer and he received chemoradiation. He was then staged as a stage IV lung cancer. Started topotecan 03/31/17. Now admitted with CP and dyspnea. Plan to resume chemo as outpatient. 2. Right-sided chest pain, Pulmonary Medicine and Rad Onc has been consulted. CTA chest 04/21/17 is neg for PE. 3. Left adrenal gland metastasis. 4. Hyponatremia, due to SIADH. MRI brain 04/21/17 is neg for eval for mets. 3% SALINE CONTINUOUSLY INCREASE DEMECLOCYCLINE per nephrology. Na 116. 5. Pneumonia - Suspected RLL Postobstructive pneumonia. appreciate pulm management Comment Review of Relevant I have reviewed the following items reynold (where applicable) has been applied. Labs Laboratory Tests Test 04/22/17 22:50 04/23/17 03:40 04/23/17 16:00 04/24/17 06:25 Sodium Level 113 mmol/L (136-145) 113 mmol/L (136-145) 114 mmol/L (136-145) 116 mmol/L (136-145) Potassium Level 4.3 mmol/L (3.5-5.1) 4.1 mmol/L (3.5-5.1) 4.6 mmol/L (3.5-5.1) 4.3 mmol/L (3.5-5.1) Chloride Level 80 mmol/L (98-107) 81 mmol/L (98-107) 83 mmol/L (98-107) 83 mmol/L (98-107) Carbon Dioxide Level 32 mmol/L (21-32) 31 mmol/L (21-32) 27 mmol/L (21-32) 29 mmol/L (21-32) Anion Gap 1 (6-14) 1 (6-14) 4 (6-14) 4 (6-14) Blood Urea Nitrogen 8 mg/dL (8-26) 8 mg/dL (8-26) 10 mg/dL (8-26) 9 mg/dL (8-26) Creatinine 0.8 mg/dL (0.7-1.3) 0.8 mg/dL (0.7-1.3) 0.8 mg/dL (0.7-1.3) 0.6 mg/dL (0.7-1.3) Estimated GFR (Cockcroft-Gault) 101.9 101.9 101.9 142.0 Glucose Level 142 mg/dL (70-99) 122 mg/dL (70-99) 178 mg/dL (70-99) 99 mg/dL (70-99) Calcium Level 7.8 mg/dL (8.5-10.1) 7.9 mg/dL (8.5-10.1) 8.0 mg/dL (8.5-10.1) 8.2 mg/dL (8.5-10.1) Thyroid Stimulating Hormone (TSH) 0.379 uIU/mL (0.358-3.74) BUN/Creatinine Ratio 13 (6-20) Total Bilirubin 0.1 mg/dL (0.2-1.0) Aspartate Amino Transf (AST/SGOT) 34 U/L (15-37) Alanine Aminotransferase (ALT/SGPT) 38 U/L (16-63) Alkaline Phosphatase 108 U/L (46-116) Total Protein 5.6 g/dL (6.4-8.2) Albumin 2.1 g/dL (3.4-5.0) Albumin/Globulin Ratio 0.6 (1.0-1.7) Laboratory Tests Test 04/23/17 16:00 04/24/17 06:25 Sodium Level 114 mmol/L (136-145) 116 mmol/L (136-145) Potassium Level 4.6 mmol/L (3.5-5.1) 4.3 mmol/L (3.5-5.1) Chloride Level 83 mmol/L (98-107) 83 mmol/L (98-107) Carbon Dioxide Level 27 mmol/L (21-32) 29 mmol/L (21-32) Anion Gap 4 (6-14) 4 (6-14) Blood Urea Nitrogen 10 mg/dL (8-26) 9 mg/dL (8-26) Creatinine 0.8 mg/dL (0.7-1.3) 0.6 mg/dL (0.7-1.3) Estimated GFR (Cockcroft-Gault) 101.9 142.0 BUN/Creatinine Ratio 13 (6-20) Glucose Level 178 mg/dL (70-99) 99 mg/dL (70-99) Calcium Level 8.0 mg/dL (8.5-10.1) 8.2 mg/dL (8.5-10.1) Total Bilirubin 0.1 mg/dL (0.2-1.0) Aspartate Amino Transf (AST/SGOT) 34 U/L (15-37) Alanine Aminotransferase (ALT/SGPT) 38 U/L (16-63) Alkaline Phosphatase 108 U/L (46-116) Total Protein 5.6 g/dL (6.4-8.2) Albumin 2.1 g/dL (3.4-5.0) Albumin/Globulin Ratio 0.6 (1.0-1.7) Medications Current Medications Sodium Chloride 1,000 ml @ 1,000 mls/hr Q1H IV Last administered on 01:07; Start 04/20/17 at 01:00; Stop 04/20/17 at 01:59; Status DC Albuterol/ Ipratropium (Duoneb) 6 ml 1X ONCE NEB Last administered on 01:53; Start 04/20/17 at 01:00; Stop 04/20/17 at 01:01; Status DC Magnesium Sulfate/ Dextrose 50 ml @ 25 mls/hr 1X ONCE IV Last administered on 04/20/17 03:18; Start 04/20/17 at 03:00; Stop 04/20/17 at 04:59; Status DC Potassium Chloride (Klor-Con) 40 meq Q2HR PO Last administered on 04/20/17 05 :37; Start 04/20/17 at 04:00; Stop 04/20/17 at 06:01; Status DC Ondansetron HCl (Zofran) 4 mg PRN Q8HRS PRN IV NAUSEA/VOMITING; Start at 02:30; Stop 04/21/17 at 02:29; Status DC Fentanyl Citrate (Fentanyl 2ml Vial) 50 mcg PRN Q2HR PRN IV SEVERE PAIN Last administered on 04/20/17 21:44; Start 04/20/17 at 02:30; Stop 04/21/17 at 02 :29; Status DC Sodium Chloride 1,000 ml @ 100 mls/hr Q10H IV Last administered on 04/20/17 20:28; Start 04/20/17 at 02:29; Stop 04/21/17 at 02:28; Status DC Acetaminophen (Tylenol) 650 mg PRN Q4HRS PRN PO FEVER; Start 04/20/17 at 02:30 ; Stop 04/21/17 at 02:29; Status DC Albuterol/ Ipratropium (Duoneb) 3 ml RTQID NEB Last administered on 04/21/17 07:42; Start 04/20/17 at 08:00; Stop 04/21/17 at 07:59; Status DC Levofloxacin (Levaquin) 750 mg DAILY06 PO Last administered on 04/24/17 06:17 ; Start 04/20/17 at 06:00 Albuterol/ Ipratropium (Duoneb) 3 ml STK-MED ONCE .ROUTE ; Start 04/20/17 at 06 :22; Stop 04/20/17 at 06:23; Status DC Docusate Sodium (Colace) 100 mg DAILY PO Last administered on 04/24/17 10:04 ; Start 04/20/17 at 12:30 Oxycodone/ Acetaminophen (Percocet 5/325) 1 tab PRN Q4HRS PRN PO MILD-MODERATE PAIN Last administered on 04/24/17 10:03; Start 04/20/17 at 12:15 Ondansetron HCl (Zofran Odt) 4 mg PRN Q8HRS PRN PO NAUSEA/VOMITING Last administered on 04/24/17 10:03; Start 04/20/17 at 12:15 Lactobacillus Rhamnosus (Culturelle) 1 cap BID PO Last administered on 10:03; Start 04/20/17 at 21:00 Prednisone (Prednisone) 30 mg DAILY PO Last administered on 04/24/17 10:03; Start 04/20/17 at 18:30 Magnesium Sulfate/ Dextrose 100 ml @ 25 mls/hr 1X ONCE IV Last administered on 04/21/17 11:15; Start 04/21/17 at 11:00; Stop 04/21/17 at 14:59; Status DC Oxycodone HCl (Roxicodone) 10 mg PRN Q6HRS PRN PO SEVERE PAIN Last administered on 04/24/17 03:44; Start 04/21/17 at 11:45 Albuterol/ Ipratropium (Duoneb) 3 ml RTQID NEB Last administered on 04/24/17 07:22; Start 04/21/17 at 12:00 Budesonide (Pulmicort) 0.5 mg RTBID NEB Last administered on 04/24/17 07:23; Start 04/21/17 at 12:00 Iohexol (Omnipaque 300 Mg/ml) 75 ml 1X ONCE IV Last administered on 15:37; Start 04/21/17 at 13:15; Stop 04/21/17 at 13:16; Status DC Info (Do NOT chart on this entry -- for MONITORING) 1 each PRN DAILY PRN MC SEE COMMENTS; Start 04/21/17 at 13:15; Stop 04/23/17 at 13:14; Status DC Gadobutrol (Gadavist) 6 mmol 1X ONCE IV Last administered on 04/21/17 17:56 ; Start 04/21/17 at 17:45; Stop 04/21/17 at 17:46; Status DC Albuterol/ Ipratropium (Duoneb) 3 ml 1X ONCE NEB Last administered on 03:45; Start 04/22/17 at 04:00; Stop 04/22/17 at 04:01; Status DC Sodium Chloride 300 ml @ 60 mls/hr 1X ONCE IV Last administered on 17:27; Start 04/22/17 at 11:00; Stop 04/22/17 at 15:59; Status DC Demeclocycline HCl (Declomycin) 150 mg TID PO Last administered on 04/24/17 10:04; Start 04/22/17 at 14:00; Stop 04/24/17 at 11:19; Status DC Magnesium Sulfate/ Dextrose 100 ml @ 25 mls/hr 1X ONCE IV Last administered on 04/22/17 17:28; Start 04/22/17 at 14:00; Stop 04/22/17 at 17:59; Status DC Lidocaine/Sodium Bicarbonate (Buffered Lidocaine 1%) 20 ml STK-MED ONCE IJ ; Start 04/22/17 at 16:33; Stop 04/22/17 at 16:34; Status DC Lidocaine/Sodium Bicarbonate (Buffered Lidocaine 1%) 3 ml 1X ONCE IJ Last administered on 04/22/17 17:06; Start 04/22/17 at 17:00; Stop 04/22/17 at 17 :02; Status DC Nicotine (Nicoderm Cq 21mg) 1 patch DAILY TD Last administered on 04/23/17 09 :25; Start 04/22/17 at 20:15 Lorazepam (Ativan) 0.5 mg PRN Q6HRS PRN PO ANXIETY / AGITATION Last administered on 04/24/17 10:03; Start 04/22/17 at 20:15 Sodium Chloride 500 ml @ 50 mls/hr 1X ONCE IV Last administered on 23:25; Start 04/22/17 at 23:30; Stop 04/23/17 at 09:29; Status DC Sodium Chloride 500 ml @ 0 mls/hr CONT PRN IV ; Start 04/23/17 at 04:15; Stop 04/23/17 at 05:55; Status DC Sodium Chloride 500 ml @ 50 mls/hr 1X ONCE IV Last administered on 06:07; Start 04/23/17 at 06:00; Stop 04/23/17 at 15:59; Status DC Saliva Substitute (Biotene Moisturizing Mouth) 2 spray PRN Q15MIN PRN PO DRY MOUTH; Start 04/23/17 at 11:15 Sodium Chloride 500 ml @ 40 mls/hr 1X ONCE IV Last administered on t 19:19; Start 04/23/17 at 18:15; Stop 04/24/17 at 06:44; Status DC Sodium Chloride 500 ml @ 40 mls/hr 1X ONCE IV Last administered on t 10:00; Start 04/24/17 at 07:15; Stop 04/24/17 at 19:44 Demeclocycline HCl (Declomycin) 300 mg TID PO ; Start 04/24/17 at 14:00 Active Scripts Active Colace (Docusate Sodium) 100 Mg Capsule 100 Mg PO DAILY Oxycodone-Acetaminophen 5-325 (Oxycodone Hcl/Acetaminophen) 1 Each Tablet 1 Tab PO PRN Q4HRS PRN Reported Ondansetron Hcl 4 Mg Tablet 1 Tab PO PRN Q8HRS PRN Vitals/I & O Vital Sign - Last 24 Hours 04/23/17 04/23/17 04/23/17 04/23/17 11:40 14:24 15:32 16:22 Temp 98.3 98.3 Pulse 70 Resp 18 B/P (MAP) 100/54 (69) Pulse Ox 98 96 99 O2 Delivery Room Air Room Air Room Air Room Air 04/23/17 04/23/17 04/23/17 04/23/17 17:22 19:16 19:17 19:20 Resp 18 Pulse Ox 99 98 98 O2 Delivery Room Air Room Air Room Air Room Air 04/23/17 04/23/17 04/23/17 04/23/17 19:20 20:44 21:44 23:22 Temp 97.3 97.8 97.3 97.8 Pulse 92 76 Resp 20 20 20 B/P (MAP) 142/74 (96) 155/87 (109) Pulse Ox 99 98 O2 Delivery Room Air Room Air Room Air Room Air 04/24/17 04/24/17 04/24/17 04/24/17 03:44 03:45 04:44 07:00 Temp 97.5 97.7 97.5 97.7 Pulse 94 78 Resp 20 20 20 18 B/P (MAP) 141/89 (106) 146/85 (105) Pulse Ox 98 99 98 O2 Delivery Room Air Room Air Room Air 04/24/17 04/24/17 04/24/17 07:23 08:00 10:03 Pulse Ox 97 97 O2 Delivery Room Air Room Air Room Air Intake and Output 04/23/17 04/23/17 04/24/17 15:00 23:00 07:00 Intake Total 480 ml 240 ml 416 ml Output Total 600 ml 300 ml Balance -120 ml -60 ml 416 ml YOSI [email or web address] MD Apr 24, 2017 11:34
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
--- NOTE | 2017-04-24 12:59 | PDOC ---
PROGRESS NOTES Chief Complaint Chief Complaint chest pain and acute respiratory distress lung cancer, stage 4. pneumonia, with lung cancer, poss-post obstructive, treat gram negative organisms acute hyponatremia, symptomatic, SAIDH hypomagnesemia anemia mod.severe malnutrition, serum alb 2.1 History of Present Illness History of Present Illness hyponatremia persists, refractory to treatment, renal following, 3% ordered blurry vision at times, nausea earlier replace mag increase pain meds, SIADH, add dronabinol, he reports daily THC use at home, and PO intake suffers without it Vitals Vitals Vital Signs Date Time Temp Pulse Resp B/P (MAP) Pulse Ox O2 Delivery O2 Flow Rate FiO2 04/24/17 12:30 98 Room Air 04/24/17 11:03 18 04/24/17 11:00 98.0 81 119/70 (86) 98.0 Physical Exam General: Alert, Oriented X3 Heart: Normal S1, Normal S2 Lungs: Clear Abdomen: Normal bowel sounds, Soft, No tenderness Extremities: No clubbing, No edema Skin: No rashes, No significant lesion Labs LABS Laboratory Tests Test 04/23/17 16:00 04/24/17 06:25 Sodium Level 114 mmol/L (136-145) 116 mmol/L (136-145) Potassium Level 4.6 mmol/L (3.5-5.1) 4.3 mmol/L (3.5-5.1) Chloride Level 83 mmol/L (98-107) 83 mmol/L (98-107) Carbon Dioxide Level 27 mmol/L (21-32) 29 mmol/L (21-32) Anion Gap 4 (6-14) 4 (6-14) Blood Urea Nitrogen 10 mg/dL (8-26) 9 mg/dL (8-26) Creatinine 0.8 mg/dL (0.7-1.3) 0.6 mg/dL (0.7-1.3) Estimated GFR (Cockcroft-Gault) 101.9 142.0 BUN/Creatinine Ratio 13 (6-20) Glucose Level 178 mg/dL (70-99) 99 mg/dL (70-99) Calcium Level 8.0 mg/dL (8.5-10.1) 8.2 mg/dL (8.5-10.1) Total Bilirubin 0.1 mg/dL (0.2-1.0) Aspartate Amino Transf (AST/SGOT) 34 U/L (15-37) Alanine Aminotransferase (ALT/SGPT) 38 U/L (16-63) Alkaline Phosphatase 108 U/L (46-116) Total Protein 5.6 g/dL (6.4-8.2) Albumin 2.1 g/dL (3.4-5.0) Albumin/Globulin Ratio 0.6 (1.0-1.7) Review of Systems Review of Systems weakness, nausea no longer blurry vision poor po intake, some nausea Assessment and Plan Assessmemt and Plan Problems Medical Problems: (1) Chest pain Status: Acute (2) Lung cancer Status: Acute Problems: Comment Review of Relevant I have reviewed the following items reynold (where applicable) has been applied. Labs Laboratory Tests Test 04/22/17 22:50 04/23/17 03:40 04/23/17 16:00 04/24/17 06:25 Sodium Level 113 mmol/L (136-145) 113 mmol/L (136-145) 114 mmol/L (136-145) 116 mmol/L (136-145) Potassium Level 4.3 mmol/L (3.5-5.1) 4.1 mmol/L (3.5-5.1) 4.6 mmol/L (3.5-5.1) 4.3 mmol/L (3.5-5.1) Chloride Level 80 mmol/L (98-107) 81 mmol/L (98-107) 83 mmol/L (98-107) 83 mmol/L (98-107) Carbon Dioxide Level 32 mmol/L (21-32) 31 mmol/L (21-32) 27 mmol/L (21-32) 29 mmol/L (21-32) Anion Gap 1 (6-14) 1 (6-14) 4 (6-14) 4 (6-14) Blood Urea Nitrogen 8 mg/dL (8-26) 8 mg/dL (8-26) 10 mg/dL (8-26) 9 mg/dL (8-26) Creatinine 0.8 mg/dL (0.7-1.3) 0.8 mg/dL (0.7-1.3) 0.8 mg/dL (0.7-1.3) 0.6 mg/dL (0.7-1.3) Estimated GFR (Cockcroft-Gault) 101.9 101.9 101.9 142.0 Glucose Level 142 mg/dL (70-99) 122 mg/dL (70-99) 178 mg/dL (70-99) 99 mg/dL (70-99) Calcium Level 7.8 mg/dL (8.5-10.1) 7.9 mg/dL (8.5-10.1) 8.0 mg/dL (8.5-10.1) 8.2 mg/dL (8.5-10.1) Thyroid Stimulating Hormone (TSH) 0.379 uIU/mL (0.358-3.74) BUN/Creatinine Ratio 13 (6-20) Total Bilirubin 0.1 mg/dL (0.2-1.0) Aspartate Amino Transf (AST/SGOT) 34 U/L (15-37) Alanine Aminotransferase (ALT/SGPT) 38 U/L (16-63) Alkaline Phosphatase 108 U/L (46-116) Total Protein 5.6 g/dL (6.4-8.2) Albumin 2.1 g/dL (3.4-5.0) Albumin/Globulin Ratio 0.6 (1.0-1.7) Laboratory Tests Test 04/23/17 16:00 04/24/17 06:25 Sodium Level 114 mmol/L (136-145) 116 mmol/L (136-145) Potassium Level 4.6 mmol/L (3.5-5.1) 4.3 mmol/L (3.5-5.1) Chloride Level 83 mmol/L (98-107) 83 mmol/L (98-107) Carbon Dioxide Level 27 mmol/L (21-32) 29 mmol/L (21-32) Anion Gap 4 (6-14) 4 (6-14) Blood Urea Nitrogen 10 mg/dL (8-26) 9 mg/dL (8-26) Creatinine 0.8 mg/dL (0.7-1.3) 0.6 mg/dL (0.7-1.3) Estimated GFR (Cockcroft-Gault) 101.9 142.0 BUN/Creatinine Ratio 13 (6-20) Glucose Level 178 mg/dL (70-99) 99 mg/dL (70-99) Calcium Level 8.0 mg/dL (8.5-10.1) 8.2 mg/dL (8.5-10.1) Total Bilirubin 0.1 mg/dL (0.2-1.0) Aspartate Amino Transf (AST/SGOT) 34 U/L (15-37) Alanine Aminotransferase (ALT/SGPT) 38 U/L (16-63) Alkaline Phosphatase 108 U/L (46-116) Total Protein 5.6 g/dL (6.4-8.2) Albumin 2.1 g/dL (3.4-5.0) Albumin/Globulin Ratio 0.6 (1.0-1.7) Medications Current Medications Sodium Chloride 1,000 ml @ 1,000 mls/hr Q1H IV Last administered on 01:07; Start 04/20/17 at 01:00; Stop 04/20/17 at 01:59; Status DC Albuterol/ Ipratropium (Duoneb) 6 ml 1X ONCE NEB Last administered on 01:53; Start 04/20/17 at 01:00; Stop 04/20/17 at 01:01; Status DC Magnesium Sulfate/ Dextrose 50 ml @ 25 mls/hr 1X ONCE IV Last administered on 04/20/17 03:18; Start 04/20/17 at 03:00; Stop 04/20/17 at 04:59; Status DC Potassium Chloride (Klor-Con) 40 meq Q2HR PO Last administered on 04/20/17 05 :37; Start 04/20/17 at 04:00; Stop 04/20/17 at 06:01; Status DC Ondansetron HCl (Zofran) 4 mg PRN Q8HRS PRN IV NAUSEA/VOMITING; Start at 02:30; Stop 04/21/17 at 02:29; Status DC Fentanyl Citrate (Fentanyl 2ml Vial) 50 mcg PRN Q2HR PRN IV SEVERE PAIN Last administered on 04/20/17 21:44; Start 04/20/17 at 02:30; Stop 04/21/17 at 02 :29; Status DC Sodium Chloride 1,000 ml @ 100 mls/hr Q10H IV Last administered on 04/20/17 20:28; Start 04/20/17 at 02:29; Stop 04/21/17 at 02:28; Status DC Acetaminophen (Tylenol) 650 mg PRN Q4HRS PRN PO FEVER; Start 04/20/17 at 02:30 ; Stop 04/21/17 at 02:29; Status DC Albuterol/ Ipratropium (Duoneb) 3 ml RTQID NEB Last administered on 04/21/17 07:42; Start 04/20/17 at 08:00; Stop 04/21/17 at 07:59; Status DC Levofloxacin (Levaquin) 750 mg DAILY06 PO Last administered on 04/24/17 06:17 ; Start 04/20/17 at 06:00 Albuterol/ Ipratropium (Duoneb) 3 ml STK-MED ONCE .ROUTE ; Start 04/20/17 at 06 :22; Stop 04/20/17 at 06:23; Status DC Docusate Sodium (Colace) 100 mg DAILY PO Last administered on 04/24/17 10:04 ; Start 04/20/17 at 12:30 Oxycodone/ Acetaminophen (Percocet 5/325) 1 tab PRN Q4HRS PRN PO MILD-MODERATE PAIN Last administered on 04/24/17 10:03; Start 04/20/17 at 12:15 Ondansetron HCl (Zofran Odt) 4 mg PRN Q8HRS PRN PO NAUSEA/VOMITING Last administered on 04/24/17 10:03; Start 04/20/17 at 12:15 Lactobacillus Rhamnosus (Culturelle) 1 cap BID PO Last administered on 10:03; Start 04/20/17 at 21:00 Prednisone (Prednisone) 30 mg DAILY PO Last administered on 04/24/17 10:03; Start 04/20/17 at 18:30 Magnesium Sulfate/ Dextrose 100 ml @ 25 mls/hr 1X ONCE IV Last administered on 04/21/17 11:15; Start 04/21/17 at 11:00; Stop 04/21/17 at 14:59; Status DC Oxycodone HCl (Roxicodone) 10 mg PRN Q6HRS PRN PO SEVERE PAIN Last administered on 04/24/17 03:44; Start 04/21/17 at 11:45 Albuterol/ Ipratropium (Duoneb) 3 ml RTQID NEB Last administered on 04/24/17 12:30; Start 04/21/17 at 12:00 Budesonide (Pulmicort) 0.5 mg RTBID NEB Last administered on 04/24/17 07:23; Start 04/21/17 at 12:00 Iohexol (Omnipaque 300 Mg/ml) 75 ml 1X ONCE IV Last administered on 15:37; Start 04/21/17 at 13:15; Stop 04/21/17 at 13:16; Status DC Info (Do NOT chart on this entry -- for MONITORING) 1 each PRN DAILY PRN MC SEE COMMENTS; Start 04/21/17 at 13:15; Stop 04/23/17 at 13:14; Status DC Gadobutrol (Gadavist) 6 mmol 1X ONCE IV Last administered on 04/21/17 17:56 ; Start 04/21/17 at 17:45; Stop 04/21/17 at 17:46; Status DC Albuterol/ Ipratropium (Duoneb) 3 ml 1X ONCE NEB Last administered on 03:45; Start 04/22/17 at 04:00; Stop 04/22/17 at 04:01; Status DC Sodium Chloride 300 ml @ 60 mls/hr 1X ONCE IV Last administered on 17:27; Start 04/22/17 at 11:00; Stop 04/22/17 at 15:59; Status DC Demeclocycline HCl (Declomycin) 150 mg TID PO Last administered on 04/24/17 10:04; Start 04/22/17 at 14:00; Stop 04/24/17 at 11:19; Status DC Magnesium Sulfate/ Dextrose 100 ml @ 25 mls/hr 1X ONCE IV Last administered on 04/22/17 17:28; Start 04/22/17 at 14:00; Stop 04/22/17 at 17:59; Status DC Lidocaine/Sodium Bicarbonate (Buffered Lidocaine 1%) 20 ml STK-MED ONCE IJ ; Start 04/22/17 at 16:33; Stop 04/22/17 at 16:34; Status DC Lidocaine/Sodium Bicarbonate (Buffered Lidocaine 1%) 3 ml 1X ONCE IJ Last administered on 04/22/17 17:06; Start 04/22/17 at 17:00; Stop 04/22/17 at 17 :02; Status DC Nicotine (Nicoderm Cq 21mg) 1 patch DAILY TD Last administered on 04/23/17 09 :25; Start 04/22/17 at 20:15 Lorazepam (Ativan) 0.5 mg PRN Q6HRS PRN PO ANXIETY / AGITATION Last administered on 04/24/17 10:03; Start 04/22/17 at 20:15 Sodium Chloride 500 ml @ 50 mls/hr 1X ONCE IV Last administered on 23:25; Start 04/22/17 at 23:30; Stop 04/23/17 at 09:29; Status DC Sodium Chloride 500 ml @ 0 mls/hr CONT PRN IV ; Start 04/23/17 at 04:15; Stop 04/23/17 at 05:55; Status DC Sodium Chloride 500 ml @ 50 mls/hr 1X ONCE IV Last administered on 06:07; Start 04/23/17 at 06:00; Stop 04/23/17 at 15:59; Status DC Saliva Substitute (Biotene Moisturizing Mouth) 2 spray PRN Q15MIN PRN PO DRY MOUTH; Start 04/23/17 at 11:15 Sodium Chloride 500 ml @ 40 mls/hr 1X ONCE IV Last administered on 19:19; Start 04/23/17 at 18:15; Stop 04/24/17 at 06:44; Status DC Sodium Chloride 500 ml @ 40 mls/hr 1X ONCE IV Last administered on 10:00; Start 04/24/17 at 07:15; Stop 04/24/17 at 19:44 Demeclocycline HCl (Declomycin) 300 mg TID PO ; Start 04/24/17 at 14:00 Active Scripts Active Colace (Docusate Sodium) 100 Mg Capsule 100 Mg PO DAILY Oxycodone-Acetaminophen 5-325 (Oxycodone Hcl/Acetaminophen) 1 Each Tablet 1 Tab PO PRN Q4HRS PRN Reported Ondansetron Hcl 4 Mg Tablet 1 Tab PO PRN Q8HRS PRN Vitals/I & O Vital Sign - Last 24 Hours 04/23/17 04/23/17 04/23/1704/23/17 14:24 15:32 16:22 19:16 Temp 98.3 98.3 Pulse 70 Resp 18 B/P (MAP) 100/54 (69) Pulse Ox 96 99 98 O2 Delivery Room Air Room Air Room Air Room Air 04/23/17 04/23/17 04/23/17 04/23/17 19:17 19:20 19:20 20:44 Temp 97.3 97.3 Pulse 92 Resp 20 20 B/P (MAP) 142/74 (96) Pulse Ox 98 99 O2 Delivery Room Air Room Air Room Air Room Air 04/23/17 04/23/17 04/24/17 04/24/17 21:44 23:22 03:44 03:45 Temp 97.8 97.5 97.8 97.5 Pulse 76 94 Resp 20 20 20 B/P (MAP) 155/87 (109) 141/89 (106) Pulse Ox 98 98 99 O2 Delivery Room Air Room Air Room Air Room Air 04/24/17 04/24/17 04/24/17 04/24/17 04:44 07:00 07:23 08:00 Temp 97.7 97.7 Pulse 78 Resp 20 18 B/P (MAP) 146/85 (105) Pulse Ox 98 97 O2 Delivery Room Air Room Air Room Air 04/24/17 04/24/17 04/24/17 04/24/17 10:03 11:00 11:03 12:30 Temp 98.0 98.0 Pulse 81 Resp 16 18 B/P (MAP) 119/70 (86) Pulse Ox 97 98 98 98 O2 Delivery Room Air Room Air Room Air Room Air Intake and Output 04/23/17 04/23/17 04/24/17 15:00 23:00 07:00 Intake Total 480 ml 240 ml 416 ml Output Total 600 ml 300 ml Balance -120 ml -60 ml 416 ml LC SAUL MD Apr 24, 2017 12:58
[2017-04-24 15:00] VITALS: BP 133/89
[2017-04-24] MEDS ORDERED: CONIVAPTAN IV ONE (16:15)
[2017-04-24] MEDS: DRONABINOL 2.5 MG CAPSULE. PO SCH (18:05)
[2017-04-24 19:20] VITALS: BP 124/84
[2017-04-24 23:10] VITALS: BP 106/58
[2017-04-25] MEDS ORDERED: ALBUTEROL SULFATE 2.5 MG/3 ML NEBU. NEB PRN (00:30)
[2017-04-25 03:15] VITALS: BP 112/65
[2017-04-25] MEDS: ONDANSETRON ODT 4 MG TAB.RAPDIS. PO PRN (03:57)
[2017-04-25] MEDS: oxyCODONE IR 5 MG TABLET PO PRN ×2 (03:58→23:46)
[2017-04-25 05:43] LABS: HEMOGLOBIN 9.4 g/dL (13.0-17.5); RED BLOOD COUNT 3.16 x10^6/uL (4.30-5.70); WHITE BLOOD COUNT 11.6 x10^3/uL (4.0-11.0)
[2017-04-25 06:15] LABS: CALCIUM 8.6 mg/dL (8.5-10.1); CREATININE 0.7 mg/dL (0.7-1.3); GFR 118.9; POTASSIUM 4.1 mmol/L (3.5-5.1)
[2017-04-25 07:00] VITALS: BP 92/65
[2017-04-25] MEDS: BUDESONIDE 0.5 MG/2 ML NEBU. NEB SCH ×2 (07:31→19:32)
[2017-04-25] MEDS: IPRATRPIUM/ALBUTEROL 0.5/2.5MG 3 ML NEBU. NEB SCH ×4 (07:31→19:32)
[2017-04-25] MEDS: SODIUM CHLORIDE 3 % 500 ML IV SCH ×2 (07:42→21:39)
[2017-04-25] MEDS: NICOTINE 21MG PATCH. TD SCH (08:52)
[2017-04-25] MEDS: DOCUSATE SODIUM 100 MG CAPSULE. PO SCH (09:00)
[2017-04-25] MEDS: DEMECLOCYCLINE HCL 150 MG TABLET. PO SCH ×3 (09:54→20:40)
[2017-04-25] MEDS: LACTOBACILLUS RHAMNOSUS GG 1 CAPSULE. PO SCH ×2 (09:54→20:39)
[2017-04-25] MEDS: predniSONE 10 MG TABLET PO SCH (09:55)
--- NOTE | 2017-04-25 10:09 | PDOC ---
PROGRESS NOTES Chief Complaint Chief Complaint chest pain - improved, and acute respiratory distress, resolved, lung cancer, stage 4. pneumonia, with lung cancer, poss-post obstructive, treat gram negative organisms acute hyponatremia, symptomatic, SAIDH hypomagnesemia anemia mod.severe malnutrition, serum alb 2.1 History of Present Illness History of Present Illness hyponatremia persists, cont 3% NS,. renal following, refractory to treatment, renal following, blurry vision at times, nausea earlier replace mag increase pain meds, SIADH, add dronabinol, Vitals Vitals Vital Signs Date Time Temp Pulse Resp B/P (MAP) Pulse Ox O2 Delivery O2 Flow Rate FiO2 04/25/17 07:32 98 Room Air 04/25/17 07:00 97.6 94 20 92/65 (74) 97.6 Physical Exam General: Alert, Oriented X3, No acute distress Heart: Normal S1, Normal S2 Lungs: Clear Abdomen: Normal bowel sounds, Soft, No tenderness Extremities: No clubbing, No edema Skin: No rashes, No significant lesion Labs LABS Laboratory Tests Test 04/24/17 14:00 04/24/17 19:40 04/25/17 05:10 Sodium Level 116 mmol/L (136-145) 115 mmol/L (136-145) 119 mmol/L (136-145) White Blood Count 11.6 x10^3/uL (4.0-11.0) Red Blood Count 3.16 x10^6/uL (4.30-5.70) Hemoglobin 9.4 g/dL (13.0-17.5) Hematocrit 27.0 % (39.0-53.0) Mean Corpuscular Volume 86 fL (79-100) Mean Corpuscular Hemoglobin 30 pg (25-35) Mean Corpuscular Hemoglobin Concent 35 g/dL (31-37) Red Cell Distribution Width 15.0 % (11.5-14.5) Platelet Count 669 x10^3/uL (140-400) Potassium Level 4.1 mmol/L (3.5-5.1) Chloride Level 84 mmol/L (98-107) Carbon Dioxide Level 29 mmol/L (21-32) Anion Gap 6 (6-14) Blood Urea Nitrogen 11 mg/dL (8-26) Creatinine 0.7 mg/dL (0.7-1.3) Estimated GFR (Cockcroft-Gault) 118.9 Glucose Level 116 mg/dL (70-99) Calcium Level 8.6 mg/dL (8.5-10.1) Assessment and Plan Assessmemt and Plan Problems Medical Problems: (1) Chest pain Status: Acute (2) Lung cancer Status: Acute Problems: Comment Review of Relevant I have reviewed the following items reynold (where applicable) has been applied. Labs Laboratory Tests Test 04/23/17 16:00 04/24/17 06:25 04/24/17 14:00 04/24/17 19:40 Sodium Level 114 mmol/L (136-145) 116 mmol/L (136-145) 116 mmol/L (136-145) 115 mmol/L (136-145) Potassium Level 4.6 mmol/L (3.5-5.1) 4.3 mmol/L (3.5-5.1) Chloride Level 83 mmol/L (98-107) 83 mmol/L (98-107) Carbon Dioxide Level 27 mmol/L (21-32) 29 mmol/L (21-32) Anion Gap 4 (6-14) 4 (6-14) Blood Urea Nitrogen 10 mg/dL (8-26) 9 mg/dL (8-26) Creatinine 0.8 mg/dL (0.7-1.3) 0.6 mg/dL (0.7-1.3) Estimated GFR (Cockcroft-Gault) 101.9 142.0 BUN/Creatinine Ratio 13 (6-20) Glucose Level 178 mg/dL (70-99) 99 mg/dL (70-99) Calcium Level 8.0 mg/dL (8.5-10.1) 8.2 mg/dL (8.5-10.1) Total Bilirubin 0.1 mg/dL (0.2-1.0) Aspartate Amino Transf (AST/SGOT) 34 U/L (15-37) Alanine Aminotransferase (ALT/SGPT) 38 U/L (16-63) Alkaline Phosphatase 108 U/L (46-116) Total Protein 5.6 g/dL (6.4-8.2) Albumin 2.1 g/dL (3.4-5.0) Albumin/Globulin Ratio 0.6 (1.0-1.7) Test 04/25/17 05:10 White Blood Count 11.6 x10^3/uL (4.0-11.0) Red Blood Count 3.16 x10^6/uL (4.30-5.70) Hemoglobin 9.4 g/dL (13.0-17.5) Hematocrit 27.0 % (39.0-53.0) Mean Corpuscular Volume 86 fL (79-100) Mean Corpuscular Hemoglobin 30 pg (25-35) Mean Corpuscular Hemoglobin Concent 35 g/dL (31-37) Red Cell Distribution Width 15.0 % (11.5-14.5) Platelet Count 669 x10^3/uL (140-400) Sodium Level 119 mmol/L (136-145) Potassium Level 4.1 mmol/L (3.5-5.1) Chloride Level 84 mmol/L (98-107) Carbon Dioxide Level 29 mmol/L (21-32) Anion Gap 6 (6-14) Blood Urea Nitrogen 11 mg/dL (8-26) Creatinine 0.7 mg/dL (0.7-1.3) Estimated GFR (Cockcroft-Gault) 118.9 Glucose Level 116 mg/dL (70-99) Calcium Level 8.6 mg/dL (8.5-10.1) Laboratory Tests Test 04/24/17 14:00 04/24/17 19:40 04/25/17 05:10 Sodium Level 116 mmol/L (136-145) 115 mmol/L (136-145) 119 mmol/L (136-145) White Blood Count 11.6 x10^3/uL (4.0-11.0) Red Blood Count 3.16 x10^6/uL (4.30-5.70) Hemoglobin 9.4 g/dL (13.0-17.5) Hematocrit 27.0 % (39.0-53.0) Mean Corpuscular Volume 86 fL (79-100) Mean Corpuscular Hemoglobin 30 pg (25-35) Mean Corpuscular Hemoglobin Concent 35 g/dL (31-37) Red Cell Distribution Width 15.0 % (11.5-14.5) Platelet Count 669 x10^3/uL (140-400) Potassium Level 4.1 mmol/L (3.5-5.1) Chloride Level 84 mmol/L (98-107) Carbon Dioxide Level 29 mmol/L (21-32) Anion Gap 6 (6-14) Blood Urea Nitrogen 11 mg/dL (8-26) Creatinine 0.7 mg/dL (0.7-1.3) Estimated GFR (Cockcroft-Gault) 118.9 Glucose Level 116 mg/dL (70-99) Calcium Level 8.6 mg/dL (8.5-10.1) Medications Current Medications Sodium Chloride 1,000 ml @ 1,000 mls/hr Q1H IV Last administered on 01:07; Start 04/20/17 at 01:00; Stop 04/20/17 at 01:59; Status DC Albuterol/ Ipratropium (Duoneb) 6 ml 1X ONCE NEB Last administered on 01:53; Start 04/20/17 at 01:00; Stop 04/20/17 at 01:01; Status DC Magnesium Sulfate/ Dextrose 50 ml @ 25 mls/hr 1X ONCE IV Last administered on 04/20/17 03:18; Start 04/20/17 at 03:00; Stop 04/20/17 at 04:59; Status DC Potassium Chloride (Klor-Con) 40 meq Q2HR PO Last administered on 04/20/17 05 :37; Start 04/20/17 at 04:00; Stop 04/20/17 at 06:01; Status DC Ondansetron HCl (Zofran) 4 mg PRN Q8HRS PRN IV NAUSEA/VOMITING; Start at 02:30; Stop 04/21/17 at 02:29; Status DC Fentanyl Citrate (Fentanyl 2ml Vial) 50 mcg PRN Q2HR PRN IV SEVERE PAIN Last administered on 04/20/17 21:44; Start 04/20/17 at 02:30; Stop 04/21/17 at 02 :29; Status DC Sodium Chloride 1,000 ml @ 100 mls/hr Q10H IV Last administered on 04/20/17 20:28; Start 04/20/17 at 02:29; Stop 04/21/17 at 02:28; Status DC Acetaminophen (Tylenol) 650 mg PRN Q4HRS PRN PO FEVER; Start 04/20/17 at 02:30 ; Stop 04/21/17 at 02:29; Status DC Albuterol/ Ipratropium (Duoneb) 3 ml RTQID NEB Last administered on 04/21/17 07:42; Start 04/20/17 at 08:00; Stop 04/21/17 at 07:59; Status DC Levofloxacin (Levaquin) 750 mg DAILY06 PO Last administered on 04/25/17 06:24 ; Start 04/20/17 at 06:00 Albuterol/ Ipratropium (Duoneb) 3 ml STK-MED ONCE .ROUTE ; Start 04/20/17 at 06 :22; Stop 04/20/17 at 06:23; Status DC Docusate Sodium (Colace) 100 mg DAILY PO Last administered on 04/24/17 10:04 ; Start 04/20/17 at 12:30 Oxycodone/ Acetaminophen (Percocet 5/325) 1 tab PRN Q4HRS PRN PO MILD-MODERATE PAIN Last administered on 04/24/17 18:05; Start 04/20/17 at 12:15 Ondansetron HCl (Zofran Odt) 4 mg PRN Q8HRS PRN PO NAUSEA/VOMITING Last administered on 04/25/17 03:57; Start 04/20/17 at 12:15 Lactobacillus Rhamnosus (Culturelle) 1 cap BID PO Last administered on 09:54; Start 04/20/17 at 21:00 Prednisone (Prednisone) 30 mg DAILY PO Last administered on 04/25/17 09:55; Start 04/20/17 at 18:30 Magnesium Sulfate/ Dextrose 100 ml @ 25 mls/hr 1X ONCE IV Last administered on 04/21/17 11:15; Start 04/21/17 at 11:00; Stop 04/21/17 at 14:59; Status DC Oxycodone HCl (Roxicodone) 10 mg PRN Q6HRS PRN PO SEVERE PAIN Last administered on 04/25/17 03:58; Start 04/21/17 at 11:45 Albuterol/ Ipratropium (Duoneb) 3 ml RTQID NEB Last administered on 04/25/17 07:31; Start 04/21/17 at 12:00 Budesonide (Pulmicort) 0.5 mg RTBID NEB Last administered on 04/25/17 07:31; Start 04/21/17 at 12:00 Iohexol (Omnipaque 300 Mg/ml) 75 ml 1X ONCE IV Last administered on 15:37; Start 04/21/17 at 13:15; Stop 04/21/17 at 13:16; Status DC Info (Do NOT chart on this entry -- for MONITORING) 1 each PRN DAILY PRN MC SEE COMMENTS; Start 04/21/17 at 13:15; Stop 04/23/17 at 13:14; Status DC Gadobutrol (Gadavist) 6 mmol 1X ONCE IV Last administered on 04/21/17 17:56 ; Start 04/21/17 at 17:45; Stop 04/21/17 at 17:46; Status DC Albuterol/ Ipratropium (Duoneb) 3 ml 1X ONCE NEB Last administered on 03:45; Start 04/22/17 at 04:00; Stop 04/22/17 at 04:01; Status DC Sodium Chloride 300 ml @ 60 mls/hr 1X ONCE IV Last administered on 17:27; Start 04/22/17 at 11:00; Stop 04/22/17 at 15:59; Status DC Demeclocycline HCl (Declomycin) 150 mg TID PO Last administered on 04/24/17 10:04; Start 04/22/17 at 14:00; Stop 04/24/17 at 11:19; Status DC Magnesium Sulfate/ Dextrose 100 ml @ 25 mls/hr 1X ONCE IV Last administered on 04/22/17 17:28; Start 04/22/17 at 14:00; Stop 04/22/17 at 17:59; Status DC Lidocaine/Sodium Bicarbonate (Buffered Lidocaine 1%) 20 ml STK-MED ONCE IJ ; Start 04/22/17 at 16:33; Stop 04/22/17 at 16:34; Status DC Lidocaine/Sodium Bicarbonate (Buffered Lidocaine 1%) 3 ml 1X ONCE IJ Last administered on 04/22/17 17:06; Start 04/22/17 at 17:00; Stop 04/22/17 at 17 :02; Status DC Nicotine (Nicoderm Cq 21mg) 1 patch DAILY TD Last administered on 04/23/17 09 :25; Start 04/22/17 at 20:15 Lorazepam (Ativan) 0.5 mg PRN Q6HRS PRN PO ANXIETY / AGITATION Last administered on 04/24/17 10:03; Start 04/22/17 at 20:15 Sodium Chloride 500 ml @ 50 mls/hr 1X ONCE IV Last administered on 23:25; Start 04/22/17 at 23:30; Stop 04/23/17 at 09:29; Status DC Sodium Chloride 500 ml @ 0 mls/hr CONT PRN IV ; Start 04/23/17 at 04:15; Stop 04/23/17 at 05:55; Status DC Sodium Chloride 500 ml @ 50 mls/hr 1X ONCE IV Last administered on 06:07; Start 04/23/17 at 06:00; Stop 04/23/17 at 15:59; Status DC Saliva Substitute (Biotene Moisturizing Mouth) 2 spray PRN Q15MIN PRN PO DRY MOUTH; Start 04/23/17 at 11:15 Sodium Chloride 500 ml @ 40 mls/hr 1X ONCE IV Last administered on 19:19; Start 04/23/17 at 18:15; Stop 04/24/17 at 06:44; Status DC Sodium Chloride 500 ml @ 40 mls/hr 1X ONCE IV Last administered on 10:00; Start 04/24/17 at 07:15; Stop 04/24/17 at 19:44; Status DC Demeclocycline HCl (Declomycin) 300 mg TID PO Last administered on 04/25/17 09:54; Start 04/24/17 at 14:00 Dronabinol (Marinol) 2.5 mg BIDACLD PO Last administered on 04/24/17 18:05; Start 04/24/17 at 16:30 Conivaptan/ Dextrose 100 ml @ 200 mls/hr 1X ONCE IV Last administered on 18:06; Start 04/24/17 at 16:15; Stop 04/24/17 at 16:44; Status DC Albuterol Sulfate (Ventolin Neb Soln) 2.5 mg PRN Q4HRS PRN NEB SHORTNESS OF BREATH Last administered on 04/25/17 00:53; Start 04/25/17 at 00:30 Sodium Chloride 500 ml @ 60 mls/hr Q8HRS IV Last administered on 04/25/17 07 :42; Start 04/25/17 at 07:00 Active Scripts Active Colace (Docusate Sodium) 100 Mg Capsule 100 Mg PO DAILY Oxycodone-Acetaminophen 5-325 (Oxycodone Hcl/Acetaminophen) 1 Each Tablet 1 Tab PO PRN Q4HRS PRN Reported Ondansetron Hcl 4 Mg Tablet 1 Tab PO PRN Q8HRS PRN Vitals/I & O Vital Sign - Last 24 Hours 04/24/17 04/24/17 04/24/17 04/24/17 11:00 12:30 15:00 15:24 Temp 98.0 98.2 98.0 98.2 Pulse 81 78 Resp 16 18 B/P (MAP) 119/70 (86) 133/89 (104) Pulse Ox 98 98 99 O2 Delivery Room Air Room Air Room Air Room Air 04/24/17 04/24/17 04/24/17 04/24/17 18:05 19:05 19:20 19:42 Temp 98.1 98.1 Pulse 94 Resp 18 18 18 B/P (MAP) 124/84 (97) Pulse Ox 99 99 96 98 O2 Delivery Room Air Room Air Room Air Room Air 04/24/17 04/24/17 04/24/17 04/25/17 19:42 20:00 23:10 00:54 Temp 98.1 98.1 Pulse 85 Resp 17 B/P (MAP) 106/58 (74) Pulse Ox 98 98 98 O2 Delivery Room Air Room Air Room Air Room Air 04/25/17 04/25/17 04/25/17 04/25/17 03:15 03:58 07:00 07:32 Temp 98.3 97.6 98.3 97.6 Pulse 87 94 Resp 18 20 B/P (MAP) 112/65 (81) 92/65 (74) Pulse Ox 97 97 98 O2 Delivery Room Air Room Air Room Air Room Air Intake and Output 04/24/17 04/24/17 04/25/17 15:00 23:00 07:00 Intake Total 200 ml Output Total 960 ml Balance 200 ml -960 ml SAUL,LC W MD Apr 25, 2017 10:09
[2017-04-25 11:00] VITALS: BP 106/58
--- NOTE | 2017-04-25 11:42 | PDOC ---
Renal-Progress Notes Subjective Notes Notes FEELING A BIT BETTER. NAUSEA IS BETTER History of Present Illness Hx of present illness NO CHANGE Vitals Vitals Vital Signs Date Time Temp Pulse Resp B/P (MAP) Pulse Ox O2 Delivery O2 Flow Rate FiO2 04/25/17 11:11 Room Air 04/25/17 11:00 97.5 75 19 106/58 (74) 94 97.5 Weight Weight [ ] I.O. Intake and Output Intake and Output 04/25/17 07:00 Intake Total 200 ml Output Total 960 ml Balance -760 ml Intake Oral 200 ml Output Urine Total 960 ml # Voids 3 Labs Labs Laboratory Tests Test 04/24/17 14:00 04/24/17 19:40 04/25/17 05:10 Sodium Level 116 mmol/L (136-145) 115 mmol/L (136-145) 119 mmol/L (136-145) White Blood Count 11.6 x10^3/uL (4.0-11.0) Red Blood Count 3.16 x10^6/uL (4.30-5.70) Hemoglobin 9.4 g/dL (13.0-17.5) Hematocrit 27.0 % (39.0-53.0) Mean Corpuscular Volume 86 fL (79-100) Mean Corpuscular Hemoglobin 30 pg (25-35) Mean Corpuscular Hemoglobin Concent 35 g/dL (31-37) Red Cell Distribution Width 15.0 % (11.5-14.5) Platelet Count 669 x10^3/uL (140-400) Potassium Level 4.1 mmol/L (3.5-5.1) Chloride Level 84 mmol/L (98-107) Carbon Dioxide Level 29 mmol/L (21-32) Anion Gap 6 (6-14) Blood Urea Nitrogen 11 mg/dL (8-26) Creatinine 0.7 mg/dL (0.7-1.3) Estimated GFR (Cockcroft-Gault) 118.9 Glucose Level 116 mg/dL (70-99) Calcium Level 8.6 mg/dL (8.5-10.1) Review of Systems Constitutional: yes: weakness, alert Ears/Nose/Throat: Yes: no symptom reported Pulmonary: Yes no symptom reported Gastrointestional: Yes: nausea Genitourinary: Yes: no symptom reported Musculoskeletal: Yes: muscle stiffness Skin: Yes no symptom reported Psychiatric/Neurological: Yes: no symptom reported Physical Exam General Appearance: no apparent distress Skin: warm Respiratory: bilateral CTA Heart: S1S2 Abdomen: soft, bowel sounds present Genitourinary: bladder flat Extremities: pulses present Neurology: alert Musculoskeletal: No pain Assessment Assessment IMP SEVERE HYPONATREMIA-REFRACTORY DESPITE 3% SALINE, DECLOMYCIN AND VAPRISOL SIADH-NA UP TO 119 MET LUNG CA PLAN 3% SALINE CONTINUOUSLY LABS LATER TODAY UPDATED FAMILY MAY HAVE ADRENAL INSUFFICIENCY PT ALREADY ON PREDNISONE SEIZURE PRECAUTIONS JUAN DIEGO ROWLAND MD Apr 25, 2017 11:42
[2017-04-25] MEDS: DRONABINOL 2.5 MG CAPSULE. PO SCH ×2 (11:56→16:14)
--- NOTE | 2017-04-25 12:30 | PDOC ---
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 ROS - has cough, CP better Objective Objective Vital Signs Date Time Temp Pulse Resp B/P (MAP) Pulse Ox O2 Delivery O2 Flow Rate FiO2 04/25/17 11:11 Room Air 04/25/17 11:00 97.5 75 19 106/58 (74) 94 97.5 Intake and Output 04/25/17 07:00 Intake Total 200 ml Output Total 960 ml Balance -760 ml Intake Oral 200 ml Output Urine Total 960 ml # Voids 3 Physical Exam Heart: Normal S1, Normal S2 General: Alert, Oriented X3, No acute distress Lungs: Clear to auscultation Neuro: Normal speech Psych/Mental Status: Mental status NL Assessment Assessment Problems Medical Problems: (1) Chest pain Status: Acute (2) Lung cancer Status: Acute IMPRESSION AND PLAN: 1. 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 Previously, he was staged as a stage III lung cancer and he received chemoradiation. He was then staged as a stage IV lung cancer. Started topotecan 03/31/17. Now admitted with CP and dyspnea. Plan to resume chemo as outpatient. 2. Right-sided chest pain, Pulmonary Medicine and Rad Onc has been consulted. CTA chest 04/21/17 is neg for PE. 3. Left adrenal gland metastasis. 4. Hyponatremia, due to SIADH. MRI brain 04/21/17 is neg for eval for mets. 3% SALINE CONTINUOUSLY INCREASE DEMECLOCYCLINE per nephrology. Na 119. 5. Pneumonia - Suspected RLL Postobstructive pneumonia. appreciate pulm management Comment Review of Relevant I have reviewed the following items reynold (where applicable) has been applied. Labs Laboratory Tests Test 04/23/17 16:00 04/24/17 06:25 04/24/17 14:00 04/24/17 19:40 Sodium Level 114 mmol/L (136-145) 116 mmol/L (136-145) 116 mmol/L (136-145) 115 mmol/L (136-145) Potassium Level 4.6 mmol/L (3.5-5.1) 4.3 mmol/L (3.5-5.1) Chloride Level 83 mmol/L (98-107) 83 mmol/L (98-107) Carbon Dioxide Level 27 mmol/L (21-32) 29 mmol/L (21-32) Anion Gap 4 (6-14) 4 (6-14) Blood Urea Nitrogen 10 mg/dL (8-26) 9 mg/dL (8-26) Creatinine 0.8 mg/dL (0.7-1.3) 0.6 mg/dL (0.7-1.3) Estimated GFR (Cockcroft-Gault) 101.9 142.0 BUN/Creatinine Ratio 13 (6-20) Glucose Level 178 mg/dL (70-99) 99 mg/dL (70-99) Calcium Level 8.0 mg/dL (8.5-10.1) 8.2 mg/dL (8.5-10.1) Total Bilirubin 0.1 mg/dL (0.2-1.0) Aspartate Amino Transf (AST/SGOT) 34 U/L (15-37) Alanine Aminotransferase (ALT/SGPT) 38 U/L (16-63) Alkaline Phosphatase 108 U/L (46-116) Total Protein 5.6 g/dL (6.4-8.2) Albumin 2.1 g/dL (3.4-5.0) Albumin/Globulin Ratio 0.6 (1.0-1.7) Test 04/25/17 05:10 White Blood Count 11.6 x10^3/uL (4.0-11.0) Red Blood Count 3.16 x10^6/uL (4.30-5.70) Hemoglobin 9.4 g/dL (13.0-17.5) Hematocrit 27.0 % (39.0-53.0) Mean Corpuscular Volume 86 fL (79-100) Mean Corpuscular Hemoglobin 30 pg (25-35) Mean Corpuscular Hemoglobin Concent 35 g/dL (31-37) Red Cell Distribution Width 15.0 % (11.5-14.5) Platelet Count 669 x10^3/uL (140-400) Sodium Level 119 mmol/L (136-145) Potassium Level 4.1 mmol/L (3.5-5.1) Chloride Level 84 mmol/L (98-107) Carbon Dioxide Level 29 mmol/L (21-32) Anion Gap 6 (6-14) Blood Urea Nitrogen 11 mg/dL (8-26) Creatinine 0.7 mg/dL (0.7-1.3) Estimated GFR (Cockcroft-Gault) 118.9 Glucose Level 116 mg/dL (70-99) Calcium Level 8.6 mg/dL (8.5-10.1) Laboratory Tests Test 04/24/17 14:00 04/24/17 19:40 04/25/17 05:10 Sodium Level 116 mmol/L (136-145) 115 mmol/L (136-145) 119 mmol/L (136-145) White Blood Count 11.6 x10^3/uL (4.0-11.0) Red Blood Count 3.16 x10^6/uL (4.30-5.70) Hemoglobin 9.4 g/dL (13.0-17.5) Hematocrit 27.0 % (39.0-53.0) Mean Corpuscular Volume 86 fL (79-100) Mean Corpuscular Hemoglobin 30 pg (25-35) Mean Corpuscular Hemoglobin Concent 35 g/dL (31-37) Red Cell Distribution Width 15.0 % (11.5-14.5) Platelet Count 669 x10^3/uL (140-400) Potassium Level 4.1 mmol/L (3.5-5.1) Chloride Level 84 mmol/L (98-107) Carbon Dioxide Level 29 mmol/L (21-32) Anion Gap 6 (6-14) Blood Urea Nitrogen 11 mg/dL (8-26) Creatinine 0.7 mg/dL (0.7-1.3) Estimated GFR (Cockcroft-Gault) 118.9 Glucose Level 116 mg/dL (70-99) Calcium Level 8.6 mg/dL (8.5-10.1) Medications Current Medications Sodium Chloride 1,000 ml @ 1,000 mls/hr Q1H IV Last administered on 01:07; Start 04/20/17 at 01:00; Stop 04/20/17 at 01:59; Status DC Albuterol/ Ipratropium (Duoneb) 6 ml 1X ONCE NEB Last administered on 01:53; Start 04/20/17 at 01:00; Stop 04/20/17 at 01:01; Status DC Magnesium Sulfate/ Dextrose 50 ml @ 25 mls/hr 1X ONCE IV Last administered on 04/20/17 03:18; Start 04/20/17 at 03:00; Stop 04/20/17 at 04:59; Status DC Potassium Chloride (Klor-Con) 40 meq Q2HR PO Last administered on 04/20/17 05 :37; Start 04/20/17 at 04:00; Stop 04/20/17 at 06:01; Status DC Ondansetron HCl (Zofran) 4 mg PRN Q8HRS PRN IV NAUSEA/VOMITING; Start at 02:30; Stop 04/21/17 at 02:29; Status DC Fentanyl Citrate (Fentanyl 2ml Vial) 50 mcg PRN Q2HR PRN IV SEVERE PAIN Last administered on 04/20/17 21:44; Start 04/20/17 at 02:30; Stop 04/21/17 at 02 :29; Status DC Sodium Chloride 1,000 ml @ 100 mls/hr Q10H IV Last administered on 04/20/17 20:28; Start 04/20/17 at 02:29; Stop 04/21/17 at 02:28; Status DC Acetaminophen (Tylenol) 650 mg PRN Q4HRS PRN PO FEVER; Start 04/20/17 at 02:30 ; Stop 04/21/17 at 02:29; Status DC Albuterol/ Ipratropium (Duoneb) 3 ml RTQID NEB Last administered on 04/21/17 07:42; Start 04/20/17 at 08:00; Stop 04/21/17 at 07:59; Status DC Levofloxacin (Levaquin) 750 mg DAILY06 PO Last administered on 04/25/17 06:24 ; Start 04/20/17 at 06:00 Albuterol/ Ipratropium (Duoneb) 3 ml STK-MED ONCE .ROUTE ; Start 04/20/17 at 06 :22; Stop 04/20/17 at 06:23; Status DC Docusate Sodium (Colace) 100 mg DAILY PO Last administered on 04/24/17 10:04 ; Start 04/20/17 at 12:30 Oxycodone/ Acetaminophen (Percocet 5/325) 1 tab PRN Q4HRS PRN PO MILD-MODERATE PAIN Last administered on 04/24/17 18:05; Start 04/20/17 at 12:15 Ondansetron HCl (Zofran Odt) 4 mg PRN Q8HRS PRN PO NAUSEA/VOMITING Last administered on 04/25/17 03:57; Start 04/20/17 at 12:15 Lactobacillus Rhamnosus (Culturelle) 1 cap BID PO Last administered on 09:54; Start 04/20/17 at 21:00 Prednisone (Prednisone) 30 mg DAILY PO Last administered on 04/25/17 09:55; Start 04/20/17 at 18:30; Stop 04/25/17 at 10:04; Status DC Magnesium Sulfate/ Dextrose 100 ml @ 25 mls/hr 1X ONCE IV Last administered on 04/21/17 11:15; Start 04/21/17 at 11:00; Stop 04/21/17 at 14:59; Status DC Oxycodone HCl (Roxicodone) 10 mg PRN Q6HRS PRN PO SEVERE PAIN Last administered on 04/25/17 03:58; Start 04/21/17 at 11:45 Albuterol/ Ipratropium (Duoneb) 3 ml RTQID NEB Last administered on 04/25/17 11:10; Start 04/21/17 at 12:00 Budesonide (Pulmicort) 0.5 mg RTBID NEB Last administered on 04/25/17 07:31; Start 04/21/17 at 12:00 Iohexol (Omnipaque 300 Mg/ml) 75 ml 1X ONCE IV Last administered on 15:37; Start 04/21/17 at 13:15; Stop 04/21/17 at 13:16; Status DC Info (Do NOT chart on this entry -- for MONITORING) 1 each PRN DAILY PRN MC SEE COMMENTS; Start 04/21/17 at 13:15; Stop 04/23/17 at 13:14; Status DC Gadobutrol (Gadavist) 6 mmol 1X ONCE IV Last administered on 04/21/17 17:56 ; Start 04/21/17 at 17:45; Stop 04/21/17 at 17:46; Status DC Albuterol/ Ipratropium (Duoneb) 3 ml 1X ONCE NEB Last administered on 03:45; Start 04/22/17 at 04:00; Stop 04/22/17 at 04:01; Status DC Sodium Chloride 300 ml @ 60 mls/hr 1X ONCE IV Last administered on 17:27; Start 04/22/17 at 11:00; Stop 04/22/17 at 15:59; Status DC Demeclocycline HCl (Declomycin) 150 mg TID PO Last administered on 04/24/17 10:04; Start 04/22/17 at 14:00; Stop 04/24/17 at 11:19; Status DC Magnesium Sulfate/ Dextrose 100 ml @ 25 mls/hr 1X ONCE IV Last administered on 04/22/17 17:28; Start 04/22/17 at 14:00; Stop 04/22/17 at 17:59; Status DC Lidocaine/Sodium Bicarbonate (Buffered Lidocaine 1%) 20 ml STK-MED ONCE IJ ; Start 04/22/17 at 16:33; Stop 04/22/17 at 16:34; Status DC Lidocaine/Sodium Bicarbonate (Buffered Lidocaine 1%) 3 ml 1X ONCE IJ Last administered on 04/22/17 17:06; Start 04/22/17 at 17:00; Stop 04/22/17 at 17 :02; Status DC Nicotine (Nicoderm Cq 21mg) 1 patch DAILY TD Last administered on 04/23/17 09 :25; Start 04/22/17 at 20:15 Lorazepam (Ativan) 0.5 mg PRN Q6HRS PRN PO ANXIETY / AGITATION Last administered on 04/24/17 10:03; Start 04/22/17 at 20:15 Sodium Chloride 500 ml @ 50 mls/hr 1X ONCE IV Last administered on 23:25; Start 04/22/17 at 23:30; Stop 04/23/17 at 09:29; Status DC Sodium Chloride 500 ml @ 0 mls/hr CONT PRN IV ; Start 04/23/17 at 04:15; Stop 04/23/17 at 05:55; Status DC Sodium Chloride 500 ml @ 50 mls/hr 1X ONCE IV Last administered on 06:07; Start 04/23/17 at 06:00; Stop 04/23/17 at 15:59; Status DC Saliva Substitute (Biotene Moisturizing Mouth) 2 spray PRN Q15MIN PRN PO DRY MOUTH; Start 04/23/17 at 11:15 Sodium Chloride 500 ml @ 40 mls/hr 1X ONCE IV Last administered on 19:19; Start 04/23/17 at 18:15; Stop 04/24/17 at 06:44; Status DC Sodium Chloride 500 ml @ 40 mls/hr 1X ONCE IV Last administered on 10:00; Start 04/24/17 at 07:15; Stop 04/24/17 at 19:44; Status DC Demeclocycline HCl (Declomycin) 300 mg TID PO Last administered on 04/25/17 09:54; Start 04/24/17 at 14:00 Dronabinol (Marinol) 2.5 mg BIDACLD PO Last administered on 04/25/17 11:56; Start 04/24/17 at 16:30 Conivaptan/ Dextrose 100 ml @ 200 mls/hr 1X ONCE IV Last administered on 18:06; Start 04/24/17 at 16:15; Stop 04/24/17 at 16:44; Status DC Albuterol Sulfate (Ventolin Neb Soln) 2.5 mg PRN Q4HRS PRN NEB SHORTNESS OF BREATH Last administered on 04/25/17 00:53; Start 04/25/17 at 00:30 Sodium Chloride 500 ml @ 60 mls/hr Q8HRS IV Last administered on 04/25/17 07 :42; Start 04/25/17 at 07:00 Prednisone (Prednisone) 20 mg DAILY PO ; Start 04/26/17 at 09:00 Active Scripts Active Colace (Docusate Sodium) 100 Mg Capsule 100 Mg PO DAILY Oxycodone-Acetaminophen 5-325 (Oxycodone Hcl/Acetaminophen) 1 Each Tablet 1 Tab PO PRN Q4HRS PRN Reported Ondansetron Hcl 4 Mg Tablet 1 Tab PO PRN Q8HRS PRN Vitals/I & O Vital Sign - Last 24 Hours 04/24/17 04/24/17 04/24/17 04/24/17 12:30 15:00 15:24 18:05 Temp 98.2 98.2 Pulse 78 Resp 18 18 B/P (MAP) 133/89 (104) Pulse Ox 98 99 99 O2 Delivery Room Air Room Air Room Air Room Air 04/24/17 04/24/17 04/24/17 04/24/17 19:05 19:20 19:42 19:42 Temp 98.1 98.1 Pulse 94 Resp 18 18 B/P (MAP) 124/84 (97) Pulse Ox 99 96 98 98 O2 Delivery Room Air Room Air Room Air Room Air 04/24/17 04/24/17 04/25/17 04/25/17 20:00 23:10 00:54 03:15 Temp 98.1 98.3 98.1 98.3 Pulse 85 87 Resp 17 18 B/P (MAP) 106/58 (74) 112/65 (81) Pulse Ox 98 98 97 O2 Delivery Room Air Room Air Room Air Room Air 04/25/17 04/25/17 04/25/17 04/25/17 03:58 07:00 07:32 08:00 Temp 97.6 97.6 Pulse 94 Resp 20 B/P (MAP) 92/65 (74) Pulse Ox 97 98 O2 Delivery Room Air Room Air Room Air Room Air 04/25/17 04/25/17 11:00 11:11 Temp 97.5 97.5 Pulse 75 Resp 19 B/P (MAP) 106/58 (74) Pulse Ox 94 O2 Delivery Room Air Room Air Intake and Output 04/24/17 04/24/17 04/25/17 15:00 23:00 07:00 Intake Total 200 ml Output Total 960 ml Balance 200 ml -960 ml YOSI WEEMS MD Apr 25, 2017 12:29
[2017-04-25 15:00] VITALS: BP 86/46
[2017-04-25 19:00] VITALS: BP 96/55
[2017-04-25 22:43] VITALS: BP 99/55
[2017-04-26 02:35] VITALS: BP 97/51
[2017-04-26 06:06] VITALS: BP 126/77
[2017-04-26] MEDS: SODIUM CHLORIDE 3 % 500 ML IV SCH (06:08)
[2017-04-26 06:22] LABS: CALCIUM 8.2 mg/dL (8.5-10.1); CREATININE 0.7 mg/dL (0.7-1.3); GFR 118.9; POTASSIUM 3.9 mmol/L (3.5-5.1)
[2017-04-26] MEDS: LACTOBACILLUS RHAMNOSUS GG 1 CAPSULE. PO SCH (08:00)
[2017-04-26] MEDS: DOCUSATE SODIUM 100 MG CAPSULE. PO SCH (08:00)
[2017-04-26] MEDS: DRONABINOL 2.5 MG CAPSULE. PO SCH (08:00)
[2017-04-26] MEDS: DEMECLOCYCLINE HCL 150 MG TABLET. PO SCH (08:01)
[2017-04-26] MEDS: NICOTINE 21MG PATCH. TD SCH (08:01)
[2017-04-26] MEDS: IPRATRPIUM/ALBUTEROL 0.5/2.5MG 3 ML NEBU. NEB SCH (08:13)
[2017-04-26] MEDS: BUDESONIDE 0.5 MG/2 ML NEBU. NEB SCH (08:13)
[2017-04-26] MEDS ORDERED: predniSONE 10 MG TABLET PO SCH (09:00)
[2017-04-26] MEDS ORDERED: DEME150T PO (10:31)
[2017-04-26] MEDS ORDERED: PRED-220 PO (10:31)
[2017-04-26] MEDS ORDERED: LEVO750T31 PO (10:34)
[2017-04-26] MEDS ORDERED: TOLV15TA PO (10:34)
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
--- NOTE | 2017-04-26 10:51 | PDOC ---
SUBJECTIVE ROS HypNatremia doing well, feels ready to go home OBJECTIVE Vital Signs Vital Signs Date Time Temp Pulse Resp B/P (MAP) Pulse Ox O2 Delivery O2 Flow Rate FiO2 04/26/17 10:03 Room Air 04/26/17 08:14 98 04/26/17 06:06 98.1 79 16 126/77 (93) 98.1 I & 0 Intake and Output 04/26/17 06:59 Intake Total 1770 ml Balance 1770 ml Intake Oral 1770 ml # Voids 5 # Bowel Movements 1 PHYSICAL EXAM Physical Exam General Appearance: no apparent distress Skin: warm Respiratory: bilateral CTA; few basal rales on Rt Heart: S1S2 Abdomen: soft, bowel sounds present Genitourinary: bladder flat Extremities: pulses present Neurology: alert Musculoskeletal: No pain Assessment Assessment IMP HYPONATREMIA- now much better; close to admit levels, emphasized high protien diet - Samsca as OP and ct ZAIN too SIADH-NA UP TO 119 due to MET LUNG CA PLAN pt adamant to go home. I have expressed my apprehansion re Na levels and risks. Pt voiced understanding. Dr Soares will be ordering Samsca for OP use. Dr Loya to see on Friday for next dose of Chemo COMMENT/RELEVANT DATA Meds Current Medications Medications (Trade) Dose Ordered Sig/Miladis Start Time Stop Time Status Last Admin Dose Admin Acetaminophen (Tylenol) 650 mg PRN Q4HRS PRN 04/20/17 02:30 04/21/17 02:29 DC Albuterol Sulfate (Ventolin Neb Soln) 2.5 mg PRN Q4HRS PRN 04/25/17 00:30 04/25/17 00:53 2.5 MG Albuterol/ Ipratropium (Duoneb) 3 ml 1X ONCE 04/22/17 04:00 04/22/17 04:01 DC 04/22/17 03:45 3 ML Budesonide (Pulmicort) 0.5 mg RTBID 04/21/17 12:00 04/26/17 08:13 0.5 MG Conivaptan/ Dextrose 100 ml @ 200 mls/hr 1X ONCE 04/24/17 16:15 04/24/17 16:44 DC 04/24/17 18:06 200 MLS/HR Demeclocycline HCl (Declomycin) 300 mg TID 04/24/17 14:00 04/26/17 08:01 300 MG Docusate Sodium (Colace) 100 mg DAILY 04/20/17 12:30 04/26/17 08:00 100 MG Dronabinol (Marinol) 2.5 mg BIDACLD 04/24/17 16:30 04/26/17 08:00 2.5 MG Fentanyl Citrate (Fentanyl 2ml Vial) 50 mcg PRN Q2HR PRN 04/20/17 02:30 04/21/17 02:29 DC 04/20/17 21:44 50 MCG Gadobutrol (Gadavist) 6 mmol 1X ONCE 04/21/17 17:45 04/21/17 17:46 DC 04/21/17 17:56 6 MMOL Info (Do NOT chart on this entry -- for MONITORING) 1 each PRN DAILY PRN 04/21/17 13:15 04/23/17 13:14 DC Iohexol (Omnipaque 300 Mg/ml) 75 ml 1X ONCE 04/21/17 13:15 04/21/17 13:16 DC 04/21/17 15:37 75 ML Lactobacillus Rhamnosus (Culturelle) 1 cap BID 04/20/17 21:00 04/26/17 08:00 1 CAP Levofloxacin (Levaquin) 750 mg DAILY06 04/20/17 06:00 04/26/17 06:07 750 MG Lidocaine/Sodium Bicarbonate (Buffered Lidocaine 1%) 3 ml 1X ONCE 04/22/17 17:00 04/22/17 17:02 DC 04/22/17 17:06 3 ML Lorazepam (Ativan) 0.5 mg PRN Q6HRS PRN 04/22/17 20:15 04/24/17 10:03 0.5 MG Magnesium Sulfate/ Dextrose 100 ml @ 25 mls/hr 1X ONCE 04/22/17 14:00 04/22/17 17:59 DC 04/22/17 17:28 25 MLS/HR Nicotine (Nicoderm Cq 21mg) 1 patch DAILY 04/22/17 20:15 04/23/17 09:25 1 PATCH Ondansetron HCl (Zofran Odt) 4 mg PRN Q8HRS PRN 04/20/17 12:15 04/25/17 03:57 4 MG Ondansetron HCl (Zofran) 4 mg PRN Q8HRS PRN 04/20/17 02:30 04/21/17 02:29 DC Oxycodone HCl (Roxicodone) 10 mg PRN Q6HRS PRN 04/21/17 11:45 04/25/17 23:46 10 MG Oxycodone/ Acetaminophen (Percocet 5/325) 1 tab PRN Q4HRS PRN 04/20/17 12:15 04/24/17 18:05 1 TAB Potassium Chloride (Klor-Con) 40 meq Q2HR 04/20/17 04:00 04/20/17 06:01 DC 04/20/17 05:37 40 MEQ Prednisone (Prednisone) 20 mg DAILY 04/26/17 09:00 04/26/17 08:01 20 MG Saliva Substitute (Biotene Moisturizing Mouth) 2 spray PRN Q15MIN PRN 04/23/17 11:15 Sodium Chloride 500 ml @ 60 mls/hr Q8HRS 04/25/17 07:00 04/26/17 06:08 60 MLS/HR Lab Laboratory Tests Test 04/25/17 12:00 04/26/17 05:15 Sodium Level 122 mmol/L (136-145) 127 mmol/L (136-145) Potassium Level 3.9 mmol/L (3.5-5.1) Chloride Level 93 mmol/L (98-107) Carbon Dioxide Level 28 mmol/L (21-32) Anion Gap 6 (6-14) Blood Urea Nitrogen 14 mg/dL (8-26) Creatinine 0.7 mg/dL (0.7-1.3) Estimated GFR (Cockcroft-Gault) 118.9 Glucose Level 93 mg/dL (70-99) Calcium Level 8.2 mg/dL (8.5-10.1) YUE RUSSELL MD Apr 26, 2017 10:51
== END 2017-04-26 11:45 | disposition home or self-care (01) | DRG 177 ==
LOC: ER 00:18 → 2 SOUTH 01:56
PROVIDERS: ADMIT Internal Medicine; ATTEND Internal Medicine
PROC: 05HM33Z Insertion of Infusion Device into Right Internal Jugular Vein, Percutaneous Approach (ICD-10-PCS; principal; 2017-04-22)
PROC: B543ZZA Ultrasonography of Right Jugular Veins, Guidance (ICD-10-PCS; 2017-04-22)
DX: J15.6 Pneumonia due to other Gram-negative bacteria (principal); E43 Unspecified severe protein-calorie malnutrition; C79.31 Secondary malignant neoplasm of brain; E22.2 Syndrome of inappropriate secretion of antidiuretic hormone; C79.72 Secondary malignant neoplasm of left adrenal gland; E83.42 Hypomagnesemia; C34.91 Malignant neoplasm of unspecified part of right bronchus or lung; J44.0 Chronic obstructive pulmonary disease with (acute) lower respiratory infection; J98.19 Other pulmonary collapse; Z68.1 Body mass index [BMI] 19.9 or less, adult; R06.03 Acute respiratory distress; F12.90 Cannabis use, unspecified, uncomplicated; F17.210 Nicotine dependence, cigarettes, uncomplicated; D64.9 Anemia, unspecified; Z92.3 Personal history of irradiation; Z92.21 Personal history of antineoplastic chemotherapy; Z83.3 Family history of diabetes mellitus; Z82.49 Family history of ischemic heart disease and other diseases of the circulatory system; Z80.1 Family history of malignant neoplasm of trachea, bronchus and lung; Z87.81 Personal history of (healed) traumatic fracture; J44.9 Chronic obstructive pulmonary disease, unspecified
CPT/HCPCS: 36415; 36556; 70553; 71010; 71275; 76937; 77001; 80048; 80053; 81001; 82553; 83735; 83880; 83935; 84295; 84300; 84443; 84484; 85007; 85025; 85027; 93005; 94250; 94640; 94760; 96360; A9585; C1892; J3010; J3475; J3490; J7030; J7060; J7512; J7613; J7620; J7626; Q0162; Q0167; Q9967; 99285-25

== ENCOUNTER 2017-04-28 23:03 | Inpatient (IN) | payer OTHER ==
[~2017-04-28] VITALS: Ht 182.9 cm; Wt 66.3 kg
[~2017-04-28 23:03] MED LIST changes: +DEME150T PO; +ONDA4TAB11 PO; +PRED-220 PO; +TOLV15TA PO
[2017-04-29] MEDS ORDERED: IV NORMAL SALINE 1000ML BAG 1,000 ML IV SCH
[2017-04-29 00:05] LABS: BASO % 0 % (0-3); EOS % 0 % (0-3); HEMATOCRIT 27.8 % (39.0-53.0); HEMOGLOBIN 9.6 g/dL (13.0-17.5); LYMPH # 0.6 x10^3/uL (1.0-4.8); LYMPH % 4 % (24-48); MEAN CORPUSCULAR HEMOGLOBIN 30 pg (25-35); MEAN CORPUSCULAR HGB CONC 35 g/dL (31-37); MEAN CORPUSCULAR VOLUME 87 fL (79-100); MONO % 6 % (0-9); NEUT % 89 % (31-73); PLATELET COUNT 630 x10^3/uL (140-400); RED BLOOD COUNT 3.19 x10^6/uL (4.30-5.70); RED CELL DISTRIBUTION WIDTH 15.3 % (11.5-14.5); WHITE BLOOD COUNT 15.3 x10^3/uL (4.0-11.0)
[2017-04-29] MEDS ORDERED: IV NORMAL SALINE 1000ML BAG 1,000 ML IV ONE (00:15)
[2017-04-29 00:29] LABS: ALBUMIN 2.7 g/dL (3.4-5.0); CALCIUM 8.1 mg/dL (8.5-10.1); CREATININE 0.8 mg/dL (0.7-1.3); GFR 101.9; POTASSIUM 4.2 mmol/L (3.5-5.1); TOTAL BILIRUBIN 0.2 mg/dL (0.2-1.0); TOTAL PROTEIN 5.4 g/dL (6.4-8.2)
[2017-04-29] MEDS ORDERED: ONDANSETRON PF 4 MG/2 ML VIAL. IV PRN (01:30)
[2017-04-29 01:56] LABS: BILIRUBIN,URINE NEGATIVE (NEG); GLUCOSE,URINE NEGATIVE (NEG); NITRITE,URINE NEGATIVE (NEG); PROTEIN,URINE NEGATIVE (NEG-TRACE); UROBILINOGEN,URINE 0.2 mg/dL (0.2 mg/dL)
[2017-04-29 02:02] LABS: BACTERIA,URINE 0 /HPF (0-FEW); RBC,URINE OCC /HPF (0-2); SQUAMOUS EPITHELIAL CELL,UR OCC /LPF; WBC,URINE OCC /HPF (0-4)
[2017-04-29 02:50] VITALS: BP 127/84
[2017-04-29] MEDS: IV NORMAL SALINE 1000ML BAG 1,000 ML IV SCH ×2 (02:54→15:53)
[2017-04-29] MEDS: oxyCODONE/APAP 5/325 1 TAB TABLET PO PRN ×3 (03:01→15:53)
[2017-04-29 04:04] LABS: PLT ESTIMATE INCREASED (ADEQUATE); POLYCHROMASIA SLIGHT
--- NOTE | 2017-04-29 06:46 | EKG ---
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
[2017-04-29 07:00] VITALS: BP 126/81
--- NOTE | 2017-04-29 08:24 | RAD ---
Single view of the Chest 04/29/2017 1:57 AM Indication: Right-sided volume loss. Concern for underlying pneumonia or other lesion. Medical workup. Comparison: Chest radiograph April 20, 2017 Findings: No pneumothorax is identified. Right medial basilar volume loss and shift of mediastinum towards the right is again noted, slightly less prominent than on prior study. Multiple small radiopacities are seen over the right upper abdomen, right inferior chest, single pass over the left upper chest. Configuration is stable. Left lung remains clear. No new consolidation is seen. No acute osseous changes are seen. Impression: Right basilar volume loss is slightly less prominent than on comparison study. Otherwise stable appearance of the chest.
[2017-04-29] MEDS ORDERED: oxyCODONE/APAP 5/325 1 TAB TABLET PO PRN (08:30)
[2017-04-29] MEDS ORDERED: predniSONE 20 MG TABLET PO SCH (09:00)
[2017-04-29] MEDS ORDERED: DOCUSATE SODIUM 100 MG CAPSULE. PO SCH (09:00)
[2017-04-29] MEDS ORDERED: TOLVAPTAN 15 MG PO SCH (09:00)
--- NOTE | 2017-04-29 09:15 | PDOC2 ---
CONSULT Date of Consult Date of Consult DATE: 04/29/17 TIME: 09:13 Past Medical History Cardiovascular: No pertinent hx Pulmonary: No pertinent hx CENTRAL NERVOUS SYSTEM: Other GI: No pertinent hx Heme/Onc: No pertinent hx Hepatobiliary: No pertinent hx Psych: No pertinent hx Musculoskeletal: No pain Rheumatologic: No pertinent hx Infectious disease: No pertinent hx Renal/: No pertinent hx Endocrine: No pertinent hx Past Surgical History Past Surgical History: Other Family History Family History: Coronary Artery Disease Social History ALCOHOL: rare Drugs: Crystal meth Current Medications Current Medications Current Medications Sodium Chloride 1,000 ml @ 999 mls/hr Q1H1M IV ; Start 04/29/17 at 00:00; Stop 04/29/17 at 01:20; Status DC Sodium Chloride 1,000 ml @ 1,000 mls/hr 1X ONCE IV Last administered on 04/29 00:15; Start 04/29/17 at 00:15; Stop 04/29/17 at 01:14; Status DC Ondansetron HCl (Zofran) 4 mg PRN Q8HRS PRN IV NAUSEA/VOMITING; Start at 01:30; Stop 04/30/17 at 01:29 Sodium Chloride 1,000 ml @ 80 mls/hr [id number] IV Last administered on 02:54; Start 04/29/17 at 01:30; Stop 04/30/17 at 01:29 Oxycodone/ Acetaminophen (Percocet 5/325) 1 tab PRN Q4HRS PRN PO PAIN Last administered on 04/29/17 03:01; Start 04/29/17 at 02:45 Demeclocycline HCl (Declomycin) 300 mg TID PO ; Start 04/29/17 at 09:00 Docusate Sodium (Colace) 100 mg DAILY PO ; Start 04/29/17 at 09:00 Oxycodone/ Acetaminophen (Percocet 5/325) 1 tab PRN Q4HRS PRN PO PAIN; Start 04/29/17 at 08:30 Prednisone (Prednisone) 20 mg DAILY PO ; Start 04/29/17 at 09:00 Ondansetron HCl (Zofran Odt) 4 mg PRN Q8HRS PRN PO NAUSEA/VOMITING; Start at 08:45 Non-Formulary Medication 15 mg DAILY PO ; Start 04/29/17 at 09:00; Status UNV Active Scripts Active Levaquin (Levofloxacin) 750 Mg Tablet 1 Tab PO DAILY Samsca (Tolvaptan) 15 Mg Tablet 15 Mg PO DAILY Demeclocycline Hcl 150 Mg Tablet 300 Mg PO TID Prednisone 10 Mg Tablet 20 Mg PO DAILY Colace (Docusate Sodium) 100 Mg Capsule 100 Mg PO DAILY Oxycodone-Acetaminophen 5-325 (Oxycodone Hcl/Acetaminophen) 1 Each Tablet 1 Tab PO PRN Q4HRS PRN Reported Ondansetron Hcl 4 Mg Tablet 1 Tab PO PRN Q8HRS PRN Allergies Allergies: Coded Allergies: No Known Drug Allergies (Unverified , 10/04/16) Vitals VITALS Vital Signs Date Time Temp Pulse Resp B/P (MAP) Pulse Ox O2 Delivery O2 Flow Rate FiO2 04/29/17 07:00 98.0 71 18 126/81 (96) 97 Room Air 98.0 Labs Labs Laboratory Tests Test 04/28/17 23:40 04/29/17 01:44 White Blood Count 15.3 x10^3/uL (4.0-11.0) Red Blood Count 3.19 x10^6/uL (4.30-5.70) Hemoglobin 9.6 g/dL (13.0-17.5) Hematocrit 27.8 % (39.0-53.0) Mean Corpuscular Volume 87 fL (79-100) Mean Corpuscular Hemoglobin 30 pg (25-35) Mean Corpuscular Hemoglobin Concent 35 g/dL (31-37) Red Cell Distribution Width 15.3 % (11.5-14.5) Platelet Count 630 x10^3/uL (140-400) Neutrophils (%) (Auto) 89 % (31-73) Lymphocytes (%) (Auto) 4 % (24-48) Monocytes (%) (Auto) 6 % (0-9) Eosinophils (%) (Auto) 0 % (0-3) Basophils (%) (Auto) 0 % (0-3) Neutrophils # (Auto) 13.6 x10^3uL (1.8-7.7) Lymphocytes # (Auto) 0.6 x10^3/uL (1.0-4.8) Monocytes # (Auto) 1.0 x10^3/uL (0.0-1.1) Eosinophils # (Auto) 0.0 x10^3/uL (0.0-0.7) Basophils # (Auto) 0.0 x10^3/uL (0.0-0.2) Segmented Neutrophils % 92 % (35-66) Band Neutrophils % 1 % (0-9) Lymphocytes % 5 % (24-48) Atypical Lymphocytes % (Manual) 1 % (0-0) Monocytes % 1 % (0-10) Platelet Estimate Increased (ADEQUATE) Giant Platelets Occ Polychromasia Slight Sodium Level 111 mmol/L (136-145) Potassium Level 4.2 mmol/L (3.5-5.1) Chloride Level 79 mmol/L (98-107) Carbon Dioxide Level 30 mmol/L (21-32) Anion Gap 2 (6-14) Blood Urea Nitrogen 13 mg/dL (8-26) Creatinine 0.8 mg/dL (0.7-1.3) Estimated GFR (Cockcroft-Gault) 101.9 BUN/Creatinine Ratio 16 (6-20) Glucose Level 122 mg/dL (70-99) Calcium Level 8.1 mg/dL (8.5-10.1) Total Bilirubin 0.2 mg/dL (0.2-1.0) Aspartate Amino Transf (AST/SGOT) 38 U/L (15-37) Alanine Aminotransferase (ALT/SGPT) 96 U/L (16-63) Alkaline Phosphatase 115 U/L (46-116) Troponin I Quantitative < 0.017 ng/mL (0.000-0.055) Total Protein 5.4 g/dL (6.4-8.2) Albumin 2.7 g/dL (3.4-5.0) Albumin/Globulin Ratio 1.0 (1.0-1.7) Thyroid Stimulating Hormone (TSH) 0.920 uIU/mL (0.358-3.74) Urine Collection Type Unknown Urine Color Yellow Urine Clarity Cloudy Urine pH 7.0 Urine Specific [place] 1.015 Urine Protein Negative mg/dL (NEG-TRACE) Urine Glucose (UA) Negative mg/dL (NEG) Urine Ketones (Stick) Negative mg/dL (NEG) Urine Blood Negative (NEG) Urine Nitrite Negative (NEG) Urine Bilirubin Negative (NEG) Urine Urobilinogen Dipstick 0.2 mg/dL (0.2 mg/dL) Urine Leukocyte Esterase Negative (NEG) Urine RBC Occ /HPF (0-2) Urine WBC Occ /HPF (0-4) Urine Squamous Epithelial Cells Occ /LPF Urine Amorphous Sediment Present /HPF Urine Bacteria 0 /HPF (0-FEW) Urine Hyaline Casts Occasional /HPF Urine Mucus Slight /LPF Laboratory Tests Test 04/28/17 23:40 04/29/17 01:44 White Blood Count 15.3 x10^3/uL (4.0-11.0) Red Blood Count 3.19 x10^6/uL (4.30-5.70) Hemoglobin 9.6 g/dL (13.0-17.5) Hematocrit 27.8 % (39.0-53.0) Mean Corpuscular Volume 87 fL (79-100) Mean Corpuscular Hemoglobin 30 pg (25-35) Mean Corpuscular Hemoglobin Concent 35 g/dL (31-37) Red Cell Distribution Width 15.3 % (11.5-14.5) Platelet Count 630 x10^3/uL (140-400) Neutrophils (%) (Auto) 89 % (31-73) Lymphocytes (%) (Auto) 4 % (24-48) Monocytes (%) (Auto) 6 % (0-9) Eosinophils (%) (Auto) 0 % (0-3) Basophils (%) (Auto) 0 % (0-3) Neutrophils # (Auto) 13.6 x10^3uL (1.8-7.7) Lymphocytes # (Auto) 0.6 x10^3/uL (1.0-4.8) Monocytes # (Auto) 1.0 x10^3/uL (0.0-1.1) Eosinophils # (Auto) 0.0 x10^3/uL (0.0-0.7) Basophils # (Auto) 0.0 x10^3/uL (0.0-0.2) Segmented Neutrophils % 92 % (35-66) Band Neutrophils % 1 % (0-9) Lymphocytes % 5 % (24-48) Atypical Lymphocytes % (Manual) 1 % (0-0) Monocytes % 1 % (0-10) Platelet Estimate Increased (ADEQUATE) Giant Platelets Occ Polychromasia Slight Sodium Level 111 mmol/L (136-145) Potassium Level 4.2 mmol/L (3.5-5.1) Chloride Level 79 mmol/L (98-107) Carbon Dioxide Level 30 mmol/L (21-32) Anion Gap 2 (6-14) Blood Urea Nitrogen 13 mg/dL (8-26) Creatinine 0.8 mg/dL (0.7-1.3) Estimated GFR (Cockcroft-Gault) 101.9 BUN/Creatinine Ratio 16 (6-20) Glucose Level 122 mg/dL (70-99) Calcium Level 8.1 mg/dL (8.5-10.1) Total Bilirubin 0.2 mg/dL (0.2-1.0) Aspartate Amino Transf (AST/SGOT) 38 U/L (15-37) Alanine Aminotransferase (ALT/SGPT) 96 U/L (16-63) Alkaline Phosphatase 115 U/L (46-116) Troponin I Quantitative < 0.017 ng/mL (0.000-0.055) Total Protein 5.4 g/dL (6.4-8.2) Albumin 2.7 g/dL (3.4-5.0) Albumin/Globulin Ratio 1.0 (1.0-1.7) Thyroid Stimulating Hormone (TSH) 0.920 uIU/mL (0.358-3.74) Urine Collection Type Unknown Urine Color Yellow Urine Clarity Cloudy Urine pH 7.0 Urine Specific [place] 1.015 Urine Protein Negative mg/dL (NEG-TRACE) Urine Glucose (UA) Negative mg/dL (NEG) Urine Ketones (Stick) Negative mg/dL (NEG) Urine Blood Negative (NEG) Urine Nitrite Negative (NEG) Urine Bilirubin Negative (NEG) Urine Urobilinogen Dipstick 0.2 mg/dL (0.2 mg/dL) Urine Leukocyte Esterase Negative (NEG) Urine RBC Occ /HPF (0-2) Urine WBC Occ /HPF (0-4) Urine Squamous Epithelial Cells Occ /LPF Urine Amorphous Sediment Present /HPF Urine Bacteria 0 /HPF (0-FEW) Urine Hyaline Casts Occasional /HPF Urine Mucus Slight /LPF Assessment/Plan Assessment/Plan REQUESTING PHYSICIAN: Dr Hickman REASON FOR CONSULTATION: 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 HISTORY OF PRESENT ILLNESS: The patient is a 51-year-old gentleman who presented to [facility] on 06/27/2016 with shortness of breath and chest pain. A CT scan on 06/27/2016 revealed a 4.9-cm right lower lobe mass with hilar and mediastinal lymphadenopathy. He underwent a CT scan of the head, chest, abdomen, and pelvis and a bone scan, which did not reveal any distant metastatic disease. He underwent a CT-guided core biopsy on 06/21/2016 that revealed small-cell lung cancer. He received chemotherapy with cisplatin and etoposide from 07/08/2016. Radiation was added with cycle #2 of treatment. His last cycle of chemotherapy was on 10/02/2016 which was cycle #4. A CT scan on 10/22/2016 revealed an excellent response. He underwent a prophylactic cranial irradiation. He then did not return for followup. He presented to [facility] ER on 03/24/2017 with right-sided chest pain of 3 days' duration. He also has exertional shortness of breath. He underwent a CT scan of the chest on 03/24/2017, which revealed a mass-like consolidation in the right lower lobe measuring 8.5 cm. There may be a component of pneumonia and recurrent malignancy. A new left adrenal metastasis measuring 3.8 cm is also noted. Started topotecan 03/31/17. Now admitted with n/v and Na of 111 on 04/28/17. PAST MEDICAL HISTORY: Small-cell lung cancer as described above, status post chemoradiation. FAMILY HISTORY: Positive for coronary artery disease. SOCIAL HISTORY: He has a history of smoking less than 1 pack per day. REVIEW OF SYSTEMS: A 12-point review of system was performed. Pertinent positives are mentioned in the history of present illness. Rest of the system review is negative. PHYSICAL EXAMINATION: GENERAL APPEARANCE: The patient is a 51-year-old gentleman who is in no acute cardiorespiratory distress. VITAL SIGNS: reviewed. HEENT: Head is atraumatic, normocephalic. Eyes: No icterus. NECK: Supple. CHEST: Bilaterally symmetrical. HEART: S1, S2 normal. ABDOMEN: Soft, nontender. CENTRAL NERVOUS SYSTEM: No focal deficits. LYMPHATICS: No lymphadenopathy. SKIN: No rashes. PSYCHOLOGIC: Mood and affect are appropriate. MUSCULOSKELETAL: No joint effusions. LABORATORY DATA: Na of 111 on 04/28/17. IMPRESSION AND PLAN: 1. 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 Previously, he was staged as a stage III lung cancer and he received chemoradiation. He was then staged as a stage IV lung cancer. Started topotecan 03/31/17. Now admitted with n/v and Na of 111 on 04/28/17. Plan to resume chemo as outpatient. 2. Right-sided chest pain. CTA chest 04/21/17 is neg for PE. 3. Left adrenal gland metastasis. 4. Hyponatremia, due to SIADH. Now admitted with n/v and Na of 111 on 04/28/17. Consult nephrology. YOSI WEEMS MD Apr 29, 2017 09:15
[2017-04-29] MEDS: ONDANSETRON ODT 4 MG TAB.RAPDIS. PO PRN ×2 (09:22→15:54)
[2017-04-29] MEDS: DEMECLOCYCLINE HCL 150 MG TABLET. PO SCH ×3 (09:23→22:47)
[2017-04-29] MEDS: IPRATRPIUM/ALBUTEROL 0.5/2.5MG 3 ML NEBU. NEB SCH ×4 (09:45→19:36)
--- NOTE | 2017-04-29 09:55 | PDOC2 ---
CONSULT Date of Consult Date of Consult DATE: 04/29/17 TIME: 09:48 Reason for Consult Reason for Consult: HypoNatremia Referring Physician Referring Physician: Dr Loya Identification/Chief Complaint Chief Complaint Nausea Problems: Source Source: Chart review, Patient History of Present Illness Reason for Visit: as dictated Past Medical History Cardiovascular: No pertinent hx Pulmonary: COPD, Other (met. small cell lung cancer) CENTRAL NERVOUS SYSTEM: Other GI: No pertinent hx Heme/Onc: No pertinent hx, Other (Small cell Lung cancer) Hepatobiliary: No pertinent hx Psych: No pertinent hx Musculoskeletal: No pain Rheumatologic: No pertinent hx Infectious disease: No pertinent hx Renal/: Bladder Ca. Endocrine: Other (recc HypoNatremia due to SIADH) Past Surgical History Past Surgical History: Other Family History Family History: Coronary Artery Disease Social History 1 pack per day ALCOHOL: rare Drugs: Crystal meth Lives: Alone Current Medications Current Medications Current Medications Sodium Chloride 1,000 ml @ 999 mls/hr Q1H1M IV ; Start 04/29/17 at 00:00; Stop 04/29/17 at 01:20; Status DC Sodium Chloride 1,000 ml @ 1,000 mls/hr 1X ONCE IV Last administered on 04/29 00:15; Admin Dose 1,000 MLS/HR; Start 04/29/17 at 00:15; Stop 04/29/17 at 01:14; Status DC Ondansetron HCl (Zofran) 4 mg PRN Q8HRS PRN IV NAUSEA/VOMITING; Start at 01:30; Stop 04/30/17 at 01:29 Sodium Chloride 1,000 ml @ 80 mls/hr [id number] IV Last administered on 02:54; Admin Dose 80 MLS/HR; Start 04/29/17 at 01:30; Stop 04/30/17 at 01 :29 Oxycodone/ Acetaminophen (Percocet 5/325) 1 tab PRN Q4HRS PRN PO PAIN Last administered on 04/29/17 09:22; Admin Dose 1 TAB; Start 04/29/17 at 02:45 Demeclocycline HCl (Declomycin) 300 mg TID PO Last administered on 04/29/17 09:23; Admin Dose 300 MG; Start 04/29/17 at 09:00 Docusate Sodium (Colace) 100 mg DAILY PO ; Start 04/29/17 at 09:00 Oxycodone/ Acetaminophen (Percocet 5/325) 1 tab PRN Q4HRS PRN PO PAIN; Start 04/29/17 at 08:30 Prednisone (Prednisone) 20 mg DAILY PO Last administered on 04/29/17 09:22; Admin Dose 20 MG; Start 04/29/17 at 09:00 Ondansetron HCl (Zofran Odt) 4 mg PRN Q8HRS PRN PO NAUSEA/VOMITING Last administered on 04/29/17 09:22; Admin Dose 4 MG; Start 04/29/17 at 08:45 Non-Formulary Medication 15 mg DAILY PO ; Start 04/29/17 at 09:00; Status UNV Active Scripts Active Levaquin (Levofloxacin) 750 Mg Tablet 1 Tab PO DAILY Samsca (Tolvaptan) 15 Mg Tablet 15 Mg PO DAILY Demeclocycline Hcl 150 Mg Tablet 300 Mg PO TID Prednisone 10 Mg Tablet 20 Mg PO DAILY Colace (Docusate Sodium) 100 Mg Capsule 100 Mg PO DAILY Oxycodone-Acetaminophen 5-325 (Oxycodone Hcl/Acetaminophen) 1 Each Tablet 1 Tab PO PRN Q4HRS PRN Reported Ondansetron Hcl 4 Mg Tablet 1 Tab PO PRN Q8HRS PRN Allergies Allergies: Coded Allergies: No Known Drug Allergies (Unverified , 10/04/16) ROS Review of System GEN: no Fevers no Chills EYES: no new Visual Complaints ENT: no EN Drainage no Hearing deficiets CVS: no Orthopnea no CP RESP: no SOB no MUÑOZ GI: + Nausea no Vomiting : no Dysuria no Urgency HEME: no easy bruising no Palp Ly Nodes NEURO no Focal Weakness no Sz PSYCH: no Suicidal Ideation no Depression SKIN: no Rashes ENDO: no Polyuria or Polydipsia no Hot/Cold Intolerance MU SK: no Arthraigia no Myalgia Physical Exam Physical Exam General Appearance: Awake Alert Oriented x 3 In no Distress; ch ill appearing, somewhat emaciated Eyes: VIsion Unchanged Conjunctiva Normal EN: No EN Drainage Mucous Memb. moist Neck: no JVD no JVP Supple no Thyromegaly CVS: S1 S2 no Murmur No Gallop No Rub no Edema Resp: few RLL Rales no Rhonchi no Acc. Muscle use GI: BAS +ve NO Bruit Non Tender Non Distended : no CVA tenderness; no Suprapubic Tenderness SKIN: no Rashes Breast Exam deferred Mu.Sk: Adequate ROM min Muscle Atrophy Heme: Unable to palpate Obvious LAD no Splenomegaly NEURO: Good Strength and Tone Cranial Nerves II - XII grossly intact Psych: ? Depressed no Active hallucination Vital Signs Vital Signs Date Time Temp Pulse Resp B/P (MAP) Pulse Ox O2 Delivery O2 Flow Rate FiO2 04/29/17 09:22 97 Room Air 04/29/17 07:00 98.0 71 18 126/81 (96) 98.0 Assessment & Plan HypoNatremia - suspect SIADH from lungs Ca which is resistant to ZAIN. ? Adr Insuff cannot be ruled out but remains on prednissone. ? Add florinef too. Not sure if he started SAMSCA as was Rxed for him on D/c last visit. 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 Labs Labs Laboratory Tests Test 04/28/17 23:40 04/29/17 01:44 White Blood Count 15.3 x10^3/uL (4.0-11.0) Red Blood Count 3.19 x10^6/uL (4.30-5.70) Hemoglobin 9.6 g/dL (13.0-17.5) Hematocrit 27.8 % (39.0-53.0) Mean Corpuscular Volume 87 fL (79-100) Mean Corpuscular Hemoglobin 30 pg (25-35) Mean Corpuscular Hemoglobin Concent 35 g/dL (31-37) Red Cell Distribution Width 15.3 % (11.5-14.5) Platelet Count 630 x10^3/uL (140-400) Neutrophils (%) (Auto) 89 % (31-73) Lymphocytes (%) (Auto) 4 % (24-48) Monocytes (%) (Auto) 6 % (0-9) Eosinophils (%) (Auto) 0 % (0-3) Basophils (%) (Auto) 0 % (0-3) Neutrophils # (Auto) 13.6 x10^3uL (1.8-7.7) Lymphocytes # (Auto) 0.6 x10^3/uL (1.0-4.8) Monocytes # (Auto) 1.0 x10^3/uL (0.0-1.1) Eosinophils # (Auto) 0.0 x10^3/uL (0.0-0.7) Basophils # (Auto) 0.0 x10^3/uL (0.0-0.2) Segmented Neutrophils % 92 % (35-66) Band Neutrophils % 1 % (0-9) Lymphocytes % 5 % (24-48) Atypical Lymphocytes % (Manual) 1 % (0-0) Monocytes % 1 % (0-10) Platelet Estimate Increased (ADEQUATE) Giant Platelets Occ Polychromasia Slight Sodium Level 111 mmol/L (136-145) Potassium Level 4.2 mmol/L (3.5-5.1) Chloride Level 79 mmol/L (98-107) Carbon Dioxide Level 30 mmol/L (21-32) Anion Gap 2 (6-14) Blood Urea Nitrogen 13 mg/dL (8-26) Creatinine 0.8 mg/dL (0.7-1.3) Estimated GFR (Cockcroft-Gault) 101.9 BUN/Creatinine Ratio 16 (6-20) Glucose Level 122 mg/dL (70-99) Calcium Level 8.1 mg/dL (8.5-10.1) Total Bilirubin 0.2 mg/dL (0.2-1.0) Aspartate Amino Transf (AST/SGOT) 38 U/L (15-37) Alanine Aminotransferase (ALT/SGPT) 96 U/L (16-63) Alkaline Phosphatase 115 U/L (46-116) Troponin I Quantitative < 0.017 ng/mL (0.000-0.055) Total Protein 5.4 g/dL (6.4-8.2) Albumin 2.7 g/dL (3.4-5.0) Albumin/Globulin Ratio 1.0 (1.0-1.7) Thyroid Stimulating Hormone (TSH) 0.920 uIU/mL (0.358-3.74) Urine Collection Type Unknown Urine Color Yellow Urine Clarity Cloudy Urine pH 7.0 Urine Specific [place] 1.015 Urine Protein Negative mg/dL (NEG-TRACE) Urine Glucose (UA) Negative mg/dL (NEG) Urine Ketones (Stick) Negative mg/dL (NEG) Urine Blood Negative (NEG) Urine Nitrite Negative (NEG) Urine Bilirubin Negative (NEG) Urine Urobilinogen Dipstick 0.2 mg/dL (0.2 mg/dL) Urine Leukocyte Esterase Negative (NEG) Urine RBC Occ /HPF (0-2) Urine WBC Occ /HPF (0-4) Urine Squamous Epithelial Cells Occ /LPF Urine Amorphous Sediment Present /HPF Urine Bacteria 0 /HPF (0-FEW) Urine Hyaline Casts Occasional /HPF Urine Mucus Slight /LPF Laboratory Tests Test 04/28/17 23:40 04/29/17 01:44 White Blood Count 15.3 x10^3/uL (4.0-11.0) Red Blood Count 3.19 x10^6/uL (4.30-5.70) Hemoglobin 9.6 g/dL (13.0-17.5) Hematocrit 27.8 % (39.0-53.0) Mean Corpuscular Volume 87 fL (79-100) Mean Corpuscular Hemoglobin 30 pg (25-35) Mean Corpuscular Hemoglobin Concent 35 g/dL (31-37) Red Cell Distribution Width 15.3 % (11.5-14.5) Platelet Count 630 x10^3/uL (140-400) Neutrophils (%) (Auto) 89 % (31-73) Lymphocytes (%) (Auto) 4 % (24-48) Monocytes (%) (Auto) 6 % (0-9) Eosinophils (%) (Auto) 0 % (0-3) Basophils (%) (Auto) 0 % (0-3) Neutrophils # (Auto) 13.6 x10^3uL (1.8-7.7) Lymphocytes # (Auto) 0.6 x10^3/uL (1.0-4.8) Monocytes # (Auto) 1.0 x10^3/uL (0.0-1.1) Eosinophils # (Auto) 0.0 x10^3/uL (0.0-0.7) Basophils # (Auto) 0.0 x10^3/uL (0.0-0.2) Segmented Neutrophils % 92 % (35-66) Band Neutrophils % 1 % (0-9) Lymphocytes % 5 % (24-48) Atypical Lymphocytes % (Manual) 1 % (0-0) Monocytes % 1 % (0-10) Platelet Estimate Increased (ADEQUATE) Giant Platelets Occ Polychromasia Slight Sodium Level 111 mmol/L (136-145) Potassium Level 4.2 mmol/L (3.5-5.1) Chloride Level 79 mmol/L (98-107) Carbon Dioxide Level 30 mmol/L (21-32) Anion Gap 2 (6-14) Blood Urea Nitrogen 13 mg/dL (8-26) Creatinine 0.8 mg/dL (0.7-1.3) Estimated GFR (Cockcroft-Gault) 101.9 BUN/Creatinine Ratio 16 (6-20) Glucose Level 122 mg/dL (70-99) Calcium Level 8.1 mg/dL (8.5-10.1) Total Bilirubin 0.2 mg/dL (0.2-1.0) Aspartate Amino Transf (AST/SGOT) 38 U/L (15-37) Alanine Aminotransferase (ALT/SGPT) 96 U/L (16-63) Alkaline Phosphatase 115 U/L (46-116) Troponin I Quantitative < 0.017 ng/mL (0.000-0.055) Total Protein 5.4 g/dL (6.4-8.2) Albumin 2.7 g/dL (3.4-5.0) Albumin/Globulin Ratio 1.0 (1.0-1.7) Thyroid Stimulating Hormone (TSH) 0.920 uIU/mL (0.358-3.74) Urine Collection Type Unknown Urine Color Yellow Urine Clarity Cloudy Urine pH 7.0 Urine Specific [place] 1.015 Urine Protein Negative mg/dL (NEG-TRACE) Urine Glucose (UA) Negative mg/dL (NEG) Urine Ketones (Stick) Negative mg/dL (NEG) Urine Blood Negative (NEG) Urine Nitrite Negative (NEG) Urine Bilirubin Negative (NEG) Urine Urobilinogen Dipstick 0.2 mg/dL (0.2 mg/dL) Urine Leukocyte Esterase Negative (NEG) Urine RBC Occ /HPF (0-2) Urine WBC Occ /HPF (0-4) Urine Squamous Epithelial Cells Occ /LPF Urine Amorphous Sediment Present /HPF Urine Bacteria 0 /HPF (0-FEW) Urine Hyaline Casts Occasional /HPF Urine Mucus Slight /LPF YUE RUSSELL MD Apr 29, 2017 09:55
[2017-04-29] MEDS: CONIVAPTAN IV ONE ×2 (10:00→18:50)
[2017-04-29 10:02] LABS: CREATININE 0.7 mg/dL (0.7-1.3); GFR 118.9; POTASSIUM 3.7 mmol/L (3.5-5.1)
[2017-04-29] MEDS ORDERED: CONIVAPTAN IV PRN (10:30)
--- NOTE | 2017-04-29 10:40 | CONS ---
DATE OF CONSULTATION: PRIMARY PHYSICIAN: Dr. Crum. REASON FOR CONSULTATION: Hyponatremia. HISTORY OF PRESENT ILLNESS: The patient is a 51-year-old gentleman who is noted to have recurrent hyponatremia. This began in the early March range, where his sodium was 129 and then dropped down to 113 on his previous hospitalization. He was started on prednisone due to suspicion for mets to the adrenal gland. No hypernatremia has been noted per se at this time. He was given hypertonic saline and also was on vasopressin antagonist, to where his sodium came up to 127. He was adamant to be discharged despite being educated and warned about potential drop in his sodium. He tells me that he was going to see Dr. Loya on Friday prior to his discharge. He was unable to make an appointment with Dr. Loya and hence presented to the ER for further evaluation with persistent nausea. He feels weak and fatigued at this time. He also tells me he filled all his prescriptions, but does not know what all he took and how much. He was given a prescription for Samsca previously. It is unclear to me if he has gotten this. He was treated with demeclocycline while here and does not seem to have responded to that much either. In this setting, he was admitted to the hospital with a sodium of 111 and persistent nausea. We were asked to see him for the same. I have reviewed his records per Dr. Loya's consult note. It is unclear to me if the nausea is a cause or result of his hyponatremia. Palliative care will be consulted. YUE RUSSELL MD DR: KAIA/rafita JOB#: [id number] / [id number]
[2017-04-29 11:00] VITALS: BP 121/76
[2017-04-29] MEDS: BUDESONIDE 0.5 MG/2 ML NEBU. NEB SCH ×2 (11:00→19:36)
[2017-04-29] MEDS ORDERED: SALIVA STIMULANT AGENT 44ML SPRAY BOTTLE. PO PRN ×2 (11:30→18:30)
[2017-04-29] MEDS: DRONABINOL 2.5 MG CAPSULE. PO SCH ×2 (12:30→15:54)
[2017-04-29 14:59] VITALS: BP 123/76
[2017-04-29 19:10] VITALS: BP 132/79
[2017-04-29 23:06] VITALS: BP 127/75
[2017-04-30 02:21] VITALS: BP 124/79
[2017-04-30 06:17] LABS: CALCIUM 8.8 mg/dL (8.5-10.1); CREATININE 0.8 mg/dL (0.7-1.3); GFR 101.9
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
== END 2017-04-30 06:50 | disposition left against medical advice (07) | DRG 644 ==
LOC: ER 23:03 → 2 NORTH 04-29 01:21
PROVIDERS: ADMIT Internal Medicine; ATTEND Internal Medicine
DX: E22.2 Syndrome of inappropriate secretion of antidiuretic hormone (principal); C79.72 Secondary malignant neoplasm of left adrenal gland; C79.31 Secondary malignant neoplasm of brain; C34.91 Malignant neoplasm of unspecified part of right bronchus or lung; F12.90 Cannabis use, unspecified, uncomplicated; D64.9 Anemia, unspecified; J44.9 Chronic obstructive pulmonary disease, unspecified; Z53.21 Procedure and treatment not carried out due to patient leaving prior to being seen by health care provider; Z82.49 Family history of ischemic heart disease and other diseases of the circulatory system; Z92.21 Personal history of antineoplastic chemotherapy; Z92.3 Personal history of irradiation; Z87.891 Personal history of nicotine dependence; Z85.51 Personal history of malignant neoplasm of bladder
CPT/HCPCS: 36415; 71010; 80048; 80053; 81001; 84295; 84443; 84484; 85007; 85025; 93005; 94250; 94640; 94760; 99406; J7030; J7512; J7620; J7626; Q0162; Q0167; 99285-25

== ENCOUNTER 2017-06-11 16:38 | Emergency (ER) | payer OTHER ==
[2017-06-11 18:14] LABS: BILIRUBIN,URINE LARGE (NEG); CLARITY,URINE CLOUDY; COLOR,URINE AMBER; GLUCOSE,URINE NEGATIVE (NEG); NITRITE,URINE NEGATIVE (NEG); PROTEIN,URINE NEGATIVE (NEG-TRACE); UROBILINOGEN,URINE 0.2 mg/dL (0.2 mg/dL)
[2017-06-11 18:15] LABS: BASO % 0 % (0-3); EOS % 0 % (0-3); HEMATOCRIT 23.8 % (39.0-53.0); LYMPH # 0.5 x10^3/uL (1.0-4.8); LYMPH % 59 % (24-48); MEAN CORPUSCULAR HEMOGLOBIN 32 pg (25-35); MEAN CORPUSCULAR HGB CONC 34 g/dL (31-37); MEAN CORPUSCULAR VOLUME 95 fL (79-100); MONO # 0.2 x10^3/uL (0.0-1.1); MONO % 21 % (0-9); NEUT # 0.2 x10^3uL (1.8-7.7); NEUT % 20 % (31-73); PLATELET COUNT 267 x10^3/uL (140-400); RED CELL DISTRIBUTION WIDTH 17.7 % (11.5-14.5)
[2017-06-11 18:17] LABS: ADD MAN DIFF? YES; WHITE BLOOD COUNT 0.9 x10^3/uL (4.0-11.0)
[2017-06-11 18:25] LABS: ANION GAP 10 (6-14); BLOOD UREA NITROGEN 20 mg/dL (8-26); BUN/CREATININE RATIO 20 (6-20); CALCIUM 8.2 mg/dL (8.5-10.1); CARBON DIOXIDE 26 mmol/L (21-32); CHLORIDE 101 mmol/L (98-107); GFR 78.8; GLUCOSE 114 mg/dL (70-99); INR 1.1 (0.8-1.1); PARTIAL THROMBOPLASTIN TIME 30 SEC (24-38); POTASSIUM 3.4 mmol/L (3.5-5.1); PROTHROMBIN TIME PATIENT 13.7 SEC (11.7-14.0); SODIUM 137 mmol/L (136-145)
[2017-06-11 18:31] LABS: ALBUMIN 2.1 g/dL (3.4-5.0); ALBUMIN/GLOBULIN RATIO 0.5 (1.0-1.7); ALK PHOS 825 U/L (46-116); ALT (SGPT) 75 U/L (16-63); AST (SGOT) 50 U/L (15-37); TOTAL BILIRUBIN 8.3 mg/dL (0.2-1.0); TOTAL PROTEIN 6.1 g/dL (6.4-8.2)
[2017-06-11 18:34] LABS: AMORPHOUS SEDIMENT,UR PRESENT /HPF; BACTERIA,URINE 0 /HPF (0-FEW); GRANULAR CASTS,URINE OCCASIONAL /HPF; RBC,URINE 0 /HPF (0-2); WBC,URINE 0 /HPF (0-4)
[2017-06-11 19:14] LABS: % BANDS 11 % (0-9); % LYMPHS 20 % (24-48); % MONOS 10 % (0-10); % SEGS 59 % (35-66); PLT ESTIMATE ADEQUATE (ADEQUATE)
[2017-06-11 19:15] LABS: ANISOCYTOSIS SLIGHT; POIKILOCYTOSIS SLIGHT
== END 2017-06-11 19:05 | disposition left against medical advice (07) ==
LOC: ER 16:38
DX: T45.1X5A Adverse effect of antineoplastic and immunosuppressive drugs, initial encounter (principal); C78.00 Secondary malignant neoplasm of unspecified lung; D70.1 Agranulocytosis secondary to cancer chemotherapy; D64.9 Anemia, unspecified; E43 Unspecified severe protein-calorie malnutrition; D70.9 Neutropenia, unspecified; E80.6 Other disorders of bilirubin metabolism; F12.10 Cannabis abuse, uncomplicated
CPT/HCPCS: 36415; 80053; 81001; 85007; 85025; 85610; 85730; 99284

== ENCOUNTER → 2017-06-12 | Outpatient (CLI) | payer OTHER ==
[2017-06-12] MEDS: IOHEXOL 300 MG/ML 100ML VIAL. IV (09:57)
[2017-06-12] MEDS: IOHEXOL 240 MG/ML 50ML VIAL. PO (09:57)
== END | disposition home or self-care (01) ==
LOC: CT 08:40
DX: C34.91 Malignant neoplasm of unspecified part of right bronchus or lung (principal); C79.72 Secondary malignant neoplasm of left adrenal gland; C78.00 Secondary malignant neoplasm of unspecified lung; R93.8 Abnormal findings on diagnostic imaging of other specified body structures; J98.11 Atelectasis; R91.8 Other nonspecific abnormal finding of lung field; I70.0 Atherosclerosis of aorta; N28.1 Cyst of kidney, acquired; N28.89 Other specified disorders of kidney and ureter; R59.0 Localized enlarged lymph nodes
CPT/HCPCS: 71260; 74177; Q9966; Q9967